=== PATIENT | male | born 1945 | race Caucasian/White ===

== ENCOUNTER → 2021-07-08 10:24 | Outpatient (BNVA) | payer MEDICARE, SELFPAY | PROVIDERS: PCP Internal Medicine; Visit Provider Surgery Vascular Surgery | DX: I73.9 Peripheral vascular disease, unspecified (principal) | CPT/HCPCS: 99202 ==

== ENCOUNTER 2021-08-04 13:19 | Outpatient (REF) | payer MEDICARE, SELFPAY ==
--- NOTE | ~2021-08-04 | US_ITS ---
EXAMINATION: US NON-INVASIVE ASSESSMENT OF THE ARTERIES OF BOTH LOWER EXTREMITIES WITH PVR EXAM AND LOWER EXTREMITY DUPLEX, BILATERAL CLINICAL INFORMATION: Peripheral vascular disease. COMPARISON: None TECHNIQUE: Ankle pulse volume recordings, ankle pressure measurements and ankle brachial indices were obtained of the lower extremity arterial system bilaterally. Additionally, duplex Doppler techniques were used with wave form analysis and measurement of velocities in the common femoral, profunda femoral, superficial femoral, popliteal and tibial arteries. The study was performed only at rest. FINDINGS: ANKLE-BRACHIAL INDEX: Right: 1.09, though unreliable given ankle pressures greater than 200 mmHg. Left: 1.09, though unreliable given ankle pressures greater than 200 mmHg. PVR WAVEFORM: Right: Dampened. Left: Dampened. DIRECT DUPLEX DOPPLER FINDINGS: RIGHT LEG: Common femoral artery: 278 cm/s, diastolic flow reversal: Yes. Profunda femoris artery: 289 cm/s, diastolic flow reversal: Yes. Superficial femoral artery (proximal): 211 cm/s, diastolic flow reversal: No. Superficial femoral artery (mid): 98.5 cm/s, diastolic flow reversal: No. Superficial femoral artery (distal): 89.1 cm/s, diastolic flow reversal: No. Popliteal artery: 182 cm/s, diastolic flow reversal: No. Posterior tibial artery: 61.3 cm/s, diastolic flow reversal: No. Peroneal artery: 21.6 cm/s, diastolic flow reversal: No. LEFT LEG: Common femoral artery: 190 cm/s, diastolic flow reversal: No. Profunda femoris artery: 105 cm/s, diastolic flow reversal: No. Superficial femoral artery (proximal): 149 cm/s, diastolic flow reversal: No. Superficial femoral artery (mid): 76.2 cm/s, diastolic flow reversal: No. Superficial femoral artery (distal): 48.3 cm/s, diastolic flow reversal: No. Popliteal artery: Appears focally occluded. Posterior tibial artery: 80.9 cm/s, diastolic flow reversal: No. Peroneal artery: Not visualized/occluded US/US arterial duplex LE BI IMPRESSION: 1. Right Leg: JT 1.09, though unreliable given elevated ankle pressures. Duplex ultrasound reveals elevated velocities within the common femoral and proximal superficial femoral artery consistent with moderate stenoses. Color flow images of the popliteal artery suggest a proximal occlusion with distal reconstitution. Monophasic waveforms are demonstrated throughout the leg. 2. Left Leg: JT 1.09, though unreliable given elevated ankle pressures. Duplex ultrasound reveals monophasic waveforms throughout the left lower extremity suggesting inflow stenosis. The left popliteal artery appears focally occluded as does the proximal left posterior tibial artery. No flow is definitely seen within the peroneal artery. 3. Consider further evaluation with lower extremity runoff. JT Reference: - >0.97-1.25 = normal - no significant arterial disease. - 0.75-0.96 = mild peripheral arterial disease. - 0.5-0.74 = moderate peripheral arterial disease. - <0.50 = severe peripheral arterial disease.
== END 2021-08-04 13:20 | disposition home or self-care (01) ==
LOC: HO.US 13:19
PROVIDERS: PCP Internal Medicine; Visit Provider Surgery Vascular Surgery
DX: I73.9 Peripheral vascular disease, unspecified (principal)
CPT/HCPCS: 93923; 93925

== ENCOUNTER → 2021-08-10 13:10 | Outpatient (BNVA) | payer MEDICARE, SELFPAY | PROVIDERS: PCP Internal Medicine; Visit Provider Surgery Vascular Surgery | DX: I73.9 Peripheral vascular disease, unspecified (principal) | CPT/HCPCS: 99212 ==

== ENCOUNTER 2022-03-03 12:48 | Outpatient (REF) | payer MEDICARE, OTHER, SELFPAY ==
--- NOTE | ~2022-03-03 | US_ITS ---
EXAMINATION: NONINVASIVE ASSESSMENT OF THE ARTERIES OF BOTH LOWER EXTREMITIES WITH PVR EXAM AND BILATERAL LOWER EXTREMITY DUPLEX Viola Alford MD CLINICAL INFORMATION: Peripheral vascular disease TECHNIQUE: Ankle pulse volume recordings, ankle pressure measurements and ankle brachial indices were obtained of the lower extremity arterial system bilaterally in addition to duplex Doppler techniques with wave form analysis and measurement of velocities in the common femoral, profunda femoral, superficial femoral, popliteal and tibial arteries. The study was performed only at rest. COMPARISON: Noninvasive arterial evaluation on 03/31/2016 FINDINGS: a) AT REST: RIGHT LE. The right ankle-brachial index is: 1.14 * >0.97-1.25 = normal - no significant arterial disease * 0.75-0.96 = mild peripheral arterial disease * 0.5-0.74 = moderate peripheral arterial disease * <0.50 = severe peripheral arterial disease 2. Right ankle pressure: Elevated 3. Right ankle PVR waveform: Abnormal 4. Right direct duplex Doppler findings: Common femoral artery: 355 cm/s, Multiphasic Profunda femoris artery: 90 cm/s, Multiphasic Superficial femoral artery (proximal): 173 cm/s, Multiphasic Superficial femoral artery (mid): 91 cm/s, Multiphasic Superficial femoral artery (distal): 76 cm/s, Multiphasic Proximal Popliteal artery: 39 cm/s, Multiphasic Mid posterior tibial artery: 90 cm/s, Multiphasic LEFT LE. The left ankle-brachial index is: 0.64 * >0.97-1.25 = normal - no significant arterial disease * 0.75-0.96 = mild peripheral arterial disease * 0.5-0.74 = moderate peripheral arterial disease * <0.50 = severe peripheral arterial disease 2. Left ankle pressure: Abnormal 3. Left ankle PVR waveform: Abnormal 4. Left direct duplex Doppler findings: Common femoral artery: 192 cm/s, Multiphasic Profunda femoris artery: 70 cm/s, Multiphasic Superficial femoral artery (proximal): 131 cm/s, Multiphasic Superficial femoral artery (mid): 78 cm/s, Multiphasic Superficial femoral artery (distal): 56 cm/s, monophasic Proximal Popliteal artery: 12 cm/s, monophasic Mid posterior tibial artery: 99 cm/s, monophasic US/US arterial duplex LE BI IMPRESSION: RIGHT LEG: Elevated velocities in the right common femoral artery without atherosclerotic calcification suggesting moderate stenosis. Additional scattered areas of mild stenosis throughout the right lower extremity. Elevated right ankle pressures and JT suggests atherosclerotic calcification. LEFT LEG: Evidence of moderate peripheral arterial disease throughout the left lower extremity..
== END 2022-03-03 12:49 | disposition home or self-care (01) ==
LOC: HO.US 12:48
PROVIDERS: PCP Internal Medicine; Visit Provider Surgery Vascular Surgery
DX: I73.9 Peripheral vascular disease, unspecified (principal)
CPT/HCPCS: 93923; 93925

== ENCOUNTER → 2022-03-22 14:23 | Outpatient (BNVA) | payer MEDICARE, SELFPAY | PROVIDERS: PCP Internal Medicine; Visit Provider Surgery Vascular Surgery | DX: I73.9 Peripheral vascular disease, unspecified (principal); G25.81 Restless legs syndrome | CPT/HCPCS: 99212 ==

== ENCOUNTER 2022-08-22 15:10 | Outpatient (REF) | payer MEDICARE, SELFPAY ==
--- NOTE | ~2022-08-22 | XR_ITS ---
EXAMINATION: XR CHEST CLINICAL INFORMATION: Cough. Shortness of breath. COMPARISON: 01/28/2015 TECHNIQUE: 2 views of the chest were obtained. FINDINGS: The lungs are moderately expanded. There is diffuse coarsening of the interstitial markings. There are multifocal infiltrates. No pleural effusion. Cardiac silhouette is unchanged. XR/XR chest 2V IMPRESSION: Multifocal pneumonia. Follow-up until resolution is advised.
== END 2022-08-22 15:11 | disposition home or self-care (01) ==
LOC: HO.HMGCX 15:10
PROVIDERS: PCP Internal Medicine; Visit Provider Internal Medicine
DX: R05.9 Cough, unspecified (principal); R06.02 Shortness of breath
CPT/HCPCS: 71046

== ENCOUNTER 2022-08-26 08:57 | Outpatient (REF) | payer MEDICARE, OTHER, SELFPAY ==
--- NOTE | ~2022-08-26 | XR_ITS ---
EXAMINATION: XR CHEST CLINICAL INFORMATION: Cough. Follow-up pneumonia. COMPARISON: 08/22/2022 and 01/28/2015 TECHNIQUE: 2 views of the chest were obtained. FINDINGS: The lungs are moderately expanded. There has been progression of coarsening of the interstitial markings. No significant pleural effusion. Cardiac silhouette is unchanged. XR/XR chest 2V IMPRESSION: Possible worsening pneumonia.
== END 2022-08-26 08:58 | disposition home or self-care (01) ==
LOC: HO.HMGCX 08:57
PROVIDERS: PCP Internal Medicine; Visit Provider Internal Medicine
DX: R05.9 Cough, unspecified (principal)
CPT/HCPCS: 71046

== ENCOUNTER 2022-09-01 09:39 | Outpatient (REF) | payer MEDICARE, SELFPAY ==
--- NOTE | ~2022-09-01 | XR_ITS ---
EXAMINATION: XR CHEST CLINICAL INFORMATION: Pneumonia previous x-ray. COMPARISON: 08/26/2022, 08/22/2022 and 01/01/[address] scan dated 10/23/2019. TECHNIQUE: 2 views of the chest were obtained. FINDINGS: The lungs are clear. There are no pleural effusions. The heart and mediastinal structures are unremarkable. Old healed right rib fractures are again noted. XR/XR chest 2V IMPRESSION: No acute cardiopulmonary process.
== END 2022-09-01 09:40 | disposition home or self-care (01) ==
LOC: HO.HMGCX 09:39
PROVIDERS: PCP Internal Medicine; Visit Provider Internal Medicine
DX: J18.9 Pneumonia, unspecified organism (principal)
CPT/HCPCS: 71046

== ENCOUNTER 2022-09-17 09:45 | Outpatient (REF) | payer MEDICARE, OTHER, SELFPAY ==
--- NOTE | ~2022-09-17 | XR_ITS ---
EXAMINATION: XR CHEST CLINICAL INFORMATION: Cough, follow-up pneumonia COMPARISON: 09/01/2022 TECHNIQUE: 2 views of the chest were obtained. FINDINGS: The cardiomediastinal silhouette is stable. Some streaky basilar opacities, right greater than left without dense consolidation. No pleural effusion or pneumothorax. Old right-sided rib fractures. XR/XR chest 2V IMPRESSION: Streaky basilar opacities favor atelectasis. No dense consolidation.
== END 2022-09-17 09:46 | disposition home or self-care (01) ==
LOC: HO.HMGCX 09:45
PROVIDERS: PCP Internal Medicine; Visit Provider Internal Medicine
DX: R05.9 Cough, unspecified (principal)
CPT/HCPCS: 71046

== ENCOUNTER → 2022-09-22 12:56 | Outpatient (REF) | payer MEDICARE, OTHER, SELFPAY ==
--- NOTE | 2022-09-22 12:59 | CA_ITS ---
Transthoracic Echocardiogram Patient (Last, First, Middle): Ilir Mitchell L Gender: Male Date of : 1945 Age: 77 Procedure Date: 09/22/2022 Procedure Type: Transthoracic Echocardiogram Location: OP Height: 172.72 cm Weight: 81.65 kg BSA: 1.95 m2 Heart Rate: 62 bpm BP: 148 / 82 mmHg Clearing Distribution Clerk: SB Referring MD: Josiah Verduzco MD Symptoms: SOB, R/O CHF Study Quality: Adequate ECG Rhythm: Undetermined Conclusions: - The left ventricular systolic function is moderately decreased. The calculated ejection fraction is 36% by biplane method. - There is severe septal and severe basal asymmetric hypertrophy. - There is moderate calcification of the aortic valve. There is mild aortic valve regurgitation. - There is moderate mitral annular calcification. There is mild to moderate mitral valve regurgitation. - There is mild dilatation of the ascending aorta measuring 4.00 cm. Findings Left Ventricle Normal left ventricular cavity size. There is moderately increased left ventricular wall thickness. The left ventricular systolic function is moderately decreased. The calculated ejection fraction is 36% by biplane method. Diastolic function is indeterminate on the basis of available data. There is severe septal and severe basal asymmetric hypertrophy. Right Ventricle Normal right ventricular cavity size. There is mildly decreased right ventricular systolic function. Atria The left atrium is moderately dilated. The right atrium is normal in size. Aortic Valve There is moderate calcification of the aortic valve. There is no aortic valve stenosis. There is mild aortic valve regurgitation. Mitral Valve There is moderate mitral annular calcification. There is mild to moderate mitral valve regurgitation. There is no mitral valve stenosis. Pulmonic Valve The pulmonic valve is likely normal. Tricuspid Valve Normal tricuspid valve structure. There is mild tricuspid valve regurgitation. There is no evidence of pulmonary hypertension. Great Vessels There is mild dilatation of the ascending aorta measuring 4.00 cm. Venous The inferior vena cava is normal in size. Pericardium/Pleural There is a trivial pericardial effusion. Prior Study Comparison Changes noted compared to prior study dated: 04/02/2018. Decrease in LVEF. Measurements 2D Linear Measurements IVSd: 1.30 0.6-0.9/0.6-1.0 cm LVIDd: 5.10 3.9-5.3/4.2-5.9 cm LVIDd Index: 2.62 2.4-3.2/2.2-3.1 cm/m2 LVIDs: 4.40 2.0-3.6 cm LVPWd: 1.20 0.7-1.1 cm LA Diam: 5.40 2.7-3.8/3.0-4.0 cm LAIDs Index: 2.77 1.5-2.3 cm/m2 LV Mass: 318.58 67-162/88-224 g LV Mass Index: 163.37 43-95/49-115 g/m2 LVOT Diam: 2.30 3.0+(-)1.3 cm 2D Systolic Function EF 4C: 42.10 >55% EF 2C: 29.30 >55% EF BiP: 36.40 >55% Mitral Valve MR Vol - PW Dopp: 31.72 MR VTI: 2.44 MR ERO: 13.00 MR Alias Zbigniew: 0.39 MR RAD: 0.60 Aortic Valve AoV Pk Zbigniew: 2.13 AoV Mn Zbigniew: 1.39 AoV VTI: 0.41 AoV Pk Grad: 18.00 Aov Mn Grad: 9.00 MITZI Cont.VTI: 2.09 AI Pk Zbigniew: 4.91 AI Wilkinson: 3.08 LVOT LVOT Pk Zbigniew: 1.04 LVOT Mn Zbigniew: 0.67 LVOT VTI: 0.21 LVOT Pk Grad: 4.00 LVOT Mn Grad: 2.00 LVOT Diam: 2.30 LVOT Area: 4.15 Right Ventricle TAPSE (mm): 18.30 TVS' Zbigniew: 9.70 Tricuspid Valve TR Pk Zbigniew: 2.65 TR Pk Grad: 28.00 RA Press: 3.00 RVSP: 31.00 Great Vessels Aorta Sinus of Valsalva: 3.10 2.0-3.5 cm Ao Asc: 4.00 2.1-3.4 cm Pulmonary Valve PV Pk Zbigniew: 0.78 Peak PV Grad: 2.00 Updated in Other Vendor System with Status of Final Gallo Paez MD electronically signed on 09/22/2022 4:21:57 PM with status of Final
== END ==
LOC: HO.CARD 12:56
PROVIDERS: PCP Internal Medicine; Visit Provider Internal Medicine
DX: R06.02 Shortness of breath (principal)
CPT/HCPCS: 93306

== ENCOUNTER → 2022-09-22 12:59 | Outpatient (BNV) | payer MEDICARE, SELFPAY | PROVIDERS: PCP Internal Medicine; Visit Provider Internal Medicine | DX: I35.8 Other nonrheumatic aortic valve disorders (principal); I34.0 Nonrheumatic mitral (valve) insufficiency | CPT/HCPCS: 93306 ==

== ENCOUNTER 2023-03-04 10:05 | Outpatient (REF) | payer MEDICARE, OTHER, SELFPAY | END 2023-03-04 10:06 | disposition home or self-care (01) | LOC: HO.HMGCX 10:05 | PROVIDERS: PCP Internal Medicine; Visit Provider Internal Medicine | DX: M54.50 Low back pain, unspecified (principal) | CPT/HCPCS: 72100 ==

== ENCOUNTER 2023-05-02 12:07 | Emergency (ER) | payer MEDICARE, OTHER, SELFPAY ==
--- NOTE | ~2023-05-02 | XR_ITS ---
EXAMINATION: XR CHEST 2 VIEWS CLINICAL INFORMATION: Low oxygen saturation level. COMPARISON: Chest radiographs dated 09/17/2022. TECHNIQUE: Frontal and lateral views of the chest were obtained. FINDINGS: There is stable cardiomegaly. There is pulmonary vascular congestion, without overt pulmonary edema. There is moderate elevation of the right hemidiaphragm, increased from 09/17/2022. No new infiltrate, effusion or pneumothorax is seen. No acute osseous abnormality. XR/XR chest 2V IMPRESSION: 1. There is cardiomegaly. There is pulmonary vascular congestion, without overt pulmonary edema. 2. No focal infiltrate is seen. 3. There is moderate elevation of the right hemidiaphragm.
--- NOTE | ~2023-05-02 | CT_ITS ---
EXAMINATION: CT HEAD WITHOUT CONTRAST CLINICAL INFORMATION: Altered mental status, hallucinations. COMPARISON: CT head 10/08/2014. TECHNIQUE: Contiguous axial imaging was performed from the skull base to vertex without intravenous administration of contrast. This CT examination was performed using dose optimization techniques as appropriate, variously including the following: *Automated exposure control *Adjustment of mA and/or kV according to patient size (this includes techniques or standardized protocols for targeted exams where dose is matched to indication/reason for exam; i.e. extremities or head) *Use of iterative reconstruction technique DLP: 742 mGy-cm FINDINGS: There is no evidence of acute intracranial hemorrhage or edematous territorial infarction. Scattered hypoattenuation in the periventricular and deep white matter are consistent with moderate microangiopathy. Beatty-white matter differentiation is preserved. Proportional prominence of the ventricles and sulcal spaces. No evidence for obstructive hydrocephalus. No abnormal mass effect or midline shift. No extra-axial fluid collections. No acute soft tissue or osseous abnormalities. The mastoid air cells and paranasal sinuses are clear. CT/CT head/brain wo IV con IMPRESSION: 1. No evidence of acute intracranial hemorrhage or edematous territorial infarction. 2. Chronic microangiopathy and generalized cerebral volume loss.
[2023-05-02 12:11] VITALS: BP 135/77; PULSE 63; RESP 18; TEMP 36.6; O2SAT 92; BMI 27.4
--- NOTE | 2023-05-02 13:24 | ECG_ITS ---
Test Reason : WEAKNESS Blood Pressure : / mmHG Vent. Rate : 063 BPM Atrial Rate : 063 BPM P-R Int : 338 ms QRS Dur : 108 ms QT Int : 456 ms P-R-T Axes : 017 -41 139 degrees QTc Int : 466 ms Sinus rhythm with 1st degree A-V block Left axis deviation Non-specific intra-ventricular conduction block Left ventricular hypertrophy with repolarization abnormality ( R in aVL , [employer] product ) Abnormal ECG When compared with ECG of 28-JAN-2015 15:20, ND interval has increased Intra-ventricular conduction delay present with prolonged AV conduction Referred By: Tyrese Torres Electronically Signed By:TYRESE HUNT
--- NOTE | 2023-05-02 13:27 | ED_ITS ---
HPI - General Adult General Chief complaint: Psychiatric Symptoms Stated complaint: AUDITORY/VISUAL HALLUCINATIONS PER EMS Time Seen by Provider: 05/02/23 13:05 History of Present Illness HPI narrative: The patient is a 77-year-old male who lives at home with his nephew. The patient is a . His about 6 years ago. Apparently his nephew is also a . The patient has had problems with bad dreams ever since his . Over the last few days however he has also had daytime hallucinations about his . This morning for example he describes seeing his in his bed next to him. He tried to touch her but could not. Apparently this has been happening for the past few days and today his nephew called his PCP who advised the patient to come to the emergency room for evaluation. The nephew then called an ambulance and he was brought here. The patient was seen at his PCP's office on Monday. Apparently he was prescribed an antibiotic because of some small wounds on his legs. The patient denies any fevers, sweats, chills. He denies any dysuria, urgency, frequency. Related Data Home Medications Medication Instructions Recorded Confirmed allopurinol 300 mg tablet 300 mg PO DAILY 07/08/21 05/02/23 folic acid 1 mg tablet 1 mg PO DAILY 07/08/21 05/02/23 levothyroxine 25 mcg tablet 25 mcg PO QAM 07/08/21 05/02/23 losartan 100 mg tablet 100 mg PO DAILY 07/08/21 05/02/23 metformin 500 mg tablet 500 mg PO BID 07/08/21 05/02/23 metoprolol tartrate 100 mg tablet 100 mg PO BID 07/08/21 05/02/23 omeprazole 40 mg capsule,delayed 40 mg PO DAILY 07/08/21 05/02/23 release prednisone 5 mg tablet 5 mg PO DAILY 07/08/21 05/02/23 pyridoxine (vitamin B6) 50 mg 50 mg PO DAILY 07/08/21 05/02/23 tablet rosuvastatin 20 mg tablet 20 mg PO DAILY 07/08/21 05/02/23 thiamine HCl (vitamin B1) 100 mg 100 mg PO DAILY 07/08/21 05/02/23 tablet apremilast 30 mg tablet (Otezla) 30 mg PO BID 05/02/23 clonazepam 1 mg tablet 1 mg PO BEDTIME 05/02/23 05/02/23 hydralazine 50 mg tablet 50 mg PO BID 05/02/23 05/02/23 loratadine 10 mg tablet (Allergy 10 mg PO DAILY 05/02/23 05/02/23 Relief (loratadine)) naproxen 500 mg tablet 500 mg PO BID Pain 05/02/23 05/02/23 nicotine 21 mg/24 hr daily 1 patch transdermal DAILY PRN 05/02/23 05/02/23 transdermal patch Nicotine Cravings Allergies Allergy/AdvReac Type Severity Reaction Status Date / Time CRANBERRY JUICE Allergy Unknown DIARRHEA Uncoded 03/22/22 14:33 Review of Systems 2 Review of Systems: Yes all other systems are reviewed and are negative [facility] Past Medical History Medical History CKD (chronic kidney disease), stage III COPD (chronic obstructive pulmonary disease) Dyslipidemia GERD (gastroesophageal reflux disease) Gout History of underactive thyroid HTN (hypertension) Thrombocytosis Surgical History S/P balloon dilatation of esophageal stricture Social History Social History (Updated 03/22/22 @ 14:33 by JOHANNA Curtis) Patient Tobacco Use Status: Current everyday Tobacco user Smoking Start Date: 05/17/1960 Cigarettes Per Day: 4 Smoked in Last 30 Days: Yes Use of substances other than those prescribed or required for medical reasons: No Advance Directives: No Advance Directives Information Provided: Yes Physical Exam ED Vital Signs: Vital Signs - 24 hr 05/02/23 12:11 05/02/23 14:55 05/02/23 17:33 Temperature 97.8 F 97.6 F Pulse Rate 63 63 61 Respiratory Rate 18 14 14 Blood Pressure 135/77 138/86 111/85 Pulse Oximetry 92 94 94 Oxygen Delivery Method Room Air Room Air Room Air 05/02/23 20:22 Temperature Pulse Rate 63 Respiratory Rate 16 Blood Pressure 147/86 H Pulse Oximetry 93 Oxygen Delivery Method Room Air BMI result Body Mass Index 27.4 Const Other: The patient is a chronically ill-appearing 77-year-old. He looks quite frail. He looks chronically ill but not obviously acutely ill. HENMT Other: Mucous membranes look quite dry. Eyes Other: Pupils are round equal, conjunctivae are clear, extraocular movements intact Neck Neck: Yes no JVD Resp Effort & Inspection: normal respiratory effort Auscultation: clear to auscultation bilaterally Cardio Rate: regular rate Rhythm: regular rhythm Heart sounds: S1 normal heart sound present and S2 normal heart sound present GI Other: Abdomen is soft and nontender. Skin Other: The patient has a lot of areas of ecchymoses to his extremities. Also multiple small scabbed areas on his shins. No definite confluent erythema to suggest cellulitis. Neuro Other: The patient is awake and alert. He is pleasant and cooperative. He has a somewhat vague demeanor but seems reasonably well oriented and seems to have a fairly clear mental status. Face is symmetrical. Speech is without face or dysarthria. He moves his extremities symmetrically. He seems frail and deconditioned but without a focal neurological deficit. Extrem Other: No calf swelling or tenderness. Medications Administered Generic Name Dose Route Start Last Admin Trade Name Freq PRN Reason Stop Dose Admin Cephalexin HCl 500 mg 05/02/23 18:15 05/02/23 19:45 Cephalexin 500 Mg Capsule PO 500 mg BID KASHIF Administration Clonazepam 1 mg 05/02/23 21:10 05/02/23 22:06 Clonazepam 1 Mg Tablet PO 1 mg BEDTIME KASHIF Administration Hydralazine HCl 50 mg 05/02/23 21:10 05/02/23 22:06 Hydralazine Hcl 50 Mg Tablet PO 50 mg BID KASHIF Administration Protocol Metformin HCl 500 mg 05/02/23 21:10 05/02/23 22:06 Metformin Hcl 500 Mg Tablet PO 500 mg BID KASHIF Administration Metoprolol Tartrate 100 mg 05/02/23 21:10 05/02/23 22:06 Metoprolol Tartrate 100 Mg Tablet PO 100 mg BID KASHIF Administration Protocol Discontinued Medications Generic Name Dose Route Start Last Admin Trade Name Freq PRN Reason Stop Dose Admin Sodium Chloride 1,000 mls @ 999 mls/hr 05/02/23 14:45 05/02/23 16:30 Ns IV 05/02/23 15:45 Infused .Q1H1M KASHIF Infusion Medical Decision Making Medical Decision Making [facility] Narrative: The patient is a very pleasant 77-year-old who comes to the emergency room primarily because of recent hallucinations. Clinically the patient looks somewhat dehydrated. His vital signs are stable. His labs show creatinine of 1.82 with a BUN of 23. We do not have old labs here for comparison. I was able to obtain old laboratory values from the patient's primary care doctor's office. On 11/23/2022 the patient had a creatinine of 1.81 with a BUN of 25 2 weeks ago on 04/18/2023 he had a creatinine of 1.9 with a BUN of 16. The patient's renal function today is therefore not remarkably different from recent lab values from his PCP's office. The patient was given a L of IV normal saline is clinically he seemed dry. I was surprised that his proBNP came back significantly elevated at 4352. On further review of records he had a transthoracic echocardiogram on 09/22/2022 which showed an ejection fraction of 36%. His troponin is normal. Chest x-ray was read as showing signs of pulmonary vascular congestion without gage pulmonary edema. The patient's urinalysis came back mildly abnormal potentially consistent with a UTI although the patient does not have symptoms of dysuria or other symptoms of UTI (he says he has had UTI in the last year or 2 and he does not feel he has the same symptoms today). Overall I think the patient is probably at his medical baseline. I suspect his hallucinations are probably not related to an acute medical process. Nevertheless we will treat him empirically on cephalexin pending the results of his urine culture. Otherwise I think the patient is medically stable and clear for a psychiatric evaluation. A care team consult has been placed. I spoke to the patient's nephew, Ramiro Cool, with whom the patient lives, at telephone [phone]. He said that the patient has been hallucinating since Monday. He says that the patient has been hallucinating about his did . The nephew also says the patient has hallucinated that other women have been with them in the apartment. The nephew says the patient has been taking his medications in a very chaotic manner. The nephew says that he might be able to list his sister to help manage the patient's medications when the patient comes home. Additionally the nephew says that the patient has made some comments potentially indicating some paranoia such as the patient is saying that the nephew might kill him (the patient) if he does not give the nephew money for groceries. Lab Data 05/02/23 13:30 05/02/23 13:30 Labs: Lab Results 05/02/23 05/02/23 Range/Units 13:30 16:28 WBC 7.3 (4.8-10.8) X10*3/uL RBC 4.76 (4.60-5.80) X10*6/uL Hgb 11.5 L (14.0-18.0) g/dl Hct 39.0 L (42.0-52.0) % MCV 81.9 (80.0-98.0) fL MCH 24.2 L (27.0-33.0) pg MCHC 29.5 L (31.0-36.0) g/dl RDW 18.6 H (11.0-16.0) % Plt Count 186 (160-400) X10*3/uL MPV 10.8 (9.4-12.4) fL Immature Gran % (Auto) 0.4 (0.0-0.4) % Neut % (Auto) 76.9 H (45-73) % Lymph % (Auto) 9.8 L (20-40) % [place] % (Auto) 11.3 H (2-11) % Eos % (Auto) 1.1 (0-4) % Baso % (Auto) 0.5 (0-2) % Lymph # (Auto) 0.7 L (1.2-4.9) X10*3/uL [place] # (Auto) 0.8 (0.1-1.2) X10*3/uL Eos # (Auto) 0.1 (0.0-0.4) X10*3/uL Baso # (Auto) 0.0 (0.0-0.2) X10*3/uL Abs Immat Gran (auto) 0.03 (0.00-0.03) X10*3/uL Absolute Neuts (auto) 5.6 (2.0-8.3) x10*3/uL Absolute Nucleated RBC 0.000 (0.0-0.012) X10*3/uL Nucleated RBC % (auto) 0.0 (0.0-0.2) /100WBC PT 12.5 (11.1-13.3) SEC INR 1.0 (0.9-1.1) Sodium 142 (135-145) mmol/L Potassium 5.6 H (3.3-5.1) mmol/L Chloride 111 H (96-108) mmol/L Carbon Dioxide 26 (22-29) mmol/L Anion Gap 11 L (12-20) BUN 23 H (9-16) mg/dL Creatinine 1.82 H (0.5-1.4) mg/dL Estim Creat Clear Calc 33.4 Estimated GFR 36 Random Glucose 103 (60-115) mg/dL Calcium 9.5 (8.4-10.2) mg/dL Magnesium 1.6 (1.6-2.6) mg/dL Total Bilirubin 0.5 (0.0-1.0) mg/dL Direct Bilirubin 0.2 (0.0-0.5) mg/dL AST 26 (5-37) U/L ALT 13 (0-40) U/L Alkaline Phosphatase 111 (39-117) U/L Troponin I High Sens 15.7 (<3.5-35.0) ng/L C-Reactive Protein 1.07 H (< or = 0.50) mg/dL B-Natriuretic Peptide 4352 H (<100) pg/mL Total Protein 6.4 L (6.5-8.0) g/dL Albumin 3.4 L (3.5-5.0) g/dL Urine Color Yellow Urine Appearance Clear Urine pH 8.0 (5.0-9.0) Ur Specific [place] 1.020 (1.005-1.025) Urine Protein 100 (2+) H (Neg-Trace) mg/dL Urine Glucose (UA) Negative (Negative) mg/dL Urine Ketones Negative (Negative) mg/dL Urine Blood Negative (Negative) Urine Nitrite Negative (Negative) Ur Leukocyte Esterase Trace H (Negative) Urine RBC 0-2 (0-2) /HPF Urine WBC 21-50 H (0-5) /HPF Ur Squamous Epith Cells 0-2 (0-2) /HPF Urine Bacteria None Seen (None Seen) Hyaline Casts 0-2 (0-2) /LPF Salicylates < 5.0 L (15-30) mg/dL Urine Opiates Screen Not Detected (Not Detect) Urine Fentanyl Screen Not Detected (Not Detect) Acetaminophen < 3 (<30) mcg/mL Ur Barbiturates Screen Not Detected (Not Detect) Ur Phencyclidine Scrn Not Detected (Not Detect) Ur Amphetamines Screen Not Detected (Not Detect) U Benzodiazepines Scrn Not Detected (Not Detect) Urine Cocaine Screen Not Detected (Not Detect) U Marijuana (THC) Screen Not Detected (Not Detect) Ethyl Alcohol < 10 mg/dL COVID-19 (MANUEL) Negative (Negative) COVID-19 Clin Com See Note Independent Interpretation I performed an independent interpretation of an: EKG Interpretation: EKG at 14:51 shows sinus rhythm with a first-degree AV block at 63 beats per minute. There is left axis deviation. There is an incomplete right bundle branch block. There is evidence of LVH. Last EKG was in 2014. EKG today is fairly similar. Discharge Plan Discharge Clinical Impression: Hallucinations Patient Disposition: Still a Patient Prescriptions: No Action clonazepam 1 mg tablet 1 mg PO BEDTIME hydralazine 50 mg tablet 50 mg PO BID loratadine [Allergy Relief (loratadine)] 10 mg tablet 10 mg PO DAILY naproxen 500 mg tablet 500 mg PO BID Otezla 30 mg Tablet 30 mg PO BID nicotine 21 mg/24 hr Patch 24 Hour 1 patch TRANSDERMAL DAILY PRN (Reason: Nicotine Cravings) rosuvastatin 20 mg tablet 20 mg PO DAILY losartan 100 mg tablet 100 mg PO DAILY allopurinol 300 mg tablet 300 mg PO DAILY folic acid 1 mg tablet 1 mg PO DAILY pyridoxine (vitamin B6) 50 mg tablet 50 mg PO DAILY levothyroxine 25 mcg tablet 25 mcg PO QAM omeprazole 40 mg capsule,delayed release(DR/EC) 40 mg PO DAILY prednisone 5 mg tablet 5 mg PO DAILY thiamine HCl (vitamin B1) 100 mg tablet 100 mg PO DAILY metformin 500 mg tablet 500 mg PO BID metoprolol tartrate 100 mg tablet 100 mg PO BID Interventions: [place]-Suicide Risk Severity Scale Last Done: 05/02/23 12:30
[2023-05-02 13:36] LABS: MANUAL DIFF FLAG NO
[2023-05-02 13:40] LABS: Basophils Percent Auto 0.5 % (0-2); Eosinophils Absolute Auto 0.1 X10*3/uL (0.0-0.4); Eosinophils Percent Auto 1.1 % (0-4); Hemoglobin 11.5 g/dl (14.0-18.0); Imm Gran Abs Auto 0.03 X10*3/uL (0.00-0.03); Imm Gran Pct Auto 0.4 % (0.0-0.4); Lymphocytes Absolute Auto 0.7 X10*3/uL (1.2-4.9); Lymphocytes Percent Auto 9.8 % (20-40); Mean Corpuscular HGB Conc 29.5 g/dl (31.0-36.0); Mean Corpuscular Hemoglobin 24.2 pg (27.0-33.0); Mean Corpuscular Volume 81.9 fL (80.0-98.0); Mean Platelet Volume 10.8 fL (9.4-12.4); Monocytes Absolute Auto 0.8 X10*3/uL (0.1-1.2); Monocytes Percent Auto 11.3 % (2-11); Neutrophils Absolute Auto 5.6 x10*3/uL (2.0-8.3); Neutrophils Percent Auto 76.9 % (45-73); Platelet Count 186 X10*3/uL (160-400); Red Blood Count 4.76 X10*6/uL (4.60-5.80); Red Cell Distribution Width 18.6 % (11.0-16.0); White Blood Count 7.3 X10*3/uL (4.8-10.8)
[2023-05-02 13:44] LABS: Prothrombin Time 12.5 SEC (11.1-13.3)
[2023-05-02 13:50] LABS: COVID-19 Test Negative (Negative); Ethanol < 10 mg/dL; IDNOW Serial# 08D9AD1C
[2023-05-02 13:51] LABS: Anion Gap 11 (12-20); Blood Urea Nitrogen 23 mg/dL (9-16); Calcium 9.5 mg/dL (8.4-10.2); Carbon Dioxide 26 mmol/L (22-29); Chloride 111 mmol/L (96-108); Creatinine Clr Calc Pharmacy 33.4; Estimated Glomerular Filt Rate 36; Glucose Random 103 mg/dL (60-115); Potassium 5.6 mmol/L (3.3-5.1); Sodium 142 mmol/L (135-145)
[2023-05-02 13:52] LABS: Alanine Aminotransferase 13 U/L (0-40); Albumin Level 3.4 g/dL (3.5-5.0); Alkaline Phosphatase 111 U/L (39-117); Aspartate Amino Transferase 26 U/L (5-37); Bilirubin Direct 0.2 mg/dL (0.0-0.5); Bilirubin Total 0.5 mg/dL (0.0-1.0); C Reactive Protein 1.07 mg/dL (< or = 0.50); Magnesium 1.6 mg/dL (1.6-2.6); Total Protein 6.4 g/dL (6.5-8.0)
[2023-05-02 14:09] LABS: Acetaminophen LAB < 3 mcg/mL (<30); Salicylate < 5.0 mg/dL (15-30)
[2023-05-02 14:55] VITALS: BP 138/86; PULSE 63; RESP 14; TEMP 36.4; O2SAT 94
[2023-05-02] MEDS: 0.9 % Sodium Chloride 1,000 ML 999 ML IV (15:05)
[2023-05-02 15:27] LABS: Troponin-I High Sensitivity 15.7 ng/L (<3.5-35.0)
[2023-05-02 15:33] LABS: B Type Natriuretic Peptide 4352 pg/mL (<100)
[2023-05-02 16:41] LABS: Appearance Urine Clear; Color Urine Yellow; Glucose Urine UA Negative (Negative); Leukocyte Esterase Urine Trace (Negative); Nitrite Urine Negative (Negative); UMIC TRIGGER UACC YES; Urine Blood Negative (Negative); Urine Ketones Negative (Negative); Urine Protein 100 (2+) mg/dL (Neg-Trace)
[2023-05-02 16:45] LABS: Amphetamine Screen Urine Not Detected (Not Detect); Barbiturates, Urine Not Detected (Not Detect); Benzodiazepines Screen Urine Not Detected (Not Detect); Cannabinoid Screen Urine Not Detected (Not Detect); Cocaine Screen Urine Not Detected (Not Detect); Fentanyl, urine Not Detected (Not Detect); Opiate Screen Urine Not Detected (Not Detect); Phencyclidine Screen Urine Not Detected (Not Detect)
[2023-05-02 16:46] LABS: Bacteria Urine None Seen (None Seen); Hyaline Casts Urine 0-2 /LPF (0-2); RBC Urine 0-2 /HPF (0-2); Squamous Epithelial Cell Urine 0-2 /HPF (0-2); UACC Culture Trigger YES; WBC Urine 21-50 /HPF (0-5)
--- NOTE | 2023-05-02 17:15 | PHA.MEDREC ---
Addendum entered by Dayana Lopez [facility] 05/02/23 17:25: Per PDMP, Amiben has not been filled since 05/17/21 and not on provider list therefore removed. Otelza is on list from provider and is a speciality medications for psorais therefore most likely not filled at his local [facility]. Patient's nephew did not seem too sure on medications. If it can be confirm on the future med will need to be brought in for patient Original Note: Pharmacy Consult ? Medication Reconciliation Pharmacy has completed the medication reconciliation. Confirmed medications with a list brought from home and claim history. Called nephew and he confirmed that patient does take Zolpidem prn to sleep but there is no recent claim history. He also confirmed that patient does not use Albuterol inhaler. Otezla 30mg is on his list (notated that insurance does not cover it) but not on the claim history.
[2023-05-02 17:33] VITALS: BP 111/85; PULSE 61; RESP 14; O2SAT 94
--- NOTE | 2023-05-02 17:57 | PC.NURSE ---
ELIJAH PIPING BLOCKER PHONE # [phone]
--- NOTE | 2023-05-02 17:58 | PC.NURSE ---
PER DIRECTOR OF VOCATIONAL GUIDANCE ELIJAH, PT STARTED HAVING MORE DIFFICULTY WALKING OVER THE PAST 4 MONTHS, USES A CANE AT HOME.
[2023-05-02] MEDS: cephALEXin 500 MG CAPSULE PO (19:45)
[2023-05-02 20:22] VITALS: BP 147/86; PULSE 63; RESP 16; O2SAT 93
[2023-05-02] MEDS: Metoprolol Tartrate 100 MG TABLET PO (22:06)
[2023-05-02] MEDS: hydrALAZINE HCl 50 MG TABLET PO (22:06)
[2023-05-02] MEDS: metFORMIN HCl 500 MG TABLET PO (22:06)
[2023-05-02] MEDS: clonazePAM 1 MG TABLET PO (22:06)
[2023-05-02 22:17] VITALS: BP 125/86; PULSE 71; RESP 20; O2SAT 93
--- NOTE | 2023-05-02 22:26 | PC.NURSE ---
PT REQUIRING 1-ASSIST WITH WALKER TO AMBULATE TO RESTROOM. A&OX2 AT THIS TIME. CAN RESPOND TO MOST QUESTIONS APPROPRIATELY, AND MAKE NEEDS KNOWN. NIGHT RXS ADMINISTERED, PT REQUESTING NICOTINE PATCH.
--- NOTE | 2023-05-02 23:32 | PC.NURSE ---
This RN took over pt care @ 3970. Pt ca&ox3, no signs of distress. Pt sitting up in bed. Pt advised not to attempt to get out of bed without assistance. Plan of care ongoing.
[2023-05-03] MEDS: Nicotine 21 MG PATCH.TD24 TRANSDERMA (00:04)
--- NOTE | 2023-05-03 00:06 | PC.NURSE ---
Pt medicated per may. Plan of care ongoing.
[2023-05-03 04:16] VITALS: BP 135/62; PULSE 97; RESP 20; O2SAT 98
[2023-05-03] MEDS: Omeprazole 40 MG CAPSULE.DR PO (05:55)
[2023-05-03] MEDS: Levothyroxine Sodium 25 MCG TABLET PO (05:55)
--- NOTE | 2023-05-03 05:58 | PC.NURSE ---
Pt medicated per may. Plan of care ongoing.
--- NOTE | 2023-05-03 07:36 | MHC.CM.ED ---
Received case management consult overnight. Care Team consult also ordered. Will make sure patient is cleared by Care Team before assessed by Case Management. Continue to monitor for d/c needs.
[2023-05-03 08:10] VITALS: BP 115/57; PULSE 58; O2SAT 94
--- NOTE | 2023-05-03 08:49 | PC.NURSE ---
nad, eating breakfast now and talking with CARE team
--- NOTE | 2023-05-03 09:25 | PC.NURSE ---
care team at bedside talking w pt - sitting at side of bed. ate breakfast. no distress.
[2023-05-03 09:37] VITALS: BP 174/74; PULSE 52; RESP 12; TEMP 36.4; O2SAT 94
[2023-05-03 10:40] VITALS: BP 136/77; PULSE 63
--- NOTE | 2023-05-03 10:43 | PC.NURSE ---
med sandra'd vit b from dalia tee.
[2023-05-03] MEDS: Atorvastatin Calcium 80 MG TABLET PO (10:47)
[2023-05-03] MEDS: Thiamine HCL 100 MG TABLET PO (10:47)
[2023-05-03] MEDS: allopurinoL 300 MG TABLET PO (10:47)
[2023-05-03] MEDS: predniSONE 5 MG TABLET PO (10:47)
[2023-05-03] MEDS: metFORMIN HCl 500 MG TABLET PO (10:47)
[2023-05-03] MEDS: Losartan Potassium 50 MG TABLET 100 MG PO (10:47)
[2023-05-03] MEDS: Loratadine 10 MG TABLET PO (10:47)
[2023-05-03] MEDS: Folic Acid 1 MG TABLET PO (10:47)
[2023-05-03] MEDS: cephALEXin 500 MG CAPSULE PO (10:48)
[2023-05-03] MEDS: Metoprolol Tartrate 100 MG TABLET PO (10:48)
[2023-05-03] MEDS: hydrALAZINE HCl 50 MG TABLET PO (10:48)
--- NOTE | 2023-05-03 10:58 | PC.NURSE ---
care team at bedside, d/c instructions being reviewed.
[2023-05-03] MEDS: Pyridoxine HCl (Vitamin B6) 50 MG TABLET PO (11:07)
--- NOTE | 2023-05-03 11:09 | MHC.CM.ED ---
Patient has been cleared by Care Team. [facility] has been arranged for patient by CM to help with medication compliance. Also rent referral to [facility] to see if patient would qualify for any additional services. Continue to monitor for d/c needs.
== END 2023-05-03 11:40 | disposition home or self-care (01) ==
PROVIDERS: Emergency Provider Emergency Medicine; PCP Internal Medicine
DX: S81.812A Laceration without foreign body, left lower leg, initial encounter (principal); S81.811A Laceration without foreign body, right lower leg, initial encounter; R44.0 Auditory hallucinations; E86.0 Dehydration; I44.0 Atrioventricular block, first degree; F17.200 Nicotine dependence, unspecified, uncomplicated; R94.31 Abnormal electrocardiogram [ECG] [EKG]; R41.82 Altered mental status, unspecified; R06.02 Shortness of breath; X58.XXXA Exposure to other specified factors, initial encounter; Y93.9 Activity, unspecified; Y92.9 Unspecified place or not applicable; Y99.9 Unspecified external cause status; Z11.52 Encounter for screening for COVID-19; Z79.899 Other long term (current) drug therapy
CPT/HCPCS: 36415; 70450; 71046; 80048; 80076; 80143; 80179; 80307; 81001; 83735; 83880; 84484; 85025; 85610; 86140; 87086; 87635; 93005; 96360; 99285; S9485

== ENCOUNTER → 2023-05-02 13:24 | Outpatient (BNV) | payer MEDICARE, SELFPAY | PROVIDERS: Emergency Provider Emergency Medicine; PCP Internal Medicine; Visit Provider Internal Medicine | DX: I44.0 Atrioventricular block, first degree (principal); R94.31 Abnormal electrocardiogram [ECG] [EKG] | CPT/HCPCS: 93010 ==

== ENCOUNTER 2023-07-26 16:58 | Inpatient (IN) | payer MEDICARE, SELFPAY ==
--- NOTE | ~2023-07-26 | US_ITS ---
PROCEDURE: Ultrasound-guided left thoracentesis History: Left pleural effusion Specimen: A sample of pleural fluid was sent for analysis Access: 5 Danish Yueh catheter Medications: 10 mL 1% lidocaine TECHNIQUE/FINDINGS Appropriate preprocedural clinical history and imaging studies were reviewed. The patient was brought to the department and placed in the seated position. Ultrasound images of the left thorax were obtained to localize a large pleural effusion. Permanent ultrasound images were saved. Risks and benefits and possible complications were discussed with the patient's healthcare proxy and consent form was signed. An area of the patient's left back was prepped and draped in usual sterile fashion. 10 mL of 1% lidocaine was used to obtain local anesthesia of the skin and deeper tissues. A standard small bore needle was introduced to sample pleural fluid and demonstrate a safe access route. A 5 Danish Yueh catheter was then used to access the pleural cavity. 900 ml of non-clotting, blood tinged fluid was removed passively. The catheter was then removed. A dressing was applied. A postprocedure chest x-ray will be performed and will be dictated separately. There were no immediate complications. The procedure was performed by Lex Bartlett PA-C and supervised by Dr. Gibbs US/US thoracentesis Impression: Ultrasound-guided left thoracentesis
--- NOTE | ~2023-07-26 | XR_ITS ---
EXAMINATION: XR CHEST CLINICAL INFORMATION: Wheezing and shortness of breath COMPARISON: 05/02/2023 TECHNIQUE: Frontal view of the chest was obtained. FINDINGS: There is mild cardiac enlargement. There is increased density seen in the retrocardiac region with obscuration of the left hemidiaphragm and a small left pleural effusion. There is some right basilar atelectasis. There is mild pulmonary vascular congestion centrally. XR/XR chest 1V IMPRESSION: 1. Cardiomegaly with mild pulmonary vascular congestion. 2. Left lower lobe infiltrate with small left pleural effusion.
--- NOTE | ~2023-07-26 | US_ITS ---
EXAMINATION: NONINVASIVE ASSESSMENT OF THE ARTERIES OF BOTH LOWER EXTREMITIES Keon Bustos MD CLINICAL INFORMATION: Nonhealing wounds with weak pedal pulses TECHNIQUE: Bilateral lower extremity duplex ultrasound was performed with velocity measurements and waveform analysis in the common femoral arteries, profunda femoris arteries, proximal mid and distal superficial femoral arteries, popliteal arteries and tibial vessels. This study was performed only at rest. COMPARISON: 03/03/2022 FINDINGS: Velocities in cm/sec and phasicity as well as the presence of plaque are reported below. RIGHT LEG: Scattered moderate plaque is present. Common Femoral: 343 velocities elevated but a definite stenosis is not seen. Triphasic flow Profunda Femoris: 281 there is a proximal stenosis with monophasic flow distally Proximal SFA: 235 heavily calcified Mid SFA: 81 calcified Distal SFA: 93 heavily calcified Popliteal: Occluded versus severely calcified and stenotic. Collaterals are noted. Posterior tibial: 52 monophasic Peroneal: 28 monophasic Anterior tibial artery: 26 monophasic LEFT LEG: Common Femoral: 167 triphasic Profunda Femoris: 111 triphasic Proximal SFA: 131 moderate calcium biphasic flow Mid SFA: 13 some calcium with biphasic flow Distal SFA: 89 collaterals are seen. Popliteal: Occluded versus severely calcified Posterior tibial: 39 monophasic Peroneal: 35 monophasic Anterior tibial: 35 monophasic Dorsalis pedis: 35 monophasic US/US arterial duplex LE BI IMPRESSION: 1. There is bilateral popliteal artery occlusion versus severe stenosis with collaterals seen. 2. There is a proximal right profunda femoris stenosis. 3. There is a proximal right SFA stenosis. 4. There is a left SFA stenosis. 5. There is bilateral three-vessel runoff with monophasic flow.
--- NOTE | ~2023-07-26 | CT_ITS ---
EXAMINATION: CT head/brain wo IV con CLINICAL INFORMATION: ams COMPARISON: CT head 05/02/2023 TECHNIQUE: Contiguous axial imaging was performed from the skull base to vertex without intravenous contrast. This CT examination was performed using dose optimization techniques as appropriate, variously including the following: * Automated exposure control * Adjustment of mA and/or kV according to patient size (this includes techniques or standardized protocols for targeted exams where dose is matched to indication/reason for exam; i.e. extremities or head) * Use of iterative reconstruction technique DLP: 1048 mGy-cm. FINDINGS: There is no evidence of acute intracranial hemorrhage or territorial infarction. Beatty to white matter differentiation is well preserved. No abnormal mass effect or midline shift is seen. No extra-axial fluid collections are identified. No hydrocephalus. Bilateral basal ganglia chronic lacunar infarcts. Right basal ganglia mineralizations, as before. Proportional prominence of the ventricles and sulcal spaces is consistent with moderate volume loss. Patchy periventricular and deep white matter hypoattenuation is consistent with moderate small vessel ischemic changes. The cerebellar tonsils are well positioned. No acute osseous or soft tissue abnormality. Visualized portions of the orbits are unremarkable. The mastoid air cells and visualized portions of the paranasal sinuses are well aerated. CT/CT head/brain wo IV con IMPRESSION: 1. No acute intracranial pathology. 2. Stable chronic changes as described above.
--- NOTE | ~2023-07-26 | XR_ITS ---
EXAMINATION: XR CHEST CLINICAL INFORMATION: Shortness of breath. COMPARISON: Chest radiograph dated 07/26/2023. TECHNIQUE: Frontal view of the chest was obtained. FINDINGS: The study is limited secondary to low lung volumes. The lung apices are obscured by the patient's chin. Cardiac size is stable. There is a grossly stable right lower lobe opacity. An infectious/inflammatory etiology is suspected. There is a left pleural effusion. There is no pneumothorax. No acute osseous abnormality. XR/XR chest 1V IMPRESSION: Low lung volumes limit examination. There is a stable right lower lobe opacity for which an infectious/inflammatory process is suspected. There is a small left pleural effusion.
--- NOTE | ~2023-07-26 | XR_ITS ---
EXAMINATION: XR CHEST CLINICAL INFORMATION: Status post left thoracentesis COMPARISON: 07/30/2023 TECHNIQUE: Frontal view of the chest was obtained. FINDINGS: No pneumothorax. Small residual atelectasis and effusion left base. Bilateral interstitial infiltrates are noted, as was seen on the prior study. Heart size mildly enlarged with slight distention of the pulmonary vessels. XR/XR chest 1V IMPRESSION: Definite decrease in the left pleural effusion with only a small residual density at the left base remaining.
--- NOTE | ~2023-07-26 | XR_ITS ---
EXAMINATION: BILATERAL TIBIA AND FIBULA CLINICAL INFORMATION: Cellulitis with purulent skin ulcers and question of osteomyelitis COMPARISON: None available. TECHNIQUE: 2 views each tib-fib. FINDINGS: No fracture or bony destructive lesions seen. There is increased cortical thickening and periosteal reaction involving the mid fibula bilaterally, left greater than right. Vascular calcifications are noted bilaterally, left greater than right. XR/XR tibia fibula RT 2V IMPRESSION: 1. No evidence of osteomyelitis. 2. Increased cortical thickening and periosteal reaction involving the mid fibula bilaterally, left greater than right.
--- NOTE | ~2023-07-26 | XR_ITS ---
EXAMINATION: XR CHEST CLINICAL INFORMATION: Decreased breath sounds COMPARISON: CT chest from 07/28/2023, chest radiograph from mo 07/23 TECHNIQUE: Frontal view of the chest was obtained. FINDINGS: Moderate to large left pleural effusion with compressive atelectasis. Underlying infectious/inflammatory etiology not excluded. Accentuation of pulmonary vasculature. Bilateral low lung volumes. No pneumothorax. Trachea is midline. Cardiac mediastinal silhouette is incompletely evaluated. Degenerative changes of the thoracolumbar spine. Soft tissues are unremarkable. XR/XR chest 1V IMPRESSION: 1. Moderate to large left pleural effusion with compressive atelectasis. 2. Underlying infectious/inflammatory etiology not excluded. 3. Accentuation of pulmonary vasculature. 4. Bilateral low lung volumes.
--- NOTE | ~2023-07-26 | CT_ITS ---
EXAMINATION: CT CHEST WITHOUT CONTRAST CLINICAL INFORMATION: Shortness of breath and hypoxia COMPARISON: Chest radiograph 07/28/2023, CT chest 10/23/2019 TECHNIQUE: Multidetector volumetric CT imaging of the chest was done. Axial MIP volume rendering provided. Sagittal and coronal reformatted images were obtained. This CT examination was performed using dose optimization techniques as appropriate, variously including the following: *Automated exposure control *Adjustment of mA and/or kV according to patient size (this includes techniques or standardized protocols for targeted exams where dose is matched to indication/reason for exam; i.e. extremities or head) *Use of iterative reconstruction technique DLP: 208 mGy-cm FINDINGS: LUNGS AND PLEURA: A moderate to large left pleural effusion is seen and a small right pleural effusion is present. There is bibasilar compressive atelectasis seen, left greater than right. No lung masses are seen. MEDIASTINUM: The heart is enlarged. No mediastinal or hilar lymphadenopathy seen. The thyroid appears normal. CORONARY ARTERY CALCIFICATION: Marked AXILLA: No lymphadenopathy. UPPER ABDOMEN: A small amount of ascites is visualized. OSSEOUS STRUCTURES: Degenerative changes are present throughout the spine. No bony destructive lesions. CT/CT chest wo IV con IMPRESSION: 1. Bilateral pleural effusions, left greater than right with associated compressive atelectasis. 2. Cardiomegaly. 3. Small amount of ascites. Fleischner guidelines were followed.
--- NOTE | ~2023-07-26 | XR_ITS ---
EXAMINATION: BILATERAL TIBIA AND FIBULA CLINICAL INFORMATION: Cellulitis with purulent skin ulcers and question of osteomyelitis COMPARISON: None available. TECHNIQUE: 2 views each tib-fib. FINDINGS: No fracture or bony destructive lesions seen. There is increased cortical thickening and periosteal reaction involving the mid fibula bilaterally, left greater than right. Vascular calcifications are noted bilaterally, left greater than right. XR/XR tibia fibula LT 2V IMPRESSION: 1. No evidence of osteomyelitis. 2. Increased cortical thickening and periosteal reaction involving the mid fibula bilaterally, left greater than right.
[2023-07-26 17:04] VITALS: BP 112/69; BP 118/62; PULSE 65; PULSE 76; RESP 22; TEMP 36.5; O2SAT 90; O2SAT 92; BMI 29.5
--- NOTE | 2023-07-26 17:09 | ED_ITS ---
HPI - Neuro Symptoms/Deficit General Chief Complaint: General Medical Stated Complaint: WEAKNESS LEG PAIN Time Seen by Provider: 07/26/23 16:59 Source: patient Mode of arrival: EMS Limitations: no limitations History of Present Illness ED Provider: Dr. Abel Bae HPI Narrative: 78-year-old male with a history of chronic kidney disease, COPD, dyslipidemia, GERD, gout, under active thyroid, hypertension, thrombocytosis, peripheral vascular disease, restless leg syndrome who presents emergency department for evaluation of infection to both lower extremities with nonhealing wounds. Patient states that he is taking antibiotics for an infection but is not working. He states that he has visiting nurses 3 times a week that is been changing his dressings to his lower extremities. He states that today, the doctor visited him at home and was concerned that he has a significant infection to both lower extremities therefore he was sent to the emergency department for evaluation. The patient denied fever or chills but states he is feeling fatigued and weak. He states he has had a good appetite he has been eating and drinking well. He has complained of a productive cough times several days. He has shortness of breath but he states this is chronic. He denied chest pain. Related Data Home Medications ?Medication ?Instructions ?Recorded ?Confirmed allopurinol 300 mg tablet 300 mg PO DAILY 07/08/21 05/02/23 folic acid 1 mg tablet 1 mg PO DAILY 07/08/21 05/02/23 levothyroxine 25 mcg tablet 25 mcg PO QAM 07/08/21 05/02/23 losartan 100 mg tablet 100 mg PO DAILY 07/08/21 05/02/23 metformin 500 mg tablet 500 mg PO BID 07/08/21 05/02/23 metoprolol tartrate 100 mg tablet 100 mg PO BID 07/08/21 05/02/23 omeprazole 40 mg capsule,delayed 40 mg PO DAILY 07/08/21 05/02/23 release prednisone 5 mg tablet 5 mg PO DAILY 07/08/21 05/02/23 pyridoxine (vitamin B6) 50 mg 50 mg PO DAILY 07/08/21 05/02/23 tablet rosuvastatin 20 mg tablet 20 mg PO DAILY 07/08/21 05/02/23 thiamine HCl (vitamin B1) 100 mg 100 mg PO DAILY 07/08/21 05/02/23 tablet apremilast 30 mg tablet (Otezla) 30 mg PO BID 05/02/23 clonazepam 1 mg tablet 1 mg PO BEDTIME 05/02/23 05/02/23 hydralazine 50 mg tablet 50 mg PO BID 05/02/23 05/02/23 loratadine 10 mg tablet (Allergy 10 mg PO DAILY 05/02/23 05/02/23 Relief (loratadine)) naproxen 500 mg tablet 500 mg PO BID Pain 05/02/23 05/02/23 nicotine 21 mg/24 hr daily 1 patch transdermal DAILY PRN 05/02/23 05/02/23 transdermal patch Nicotine Cravings Previous Rx's ?Medication ?Instructions ?Recorded cephalexin 500 mg tablet 500 mg PO BID 10 days #20 tabs 05/03/23 Allergies Allergy/AdvReac Type Severity Reaction Status Date / Time CRANBERRY JUICE Allergy Unknown DIARRHEA Uncoded 07/26/23 17:16 Review of Systems 2 Review of Systems: Yes all other systems are reviewed and are negative [facility] Past Medical History [facility] Narrative: Social history: The patient is . He states he lives at home with his nephew. He does have visiting nurses that check in on him 3 times a day for wound care. Patient smokes a quarter pack of cigarettes per day times 50 years. He denies alcohol use. He denies drug use. Medical History CKD (chronic kidney disease), stage III COPD (chronic obstructive pulmonary disease) Dyslipidemia GERD (gastroesophageal reflux disease) Gout History of underactive thyroid HTN (hypertension) Thrombocytosis Surgical History S/P balloon dilatation of esophageal stricture Social History Social History (Updated 03/22/22 @ 14:33 by JOHANNA Curtis) Patient Tobacco Use Status: Current everyday Tobacco user Smoking Start Date: 05/17/1960 Cigarettes Per Day: 4 Smoked in Last 30 Days: Yes Use of substances other than those prescribed or required for medical reasons: No Advance Directives: No Advance Directives Information Provided: No Do you have a plan to hurt others: No Plan Physical Exam 2 Vital Signs: Vital Signs: Last Vital Signs Temp 97.7 F 07/26/23 17:04 Pulse 64 07/26/23 17:58 Resp 21 H 07/26/23 17:58 BP 112/69 07/26/23 17:04 Pulse Ox 91 L 07/26/23 17:23 O2 Del Method Room Air 07/26/23 17:23 BMI result Body Mass Index 29.5 Vital signs revealed elevated respiratory rate of 24 otherwise unremarkable. Exam: General: Awake, alert in no distress Head: Normocephalic, atraumatic EENT: PERRL, Lids normal, sclera normal, conjunctiva normal, nose normal , ears normal, throat without erythema or exudates Neck: Supple, no adenopathy Lung: Diffuse wheezing and rhonchi, no rales, breath sounds symmetric bilaterally Chest: symmetric movement, nontender Heart: regular rate and rhythm, normal S1, S2 no murmurs or rubs Abdomen: soft, non-tender, nondistended, normal bowel sounds Back: no vertebral tenderness, no CVAT Extremities: Right lower : Patient has erythema from the ankle to 10 cm below the knee, there are 3 chronic appearing ulcers with a soft cicatrix over the ulcers with foul-smelling purulent drainage (see picture below) Left lower: Patient has erythema from the foot to proximally 10 cm below the knee, there are 3 small ulcers with a soft cicatrix over the ulcers with purulent , foul-smelling drainage. Neuro: Awake, alert, oriented, normal speech, cranial nerves intact, moves all extremities symmetrically Psych: Pleasant, cooperative Medications Administered Discontinued Medications Generic Name Dose Route Start Last Admin Trade Name Freq PRN Reason Stop Dose Admin Acetaminophen 975 mg 07/26/23 17:28 07/26/23 18:02 Acetaminophen 325 Mg Tablet PO 07/26/23 17:29 975 mg ONCE ONE Administration Albuterol Sulfate 5 mg/ 0 mg 07/26/23 17:51 07/26/23 17:57 Albuterol/Ipratropium 3 ml INHALE 07/26/23 17:52 7.5 each ONCE ONE Administration Sodium Chloride 1,000 mls @ 999 mls/hr 07/26/23 17:28 07/26/23 18:02 Ns IV 07/26/23 18:28 999 mls/hr .Q1H1M STA Administration Piperacillin Sod/Tazobactam 100 mls @ 200 mls/hr 07/26/23 17:42 07/26/23 18:01 Sod 4.5 gm/ Sodium Chloride IV 07/26/23 18:11 200 mls/hr ONCE ONE Administration Medical Decision Making Medical Decision Making [facility] Narrative: 78-year-old male with a history of chronic kidney disease, COPD, dyslipidemia, GERD, gout, under active thyroid, hypertension, thrombocytosis, peripheral vascular disease, restless leg syndrome who presents emergency department for evaluation of infection to both lower extremities with nonhealing wounds. Patient states he has been treated for infections of his lower extremities for proximally 1-1/2 months, he is currently on an antibiotic and despite this his symptoms have not improved. His doctor did a house call today and was concerned about his wounds and sent him to the emergency department for evaluation. Patient denied fever or chills but he has been feeling fatigued and weak. Vital signs did reveal an elevated respiratory rate otherwise unremarkable. Lung exam revealed diffuse rhonchi and wheezing with no rales. Lower extremities are consistent with cellulitis and nonhealing ulcers with a soft cicatrix and purulent, foul-smelling drainage. Differential diagnosis: ?Includes but is not limited to cellulitis, osteomyelitis, anemia, electrolyte abnormalities, COPD exacerbation, pneumonia Following evaluation was ordered: CBC, CMP, ESR, CRP, lactic acid, PT/INR, PTT, blood cultures x2, chest x-ray, x-ray of the left and right tib fib area to rule out osteomyelitis Patient was initially treated with the following: Zosyn 4.5 g IV, Tylenol 975 mg orally for pain, normal saline x1 L IV, albuterol 7.5 mg with ipratropium 0.5 mg nebulizer x1 Course: 19:07 My interpretation patient's laboratory evaluation as follows: WBC normal 10,400, left shift with 83 neutrophils. Chronic normocytic anemia 9.8 and 33 point 3 with an MCV of 91.7-most likely secondary to his chronic kidney disease. Coags were normal. Sodium elevated 149, potassium elevated 5.4, chloride elevated 113. BUN and creatinine elevated 25 and 1.83-consistent with his chronic kidney disease. CRP elevated 5.22. ESR was elevated 34. Lactic acid was normal at 1.6. Patient's presentation is consistent with cellulitis of lower extremities with necrotic ulcers which most likely need to be debrided. Patient's chest x-ray is concerning for left lower lobe pneumonia as well. I did not see any obvious osteomyelitis on the patient's lower extremity x-rays. I did discuss admission with the covering hospitalist, and the patient will be admitted for further treatment. Admission/Observation Consideration of admission/observation: Escalation of care including admission/observation considered Consult Healthcare Provider Management of the patient was discussed with: Hospitalist Lab Data MDM Lab Attestation statement: I reviewed the patient's lab results. 07/26/23 17:46 07/26/23 18:29 Labs: Lab Results 07/26/23 07/26/23 07/26/23 Range/Units 17:45 17:46 18:29 WBC 10.4 (4.8-10.8) X10*3/uL RBC 3.63 L D (4.60-5.80) X10*6/uL Hgb 9.8 L (14.0-18.0) g/dl Hct 33.3 L (42.0-52.0) % MCV 91.7 (80.0-98.0) fL MCH 27.0 (27.0-33.0) pg MCHC 29.4 L (31.0-36.0) g/dl RDW 28.0 H (11.0-16.0) % Plt Count 239 D (160-400) X10*3/uL MPV 10.8 (9.4-12.4) fL Immature Gran % (Auto) 0.3 (0.0-0.4) % Neut % (Auto) 83.6 H (45-73) % Lymph % (Auto) 4.6 L (20-40) % Blount % (Auto) 8.7 (2-11) % Eos % (Auto) 2.3 (0-4) % Baso % (Auto) 0.5 (0-2) % Lymph # (Auto) 0.5 L (1.2-4.9) X10*3/uL Blount # (Auto) 0.9 (0.1-1.2) X10*3/uL Eos # (Auto) 0.2 (0.0-0.4) X10*3/uL Baso # (Auto) 0.1 (0.0-0.2) X10*3/uL Abs Immat Gran (auto) 0.03 (0.00-0.03) X10*3/uL Absolute Neuts (auto) 8.7 H (2.0-8.3) x10*3/uL Absolute Nucleated RBC 0.000 (0.0-0.012) X10*3/uL Nucleated RBC % (auto) 0.0 (0.0-0.2) /100WBC ESR 34 H (0-15) MM/HR PT 13.9 H (11.1-13.3) SEC INR 1.1 (0.9-1.1) APTT 30.7 (26.0-36.8) SEC Sodium 149 H (135-145) mmol/L Potassium 5.4 H (3.3-5.1) mmol/L Chloride 113 H (96-108) mmol/L Carbon Dioxide 24 (22-29) mmol/L Anion Gap 17 (12-20) BUN 25 H (9-16) mg/dL Creatinine 1.83 H (0.5-1.4) mg/dL Estim Creat Clear Calc 37.6 Estimated GFR 36 Random Glucose 80 (60-115) mg/dL Lactic Acid 1.6 (0.5-2.0) mmol/L Calcium 8.5 D (8.4-10.2) mg/dL Total Bilirubin 0.5 (0.0-1.0) mg/dL AST 25 (5-37) U/L ALT 15 (0-40) U/L Alkaline Phosphatase 115 (39-117) U/L C-Reactive Protein 5.22 H (< or = 0.50) mg/dL Total Protein 5.6 L (6.5-8.0) g/dL Albumin 2.7 L (3.5-5.0) g/dL Independent Interpretation I performed an independent interpretation of an: Plain X-Ray Interpretation: My interpretation of the patient's left and right tib fib two view x-rays is as follows: No acute findings, I do not see any obvious osteomyelitis. Radiology reading is pending My interpretation of the patient's one-view chest x-ray is as follows: Increased interstitial markings consistent with vascular congestion, loss of the left diaphragm consistent with a left lower lobe infiltrate, cardiomegaly. This was compared to an x-ray from 05/02/2023 , where the diaphragm was easily visualized, pulmonary vascular congestion was present and vascular congestion was also present. Critical Care Time Critical Care Time Critical Care Time: Yes Total Critical Care Time: 45 Attestation: Critical Care: The patient was critically ill with a high probability of imminent or life threatening deterioration. I spent greater than 30 minutes of discontinuous time evaluating the patient,delivering critical care at the bedside, discussing and evaluating pertinent data with consultants. Critical care time does not include time spent performing separately billable procedures or teaching. Total time spent performing critical care was 45 minutes. Discharge Plan Discharge Prescriptions: No Action clonazepam 1 mg tablet 1 mg PO BEDTIME hydralazine 50 mg tablet 50 mg PO BID loratadine [Allergy Relief (loratadine)] 10 mg tablet 10 mg PO DAILY naproxen 500 mg tablet 500 mg PO BID Otezla 30 mg Tablet 30 mg PO BID nicotine 21 mg/24 hr Patch 24 Hour 1 patch TRANSDERMAL DAILY PRN (Reason: Nicotine Cravings) cephalexin 500 mg tablet 500 mg PO BID 10 Days Qty: 20 0RF rosuvastatin 20 mg tablet 20 mg PO DAILY losartan 100 mg tablet 100 mg PO DAILY allopurinol 300 mg tablet 300 mg PO DAILY folic acid 1 mg tablet 1 mg PO DAILY pyridoxine (vitamin B6) 50 mg tablet 50 mg PO DAILY levothyroxine 25 mcg tablet 25 mcg PO QAM omeprazole 40 mg capsule,delayed release(DR/EC) 40 mg PO DAILY prednisone 5 mg tablet 5 mg PO DAILY thiamine HCl (vitamin B1) 100 mg tablet 100 mg PO DAILY metformin 500 mg tablet 500 mg PO BID metoprolol tartrate 100 mg tablet 100 mg PO BID Print Language: Grenadian
[2023-07-26 17:23] VITALS: PULSE 65; RESP 24; O2SAT 91
--- NOTE | 2023-07-26 17:47 | PC.NURSE ---
Pt presents from home by ambulance. Came from home for weakness X3 weeks, bilat lower leg wounds that are being treated with PO ABX. Pt took last dose today. Visting nurse sent pt to hospital due to wounds worsening. Bilat lower legs noted to have open ulcers, weeping. Pt denies CP, N/V/D, fevers, ABD pain. Pt does report SOB that worsens with exertion, no home O2, hx of COPD. Alert and oriented, breathing elevated, LS wheezing bilat. Skin dry and pale. Pt reports bilat lower leg pain 08/13.
[2023-07-26 17:54] LABS: MANUAL DIFF FLAG NO
[2023-07-26] MEDS: Albuterol Sulfate 5 MG, Albuterol/Iprat 2.5/0.5MG 3 ML 3 ML INHALE (17:57)
[2023-07-26 17:58] VITALS: PULSE 64; RESP 21; O2SAT 91
[2023-07-26 17:59] LABS: Basophils Absolute Auto 0.1 X10*3/uL (0.0-0.2); Basophils Percent Auto 0.5 % (0-2); Eosinophils Absolute Auto 0.2 X10*3/uL (0.0-0.4); Eosinophils Percent Auto 2.3 % (0-4); Hematocrit 33.3 % (42.0-52.0); Hemoglobin 9.8 g/dl (14.0-18.0); Imm Gran Abs Auto 0.03 X10*3/uL (0.00-0.03); Imm Gran Pct Auto 0.3 % (0.0-0.4); Lymphocytes Absolute Auto 0.5 X10*3/uL (1.2-4.9); Lymphocytes Percent Auto 4.6 % (20-40); Mean Corpuscular HGB Conc 29.4 g/dl (31.0-36.0); Mean Corpuscular Volume 91.7 fL (80.0-98.0); Mean Platelet Volume 10.8 fL (9.4-12.4); Monocytes Absolute Auto 0.9 X10*3/uL (0.1-1.2); Monocytes Percent Auto 8.7 % (2-11); Neutrophils Absolute Auto 8.7 x10*3/uL (2.0-8.3); Neutrophils Percent Auto 83.6 % (45-73); Platelet Count 239 X10*3/uL (160-400); Red Blood Count 3.63 X10*6/uL (4.60-5.80); White Blood Count 10.4 X10*3/uL (4.8-10.8)
[2023-07-26] MEDS: Piperacillin Sodium/Tazobactam 4.5 GM in 0.9 % Sodium Chloride 100 ML IV (18:01)
[2023-07-26] MEDS: Acetaminophen 325 MG TABLET 975 MG PO (18:02)
[2023-07-26] MEDS: 0.9 % Sodium Chloride 1,000 ML 999 ML IV (18:02)
[2023-07-26 18:11] LABS: INTERNATIONAL NORM RATIO 1.1 (0.9-1.1); Prothrombin Time 13.9 SEC (11.1-13.3)
[2023-07-26 18:12] LABS: Lactic Acid 1.6 mmol/L (0.5-2.0)
[2023-07-26 18:13] LABS: Partial Thromboplastin Time 30.7 SEC (26.0-36.8)
[2023-07-26 18:49] LABS: Alanine Aminotransferase 15 U/L (0-40); Albumin Level 2.7 g/dL (3.5-5.0); Alkaline Phosphatase 115 U/L (39-117); Anion Gap 17 (12-20); Aspartate Amino Transferase 25 U/L (5-37); Bilirubin Total 0.5 mg/dL (0.0-1.0); Blood Urea Nitrogen 25 mg/dL (9-16); C Reactive Protein 5.22 mg/dL (< or = 0.50); Calcium 8.5 mg/dL (8.4-10.2); Carbon Dioxide 24 mmol/L (22-29); Chloride 113 mmol/L (96-108); Creatinine Clr Calc Pharmacy 37.6; Estimated Glomerular Filt Rate 36; Glucose Random 80 mg/dL (60-115); Potassium 5.4 mmol/L (3.3-5.1); Sodium 149 mmol/L (135-145); Total Protein 5.6 g/dL (6.5-8.0)
[2023-07-26 19:13] LABS: Erythrocyte Sedimentation Rate 34 MM/HR (0-15)
--- NOTE | 2023-07-26 19:21 | PC.NURSE ---
This RN assumed pt care @ 1900. Pt c&a to person and place, no signs of distress. Pt resting comfortably in bed. Pt denies pain at this time. Plan of care ongoing.
--- NOTE | 2023-07-26 19:59 | PC.NURSE ---
Pt with hospitalist. Per hospitalist pt ok to eat and drink. Per pt never given dinner. Pt to be admitted for IV abx and consult. Plan of care ongoing.
--- NOTE | 2023-07-26 20:20 | PC.NURSE ---
Pt reporting 6/10 leg pain d/t hospitalist touching legs/feet Pts POC 72 Pt given food and drink. Plan of care ongoing.
--- NOTE | 2023-07-26 20:22 | P.HPHOSP_ITS ---
History of Present Illness Date of Service: 07/26/23 Attending physician on admission: Nessa Crenshaw Chief Complaint: non healing wounds 78-year-old male with history of CKD stage 3, COPD, hyperlipidemia, [id number] type 2 diabetes, hypothyroidism, hypertension, hyperlipidemia, peripheral vascular disease, restless legs syndrome presented to the ED earlier today for evaluation of infection and nonhealing wounds of the bilateral lower extremities. He reports the wounds on the anterior aspect of the bilateral lower extremities have been present for several months. He has visiting nurse in the home 3 times a week to change his dressings. He has been on multiple antibiotics including doxycycline, Keflex, and most recently Augmentin without improvement. Today, given lack of improvement and appearance of the wounds, home providers recommended he come to ER for evaluation. He denies any fevers, chills, purulent drainage from the wounds. He does endorse he has also had a productive cough ongoing for about 1 month. He states the antibiotics did initially help with this but the cough has since returned. Denies any abdominal pain, nausea, vomiting, lightheadedness, shortness of breath, wheezing, chest pain. On arrival, patient oximetry 90-91% on RA but no hypoxia. Also mildly tachypneic to 24. There is no leukocytosis. He is stable normocytic anemia with H/H 9.8/33.3%. Renal function baseline. However does have sodium 149, potassium 5.4, chloride 113. Lactic acid 1.6. CRP 5.22, ESR 34. CXR read pending but appears to have LLL/retrocardiac infiltrate (not previously seen on priors). XR tib/fib ble pending.In [facility] ED, given tylenol, albuterol neb, 1L NS, and zosyn. Review of Systems 2 Review of Systems: General: No fevers, malaise, unintentional weight loss HEENT: No blurred vision, diplopia. No sore throat, nasal congestion, rhinorrhea, sinus pain, ear pain Cardiovascular: No chest pain, palpitations, or leg edema Respiratory: +cough. No shortness of breath, wheezing GI: No abdominal pain, nausea, vomiting, diarrhea, constipation, melena, hematochezia : No dysuria, hematuria, increased urinary frequency, decreased urinary output MSK: No myalgia, back pain Neuro: No headaches, weakness, paresthesias Skin: +non healing wounds ble PMFSH Medical History CKD (chronic kidney disease), stage III COPD (chronic obstructive pulmonary disease) Dyslipidemia GERD (gastroesophageal reflux disease) Gout History of underactive thyroid HTN (hypertension) Thrombocytosis Surgical History S/P balloon dilatation of esophageal stricture Social History (Updated 03/22/22 @ 14:33 by JOHANNA Curtis) Patient Tobacco Use Status: Current everyday Tobacco user Smoking Start Date: 05/17/1960 Cigarettes Per Day: 4 Smoked in Last 30 Days: Yes Use of substances other than those prescribed or required for medical reasons: No Advance Directives: No Advance Directives Information Provided: No Do you have a plan to hurt others: No Plan Meds Allergies Allergy/AdvReac Type Severity Reaction Status Date / Time CRANBERRY JUICE Allergy Unknown DIARRHEA Uncoded 07/26/23 17:16 Active Medications: Current Medications Acetaminophen (Acetaminophen 325 Mg Tablet) 650 mg PO Q6H PRN PRN Reason: Pain, Mild (Pain Scale 1-3) Heparin Sodium (Porcine) (Heparin Sodium,Porcine 5,000 Unit/Ml Vial) 5,000 unit SUBCUT Q12H KASHIF Piperacillin Sod/Tazobactam (Sod 4.5 gm/ Sodium Chloride) 100 mls @ 200 mls/hr IV Q8H KASHIF Magnesium Hydroxide (Milk Of Magnesia 30 Ml Oral.Susp) 30 ml PO DAILY PRN PRN Reason: Constipation Ondansetron HCl (Ondansetron Hcl 4 Mg/2 Ml Vial) 4 mg IVPUSH Q8H PRN PRN Reason: Nausea and Vomiting Pharmacy Consult (Consult Rx Vancomycin Dosing) 1 each MISCELLANE DAILY PRN PRN Reason: Consult order Sodium Chloride (0.9 % Sodium Chloride Flush 3 Ml Syringe) 3 ml IVFLUSH [facility]SHIST. [facility] Home Medications ?Medication ?Instructions ?Recorded ?Confirmed ?Last Taken ?Type allopurinol 300 mg tablet 300 mg PO DAILY 07/08/21 05/02/23 Unknown History folic acid 1 mg tablet 1 mg PO DAILY 07/08/21 05/02/23 Unknown History levothyroxine 25 mcg tablet 25 mcg PO QAM 07/08/21 05/02/23 Unknown History losartan 100 mg tablet 100 mg PO DAILY 07/08/21 05/02/23 Unknown History metformin 500 mg tablet 500 mg PO BID 07/08/21 05/02/23 Unknown History metoprolol tartrate 100 mg tablet 100 mg PO BID 07/08/21 05/02/23 Unknown History omeprazole 40 mg capsule,delayed 40 mg PO DAILY 07/08/21 05/02/23 Unknown History release prednisone 5 mg tablet 5 mg PO DAILY 07/08/21 05/02/23 Unknown History pyridoxine (vitamin B6) 50 mg 50 mg PO DAILY 07/08/21 05/02/23 Unknown History tablet rosuvastatin 20 mg tablet 20 mg PO DAILY 07/08/21 05/02/23 Unknown History thiamine HCl (vitamin B1) 100 mg 100 mg PO DAILY 07/08/21 05/02/23 Unknown History tablet apremilast 30 mg tablet (Otezla) 30 mg PO BID 05/02/23 Unknown History clonazepam 1 mg tablet 1 mg PO BEDTIME 05/02/23 05/02/23 Unknown History hydralazine 50 mg tablet 50 mg PO BID 05/02/23 05/02/23 Unknown History loratadine 10 mg tablet (Allergy 10 mg PO DAILY 05/02/23 05/02/23 Unknown History Relief (loratadine)) naproxen 500 mg tablet 500 mg PO BID Pain 05/02/23 05/02/23 Unknown History nicotine 21 mg/24 hr daily 1 patch transdermal DAILY PRN 05/02/23 05/02/23 Unknown History transdermal patch Nicotine Cravings Physical Exam 2 Vital Signs and Narrative: Vital Signs: Last Vital Signs Temp 97.7 F 07/26/23 17:04 Pulse 64 07/26/23 17:58 Resp 21 H 07/26/23 17:58 BP 112/69 07/26/23 17:04 Pulse Ox 91 L 07/26/23 17:23 O2 Del Method Room Air 07/26/23 17:23 BMI result Body Mass Index 29.5 Constitutional - Awake and Alert, No apparent distress Eyes - PERRLA, EOMI Cardiovascular - S1S2, RRR, No edema Respiratory - Normal lung expansion, Normal respiratory effort, No respiratory distress, bll crackles Extremities - no calf tenderness bilaterally, no swelling. Feet somewhat cool but pink with barely palpable pedal pulses Skin - Warm/Dry. Multiple non healing wounds wiht eschar bilateral anterior lower legs with surrounding erythema. Erythema of the LLE extends from foot to posterior thigh Neurological - Alert & oriented x3 Psychological - Appropriate affect Results Labs 07/26/23 17:46 07/26/23 18:29 Labs: Laboratory Results - last 24 hr 07/26/23 07/26/23 07/26/23 17:45 17:46 18:29 MCV 91.7 MCH 27.0 MCHC 29.4 L RDW 28.0 H Plt Count 239 D MPV 10.8 Immature Gran % (Auto) 0.3 Neut % (Auto) 83.6 H Lymph % (Auto) 4.6 L [place] % (Auto) 8.7 Eos % (Auto) 2.3 Baso % (Auto) 0.5 Lymph # (Auto) 0.5 L [place] # (Auto) 0.9 Eos # (Auto) 0.2 Baso # (Auto) 0.1 Abs Immat Gran (auto) 0.03 Absolute Neuts (auto) 8.7 H Absolute Nucleated RBC 0.000 Nucleated RBC % (auto) 0.0 ESR 34 H PT 13.9 H INR 1.1 APTT 30.7 Anion Gap 17 Estim Creat Clear Calc 37.6 Estimated GFR 36 Random Glucose 80 Lactic Acid 1.6 Calcium 8.5 D Total Bilirubin 0.5 AST 25 ALT 15 Alkaline Phosphatase 115 C-Reactive Protein 5.22 H Total Protein 5.6 L Albumin 2.7 L Assessment and Plan (1) Pneumonia: Qualifiers: Laterality: left Lung location: lower lobe of lung Pneumonia type: due to unspecified organism Qualified Code(s): J18.9 - Pneumonia, unspecified organism Status: Acute (2) Bilateral leg ulcer: Qualifiers: Non-pressure ulcer stage: with fat layer exposed Qualified Code(s): L 97.912 - Non-pressure chronic ulcer of unspecified part of right lower leg with fat layer exposed; L97.922 - Non-pressure chronic ulcer of unspecified part of left lower leg with fat layer exposed Status: Acute (3) Bilateral cellulitis of lower leg: Status: Acute (4) PAD (peripheral artery disease): Status: Acute Plan 78-year-old male with history of CKD stage 3, COPD, hyperlipidemia, kac-kngsvcs-eaexdjzyt type 2 diabetes, hypothyroidism, hypertension, hyperlipidemia, peripheral vascular disease, restless legs syndrome admitted for further management of nonhealing wounds to the BLE with cellilitis. #Nonhealing wounds BLE with extensive cellulitis r/t PAD -no leukocytosis, no sepsis -xr b/l tib/fib pending -CRP 5, ESR 32 -IV vanco and Zosyn (initiated 07/25) -bilateral arterial duplex pending -vascular surgery consult -wound care consult -follow cbc/cultures #Possible LLL pneumonia -CXR final read pending -iv vanco/zosyn as above -DuoNebs q.4h p.r.n. -guaifenesin p.r.n. -follow CBC, cultures. Strep pneumo antigen, Legionella antigen, sputum culture, MRSA nasal swab pending\ #Hypernatremia -d5/ 1/2 ns -follow lytes #Hyperkalemia- mild, K 5.4 -IV fluids as above -hold losartan -follow lytes # fwv-skxxoft-bbitfpxsi type 2 diabetes -POC glucose, diabetic diet -Humalog on sliding scale -hold oral antihyperglycemics # COPD -no acute exacerbation -continue maintenance inhalers, albuterol p.r.n. # CKD stage 3 -renal function baseline # hypothyroidism -continue Synthroid # hypertension -continue home meds # hyperlipidemia -continue statin # nicotine dependence -cessation advised -patches for NRT DVT prophylaxis-heparin Full code Patient requires inpatient stay at least 2 midnights for management of nonhealing wounds of the bilateral lower extremities with extensive cellulitis covering greater than 50% of the left lower extremity requiring IV antibiotics, expert consultation, and possible surgical intervention/debridement Quality Stroke Does the patient have a stroke diagnosis?: No VTE Prior VTE?: No VTE Risk Level:: Medical - moderate - high VTE Device Contraindication: Treatment Not Indicated VTE Drug Contraindication: N/A - Med Ordered
[2023-07-26] MEDS: Nicotine 7 MG PATCH.TD24 TRANSDERMA (20:50)
[2023-07-26] MEDS: Heparin Sodium,Porcine 5,000 UNIT/ML VIAL 5000 UNIT SUBCUT (20:50)
[2023-07-26] MEDS: vancomycin/NS 2,000 MG/500 ML PLAST..BAG 250 MG IV (20:51)
--- NOTE | 2023-07-26 20:59 | PHA.PROG ---
Admission Date/Time: July 26, 2023 20:14 Indication: skin Weight in k.628 kg Adjusted body weight in K.671 [place] body weight in Kg: Obesity Dosing Indication % IBW: Serum Creatinine - Last 168 Hours 07/26/23 18:29 Creatinine 1.83 H Estimated CrCl and GFR - Last 168 Hours 07/26/23 18:29 Estim Creat Clear Calc 37.6 Estimated GFR 36 Vancomycin Loading Dose: 2000 Current Vancomycin Dosing Regimen: 1000 Q24H Vancomycin Monitoring using AUC goal of 400 - 600 range with trough as surrogate marker: 495 Date and Time for next Vancomycin Level to be drawn: 07/27 @1900 Pharmacist Comments on Vancomycin Plan: Vancomycin dosing will take advantage of PerfectPost as a clinical decision support tool that uses Bayesian modeling to calculate individual patient's pharmacokinetic parameters and forecast the patient's drug concentration time course with the target goal AUC 24 range of 400 - 600 mg/L/hr.
--- NOTE | 2023-07-26 21:08 | PC.NURSE ---
Pt ca&ax4, no signs of distress. Pt medicated per may. Pt boosted in bed for comfort. Pt requested and given warm blankets. Plan of care ongoing.
--- NOTE | 2023-07-26 21:43 | PHA.MEDREC ---
Pharmacy Consult ? Medication Reconciliation Pharmacy has completed the medication reconciliation. Unable to get full med history from patient, used patient's pharmacy
[2023-07-26] MEDS: Acetaminophen 325 MG TABLET 650 MG PO (22:07)
--- NOTE | 2023-07-26 22:10 | PC.NURSE ---
Pt requested and given tylenol for pain per may. Plan of care ongoing.
[2023-07-26] MEDS: Dextrose 5 % and 0.45 % NaCl 1,000 ML 80 ML IVCONT (23:50)
--- NOTE | 2023-07-26 23:59 | PC.NURSE ---
Pt medicated per may. Pt changed into hospital bed for comfort. Plan of care ongoing.
[2023-07-27] VITALS (10 sets, daily range): BP systolic 132–163; BP diastolic 67–90; PULSE 57–101; RESP 13–19; TEMP 36.3–36.6; O2SAT 95–98
--- NOTE | 2023-07-27 00:32 | PC.NURSE ---
Pt desat to 85% on room air. Pt placed on 2L O2 NC SAT of 95%. Plan of care ongoing.
--- NOTE | 2023-07-27 00:45 | MHC.EDTECH ---
pt had large amount of money on his person and requested to have money locked away in safe with security, pt has $3,764 in [place] which was counted and documented by this Tech and another tech. Safe slip stapled to belongings list and envelope with security in safe.
[2023-07-27] MEDS: Piperacillin Sodium/Tazobactam 4.5 GM in 0.9 % Sodium Chloride 100 ML IV ×3 (02:12→18:39)
--- NOTE | 2023-07-27 02:15 | PC.NURSE ---
Pt medicated per may. Plan of care ongoing.
--- NOTE | 2023-07-27 03:28 | MHC.EDTECH ---
assisted pt to edge of bed to go to the bathroom, pt able to use urinal to void. pt back into bed and in position of comfort and call dunham within reach.
[2023-07-27 06:16] LABS: MANUAL DIFF FLAG NO
[2023-07-27 06:18] LABS: Basophils Absolute Auto 0.1 X10*3/uL (0.0-0.2); Basophils Percent Auto 0.5 % (0-2); Eosinophils Absolute Auto 0.3 X10*3/uL (0.0-0.4); Eosinophils Percent Auto 2.3 % (0-4); Hematocrit 32.7 % (42.0-52.0); Hemoglobin 9.6 g/dl (14.0-18.0); Imm Gran Abs Auto 0.05 X10*3/uL (0.00-0.03); Imm Gran Pct Auto 0.4 % (0.0-0.4); Lymphocytes Absolute Auto 0.4 X10*3/uL (1.2-4.9); Lymphocytes Percent Auto 3.6 % (20-40); Mean Corpuscular HGB Conc 29.4 g/dl (31.0-36.0); Mean Corpuscular Hemoglobin 27.4 pg (27.0-33.0); Mean Corpuscular Volume 93.2 fL (80.0-98.0); Mean Platelet Volume 10.6 fL (9.4-12.4); Monocytes Absolute Auto 0.9 X10*3/uL (0.1-1.2); Monocytes Percent Auto 7.5 % (2-11); Neutrophils Absolute Auto 10.3 x10*3/uL (2.0-8.3); Neutrophils Percent Auto 85.7 % (45-73); Platelet Count 220 X10*3/uL (160-400); Red Blood Count 3.51 X10*6/uL (4.60-5.80)
[2023-07-27] MEDS: Levothyroxine Sodium 25 MCG TABLET PO (06:32)
--- NOTE | 2023-07-27 06:35 | PC.NURSE ---
Pt medicated per may. Plan of care ongoing.
[2023-07-27 06:38] LABS: Anion Gap 17 (12-20); Blood Urea Nitrogen 23 mg/dL (9-16); Calcium 8.2 mg/dL (8.4-10.2); Carbon Dioxide 24 mmol/L (22-29); Chloride 113 mmol/L (96-108); Creatinine Clr Calc Pharmacy 40.2; Estimated Glomerular Filt Rate 39; Glucose Random 113 mg/dL (60-115); Potassium 5.1 mmol/L (3.3-5.1); Sodium 149 mmol/L (135-145)
--- NOTE | 2023-07-27 07:42 | PC.NURSE ---
ASSUMED CARE AT 0700. PT A+O x3, HE DENIES PAIN. PT PULLED UP IN BED AND BREAKFAST GIVEN. NO COMPLAINTS AT THIS TIME.
--- NOTE | 2023-07-27 08:00 | PC.NURSE ---
pt pulled up in bed and given breakfast. iv fluids running, no complaints at this time
[2023-07-27] MEDS: Nicotine 7 MG PATCH.TD24 TRANSDERMA (10:23)
[2023-07-27] MEDS: allopurinoL 300 MG TABLET PO (10:24)
[2023-07-27] MEDS: Silver Sulfadiazine 1 % Cream 20 GM TUBE 1 APPL TOPICAL (10:24)
[2023-07-27] MEDS: Omeprazole 40 MG CAPSULE.DR PO (10:24)
[2023-07-27] MEDS: Folic Acid 1 MG TABLET PO (10:24)
[2023-07-27] MEDS: predniSONE 5 MG TABLET PO (10:26)
[2023-07-27] MEDS: Thiamine HCL 100 MG TABLET PO (10:27)
[2023-07-27] MEDS: Loratadine 10 MG TABLET PO (10:27)
[2023-07-27] MEDS: Heparin Sodium,Porcine 5,000 UNIT/ML VIAL 5000 UNIT SUBCUT ×2 (10:28→21:11)
[2023-07-27 11:41] LABS: MRSA Nasal PCR POSITIVE (Negative); SA Nasal PCR POSITIVE (Negative)
--- NOTE | 2023-07-27 12:06 | MHC.CM.PN ---
PT REPORTS HE LIVES WITH HIS FRIEND AND IS INDEPENDENT WITH CARE HE HAS A CANE AND A WALKER HE USES NEEDED HCP ON FILE PCP: GIL YANG [facility] DELIVERED DCP: HOME NO SERVICES VS WITH [facility]IA PRIVATE TRANSPORT REFERRAL MADE TO [facility] PER DISCUSSION WITH PT
[2023-07-27] MEDS: Dextrose 5 % and 0.45 % NaCl 1,000 ML 80 ML IVCONT (12:57)
--- NOTE | 2023-07-27 13:42 | HO.PM.IMPN ---
Subjective Subjective Date of Service: 07/27/23 Interval History: seen and examined this morning Follow-up for bilateral lower extremity wounds No specific complaints Review of Systems Review of Systems: Yes all other systems are reviewed and are negative Constitutional Constitutional: Denies fever(s) Cardiovascular Cardiovascular: Denies chest pain Gastrointestinal Gastrointestinal: Denies abdominal pain Physical Exam Vital Signs: Vital Signs: Last Vital Signs Temp 97.3 F 07/27/23 07:22 Pulse 61 07/27/23 13:34 Resp 13 07/27/23 13:34 BP 135/76 07/27/23 13:34 Pulse Ox 96 07/27/23 13:34 O2 Del Method Nasal Cannula 07/27/23 13:34 O2 Flow Rate 2 07/27/23 13:34 BMI result Body Mass Index 29.5 Const: General: cooperative, comfortable, alert and awake Nutritional Appearance: average body habitus Orientation/consciousness: patient oriented x3 Resp: Effort & Inspection: normal respiratory effort, able to speak in complete sentences, no respiratory distress and no use of accessory muscles Cardio: Rate: regular rate GI: Inspection: No distended Palpation (GI): Soft to palpation and nontender Skin: Other: left foot right foot Neuro: General: patient oriented x3, moves all extremities and CN's II-XI intact bilaterally Objective Data Active Medications Acetaminophen (Acetaminophen 325 Mg Tablet) 650 mg PO Q6H PRN PRN Reason: Pain, Mild (Pain Scale 1-3) Last Admin: 07/26/23 22:07 Dose: 650 mg Documented By: TASHI Albuterol Sulfate (Albuterol Sulfate 90 Mcg 8 Gm Inhaler) 2 puff INHALE Q3H PRN PRN Reason: Shortness Of Breath Albuterol/Ipratropium (Albuterol/Iprat 2.5/0.5mg 3 Ml Ampul.Neb) 3 ml INHALE RQ4H WHILE AWAKE PRN PRN Reason: shortness of breath/wheezing Allopurinol (Allopurinol 300 Mg Tablet) 300 mg PO DAILY [facility] Last Admin: 07/27/23 10:24 Dose: 300 mg Documented By: AARON Atorvastatin Calcium (Atorvastatin Calcium 80 Mg Tablet) 80 mg PO BEDTIME KASHIF Clonazepam (Clonazepam 1 Mg Tablet) 1 mg PO BEDTIME KASHIF Folic Acid (Folic Acid 1 Mg Tablet) 1 mg PO DAILY [facility] Last Admin: 07/27/23 10:24 Dose: 1 mg Documented By: AARON Glucose (Glucose Gel 15 Gm Gel..Gram.) 15 gm PO Q15M PRN; Protocol PRN Reason: per Hypoglycemia Standing Ord. Guaifenesin (Guaifenesin 200 Mg/10 Ml 10 Ml Liquid) 10 ml PO Q4H PRN PRN Reason: Cough Heparin Sodium (Porcine) (Heparin Sodium,Porcine 5,000 Unit/Ml Vial) 5,000 unit SUBCUT Q12H [facility] Last Admin: 07/27/23 10:28 Dose: 5,000 unit Documented By: AARON Piperacillin Sod/Tazobactam (Sod 4.5 gm/ Sodium Chloride) 100 mls @ 200 mls/hr IV Q8H [facility] Last Infusion: 07/27/23 11:04 Dose: Infused Documented By: AARON Dextrose (D10) 250 mls @ 750 mls/hr IV Q15M PRN; Protocol PRN Reason: per Hypoglycemia Standing Ord. Vancomycin HCl 1,000 mg/ (Sodium Chloride) 270 mls @ 270 mls/hr IV Q24H KASHIF Dextrose (D5w) 1,000 mls @ 80 mls/hr IVCONT .[id number] [facility] Insulin Human Lispro (Insulin Lispro 100 Unit/Ml 3 Ml Vial) 0 unit SUBCUT QIDACHS [facility]; Protocol Last Admin: 07/27/23 07:48 Dose: Not Given Documented By: AARON Non-Admin Reason: No Insulin Coverage Levothyroxine Sodium (Levothyroxine Sodium 25 Mcg Tablet) 25 mcg PO DAILY@0630 [facility] Last Admin: 07/27/23 06:32 Dose: 25 mcg Documented By: TASHI Loratadine (Loratadine 10 Mg Tablet) 10 mg PO DAILY [facility] Last Admin: 07/27/23 10:27 Dose: 10 mg Documented By: AARON Magnesium Hydroxide (Milk Of Magnesia 30 Ml Oral.Susp) 30 ml PO DAILY PRN PRN Reason: Constipation Metoprolol Tartrate (Metoprolol Tartrate 100 Mg Tablet) 100 mg PO BID [facility]; Protocol Last Admin: 07/27/23 10:26 Dose: Not Given Documented By: AARON Non-Admin Reason: Decreased Heart Rate Nicotine (Nicotine 7 Mg Patch.Td24) 7 mg TRANSDERMA DAILY [facility] Last Admin: 07/27/23 10:23 Dose: 7 mg Documented By: AARON Omeprazole (Omeprazole 40 Mg Capsule.Dr) 40 mg PO DAILY [facility] Last Admin: 07/27/23 10:24 Dose: 40 mg Documented By: AARON Ondansetron HCl (Ondansetron Hcl 4 Mg/2 Ml Vial) 4 mg IVPUSH Q8H PRN PRN Reason: Nausea and Vomiting Pharmacy Consult (Consult Rx Vancomycin Dosing) 1 each MISCELLANE DAILY PRN PRN Reason: Consult order Prednisone (Prednisone 5 Mg Tablet) 5 mg PO DAILY [facility] Last Admin: 07/27/23 10:26 Dose: 5 mg Documented By: AARON Pyridoxine HCl (Pyridoxine Hcl (Vitamin B6) 50 Mg Tablet) 50 mg PO DAILY [facility] Last Admin: 07/27/23 11:01 Dose: Not Given Documented By: AARON Non-Admin Reason: Med Not Available Silver Sulfadiazine (Silver Sulfadiazine 1 % Cream 20 Gm Tube) 1 appl TOPICAL DAILY [facility] Last Admin: 07/27/23 10:24 Dose: 1 appl Documented By: AARON Sodium Chloride (0.9 % Sodium Chloride Flush 3 Ml Syringe) 3 ml IVFLUSH QSHIFT [facility] Last Admin: 07/27/23 09:01 Dose: Not Given Documented By: AARON Non-Admin Reason: IV Running Thiamine HCl (Thiamine Hcl 100 Mg Tablet) 100 mg PO DAILY [facility] Last Admin: 07/27/23 10:27 Dose: 100 mg Documented By: AARON Labs 07/27/23 04:24 07/27/23 04:24 Labs: Laboratory Results - last 24 hr 07/26/23 07/26/23 07/26/23 17:45 17:46 18:29 MCV 91.7 MCH 27.0 MCHC 29.4 L RDW 28.0 H Plt Count 239 D MPV 10.8 Immature Gran % (Auto) 0.3 Neut % (Auto) 83.6 H Lymph % (Auto) 4.6 L Glynn % (Auto) 8.7 Eos % (Auto) 2.3 Baso % (Auto) 0.5 Lymph # (Auto) 0.5 L Glynn # (Auto) 0.9 Eos # (Auto) 0.2 Baso # (Auto) 0.1 Abs Immat Gran (auto) 0.03 Absolute Neuts (auto) 8.7 H Absolute Nucleated RBC 0.000 Nucleated RBC % (auto) 0.0 ESR 34 H PT 13.9 H INR 1.1 APTT 30.7 Anion Gap 17 Estim Creat Clear Calc 37.6 Estimated GFR 36 Random Glucose 80 Lactic Acid 1.6 Calcium 8.5 D Total Bilirubin 0.5 AST 25 ALT 15 Alkaline Phosphatase 115 C-Reactive Protein 5.22 H Total Protein 5.6 L Albumin 2.7 L Nasal Screen MRSA (PCR) Nasal S. aureus Screen Nasal MRSA/S.aureus Interp 07/27/23 07/27/23 01:31 04:24 MCV 93.2 MCH 27.4 MCHC 29.4 L RDW 28.0 H Plt Count 220 MPV 10.6 Immature Gran % (Auto) 0.4 Neut % (Auto) 85.7 H Lymph % (Auto) 3.6 L Glynn % (Auto) 7.5 Eos % (Auto) 2.3 Baso % (Auto) 0.5 Lymph # (Auto) 0.4 L Glynn # (Auto) 0.9 Eos # (Auto) 0.3 Baso # (Auto) 0.1 Abs Immat Gran (auto) 0.05 H Absolute Neuts (auto) 10.3 H Absolute Nucleated RBC 0.000 Nucleated RBC % (auto) 0.0 ESR PT INR APTT Anion Gap 17 Estim Creat Clear Calc 40.2 Estimated GFR 39 Random Glucose 113 Lactic Acid Calcium 8.2 L Total Bilirubin AST ALT Alkaline Phosphatase C-Reactive Protein Total Protein Albumin Nasal Screen MRSA (PCR) POSITIVE A Nasal S. aureus Screen POSITIVE A Nasal MRSA/S.aureus Interp SEE NOTE Microbiology Microbiology Results: Microbiology 07/26/23 18:15 Gram Stain - Final Leg Right Routine Culture - Preliminary Culture in progress. 07/26/23 18:14 Gram Stain - Final Leg Left Routine Culture - Preliminary Culture in progress. Assessment and Plan (1) Bilateral leg ulcer: Status: Acute (2) Pneumonia: Status: Acute Plan 78-year-old male with history of CKD stage 3, COPD, hyperlipidemia, [id number] type 2 diabetes, hypothyroidism, hypertension, hyperlipidemia, peripheral vascular disease, restless legs syndrome admitted for further management of nonhealing wounds to the BLE with cellilitis. #Nonhealing wounds BLE with extensive cellulitis r/t PAD no sepsis -CRP 5, ESR 32 -IV vanco and Zosyn (initiated 07/25) -bilateral arterial duplex with bilateral vascular disease -vascular surgery consult pending -wound care consult -blood cultures pending #LLL pneumonia -iv vanco/zosyn as above -DuoNebs q.4h -guaifenesin p.r.n. -follow cultures. Strep pneumo antigen, Legionella antigen, sputum culture, MRSA nasal swab pending #Hypernatremia still high, d5w -follow lytes #Hyperkalemia- mild, K 5.4 resolved -hold losartan # vhn-holdejl-fqoymeiuc type 2 diabetes -POC glucose, diabetic diet -Humalog on sliding scale -hold oral antihyperglycemics # COPD -no acute exacerbation -continue maintenance inhalers, albuterol p.r.n. ?daily prednisone # CKD stage 3 -renal function baseline # hypothyroidism -continue Synthroid # hypertension -continue metoprolol, hold losartan as above # hyperlipidemia -continue statin # nicotine dependence -cessation advised -patches for NRT DVT prophylaxis-heparin Full code Requires ongoing inpatient stay for management of nonhealing wounds of the bilateral lower extremities with extensive cellulitis covering greater than 50% of the left lower extremity requiring IV antibiotics, expert consultation, and possible surgical intervention/debridement Quality Stroke Does the patient have a stroke diagnosis?: No VTE Prior VTE?: No VTE Risk Level:: Medical - moderate - high VTE Device Contraindication: Treatment Not Indicated VTE Drug Contraindication: N/A - Med Ordered
[2023-07-27] MEDS: Dextrose 5 % 1,000 ML 80 ML IVCONT (13:53)
--- NOTE | 2023-07-27 14:52 | PM.CNGS ---
History of Present Illness Consult details Consult date: 07/27/23 Reason for consult: wound care Narrative: Pleasant 78-year-old gentleman actually had seen me nearly a year ago for claudication presents to the hospital with bilateral lower extremity ulcers. Upon workup he was noted to have bilateral lower extremity ulcers along with pneumonia. He was subsequently admitted for workup. Review of Systems Review of Systems: Yes all other systems are reviewed and are negative Constitutional: Constitutional: Reports no additional constitutional complaints ENT: Reports Normal hearing present Cardiovascular: Cardiovascular: Denies chest pain, Denies chest pain at rest, Denies chest pain with activity and Denies pedal edema Respiratory: Respiratory: Denies cough Gastrointestinal: Gastrointestinal: Denies abdominal pain Musculoskeletal: Musculoskeletal: Denies abnormal gait, Denies muscle cramps and Denies radiating pain into limb Integumentary/Breasts: Skin/Breast: Denies skin ulcer and Denies wounds Neurologic: Reports Normal hearing present and Denies abnormal gait Psychiatric: Psychiatric: Reports no additional psychiatric complaints PMFSH Past Medical History Medical History CKD (chronic kidney disease), stage III COPD (chronic obstructive pulmonary disease) Dyslipidemia GERD (gastroesophageal reflux disease) Gout History of underactive thyroid HTN (hypertension) Thrombocytosis Surgical History Surgical History S/P balloon dilatation of esophageal stricture Social History Social History (Updated 03/22/22 @ 14:33 by JOHANNA Curtis) Patient Tobacco Use Status: Current everyday Tobacco user Smoking Start Date: 05/17/1960 Cigarettes Per Day: 4 Smoked in Last 30 Days: Yes Use of substances other than those prescribed or required for medical reasons: No Advance Directives: No Advance Directives Information Provided: No Do you have a plan to hurt others: No Plan service: No Meds Allergies Allergy/AdvReac Type Severity Reaction Status Date / Time CRANBERRY JUICE Allergy Unknown DIARRHEA Uncoded 07/26/23 17:16 Active Medications: Current Medications Acetaminophen (Acetaminophen 325 Mg Tablet) 650 mg PO Q6H PRN PRN Reason: Pain, Mild (Pain Scale 1-3) Last Admin: 07/26/23 22:07 Dose: 650 mg Albuterol Sulfate (Albuterol Sulfate 90 Mcg 8 Gm Inhaler) 2 puff INHALE Q3H PRN PRN Reason: Shortness Of Breath Albuterol/Ipratropium (Albuterol/Iprat 2.5/0.5mg 3 Ml Ampul.Neb) 3 ml INHALE RQ4H WHILE AWAKE [facility] Allopurinol (Allopurinol 300 Mg Tablet) 300 mg PO DAILY [facility] Last Admin: 07/27/23 10:24 Dose: 300 mg Atorvastatin Calcium (Atorvastatin Calcium 80 Mg Tablet) 80 mg PO BEDTIME KASHIF Clonazepam (Clonazepam 1 Mg Tablet) 1 mg PO BEDTIME KASHIF Folic Acid (Folic Acid 1 Mg Tablet) 1 mg PO DAILY [facility] Last Admin: 07/27/23 10:24 Dose: 1 mg Glucose (Glucose Gel 15 Gm Gel..Gram.) 15 gm PO Q15M PRN; Protocol PRN Reason: per Hypoglycemia Standing Ord. Guaifenesin (Guaifenesin 200 Mg/10 Ml 10 Ml Liquid) 10 ml PO Q4H PRN PRN Reason: Cough Heparin Sodium (Porcine) (Heparin Sodium,Porcine 5,000 Unit/Ml Vial) 5,000 unit SUBCUT Q12H [facility] Last Admin: 07/27/23 10:28 Dose: 5,000 unit Piperacillin Sod/Tazobactam (Sod 4.5 gm/ Sodium Chloride) 100 mls @ 200 mls/hr IV Q8H [facility] Last Infusion: 07/27/23 11:04 Dose: Infused Dextrose (D10) 250 mls @ 750 mls/hr IV Q15M PRN; Protocol PRN Reason: per Hypoglycemia Standing Ord. Vancomycin HCl 1,000 mg/ (Sodium Chloride) 270 mls @ 270 mls/hr IV Q24H [facility] Dextrose (D5w) 1,000 mls @ 80 mls/hr IVCONT .[id number] [facility] Last Admin: 07/27/23 13:53 Dose: 80 mls/hr Insulin Human Lispro (Insulin Lispro 100 Unit/Ml 3 Ml Vial) 0 unit SUBCUT QIDACHS [facility]; Protocol Last Admin: 07/27/23 13:43 Dose: Not Given Levothyroxine Sodium (Levothyroxine Sodium 25 Mcg Tablet) 25 mcg PO DAILY@0630 [facility] Last Admin: 07/27/23 06:32 Dose: 25 mcg Loratadine (Loratadine 10 Mg Tablet) 10 mg PO DAILY [facility] Last Admin: 07/27/23 10:27 Dose: 10 mg Magnesium Hydroxide (Milk Of Magnesia 30 Ml Oral.Susp) 30 ml PO DAILY PRN PRN Reason: Constipation Metoprolol Tartrate (Metoprolol Tartrate 100 Mg Tablet) 100 mg PO BID [facility]; Protocol Last Admin: 07/27/23 10:26 Dose: Not Given Nicotine (Nicotine 7 Mg Patch.Td24) 7 mg TRANSDERMA DAILY [facility] Last Admin: 07/27/23 10:23 Dose: 7 mg Omeprazole (Omeprazole 40 Mg Capsule.Dr) 40 mg PO DAILY [facility] Last Admin: 07/27/23 10:24 Dose: 40 mg Ondansetron HCl (Ondansetron Hcl 4 Mg/2 Ml Vial) 4 mg IVPUSH Q8H PRN PRN Reason: Nausea and Vomiting Pharmacy Consult (Consult Rx Vancomycin Dosing) 1 each MISCELLANE DAILY PRN PRN Reason: Consult order Prednisone (Prednisone 5 Mg Tablet) 5 mg PO DAILY [facility] Last Admin: 07/27/23 10:26 Dose: 5 mg Pyridoxine HCl (Pyridoxine Hcl (Vitamin B6) 50 Mg Tablet) 50 mg PO DAILY [facility] Last Admin: 07/27/23 11:01 Dose: Not Given Silver Sulfadiazine (Silver Sulfadiazine 1 % Cream 20 Gm Tube) 1 appl TOPICAL DAILY [facility] Last Admin: 07/27/23 10:24 Dose: 1 appl Sodium Chloride (0.9 % Sodium Chloride Flush 3 Ml Syringe) 3 ml IVFLUSH QSHIFT [facility] Last Admin: 07/27/23 09:01 Dose: Not Given Thiamine HCl (Thiamine Hcl 100 Mg Tablet) 100 mg PO DAILY [facility] Last Admin: 07/27/23 10:27 Dose: 100 mg Home Medications ?Medication ?Instructions ?Recorded ?Confirmed ?Last Taken ?Type allopurinol 300 mg tablet 300 mg PO DAILY 07/08/21 07/26/23 Unknown History folic acid 1 mg tablet 1 mg PO DAILY 07/08/21 07/26/23 Unknown History levothyroxine 25 mcg tablet 25 mcg PO DAILY@0630 07/08/21 07/26/23 Unknown History losartan 100 mg tablet 100 mg PO DAILY 07/08/21 07/26/23 Unknown History metoprolol tartrate 100 mg tablet 100 mg PO BID 07/08/21 07/26/23 Unknown History omeprazole 40 mg capsule,delayed 40 mg PO DAILY 07/08/21 07/26/23 Unknown History release prednisone 5 mg tablet 5 mg PO DAILY 07/08/21 07/26/23 Unknown History pyridoxine (vitamin B6) 50 mg 50 mg PO DAILY 07/08/21 07/26/23 Unknown History tablet rosuvastatin 20 mg tablet 20 mg PO DAILY 07/08/21 07/26/23 Unknown History thiamine HCl (vitamin B1) 100 mg 100 mg PO DAILY 07/08/21 07/26/23 Unknown History tablet clonazepam 1 mg tablet 1 mg PO BEDTIME 05/02/23 07/26/23 Unknown History loratadine 10 mg tablet (Allergy 10 mg PO DAILY 05/02/23 07/26/23 Unknown History Relief (loratadine)) naproxen 500 mg tablet 500 mg PO BID Pain 05/02/23 07/26/23 Unknown History albuterol sulfate 90 mcg/actuation 2 puff inhalation Q3H PRN 07/26/23 07/26/23 Unknown History aerosol inhaler Shortness Of Breath silver sulfadiazine 1 % topical 1 appl topical DAILY 07/26/23 07/26/23 Unknown History cream Physical Exam Vital Signs: Vital Signs: Last Vital Signs Temp 97.3 F 07/27/23 07:22 Pulse 61 07/27/23 13:34 Resp 13 07/27/23 13:34 BP 135/76 07/27/23 13:34 Pulse Ox 96 07/27/23 13:34 O2 Del Method Nasal Cannula 07/27/23 13:34 O2 Flow Rate 2 07/27/23 13:34 BMI result Body Mass Index 29.5 Const: General: cooperative, healthy appearing and comfortable Orientation/consciousness: oriented to person, oriented to place and oriented to time HEENT: Head: Yes normal to inspection Neck: Neck: Yes normal visual inspection Carotids: no bruits Chest: Chest palpation & inspection: normal inspection of the chest Resp: Effort & Inspection: normal respiratory effort and able to speak in complete sentences Auscultation: clear to auscultation bilaterally, no crackles, no rales, no rhonchi and no wheezes Cardio: Other: Bilateral DP signals Rate: regular rate Rhythm: regular rhythm Heart sounds: S1 normal heart sound present and S2 normal heart sound present Bruits: no carotid bruits Peripheral pulses: Peripheral pulses 2+ throughout GI: Inspection: Yes normal to inspection Skin: Other: Bilateral pretibial ulcerations right greater than left. Wounds: no wounds Hair: normal Neuro: General: oriented to person, oriented to place and oriented to time Cranial nerves: Yes CN's II-XII intact bilaterally and Yes Normal hearing present Cognition (Neuro): normal cognition Motor exam (neuro): 5/5 motor strength present throughout Extrem: Other: venous exam: No significant superficial varicosities or spider telangiectasias, minimal edema General: No clubbing, No cyanosis and No edema Psych: Appearance: grossly normal Mental Status: mental status grossly normal Speech and movement: Normal speech and movement present Results Labs 07/27/23 04:24 07/27/23 04:24 Labs: Abnormal lab results 07/26/23 07/26/23 07/27/23 Range/Units 17:46 18:29 01:31 WBC (4.8-10.8) X10*3/uL RBC 3.63 L D (4.60-5.80) X10*6/uL Hgb 9.8 L (14.0-18.0) g/dl Hct 33.3 L (42.0-52.0) % MCHC 29.4 L (31.0-36.0) g/dl RDW 28.0 H (11.0-16.0) % Neut % (Auto) 83.6 H (45-73) % Lymph % (Auto) 4.6 L (20-40) % Lymph # (Auto) 0.5 L (1.2-4.9) X10*3/uL Abs Immat Gran (auto) (0.00-0.03) X10*3/uL Absolute Neuts (auto) 8.7 H (2.0-8.3) x10*3/uL ESR 34 H (0-15) MM/HR PT 13.9 H (11.1-13.3) SEC Sodium 149 H (135-145) mmol/L Potassium 5.4 H (3.3-5.1) mmol/L Chloride 113 H (96-108) mmol/L BUN 25 H (9-16) mg/dL Creatinine 1.83 H (0.5-1.4) mg/dL Calcium (8.4-10.2) mg/dL C-Reactive Protein 5.22 H (< or = 0.50) mg/dL Total Protein 5.6 L (6.5-8.0) g/dL Albumin 2.7 L (3.5-5.0) g/dL Nasal Screen MRSA (PCR) POSITIVE A (Negative) Nasal S. aureus Screen POSITIVE A (Negative) 07/27/23 Range/Units 04:24 WBC 12.0 H (4.8-10.8) X10*3/uL RBC 3.51 L (4.60-5.80) X10*6/uL Hgb 9.6 L (14.0-18.0) g/dl Hct 32.7 L (42.0-52.0) % MCHC 29.4 L (31.0-36.0) g/dl RDW 28.0 H (11.0-16.0) % Neut % (Auto) 85.7 H (45-73) % Lymph % (Auto) 3.6 L (20-40) % Lymph # (Auto) 0.4 L (1.2-4.9) X10*3/uL Abs Immat Gran (auto) 0.05 H (0.00-0.03) X10*3/uL Absolute Neuts (auto) 10.3 H (2.0-8.3) x10*3/uL ESR (0-15) MM/HR PT (11.1-13.3) SEC Sodium 149 H (135-145) mmol/L Potassium (3.3-5.1) mmol/L Chloride 113 H (96-108) mmol/L BUN 23 H (9-16) mg/dL Creatinine 1.71 H (0.5-1.4) mg/dL Calcium 8.2 L (8.4-10.2) mg/dL C-Reactive Protein (< or = 0.50) mg/dL Total Protein (6.5-8.0) g/dL Albumin (3.5-5.0) g/dL Nasal Screen MRSA (PCR) (Negative) Nasal S. aureus Screen (Negative) Short CBC 07/26/23 07/27/23 Range/Units 17:46 04:24 WBC 10.4 12.0 H (4.8-10.8) X10*3/uL Hgb 9.8 L 9.6 L (14.0-18.0) g/dl Hct 33.3 L 32.7 L (42.0-52.0) % Plt Count 239 D 220 (160-400) X10*3/uL BMP 07/26/23 07/27/23 18:29 04:24 Sodium 149 H 149 H Potassium 5.4 H 5.1 Chloride 113 H 113 H Carbon Dioxide 24 24 BUN 25 H 23 H Creatinine 1.83 H 1.71 H Calcium 8.5 D 8.2 L Liver Function 07/26/23 Range/Units 18:29 Total Bilirubin 0.5 (0.0-1.0) mg/dL AST 25 (5-37) U/L ALT 15 (0-40) U/L Alkaline Phosphatase 115 (39-117) U/L Albumin 2.7 L (3.5-5.0) g/dL All other labs normal. Assessment and Plan (1) PAD (peripheral artery disease): Status: Acute Plan In short patient has bilateral nonhealing lower extremity ulcers. I did have an opportunity to review noninvasive arterial testing which did demonstrate significant arterial disease. In order to better elucidate where the blockages are located a CT angiogram would be helpful. Does have baseline renal insufficiency of CKD 3 and may be beneficial to have a nephrology evaluation. In addition I would like the pneumonia to clear up prior to any significant intervention. We will continue to follow this patient with you. Thank you for allowing us to assist in his care. If there are any questions or concerns please do not hesitate to contact us. Procedures Date of Service Date of Service: 07/27/23
[2023-07-27] MEDS: Albuterol/Iprat 2.5/0.5MG 3 ML AMPUL.NEB INHALE ×2 (15:08→18:56)
[2023-07-27 18:31] LABS: Sodium 148 mmol/L (135-145)
[2023-07-27] MEDS: oxyCODONE HCl Immed Release 5 MG TABLET PO (19:47)
--- NOTE | 2023-07-27 19:48 | PC.NURSE ---
medicated per MAR
--- NOTE | 2023-07-27 20:30 | MHC.EDTECH ---
Patient bed pad changed and repositioned
[2023-07-27] MEDS: vancomycin HCL 1,000 MG in 0.9 % Sodium Chloride 250 ML 270 MG IV (21:09)
[2023-07-27] MEDS: Metoprolol Tartrate 100 MG TABLET PO (21:11)
[2023-07-27] MEDS: Atorvastatin Calcium 80 MG TABLET PO (21:20)
[2023-07-27] MEDS: clonazePAM 1 MG TABLET PO (21:21)
--- NOTE | 2023-07-27 23:30 | PC.NURSE ---
Addendum entered by Sergio Lopez RN 07/27/23 23:53: resp therapy in with pt, Original Note: pt reported he was having difficulty breathing, resp therapy notified
[2023-07-28] VITALS (20 sets, daily range): BP systolic 101–185; BP diastolic 60–85; PULSE 60–113; RESP 16–24; TEMP 36–36.9; O2SAT 90–100
--- NOTE | 2023-07-28 00:33 | MHC.EDTECH ---
Per security, Pt money to stay in safe in security office until he is discharged. I made Pt aware of this, he is agreeable to keeping his money locked down here. I also made his floor nurses aware of the situation.
--- NOTE | 2023-07-28 01:57 | PC.NURSE ---
Patient arrived from ED via bed, very drowsy, states did not sleep for 3 days. Very difficult to obtain admission info. Ulceration areas/ cellulitis to both lower legs. Pictures under physician notes from 07/26, wound consult also in place. Effected areas dressed some with xeroform, gauze and all wrapped with kerlix. Safety initiated, call dunham at reach.
[2023-07-28] MEDS: Piperacillin Sodium/Tazobactam 4.5 GM in 0.9 % Sodium Chloride 100 ML IV ×3 (02:18→18:29)
[2023-07-28] MEDS: Dextrose 5 % 1,000 ML 80 ML IVCONT (02:18)
[2023-07-28] MEDS: Levothyroxine Sodium 25 MCG TABLET PO (06:22)
[2023-07-28 06:36] LABS: Glucose, Whole Blood 136 mg/dL (60-115)
[2023-07-28 06:39] LABS: Glucose, Whole Blood 140 mg/dL (60-115)
[2023-07-28 06:44] LABS: Glucose, Whole Blood 117 mg/dL (60-115)
[2023-07-28 06:47] LABS: Glucose, Whole Blood 128 mg/dL (60-115)
[2023-07-28 06:50] LABS: Glucose, Whole Blood 116 mg/dL (60-115)
[2023-07-28 06:51] LABS: Glucose, Whole Blood 72 mg/dL (60-115)
[2023-07-28 07:36] LABS: Anion Gap 14 (12-20); Blood Urea Nitrogen 23 mg/dL (9-16); Calcium 8.1 mg/dL (8.4-10.2); Carbon Dioxide 21 mmol/L (22-29); Chloride 113 mmol/L (96-108); Creatinine Clr Calc Pharmacy 40.2; Estimated Glomerular Filt Rate 39; Glucose Random 107 mg/dL (60-115); Potassium 5.3 mmol/L (3.3-5.1); Sodium 143 mmol/L (135-145)
[2023-07-28] MEDS: Pyridoxine HCl (Vitamin B6) 50 MG TABLET PO (08:15)
[2023-07-28] MEDS: Loratadine 10 MG TABLET PO (08:15)
[2023-07-28] MEDS: Heparin Sodium,Porcine 5,000 UNIT/ML VIAL 5000 UNIT SUBCUT ×2 (08:15→21:32)
[2023-07-28] MEDS: Thiamine HCL 100 MG TABLET PO (08:15)
[2023-07-28] MEDS: Nicotine 7 MG PATCH.TD24 TRANSDERMA (08:15)
[2023-07-28] MEDS: Folic Acid 1 MG TABLET PO (08:15)
[2023-07-28] MEDS: allopurinoL 300 MG TABLET PO (08:15)
[2023-07-28] MEDS: Metoprolol Tartrate 100 MG TABLET PO (08:15)
[2023-07-28] MEDS: predniSONE 5 MG TABLET PO (08:15)
[2023-07-28] MEDS: 0.9 % Sodium Chloride Flush 3 ML SYRINGE IVFLUSH (08:16)
--- NOTE | 2023-07-28 08:47 | P.CONNP_ITS ---
History of Present Illness Reason for Consult Consult date: 07/28/23 Chief Complaint Chief complaint: Nonhealing wounds, Cellulitis History of Present Illness Narrative: 78-year-old male with CKD stage 3, [id number] type 2 diabetes, hypertension, & peripheral vascular disease among other medical issues presented to the ER for evaluation of infection and nonhealing wounds of the bilateral lower extremities. He reports the wounds on the anterior aspect of the bilateral lower extremities have been present for several months. He has visiting nurse in the home 3 times a week to change his dressings. He has been on multiple antibiotics including doxycycline, Keflex, and most recently Augmentin without improvement. He denies any fevers, chills, purulent drainage from the wounds. He does endorse he has also had a productive cough ongoing for about 1 month. He states the antibiotics did initially help with this but the cough has since returned. Denies any abdominal pain, nausea, vomiting, lightheadedness, shortness of breath, wheezing, chest pain.He was admitted for further management. Vascular surgeon has seen him and is planning to do CTA. Nephrology has been consulted to assist in his clinical care during his current hospital stay Review of Systems Review of Systems Yes all other systems are reviewed and are negative PMFSH Past Medical History Medical History CKD (chronic kidney disease), stage III COPD (chronic obstructive pulmonary disease) Dyslipidemia GERD (gastroesophageal reflux disease) Gout History of underactive thyroid HTN (hypertension) Thrombocytosis Surgical History Surgical History S/P balloon dilatation of esophageal stricture Social History Social History (Updated 03/22/22 @ 14:33 by JOHANNA Curtis) Household Members: Family Housing: House Do you presently have visiting nurse or other home services: Yes Patient Tobacco Use Status: Tobacco use Unknown Cigarettes Per Day: 4 service: No Meds Allergies Allergy/AdvReac Type Severity Reaction Status Date / Time CRANBERRY JUICE Allergy Unknown DIARRHEA Uncoded 07/26/23 17:16 Active Medications: Current Medications Acetaminophen (Acetaminophen 325 Mg Tablet) 650 mg PO Q6H PRN PRN Reason: Pain, Mild (Pain Scale 1-3) Last Admin: 07/26/23 22:07 Dose: 650 mg Albuterol Sulfate (Albuterol Sulfate 90 Mcg 8 Gm Inhaler) 2 puff INHALE Q3H PRN PRN Reason: Shortness Of Breath Albuterol/Ipratropium (Albuterol/Iprat 2.5/0.5mg 3 Ml Ampul.Neb) 3 ml INHALE RQ4H WHILE AWAKE [facility] Last Admin: 07/28/23 08:04 Dose: Not Given Allopurinol (Allopurinol 300 Mg Tablet) 300 mg PO DAILY [facility] Last Admin: 07/28/23 08:15 Dose: 300 mg Atorvastatin Calcium (Atorvastatin Calcium 80 Mg Tablet) 80 mg PO BEDTIME [facility] Last Admin: 07/27/23 21:20 Dose: 80 mg Clonazepam (Clonazepam 1 Mg Tablet) 1 mg PO BEDTIME [facility] Last Admin: 07/27/23 21:21 Dose: 1 mg Folic Acid (Folic Acid 1 Mg Tablet) 1 mg PO DAILY [facility] Last Admin: 07/28/23 08:15 Dose: 1 mg Glucose (Glucose Gel 15 Gm Gel..Gram.) 15 gm PO Q15M PRN; Protocol PRN Reason: per Hypoglycemia Standing Ord. Guaifenesin (Guaifenesin 200 Mg/10 Ml 10 Ml Liquid) 10 ml PO Q4H PRN PRN Reason: Cough Last Admin: 07/28/23 00:00 Dose: 10 ml Heparin Sodium (Porcine) (Heparin Sodium,Porcine 5,000 Unit/Ml Vial) 5,000 unit SUBCUT Q12H [facility] Last Admin: 07/28/23 08:15 Dose: 5,000 unit Piperacillin Sod/Tazobactam (Sod 4.5 gm/ Sodium Chloride) 100 mls @ 200 mls/hr IV Q8H [facility] Last Infusion: 07/28/23 03:29 Dose: Infused Dextrose (D10) 250 mls @ 750 mls/hr IV Q15M PRN; Protocol PRN Reason: per Hypoglycemia Standing Ord. Vancomycin HCl 1,000 mg/ (Sodium Chloride) 270 mls @ 270 mls/hr IV Q24H [facility] Last Infusion: 07/27/23 23:50 Dose: Infused Insulin Human Lispro (Insulin Lispro 100 Unit/Ml 3 Ml Vial) 0 unit SUBCUT QIDACHS [facility]; Protocol Last Admin: 07/28/23 08:22 Dose: Not Given Levothyroxine Sodium (Levothyroxine Sodium 25 Mcg Tablet) 25 mcg PO DAILY@0630 [facility] Last Admin: 07/28/23 06:22 Dose: 25 mcg Loratadine (Loratadine 10 Mg Tablet) 10 mg PO DAILY [facility] Last Admin: 07/28/23 08:15 Dose: 10 mg Magnesium Hydroxide (Milk Of Magnesia 30 Ml Oral.Susp) 30 ml PO DAILY PRN PRN Reason: Constipation Metoprolol Tartrate (Metoprolol Tartrate 100 Mg Tablet) 100 mg PO BID [facility]; Protocol Last Admin: 07/28/23 08:15 Dose: 100 mg Nicotine (Nicotine 7 Mg Patch.Td24) 7 mg TRANSDERMA DAILY [facility] Last Admin: 07/28/23 08:15 Dose: 7 mg Omeprazole (Omeprazole 40 Mg Capsule.Dr) 40 mg PO DAILY [facility] Last Admin: 07/28/23 08:24 Dose: Not Given Ondansetron HCl (Ondansetron Hcl 4 Mg/2 Ml Vial) 4 mg IVPUSH Q8H PRN PRN Reason: Nausea and Vomiting Oxycodone HCl (Oxycodone Hcl Immed Release 5 Mg Tablet) 5 mg PO Q6H PRN PRN Reason: Pain, Severe (Pain Scale 7-10) Last Admin: 07/27/23 19:47 Dose: 5 mg Pharmacy Consult (Consult Rx Vancomycin Dosing) 1 each MISCELLANE DAILY PRN PRN Reason: Consult order Prednisone (Prednisone 5 Mg Tablet) 5 mg PO DAILY [facility] Last Admin: 07/28/23 08:15 Dose: 5 mg Pyridoxine HCl (Pyridoxine Hcl (Vitamin B6) 50 Mg Tablet) 50 mg PO DAILY [facility] Last Admin: 07/28/23 08:15 Dose: 50 mg Silver Sulfadiazine (Silver Sulfadiazine 1 % Cream 20 Gm Tube) 1 appl TOPICAL DAILY [facility] Last Admin: 07/27/23 10:24 Dose: 1 appl Sodium Chloride (0.9 % Sodium Chloride Flush 3 Ml Syringe) 3 ml IVFLUSH QSHIFT [facility] Last Admin: 07/28/23 08:16 Dose: 3 ml Thiamine HCl (Thiamine Hcl 100 Mg Tablet) 100 mg PO DAILY [facility] Last Admin: 07/28/23 08:15 Dose: 100 mg Home Medications ?Medication ?Instructions ?Recorded ?Confirmed ?Last Taken ?Type allopurinol 300 mg tablet 300 mg PO DAILY 07/08/21 07/26/23 Unknown History folic acid 1 mg tablet 1 mg PO DAILY 07/08/21 07/26/23 Unknown History levothyroxine 25 mcg tablet 25 mcg PO DAILY@0630 07/08/21 07/26/23 Unknown History losartan 100 mg tablet 100 mg PO DAILY 07/08/21 07/26/23 Unknown History metoprolol tartrate 100 mg tablet 100 mg PO BID 07/08/21 07/26/23 Unknown History omeprazole 40 mg capsule,delayed 40 mg PO DAILY 07/08/21 07/26/23 Unknown History release prednisone 5 mg tablet 5 mg PO DAILY 07/08/21 07/26/23 Unknown History pyridoxine (vitamin B6) 50 mg 50 mg PO DAILY 07/08/21 07/26/23 Unknown History tablet rosuvastatin 20 mg tablet 20 mg PO DAILY 07/08/21 07/26/23 Unknown History thiamine HCl (vitamin B1) 100 mg 100 mg PO DAILY 07/08/21 07/26/23 Unknown History tablet clonazepam 1 mg tablet 1 mg PO BEDTIME 05/02/23 07/26/23 Unknown History loratadine 10 mg tablet (Allergy 10 mg PO DAILY 05/02/23 07/26/23 Unknown History Relief (loratadine)) naproxen 500 mg tablet 500 mg PO BID Pain 05/02/23 07/26/23 Unknown History albuterol sulfate 90 mcg/actuation 2 puff inhalation Q3H PRN 07/26/23 07/26/23 Unknown History aerosol inhaler Shortness Of Breath silver sulfadiazine 1 % topical 1 appl topical DAILY 07/26/23 07/26/23 Unknown History cream Physical Exam Vital Signs: Last Vital Signs Temp 96.8 F 07/28/23 07:38 Pulse 61 07/28/23 07:38 Resp 16 07/28/23 07:38 BP 174/76 H 07/28/23 07:38 Pulse Ox 94 07/28/23 07:38 O2 Del Method Nasal Cannula 07/28/23 07:38 O2 Flow Rate 2 07/28/23 07:38 BMI result Body Mass Index 29.5 Const General: no acute distress Eyes EOM: EOMs intact bilaterally Neck Neck: Yes supple Resp Auscultation: diminished lung sounds Cardio Rate: regular rate GI Palpation (GI): Soft to palpation Neuro General: moves all extremities Results Lab Results 07/27/23 04:24 07/28/23 05:27 Lab results: Chemistry 07/26/23 07/27/23 07/27/23 18:29 04:24 18:19 Sodium 149 H 149 H 148 H Potassium 5.4 H 5.1 Carbon Dioxide 24 24 BUN 25 H 23 H Creatinine 1.83 H 1.71 H Calcium 8.5 D 8.2 L 07/28/23 05:27 Sodium 143 Potassium 5.3 H Carbon Dioxide 21 L BUN 23 H Creatinine 1.71 H Calcium 8.1 L Hematology 07/26/23 07/27/23 17:46 04:24 WBC 10.4 12.0 H Hgb 9.8 L 9.6 L Plt Count 239 D 220 Assessment and Plan (1) CKD stage 3a, GFR 45-59 ml/min: Status: Acute Plan CKD likely due to vascular disease Will benefit from Doppler of renal arteries At risk for contrast nephropathy Will benefit from IV hydration just before CTA Serum creatinine currently stable Ordered CKD W/U; C/W rest of current mgt for now Procedures Date of Service Date of Service: 07/28/23
[2023-07-28 09:57] LABS: Hematocrit 35.2 % (42.0-52.0); Hemoglobin 10.2 g/dl (14.0-18.0); Mean Corpuscular Hemoglobin 27.2 pg (27.0-33.0); Mean Corpuscular Volume 93.9 fL (80.0-98.0); Mean Platelet Volume 11.4 fL (9.4-12.4); NRBC Pct Auto 0.3 /100WBC (0.0-0.2); Platelet Count 240 X10*3/uL (160-400); Red Blood Count 3.75 X10*6/uL (4.60-5.80); Red Cell Distribution Width 27.6 % (11.0-16.0)
[2023-07-28 10:16] LABS: Alanine Aminotransferase 15 U/L (0-40); Albumin Level 2.5 g/dL (3.5-5.0); Alkaline Phosphatase 105 U/L (39-117); Aspartate Amino Transferase 34 U/L (5-37); Bilirubin Direct 0.4 mg/dL (0.0-0.5); Bilirubin Total 0.7 mg/dL (0.0-1.0); Total Protein 5.9 g/dL (6.5-8.0)
--- NOTE | 2023-07-28 10:16 | PC.NURSE ---
Addendum entered by Deborah Lozano RN 07/28/23 10:45: Blood sugar POC not crossing though into the system. Blood sugar at 07:15 was 170, blood sugar at approximately 10:00 was 93. Original Note: Assumed care of patient at 06:45, at this time patient sleeping, rise and fall of chest noted. Per night nurse patient drowsy and confused throughout the night. Pt is able to awaken to voice and light touch. This RN was able to wake up patient enough to take medications and few bites of breakfast t approximately 08:20, insulin held, but then patient fell back a sleep. SARAH Veragra made aware. Per PA goal o2 at 90%, pt currently on 2L NC saturating 100%, o2 turned off PA Aware, pt saturating 89-90% RA. New orders entered including ABGs ordered and carried out. Per AP place pt om Bipap, tele, and continuous o2, pt transfered to [address]/
--- NOTE | 2023-07-28 10:31 | P.PNIM_ITS ---
Subjective Subjective Date of Service: 07/28/23 Interval History: seen and examined this morning follow up for lower extremity wounds this morning in to see patient, difficult to arouse not opening eyes. abg obtained showing hypercapnia. RT into start patient on bipap and plan [place] [facility] [place]. Discussion with ICU. Plan for 1 hour of BiPAP and repeat ABG. unable to obtain ROS Physical Exam 2 Vital Signs: Vital Signs: Last Vital Signs Temp 96.8 F 07/28/23 07:38 Pulse 61 07/28/23 10:14 Resp 18 07/28/23 10:28 BP 185/77 H 07/28/23 10:14 Pulse Ox 94 07/28/23 10:14 O2 Del Method BiPAP 07/28/23 10:14 O2 Flow Rate 2 07/28/23 09:53 BMI result Body Mass Index 29.5 Const: Other: lethargic, difficult to arouse Nutritional Appearance: overweight Resp: Effort & Inspection: no respiratory distress and no use of accessory muscles Cardio: Rate: regular rate GI: Inspection: No distended Palpation (GI): Soft to palpation Skin: Other: no change - see pictures from previous note Neuro: Other: lethargic. Unable to assess orientation Objective Data Active Medications Acetaminophen (Acetaminophen 325 Mg Tablet) 650 mg PO Q6H PRN PRN Reason: Pain, Mild (Pain Scale 1-3) Last Admin: 07/26/23 22:07 Dose: 650 mg Documented By: TASHI Albuterol Sulfate (Albuterol Sulfate 90 Mcg 8 Gm Inhaler) 2 puff INHALE Q3H PRN PRN Reason: Shortness Of Breath Albuterol/Ipratropium (Albuterol/Iprat 2.5/0.5mg 3 Ml Ampul.Neb) 3 ml INHALE RQ4H WHILE AWAKE [facility] Last Admin: 07/28/23 08:04 Dose: Not Given Documented By: BETINA Non-Admin Reason: Patient Refused Allopurinol (Allopurinol 300 Mg Tablet) 300 mg PO DAILY [facility] Last Admin: 07/28/23 08:15 Dose: 300 mg Documented By: GARY Atorvastatin Calcium (Atorvastatin Calcium 80 Mg Tablet) 80 mg PO BEDTIME [facility] Last Admin: 07/27/23 21:20 Dose: 80 mg Documented By: ADELFO Clonazepam (Clonazepam 1 Mg Tablet) 1 mg PO BEDTIME [facility] Last Admin: 07/27/23 21:21 Dose: 1 mg Documented By: ADELFO Folic Acid (Folic Acid 1 Mg Tablet) 1 mg PO DAILY [facility] Last Admin: 07/28/23 08:15 Dose: 1 mg Documented By: GARY Glucose (Glucose Gel 15 Gm Gel..Gram.) 15 gm PO Q15M PRN; Protocol PRN Reason: per Hypoglycemia Standing Ord. Guaifenesin (Guaifenesin 200 Mg/10 Ml 10 Ml Liquid) 10 ml PO Q4H PRN PRN Reason: Cough Last Admin: 07/28/23 00:00 Dose: 10 ml Documented By: ADELFO Heparin Sodium (Porcine) (Heparin Sodium,Porcine 5,000 Unit/Ml Vial) 5,000 unit SUBCUT Q12H [facility] Last Admin: 07/28/23 08:15 Dose: 5,000 unit Documented By: GARY Piperacillin Sod/Tazobactam (Sod 4.5 gm/ Sodium Chloride) 100 mls @ 200 mls/hr IV Q8H [facility] Last Infusion: 07/28/23 03:29 Dose: Infused Documented By: CARMITA Dextrose (D10) 250 mls @ 750 mls/hr IV Q15M PRN; Protocol PRN Reason: per Hypoglycemia Standing Ord. Vancomycin HCl 1,000 mg/ (Sodium Chloride) 270 mls @ 270 mls/hr IV Q24H [facility] Last Infusion: 07/27/23 23:50 Dose: Infused Documented By: ADELFO Insulin Human Lispro (Insulin Lispro 100 Unit/Ml 3 Ml Vial) 0 unit SUBCUT QIDACHS [facility]; Protocol Last Admin: 07/28/23 08:22 Dose: Not Given Documented By: GARY Non-Admin Reason: pt to drowsy to eat Levothyroxine Sodium (Levothyroxine Sodium 25 Mcg Tablet) 25 mcg PO DAILY@0630 [facility] Last Admin: 07/28/23 06:22 Dose: 25 mcg Documented By: CARMITA Loratadine (Loratadine 10 Mg Tablet) 10 mg PO DAILY [facility] Last Admin: 07/28/23 08:15 Dose: 10 mg Documented By: GARY Magnesium Hydroxide (Milk Of Magnesia 30 Ml Oral.Susp) 30 ml PO DAILY PRN PRN Reason: Constipation Metoprolol Tartrate (Metoprolol Tartrate 100 Mg Tablet) 100 mg PO BID [facility]; Protocol Last Admin: 07/28/23 08:15 Dose: 100 mg Documented By: GARY Nicotine (Nicotine 7 Mg Patch.Td24) 7 mg TRANSDERMA DAILY [facility] Last Admin: 07/28/23 08:15 Dose: 7 mg Documented By: GARY Omeprazole (Omeprazole 40 Mg Capsule.Dr) 40 mg PO DAILY [facility] Last Admin: 07/28/23 08:24 Dose: Not Given Documented By: GARY Non-Admin Reason: unable to crush med Ondansetron HCl (Ondansetron Hcl 4 Mg/2 Ml Vial) 4 mg IVPUSH Q8H PRN PRN Reason: Nausea and Vomiting Pharmacy Consult (Consult Rx Vancomycin Dosing) 1 each MISCELLANE DAILY PRN PRN Reason: Consult order Prednisone (Prednisone 5 Mg Tablet) 5 mg PO DAILY [facility] Last Admin: 07/28/23 08:15 Dose: 5 mg Documented By: GARY Pyridoxine HCl (Pyridoxine Hcl (Vitamin B6) 50 Mg Tablet) 50 mg PO DAILY [facility] Last Admin: 07/28/23 08:15 Dose: 50 mg Documented By: GARY Silver Sulfadiazine (Silver Sulfadiazine 1 % Cream 20 Gm Tube) 1 appl TOPICAL DAILY [facility] Last Admin: 07/27/23 10:24 Dose: 1 appl Documented By: AARON Sodium Chloride (0.9 % Sodium Chloride Flush 3 Ml Syringe) 3 ml IVFLUSH QSHIFT [facility] Last Admin: 07/28/23 08:16 Dose: 3 ml Documented By: GARY Thiamine HCl (Thiamine Hcl 100 Mg Tablet) 100 mg PO DAILY [facility] Last Admin: 07/28/23 08:15 Dose: 100 mg Documented By: GARY Labs 07/28/23 05:27 07/28/23 05:27 Labs: Laboratory Results - last 24 hr 07/26/23 07/27/23 07/27/23 20:14 01:31 07:12 MCV MCH MCHC RDW Plt Count MPV Absolute Nucleated RBC Nucleated RBC % (auto) Hold Purple Top Anion Gap Estim Creat Clear Calc Estimated GFR POC Glucose 72 116 H Random Glucose Calcium Total Bilirubin Direct Bilirubin AST ALT Alkaline Phosphatase Total Protein Albumin Nasal Screen MRSA (PCR) POSITIVE A Nasal S. aureus Screen POSITIVE A Nasal MRSA/S.aureus Interp SEE NOTE 07/27/23 07/27/23 07/27/23 13:08 18:09 20:40 MCV MCH MCHC RDW Plt Count MPV Absolute Nucleated RBC Nucleated RBC % (auto) Hold Purple Top Anion Gap Estim Creat Clear Calc Estimated GFR POC Glucose 128 H 140 H 136 H Random Glucose Calcium Total Bilirubin Direct Bilirubin AST ALT Alkaline Phosphatase Total Protein Albumin Nasal Screen MRSA (PCR) Nasal S. aureus Screen Nasal MRSA/S.aureus Interp 07/28/23 07/28/23 05:27 06:35 MCV 93.9 MCH 27.2 MCHC 29.0 L RDW 27.6 H Plt Count 240 MPV 11.4 Absolute Nucleated RBC 0.030 H Nucleated RBC % (auto) 0.3 H Hold Purple Top SEE NOTE Anion Gap 14 Estim Creat Clear Calc 40.2 Estimated GFR 39 POC Glucose 117 H Random Glucose 107 Calcium 8.1 L Total Bilirubin 0.7 Direct Bilirubin 0.4 AST 34 ALT 15 Alkaline Phosphatase 105 Total Protein 5.9 L Albumin 2.5 L Nasal Screen MRSA (PCR) Nasal S. aureus Screen Nasal MRSA/S.aureus Interp Microbiology Microbiology Results: Microbiology 07/26/23 17:45 Blood Culture - Preliminary Blood - Venous No growth after 24 hours. 07/26/23 17:44 Blood Culture - Preliminary Blood - Venous No growth after 24 hours. 07/26/23 18:15 Gram Stain - Final Leg Right Routine Culture - Preliminary Culture in progress. 07/26/23 18:14 Gram Stain - Final Leg Left Routine Culture - Preliminary Culture in progress. Assessment and Plan (1) Pneumonia: Status: Acute Plan 78-year-old male with history of CKD stage 3, COPD, hyperlipidemia, [id number] type 2 diabetes, hypothyroidism, hypertension, hyperlipidemia, peripheral vascular disease, restless legs syndrome admitted for further management of nonhealing wounds to the BLE with cellilitis and pneumonia, course complicated by respiratory failure Acute hypercarbic respiratory failure likely due to underlying COPD, sedating meds and CHF hold home klonopin Plan to start BiPAP and repeat ABG in one hour ICU consult acute on chronic HFrEF EF 35% not on diuretics at baseline per med rec will give IV bumex and monitor for effect. follow Is&Os cardiology consult Nonhealing wounds BLE with extensive cellulitis r/t PAD no sepsis continue IV vanco and Zosyn (initiated 07/25) bilateral arterial duplex with bilateral vascular disease plan for CT angio with runoff (okayed by nephrology) vascular surgery consult following wound care consult Blood cultures negative to date LLL pneumonia iv vanco/zosyn as above DuoNebs q.4h guaifenesin p.r.n. Blood cultures negative as above Strep pneumo antigen, Legionella antigen, sputum culture, MRSA nasal swab + Hypernatremia resolved with D5w will d/c fluid Hyperkalemia- mild 5.3 -hold losartan [id number] type 2 diabetes -POC glucose, diabetic diet -Humalog on sliding scale -hold oral antihyperglycemics COPD -no acute exacerbation -continue maintenance inhalers, albuterol p.r.n. continue daily prednisone CKD stage 3 -renal function baseline hypothyroidism -continue Synthroid hypertension -continue metoprolol, hold losartan as above hyperlipidemia -continue statin nicotine dependence -cessation advised -patches for NRT DVT prophylaxis-heparin Full code Requires ongoing inpatient stay for management of respiratory failure, nonhealing wounds of the bilateral lower extremities with extensive cellulitis covering greater than 50% of the left lower extremity requiring IV antibiotics, expert consultation, and possible surgical intervention/debridement Quality Stroke Does the patient have a stroke diagnosis?: No VTE Prior VTE?: No VTE Risk Level:: Medical - moderate - high VTE Device Contraindication: Treatment Not Indicated VTE Drug Contraindication: N/A - Med Ordered
[2023-07-28 10:46] LABS: Ammonia 44 umol/L (13-55)
[2023-07-28] MEDS: Bumetanide 1 MG/4 ML VIAL IVPUSH (11:19)
--- NOTE | 2023-07-28 11:33 | MHC.CM.PN ---
EMR REVIEWED, PT PLACED ON BIPAP, ABG'S PENDING, NO PLAN FOR DC AT THIS TIME, CM WILL CONT TO FOLLOW DC NEEDS.
--- NOTE | 2023-07-28 11:35 | P.CONCC_ITS ---
History of Present Illness Data of Consult Service Date: 07/28/23 Requesting physician: Tabatha Vergara Primary Care Provider: Josiah Verduzco MD HPI Reason for consult: Acute hypercapnic respiratory failure Seen at approximately 10:30 on 07/28/2023 and discussed with attending provider. 78-year-old gentleman with underlying CKD stage 3, chronic systolic heart failure with EF of approximately 35%, COPD, diabetes mellitus, hypothyroidism, peripheral vascular disease admitted on 07/26/2023 with ?bilateral lower extremity cellulitis (? venous status dermatitis) with chronic bilateral lower extremity ulcers and treated with empiric antibiotics. Hospital course significant for grossly positive intake of approximately 4-1/2 L of acute hypoxic and hypercapnic respiratory failure on 07/28/2023 with placement on BiPAP support. [facility] Past Medical History Medical History CKD (chronic kidney disease), stage III COPD (chronic obstructive pulmonary disease) Dyslipidemia GERD (gastroesophageal reflux disease) Gout History of underactive thyroid HTN (hypertension) Thrombocytosis Surgical History Surgical History S/P balloon dilatation of esophageal stricture Social History Social History (Updated 03/22/22 @ 14:33 by JOHANNA Curtis) Household Members: Family Housing: House Do you presently have visiting nurse or other home services: Yes Patient Tobacco Use Status: Tobacco use Unknown Cigarettes Per Day: 4 service: No Meds Allergies Allergy/AdvReac Type Severity Reaction Status Date / Time CRANBERRY JUICE Allergy Unknown DIARRHEA Uncoded 07/26/23 17:16 Active Medications: Current Medications Acetaminophen (Acetaminophen 325 Mg Tablet) 650 mg PO Q6H PRN PRN Reason: Pain, Mild (Pain Scale 1-3) Last Admin: 07/26/23 22:07 Dose: 650 mg Albuterol Sulfate (Albuterol Sulfate 90 Mcg 8 Gm Inhaler) 2 puff INHALE Q3H PRN PRN Reason: Shortness Of Breath Albuterol/Ipratropium (Albuterol/Iprat 2.5/0.5mg 3 Ml Ampul.Neb) 3 ml INHALE RQ4H WHILE AWAKE [facility] Last Admin: 07/28/23 08:04 Dose: Not Given Allopurinol (Allopurinol 300 Mg Tablet) 300 mg PO DAILY [facility] Last Admin: 07/28/23 08:15 Dose: 300 mg Atorvastatin Calcium (Atorvastatin Calcium 80 Mg Tablet) 80 mg PO BEDTIME [facility] Last Admin: 07/27/23 21:20 Dose: 80 mg Clonazepam (Clonazepam 1 Mg Tablet) 1 mg PO BEDTIME [facility] Last Admin: 07/27/23 21:21 Dose: 1 mg Folic Acid (Folic Acid 1 Mg Tablet) 1 mg PO DAILY [facility] Last Admin: 07/28/23 08:15 Dose: 1 mg Glucose (Glucose Gel 15 Gm Gel..Gram.) 15 gm PO Q15M PRN; Protocol PRN Reason: per Hypoglycemia Standing Ord. Guaifenesin (Guaifenesin 200 Mg/10 Ml 10 Ml Liquid) 10 ml PO Q4H PRN PRN Reason: Cough Last Admin: 07/28/23 00:00 Dose: 10 ml Heparin Sodium (Porcine) (Heparin Sodium,Porcine 5,000 Unit/Ml Vial) 5,000 unit SUBCUT Q12H [facility] Last Admin: 07/28/23 08:15 Dose: 5,000 unit Piperacillin Sod/Tazobactam (Sod 4.5 gm/ Sodium Chloride) 100 mls @ 200 mls/hr IV Q8H [facility] Last Infusion: 07/28/23 11:28 Dose: Infused Dextrose (D10) 250 mls @ 750 mls/hr IV Q15M PRN; Protocol PRN Reason: per Hypoglycemia Standing Ord. Vancomycin HCl 1,000 mg/ (Sodium Chloride) 270 mls @ 270 mls/hr IV Q24H [facility] Last Infusion: 07/27/23 23:50 Dose: Infused Insulin Human Lispro (Insulin Lispro 100 Unit/Ml 3 Ml Vial) 0 unit SUBCUT QIDACHS [facility]; Protocol Last Admin: 07/28/23 08:22 Dose: Not Given Levothyroxine Sodium (Levothyroxine Sodium 25 Mcg Tablet) 25 mcg PO DAILY@0630 [facility] Last Admin: 07/28/23 06:22 Dose: 25 mcg Loratadine (Loratadine 10 Mg Tablet) 10 mg PO DAILY [facility] Last Admin: 07/28/23 08:15 Dose: 10 mg Magnesium Hydroxide (Milk Of Magnesia 30 Ml Oral.Susp) 30 ml PO DAILY PRN PRN Reason: Constipation Metoprolol Tartrate (Metoprolol Tartrate 100 Mg Tablet) 100 mg PO BID [facility]; Protocol Last Admin: 07/28/23 08:15 Dose: 100 mg Nicotine (Nicotine 7 Mg Patch.Td24) 7 mg TRANSDERMA DAILY [facility] Last Admin: 07/28/23 08:15 Dose: 7 mg Omeprazole (Omeprazole 40 Mg Capsule.Dr) 40 mg PO DAILY [facility] Last Admin: 07/28/23 08:24 Dose: Not Given Ondansetron HCl (Ondansetron Hcl 4 Mg/2 Ml Vial) 4 mg IVPUSH Q8H PRN PRN Reason: Nausea and Vomiting Pharmacy Consult (Consult Rx Vancomycin Dosing) 1 each MISCELLANE DAILY PRN PRN Reason: Consult order Prednisone (Prednisone 5 Mg Tablet) 5 mg PO DAILY [facility] Last Admin: 07/28/23 08:15 Dose: 5 mg Pyridoxine HCl (Pyridoxine Hcl (Vitamin B6) 50 Mg Tablet) 50 mg PO DAILY [facility] Last Admin: 07/28/23 08:15 Dose: 50 mg Silver Sulfadiazine (Silver Sulfadiazine 1 % Cream 20 Gm Tube) 1 appl TOPICAL DAILY [facility] Last Admin: 07/28/23 11:26 Dose: Not Given Sodium Chloride (0.9 % Sodium Chloride Flush 3 Ml Syringe) 3 ml IVFLUSH QSHIFT [facility] Last Admin: 07/28/23 08:16 Dose: 3 ml Thiamine HCl (Thiamine Hcl 100 Mg Tablet) 100 mg PO DAILY [facility] Last Admin: 07/28/23 08:15 Dose: 100 mg Home Medications ?Medication ?Instructions ?Recorded ?Confirmed ?Last Taken ?Type allopurinol 300 mg tablet 300 mg PO DAILY 07/08/21 07/26/23 Unknown History folic acid 1 mg tablet 1 mg PO DAILY 07/08/21 07/26/23 Unknown History levothyroxine 25 mcg tablet 25 mcg PO DAILY@0630 07/08/21 07/26/23 Unknown History losartan 100 mg tablet 100 mg PO DAILY 07/08/21 07/26/23 Unknown History metoprolol tartrate 100 mg tablet 100 mg PO BID 07/08/21 07/26/23 Unknown History omeprazole 40 mg capsule,delayed 40 mg PO DAILY 07/08/21 07/26/23 Unknown History release prednisone 5 mg tablet 5 mg PO DAILY 07/08/21 07/26/23 Unknown History pyridoxine (vitamin B6) 50 mg 50 mg PO DAILY 07/08/21 07/26/23 Unknown History tablet rosuvastatin 20 mg tablet 20 mg PO DAILY 07/08/21 07/26/23 Unknown History thiamine HCl (vitamin B1) 100 mg 100 mg PO DAILY 07/08/21 07/26/23 Unknown History tablet clonazepam 1 mg tablet 1 mg PO BEDTIME 05/02/23 07/26/23 Unknown History loratadine 10 mg tablet (Allergy 10 mg PO DAILY 05/02/23 07/26/23 Unknown History Relief (loratadine)) naproxen 500 mg tablet 500 mg PO BID Pain 05/02/23 07/26/23 Unknown History albuterol sulfate 90 mcg/actuation 2 puff inhalation Q3H PRN 07/26/23 07/26/23 Unknown History aerosol inhaler Shortness Of Breath silver sulfadiazine 1 % topical 1 appl topical DAILY 07/26/23 07/26/23 Unknown History cream Physical Exam 2 Vital Signs: Vital Signs: Last Vital Signs Temp 96.8 F 07/28/23 07:38 Pulse 61 07/28/23 10:14 Resp 18 07/28/23 10:28 BP 142/85 H 07/28/23 11:19 Pulse Ox 94 07/28/23 10:14 O2 Del Method BiPAP 07/28/23 10:14 O2 Flow Rate 2 07/28/23 09:53 BMI result Body Mass Index 29.5 Const: General: no acute distress and lethargic (Arousable) O rientation/consciousness: lethargic (Arousable) Eyes: Sclerae: sclerae normal EOM: EOMs intact bilaterally Neck: Neck: Yes no lymphadenopathy, Yes trachea midline and Yes supple Resp: Effort & Inspection: normal respiratory effort and no respiratory distress Auscultation: clear to auscultation bilaterally Cardio: Rate: regular rate Rhythm: regular rhythm Heart sounds: no gallops, no murmurs and no rubs GI: Palpation (GI): Soft to palpation and Other GI palpation findings present ( Nontender) Auscultation: normal bowel sounds Extrem: General: No clubbing, No cyanosis and Yes edema (1+ bilateral) Results Labs 07/28/23 05:27 07/28/23 05:27 Labs: Short CBC 07/28/23 Range/Units 05: WBC 10.0 (4.8-10.8) X10*3/uL Hgb 10.2 L (14.0-18.0) g/dl Hct 35.2 L (42.0-52.0) % Plt Count 240 (160-400) X10*3/uL BMP 07/27/23 07/28/23 18:19 05:27 Sodium 148 H 143 Potassium 5.3 H Chloride 113 H Carbon Dioxide 21 L BUN 23 H Creatinine 1.71 H Calcium 8.1 L Liver Function 07/28/23 Range/Units 05:27 Total Bilirubin 0.7 (0.0-1.0) mg/dL Direct Bilirubin 0.4 (0.0-0.5) mg/dL AST 34 (5-37) U/L ALT 15 (0-40) U/L Alkaline Phosphatase 105 (39-117) U/L Albumin 2.5 L (3.5-5.0) g/dL Microbiology Microbiology Results: Microbiology 07/26/23 17:45 Blood - Venous Blood Culture - Preliminary No growth after 24 hours. 07/26/23 17:44 Blood - Venous Blood Culture - Preliminary No growth after 24 hours. 07/26/23 18:15 Leg Right Gram Stain - Final 07/26/23 18:15 Leg Right Routine Culture - Preliminary Culture in progress. 07/26/23 18:14 Leg Left Gram Stain - Final 07/26/23 18:14 Leg Left Routine Culture - Preliminary Culture in progress. Assessment and Plan (1) Acute on chronic respiratory failure with hypoxia and hypercapnia: Status: Acute (2) Acute on chronic systolic (congestive) heart failure: Status: Acute Plan Impression: 78-year-old gentleman admitted for treatment of bilateral lower extremity ulcers/cellulitis with hospital course complicated by intravascular volume overload with pulmonary edema and acute on chronic hypoxic and hypercapnic respiratory failure, requiring BiPAP support at this time. Recommendations: Consider aggressive diuresis. Proceed with BiPAP support and repeating arterial blood gases within next hour or two, if not improving, will consider transfer to intensive care.
[2023-07-28] MEDS: Albuterol/Iprat 2.5/0.5MG 3 ML AMPUL.NEB INHALE ×4 (11:37→22:02)
[2023-07-28 12:19] LABS: B Type Natriuretic Peptide 3695 pg/mL (<100)
--- NOTE | 2023-07-28 13:10 | HO.VASCPN ---
Subjective Subjective Date of Service: 07/28/23 Interval history: Patient seen and examined. Overall condition seems to be deteriorating. He was requiring more oxygen. Current time was not comfortable. He was actually being transition from a [facility] to [facility] for closer observation. Physical Exam Vital Signs: Vital Signs: Last Vital Signs Temp 97.8 F 07/28/23 11:36 Pulse 113 H 07/28/23 11:38 Resp 20 07/28/23 11:39 BP 142/85 H 07/28/23 11:36 Pulse Ox 98 07/28/23 11:36 O2 Del Method BiPAP 07/28/23 11:36 O2 Flow Rate 2 07/28/23 09:53 BMI result Body Mass Index 29.5 Const: General: cooperative, healthy appearing and comfortable Orientation/consciousness: oriented to person, oriented to place and oriented to time HEENT: Head: Yes normal to inspection Neck: Neck: Yes normal visual inspection Carotids: no bruits Chest: Chest palpation & inspection: normal inspection of the chest Resp: Effort & Inspection: normal respiratory effort and able to speak in complete sentences Auscultation: clear to auscultation bilaterally, no crackles, no rales, no rhonchi and no wheezes Cardio: Rate: regular rate Rhythm: regular rhythm Heart sounds: S1 normal heart sound present and S2 normal heart sound present Bruits: no carotid bruits Peripheral pulses: Peripheral pulses 2+ throughout GI: Inspection: Yes normal to inspection Skin: Other: Bilateral pretibial ulcers +2 edema Wounds: no wounds Hair: normal Neuro: General: oriented to person, oriented to place and oriented to time Cranial nerves: Yes CN's II-XII intact bilaterally and Yes Normal hearing present Cognition (Neuro): normal cognition Motor exam (neuro): 5/5 motor strength present throughout Extrem: Other: venous exam: No significant superficial varicosities or spider telangiectasias, minimal edema General: No clubbing, No cyanosis and No edema Psych: Appearance: grossly normal Mental Status: mental status grossly normal Speech and movement: Normal speech and movement present Progress Note: A&P Assessment and plan (1) PAD (peripheral artery disease): Status: Acute Assessment and Plan: In short patient has peripheral vascular disease with nonhealing ulcers. Nephrology note appreciated and there is concern of renal artery stenosis. Would benefit from a CT angiogram. I would like his current respiratory status and pneumonia to improve somewhat before we go forward. Will hold off on CT angiogram for now. Should he improve we can schedule that. Thank you for allowing us to assist in his care. If there are any questions or concerns please do not hesitate to contact us. Time Spent With Patient Time: Total time managing care of this patient today ____ minutes. Procedures Date of Service Date of Service: 07/28/23 Quality Stroke Does the patient have a stroke diagnosis?: No VTE Prior VTE?: No VTE Risk Level:: Medical - moderate - high VTE Device Contraindication: Treatment Not Indicated VTE Drug Contraindication: N/A - Med Ordered
[2023-07-28 14:00] LABS: ABG Base Excess -0.8 mmol/L; ABG HCO3 25 mmol/L (22-26); ABG pCO2 47 mmHg (32-45); ABG pH 7.33 (7.35-7.45); ABG pO2 84 mmHg (83-108)
[2023-07-28 14:06] LABS: Glucose, Whole Blood 108 mg/dL (60-115)
[2023-07-28 14:08] LABS: Glucose, Whole Blood 93 mg/dL (60-115)
[2023-07-28 14:08] LABS: Glucose, Whole Blood 110 mg/dL (60-115)
[2023-07-28 14:10] LABS: ABG Base Excess -2.3 mmol/L; ABG HCO3 26 mmol/L (22-26); ABG pCO2 62 mmHg (32-45); ABG pH 7.22 (7.35-7.45); ABG pO2 75 mmHg (83-108)
[2023-07-28] MEDS: Naloxone HCl 0.4 MG/ML VIAL 0.2 MG IVPUSH (14:39)
[2023-07-28 15:06] LABS: Glucose, Whole Blood 170 mg/dL (60-115)
[2023-07-28 15:37] LABS: ABG HCO3 25 mmol/L (22-26); ABG pCO2 43 mmHg (32-45); ABG pH 7.37 (7.35-7.45); ABG pO2 90 mmHg (83-108)
[2023-07-28 16:31] LABS: Glucose, Whole Blood 82 mg/dL (60-115)
[2023-07-28 16:39] LABS: MANUAL DIFF FLAG NO
--- NOTE | 2023-07-28 16:51 | PM.EVENT ---
Event Note Date of Service: 07/28/23 Event Note: ABG improved after Bipap, but mental status worsening CT brain ordered and pending ?seizure, will order dose of IV keppra - seizure precautions, aspiration precautions check TSH listed HCP ,got Jag listed as primary contact - he lives with Ilir and is adamant that he no longer drinks alcohol. He has a history of alcohol dependence. He says that he has had seizures in the past but is unclear if this is related to alcohol use/withdrawal neuro checks, neuro consult Time Spent With Patient Time: Total time managing care of this patient today ____ minutes.
[2023-07-28 16:55] LABS: Anion Gap 13 (12-20); Blood Urea Nitrogen 23 mg/dL (9-16); Calcium 8.1 mg/dL (8.4-10.2); Carbon Dioxide 25 mmol/L (22-29); Chloride 112 mmol/L (96-108); Creatinine Clr Calc Pharmacy 37.8; Estimated Glomerular Filt Rate 36; Glucose Random 90 mg/dL (60-115); Potassium 5.3 mmol/L (3.3-5.1); Sodium 145 mmol/L (135-145)
[2023-07-28 17:00] LABS: Basophils Percent Auto 0.3 % (0-2); Eosinophils Absolute Auto 0.1 X10*3/uL (0.0-0.4); Eosinophils Percent Auto 0.5 % (0-4); Hematocrit 33.7 % (42.0-52.0); Hemoglobin 9.8 g/dl (14.0-18.0); Imm Gran Abs Auto 0.06 X10*3/uL (0.00-0.03); Imm Gran Pct Auto 0.5 % (0.0-0.4); Lymphocytes Absolute Auto 0.3 X10*3/uL (1.2-4.9); Lymphocytes Percent Auto 2.9 % (20-40); Mean Corpuscular HGB Conc 29.1 g/dl (31.0-36.0); Mean Corpuscular Hemoglobin 26.9 pg (27.0-33.0); Mean Corpuscular Volume 92.6 fL (80.0-98.0); Mean Platelet Volume 10.7 fL (9.4-12.4); Monocytes Absolute Auto 0.7 X10*3/uL (0.1-1.2); Monocytes Percent Auto 6.4 % (2-11); NRBC Pct Auto 0.2 /100WBC (0.0-0.2); Neutrophils Absolute Auto 9.9 x10*3/uL (2.0-8.3); Neutrophils Percent Auto 89.4 % (45-73); Platelet Count 226 X10*3/uL (160-400); Red Blood Count 3.64 X10*6/uL (4.60-5.80); Red Cell Distribution Width 27.1 % (11.0-16.0); White Blood Count 11.1 X10*3/uL (4.8-10.8)
[2023-07-28] MEDS: levETIRAcetam in NaCl (iso-os) 1,000 MG/100 ML PIGGYBACK 400 MG IV (17:22)
--- NOTE | 2023-07-28 17:49 | HO.WOUND ---
Wound Consult: Initial 78yr old? Male admitted to [facility] on 07/26/23 - See progress notes and H&P for detailed history.? Wound consult placed forBilateral Lower Legs.? Patient was non-responsive during my assessment - direct care nurse and provider aware - work up in progress. Has followed with Dr. Garcia in the [place] and seen by him this admission, see his notes for further details. Left Leg Left Medial Leg Left Lateral Malleolus Left Heel Right Leg Right Lateral Foot right Heel Etiology: Diabetic Wounds with known PVD current vascular work up pending. Measurements: various sized wounds Wound Bed: necrotic yellow kuo brown moist fibrinous slough adherent to wound beds Drainage / Odor: mal odorous drainage - kuo yellow Edges: ? irregular [place] wound: ?red erythema and hemosiderin staining - No Induration, Fluctuance or Warmth noted Pain: pt not responsive during my assessment Goals of Treatment: ? Will attempt to allow for autolytic debridement with hydrogel for moist wound bed, at next assessment will determine if topical recommendations need updating - may consider Dakins if odor continues and or santyl for enzymatic debridement Recommendations: 1. Turn and Reposition every 2 hours and as needed for patient comfort.? Use pillows or wedges to support off loading positions. 2. Off Load all bony prominences with use of pillows and heel boots if needed.? Apply Preventative foams where needed. ? 3. Monitor for incontinence and moisture control, use barrier creams when needed for prevention and treatment. 4. Provide adequate and supplemental nutrition.? 5. Continue low air loss mattress. 6. When applicable maintain blood glucose levels per Providers order. 7. Bilateral Lower Legs - Elevate legs with pillows be sure to off load heels off of bed surface. Cleanse wound beds with NS moist gauze. Apply thick layer of Hydrogel [place] (yellow tube) to all wound beds. Cover with dry gauze followed by ABD pad, and gauze wrap. Change every other day. Re-consult wound care Nurse for wound deterioration or wound changes.
--- NOTE | 2023-07-28 19:10 | PC.NURSE ---
Pt arrived as transfer from approximately 1100 lethargic arouses to tactile stimuli only for brief moments otherwise remains lethargic. Early afternoon has brief moments of being in awake and alert state. Arrived on Bipap, ABG's completed per order, removed mid afternoon. Continues to remain lethargic off unit to CT for head and chest CT. LS dim rhonchi all chi, IV bumex given per order on arrival to unit at 1500 had 600 out in [place] catheter. 1600 pt remains very lethargic unable to arouse. VSS. POC 82. Fabio SMITH aware of concerns on unit to see patient at this time patient now awake and alert communicating. IV keppra given per order. Able to eat dinner with good appetite. Camera at bedside bed in lowest locked position.
[2023-07-28 19:43] LABS: Vancomycin Random 11.1 mcg/mL (15-20)
--- NOTE | 2023-07-28 19:56 | HE.PHANOTE ---
Re: Lukasz Poor renal function, but improving. Trough returned at 11.1. Continue current dose of 1000mg q24h, with predicted AUC 415 mg/L, and trough 13.4 mg/L. Next trough to be drawn 07/28 @ 1900.
[2023-07-28 20:44] LABS: ABG Refer to POC result
[2023-07-28 20:44] LABS: ABG Refer to POC result
[2023-07-28 20:44] LABS: ABG Refer to POC result
[2023-07-28 20:54] LABS: Glucose, Whole Blood 115 mg/dL (60-115)
[2023-07-28] MEDS: vancomycin HCL 1,000 MG in 0.9 % Sodium Chloride 250 ML 270 MG IV (21:31)
[2023-07-28] MEDS: Atorvastatin Calcium 80 MG TABLET PO (21:32)
[2023-07-28] MEDS: Acetaminophen 325 MG TABLET 650 MG PO (21:33)
[2023-07-28] MEDS: guaiFENesin 200 MG/10 ML 10 ML LIQUID PO ×2 (21:34)
[2023-07-29] VITALS (14 sets, daily range): BP systolic 96–164; BP diastolic 62–88; PULSE 67–88; RESP 18–20; TEMP 36.6–37.2; O2SAT 90–96
--- NOTE | 2023-07-29 | ECG_ITS ---
Test Reason : EKG CHECK Blood Pressure : / mmHG Vent. Rate : 074 BPM Atrial Rate : 074 BPM P-R Int : 324 ms QRS Dur : 106 ms QT Int : 400 ms P-R-T Axes : 041 -27 159 degrees QTc Int : 444 ms Sinus rhythm with 1st degree A-V block Minimal voltage criteria for LVH, may be normal variant ( [place] product ) Anterolateral infarct , age undetermined Abnormal ECG When compared with ECG of 02-MAY-2023 14:51, Anterolateral infarct is now Present Referred By: Anamaria Tabares Electronically Signed By:Abdulkadir Saenz
[2023-07-29] MEDS: 0.9 % Sodium Chloride Flush 3 ML SYRINGE IVFLUSH ×3 (03:32→17:24)
[2023-07-29] MEDS: Piperacillin Sodium/Tazobactam 4.5 GM in 0.9 % Sodium Chloride 100 ML IV ×2 (03:33→10:21)
[2023-07-29 07:24] LABS: MANUAL DIFF FLAG NO
[2023-07-29 07:30] LABS: Basophils Percent Auto 0.4 % (0-2); Eosinophils Absolute Auto 0.3 X10*3/uL (0.0-0.4); Eosinophils Percent Auto 2.8 % (0-4); Hematocrit 30.7 % (42.0-52.0); Hemoglobin 9.1 g/dl (14.0-18.0); Imm Gran Abs Auto 0.05 X10*3/uL (0.00-0.03); Imm Gran Pct Auto 0.5 % (0.0-0.4); Lymphocytes Absolute Auto 0.5 X10*3/uL (1.2-4.9); Lymphocytes Percent Auto 5.1 % (20-40); Mean Corpuscular HGB Conc 29.6 g/dl (31.0-36.0); Mean Corpuscular Hemoglobin 27.5 pg (27.0-33.0); Mean Corpuscular Volume 92.7 fL (80.0-98.0); Mean Platelet Volume 10.7 fL (9.4-12.4); Monocytes Percent Auto 9.3 % (2-11); Neutrophils Absolute Auto 8.7 x10*3/uL (2.0-8.3); Neutrophils Percent Auto 81.9 % (45-73); Platelet Count 218 X10*3/uL (160-400); Red Blood Count 3.31 X10*6/uL (4.60-5.80); Red Cell Distribution Width 26.8 % (11.0-16.0); White Blood Count 10.6 X10*3/uL (4.8-10.8)
[2023-07-29] MEDS: Albuterol/Iprat 2.5/0.5MG 3 ML AMPUL.NEB INHALE ×4 (07:43→22:42)
[2023-07-29 07:57] LABS: Parathyroid Hormone Intact 215.5 pg/mL (8.7-77.1)
[2023-07-29 07:58] LABS: Anion Gap 14 (12-20); Blood Urea Nitrogen 24 mg/dL (9-16); Calcium 8.1 mg/dL (8.4-10.2); Carbon Dioxide 26 mmol/L (22-29); Chloride 111 mmol/L (96-108); Creatinine Clr Calc Pharmacy 35.3; Estimated Glomerular Filt Rate 34; Glucose Random 87 mg/dL (60-115); Potassium 5.9 mmol/L (3.3-5.1); Sodium 145 mmol/L (135-145)
[2023-07-29] MEDS: Sodium Zirconium Cyclosilicate 10 GM POWD.PACK PO (10:00)
[2023-07-29] MEDS: Pyridoxine HCl (Vitamin B6) 50 MG TABLET PO (10:00)
[2023-07-29] MEDS: Loratadine 10 MG TABLET PO (10:00)
[2023-07-29] MEDS: Folic Acid 1 MG TABLET PO (10:00)
[2023-07-29] MEDS: Nicotine 7 MG PATCH.TD24 TRANSDERMA (10:00)
[2023-07-29] MEDS: allopurinoL 300 MG TABLET PO (10:00)
[2023-07-29] MEDS: Omeprazole 40 MG CAPSULE.DR PO (10:01)
[2023-07-29] MEDS: Thiamine HCL 100 MG TABLET PO (10:01)
[2023-07-29] MEDS: predniSONE 5 MG TABLET PO (10:01)
[2023-07-29] MEDS: Metoprolol Tartrate 100 MG TABLET PO ×2 (10:01→22:35)
[2023-07-29] MEDS: Heparin Sodium,Porcine 5,000 UNIT/ML VIAL 5000 UNIT SUBCUT ×2 (10:02→22:34)
[2023-07-29] MEDS: Silver Sulfadiazine 1 % Cream 20 GM TUBE 1 APPL TOPICAL (10:02)
--- NOTE | 2023-07-29 11:24 | PM.CNCAR ---
History of Present Illness History of Present Illness Date of Service: 07/29/23 Chief complaint: Nonhealing wounds, Cellulitis, CHF Narrative: 78-year-old gentleman who we have been asked to see for congestive heart failure. He has background history of chronic kidney disease stage 3, COPD, hyperlipidemia, diabetes, hypothyroidism, hypertension and hyperlipidemia. He also has peripheral vascular disease who presented with nonhealing wounds on bilateral lower extremity with cellulitis and also was found to have pneumonia. He has been on antibiotics but started developing worsening shortness of breath. He has background of heart failure with reduced ejection fraction with EF 35%. He is confused currently. There is also some question that he had a seizure. He is confused but is saying that he has history of seizures. He is on supplemental oxygen. He is wheezing audibly. [facility] Past Medical History Medical History CKD (chronic kidney disease), stage III COPD (chronic obstructive pulmonary disease) Dyslipidemia GERD (gastroesophageal reflux disease) Gout History of underactive thyroid HTN (hypertension) Thrombocytosis Surgical History Surgical History S/P balloon dilatation of esophageal stricture Social History Social History (Updated 03/22/22 @ 14:33 by JOHANNA Curtis) Household Members: Family Housing: House Do you presently have visiting nurse or other home services: Yes Patient Tobacco Use Status: Tobacco use Unknown Cigarettes Per Day: 4 service: No Meds Allergies Allergy/AdvReac Type Severity Reaction Status Date / Time CRANBERRY JUICE Allergy Unknown DIARRHEA Uncoded 07/26/23 17:16 Active Medications: Current Medications Acetaminophen (Acetaminophen 325 Mg Tablet) 650 mg PO Q6H PRN PRN Reason: Pain, Mild (Pain Scale 1-3) Last Admin: 07/28/23 21:33 Dose: 650 mg Albuterol Sulfate (Albuterol Sulfate 90 Mcg 8 Gm Inhaler) 2 puff INHALE Q3H PRN PRN Reason: Shortness Of Breath Albuterol/Ipratropium (Albuterol/Iprat 2.5/0.5mg 3 Ml Ampul.Neb) 3 ml INHALE RQ4H WHILE AWAKE [facility] Last Admin: 07/29/23 07:43 Dose: 3 ml Allopurinol (Allopurinol 300 Mg Tablet) 300 mg PO DAILY [facility] Last Admin: 07/29/23 10:00 Dose: 300 mg Atorvastatin Calcium (Atorvastatin Calcium 80 Mg Tablet) 80 mg PO BEDTIME [facility] Last Admin: 07/28/23 21:32 Dose: 80 mg Clonazepam (Clonazepam 1 Mg Tablet) 1 mg PO BEDTIME [facility] Last Admin: 07/27/23 21:21 Dose: 1 mg Folic Acid (Folic Acid 1 Mg Tablet) 1 mg PO DAILY [facility] Last Admin: 07/29/23 10:00 Dose: 1 mg Glucose (Glucose Gel 15 Gm Gel..Gram.) 15 gm PO Q15M PRN; Protocol PRN Reason: per Hypoglycemia Standing Ord. Guaifenesin (Guaifenesin 200 Mg/10 Ml 10 Ml Liquid) 10 ml PO Q4H PRN PRN Reason: Cough Last Admin: 07/28/23 21:34 Dose: 10 ml Heparin Sodium (Porcine) (Heparin Sodium,Porcine 5,000 Unit/Ml Vial) 5,000 unit SUBCUT Q12H [facility] Last Admin: 07/29/23 10:02 Dose: 5,000 unit Piperacillin Sod/Tazobactam (Sod 4.5 gm/ Sodium Chloride) 100 mls @ 200 mls/hr IV Q8H [facility] Last Admin: 07/29/23 10:21 Dose: 200 mls/hr Dextrose (D10) 250 mls @ 750 mls/hr IV Q15M PRN; Protocol PRN Reason: per Hypoglycemia Standing Ord. Vancomycin HCl 1,000 mg/ (Sodium Chloride) 270 mls @ 270 mls/hr IV Q24H [facility] Last Infusion: 07/28/23 22:42 Dose: Infused Insulin Human Lispro (Insulin Lispro 100 Unit/Ml 3 Ml Vial) 0 unit SUBCUT QIDACHS [facility]; Protocol Last Admin: 07/29/23 08:42 Dose: Not Given Levothyroxine Sodium (Levothyroxine Sodium 25 Mcg Tablet) 25 mcg PO DAILY@0630 [facility] Last Admin: 07/29/23 06:26 Dose: Not Given Loratadine (Loratadine 10 Mg Tablet) 10 mg PO DAILY [facility] Last Admin: 07/29/23 10:00 Dose: 10 mg Magnesium Hydroxide (Milk Of Magnesia 30 Ml Oral.Susp) 30 ml PO DAILY PRN PRN Reason: Constipation Metoprolol Tartrate (Metoprolol Tartrate 100 Mg Tablet) 100 mg PO BID [facility]; Protocol Last Admin: 07/29/23 10:01 Dose: 100 mg Nicotine (Nicotine 7 Mg Patch.Td24) 7 mg TRANSDERMA DAILY [facility] Last Admin: 07/29/23 10:00 Dose: 7 mg Omeprazole (Omeprazole 40 Mg Capsule.Dr) 40 mg PO DAILY [facility] Last Admin: 07/29/23 10:01 Dose: 40 mg Ondansetron HCl (Ondansetron Hcl 4 Mg/2 Ml Vial) 4 mg IVPUSH Q8H PRN PRN Reason: Nausea and Vomiting Pharmacy Consult (Consult Rx Vancomycin Dosing) 1 each MISCELLANE DAILY PRN PRN Reason: Consult order Prednisone (Prednisone 5 Mg Tablet) 5 mg PO DAILY [facility] Last Admin: 07/29/23 10:01 Dose: 5 mg Pyridoxine HCl (Pyridoxine Hcl (Vitamin B6) 50 Mg Tablet) 50 mg PO DAILY [facility] Last Admin: 07/29/23 10:00 Dose: 50 mg Silver Sulfadiazine (Silver Sulfadiazine 1 % Cream 20 Gm Tube) 1 appl TOPICAL DAILY [facility] Last Admin: 07/29/23 10:02 Dose: 1 appl Sodium Chloride (0.9 % Sodium Chloride Flush 3 Ml Syringe) 3 ml IVFLUSH QSHIFT [facility] Last Admin: 07/29/23 10:02 Dose: 3 ml Thiamine HCl (Thiamine Hcl 100 Mg Tablet) 100 mg PO DAILY [facility] Last Admin: 07/29/23 10:01 Dose: 100 mg Home Medications ?Medication ?Instructions ?Recorded ?Confirmed ?Last Taken ?Type allopurinol 300 mg tablet 300 mg PO DAILY 07/08/21 07/26/23 Unknown History folic acid 1 mg tablet 1 mg PO DAILY 07/08/21 07/26/23 Unknown History levothyroxine 25 mcg tablet 25 mcg PO DAILY@0630 07/08/21 07/26/23 Unknown History losartan 100 mg tablet 100 mg PO DAILY 07/08/21 07/26/23 Unknown History metoprolol tartrate 100 mg tablet 100 mg PO BID 07/08/21 07/26/23 Unknown History omeprazole 40 mg capsule,delayed 40 mg PO DAILY 07/08/21 07/26/23 Unknown History release prednisone 5 mg tablet 5 mg PO DAILY 07/08/21 07/26/23 Unknown History pyridoxine (vitamin B6) 50 mg 50 mg PO DAILY 07/08/21 07/26/23 Unknown History tablet rosuvastatin 20 mg tablet 20 mg PO DAILY 07/08/21 07/26/23 Unknown History thiamine HCl (vitamin B1) 100 mg 100 mg PO DAILY 07/08/21 07/26/23 Unknown History tablet clonazepam 1 mg tablet 1 mg PO BEDTIME 05/02/23 07/26/23 Unknown History loratadine 10 mg tablet (Allergy 10 mg PO DAILY 05/02/23 07/26/23 Unknown History Relief (loratadine)) naproxen 500 mg tablet 500 mg PO BID Pain 05/02/23 07/26/23 Unknown History albuterol sulfate 90 mcg/actuation 2 puff inhalation Q3H PRN 07/26/23 07/26/23 Unknown History aerosol inhaler Shortness Of Breath silver sulfadiazine 1 % topical 1 appl topical DAILY 07/26/23 07/26/23 Unknown History cream Physical Exam Vital Signs: Vital Signs: Last Vital Signs Temp 98.8 F 07/29/23 07:57 Pulse 88 07/29/23 07:46 Resp 18 07/29/23 07:57 BP 105/77 07/29/23 07:57 Pulse Ox 95 07/29/23 07:57 O2 Del Method Nasal Cannula 07/29/23 07:57 O2 Flow Rate 2 07/29/23 07:57 BMI result Body Mass Index 29.5 GENERAL APPEARANCE: SOB, wheezy, confused. NECK: no carotid bruit, + jugular venous distention. SKIN: no suspicious lesions, warm and dry. HEART: no murmurs, regular rate and rhythm. LUNGS: Bilateral expiratory wheezes. ABDOMEN: soft, nontender. EXTREMITIES: Wounds on both legs which are dressed. PERIPHERAL PULSES: equal. NEUROLOGIC: No gross deficits, AAO X 3 Objective Labs and Meds 07/29/23 06:59 07/29/23 07:00 Lab results: Laboratory Results - last 24 hr 07/28/23 07/28/23 07/28/23 07:11 09:50 10:09 WBC RBC Hgb Hct MCV MCH MCHC RDW Plt Count MPV Immature Gran % (Auto) Neut % (Auto) Lymph % (Auto) [place] % (Auto) Eos % (Auto) Baso % (Auto) Lymph # (Auto) [place] # (Auto) Eos # (Auto) Baso # (Auto) Abs Immat Gran (auto) Absolute Neuts (auto) Absolute Nucleated RBC Nucleated RBC % (auto) O2 Saturation 94.0 ABG pH at Pt Temp 7.22 L ABG pCO2 at Pt Temp 62 H* ABG pO2 at Pt Temp 75 L ABG HCO3 26 ABG Base Excess (Actual) -2.3 Sodium Potassium Chloride Carbon Dioxide Anion Gap BUN Creatinine Estim Creat Clear Calc Estimated GFR POC Glucose 170 H 93 Random Glucose Calcium B-Natriuretic Peptide 25-OH Vitamin D Total PTH Intact Random Vancomycin 07/28/23 07/28/23 07/28/23 11:25 12:08 12:23 WBC RBC Hgb Hct MCV MCH MCHC RDW Plt Count MPV Immature Gran % (Auto) Neut % (Auto) Lymph % (Auto) [place] % (Auto) Eos % (Auto) Baso % (Auto) Lymph # (Auto) [place] # (Auto) Eos # (Auto) Baso # (Auto) Abs Immat Gran (auto) Absolute Neuts (auto) Absolute Nucleated RBC Nucleated RBC % (auto) O2 Saturation 98.0 ABG pH at Pt Temp 7.33 L ABG pCO2 at Pt Temp 47 H ABG pO2 at Pt Temp 84 ABG HCO3 25 ABG Base Excess (Actual) -0.8 Sodium Potassium Chloride Carbon Dioxide Anion Gap BUN Creatinine Estim Creat Clear Calc Estimated GFR POC Glucose 110 108 Random Glucose Calcium B-Natriuretic Peptide 3695 H 25-OH Vitamin D Total PTH Intact Random Vancomycin 07/28/23 07/28/23 07/28/23 15:28 16:16 16:35 WBC 11.1 H RBC 3.64 L Hgb 9.8 L Hct 33.7 L MCV 92.6 MCH 26.9 L MCHC 29.1 L RDW 27.1 H Plt Count 226 MPV 10.7 Immature Gran % (Auto) 0.5 H Neut % (Auto) 89.4 H Lymph % (Auto) 2.9 L [place] % (Auto) 6.4 Eos % (Auto) 0.5 Baso % (Auto) 0.3 Lymph # (Auto) 0.3 L [place] # (Auto) 0.7 Eos # (Auto) 0.1 Baso # (Auto) 0.0 Abs Immat Gran (auto) 0.06 H Absolute Neuts (auto) 9.9 H Absolute Nucleated RBC 0.020 H Nucleated RBC % (auto) 0.2 O2 Saturation 99.0 ABG pH at Pt Temp 7.37 ABG pCO2 at Pt Temp 43 ABG pO2 at Pt Temp 90 ABG HCO3 25 ABG Base Excess (Actual) 0.0 Sodium 145 Potassium 5.3 H Chloride 112 H Carbon Dioxide 25 Anion Gap 13 BUN 23 H Creatinine 1.82 H Estim Creat Clear Calc 37.8 Estimated GFR 36 POC Glucose 82 Random Glucose 90 Calcium 8.1 L B-Natriuretic Peptide 25-OH Vitamin D Total PTH Intact Random Vancomycin 07/28/23 07/28/23 07/29/23 19:10 20:49 06:59 WBC 10.6 RBC 3.31 L Hgb 9.1 L Hct 30.7 L MCV 92.7 MCH 27.5 MCHC 29.6 L RDW 26.8 H Plt Count 218 MPV 10.7 Immature Gran % (Auto) 0.5 H Neut % (Auto) 81.9 H Lymph % (Auto) 5.1 L [place] % (Auto) 9.3 Eos % (Auto) 2.8 Baso % (Auto) 0.4 Lymph # (Auto) 0.5 L [place] # (Auto) 1.0 Eos # (Auto) 0.3 Baso # (Auto) 0.0 Abs Immat Gran (auto) 0.05 H Absolute Neuts (auto) 8.7 H Absolute Nucleated RBC 0.000 Nucleated RBC % (auto) 0.0 O2 Saturation ABG pH at Pt Temp ABG pCO2 at Pt Temp ABG pO2 at Pt Temp ABG HCO3 ABG Base Excess (Actual) Sodium Potassium Chloride Carbon Dioxide Anion Gap BUN Creatinine Estim Creat Clear Calc Estimated GFR POC Glucose 115 Random Glucose Calcium B-Natriuretic Peptide 25-OH Vitamin D Total PTH Intact 215.5 H Random Vancomycin 11.1 L 07/29/23 07:00 WBC RBC Hgb Hct MCV MCH MCHC RDW Plt Count MPV Immature Gran % (Auto) Neut % (Auto) Lymph % (Auto) [place] % (Auto) Eos % (Auto) Baso % (Auto) Lymph # (Auto) [place] # (Auto) Eos # (Auto) Baso # (Auto) Abs Immat Gran (auto) Absolute Neuts (auto) Absolute Nucleated RBC Nucleated RBC % (auto) O2 Saturation ABG pH at Pt Temp ABG pCO2 at Pt Temp ABG pO2 at Pt Temp ABG HCO3 ABG Base Excess (Actual) Sodium 145 Potassium 5.9 H Chloride 111 H Carbon Dioxide 26 Anion Gap 14 BUN 24 H Creatinine 1.95 H Estim Creat Clear Calc 35.3 Estimated GFR 34 POC Glucose Random Glucose 87 Calcium 8.1 L B-Natriuretic Peptide 25-OH Vitamin D Total 6.0 L PTH Intact Random Vancomycin Imaging Radiologist's impression: Impressions Chest X-Ray 07/28/23 12:59 IMPRESSION: Low lung volumes limit examination. There is a stable right lower lobe opacity for which an infectious/inflammatory process is suspected. There is a small left pleural effusion. Chest CT 07/28/23 16:10 IMPRESSION: 1. Bilateral pleural effusions, left greater than right with associated compressive atelectasis. 2. Cardiomegaly. 3. Small amount of ascites. Fleischner guidelines were followed. Head CT 07/28/23 16:10 IMPRESSION: 1. No acute intracranial pathology. 2. Stable chronic changes as described above. Assessment and Plan (1) Acute on chronic systolic (congestive) heart failure: Status: Acute (2) Pneumonia: Qualifiers: Laterality: left Lung location: lower lobe of lung Pneumonia type: due to unspecified organism Qualified Code(s): J18.9 - Pneumonia, unspecified organism Status: Acute (3) Bilateral leg ulcer: Qualifiers: Non-pressure ulcer stage: with fat layer exposed Qualified Code(s): L97.912 - Non-pressure chronic ulcer of unspecified part of right lower leg with fat layer exposed; L97.922 - Non-pressure chronic ulcer of unspecified part of left lower leg with fat layer exposed Status: Acute Plan 78-year-old gentleman with multiple comorbidities as well as heart failure with reduced ejection fraction of 35% presenting with cellulitis and pneumonia. Chest x-ray shown small effusion. Clinically he is wheezing examination mild JVD is noted. His exam is somewhat limited. Continued gentle diuresis. Continue supportive care for pneumonia cellulitis. Blood pressure appears to be stable currently. Thank you for allowing me to participate in the care of your patient. Please feel free to contact me if you have any questions. Procedures Date of Service Date of Service: 07/29/23
[2023-07-29 11:46] LABS: Glucose, Whole Blood 134 mg/dL (60-115)
--- NOTE | 2023-07-29 12:12 | HO.PM.IMPN ---
Subjective Subjective Date of Service: 07/29/23 Physical Exam Vital Signs: Vital Signs: Last Vital Signs Temp 98.3 F 07/29/23 11:39 Pulse 75 07/29/23 11:43 Resp 18 07/29/23 11:43 BP 96/62 07/29/23 11:39 Pulse Ox 93 07/29/23 11:39 O2 Del Method Nasal Cannula 07/29/23 11:39 O2 Flow Rate 3 07/29/23 11:39 BMI result Body Mass Index 29.5 Objective Data Active Medications Acetaminophen (Acetaminophen 325 Mg Tablet) 650 mg PO Q6H PRN PRN Reason: Pain, Mild (Pain Scale 1-3) Last Admin: 07/28/23 21:33 Dose: 650 mg Documented By: LOGAN Albuterol Sulfate (Albuterol Sulfate 90 Mcg 8 Gm Inhaler) 2 puff INHALE Q3H PRN PRN Reason: Shortness Of Breath Albuterol/Ipratropium (Albuterol/Iprat 2.5/0.5mg 3 Ml Ampul.Neb) 3 ml INHALE RQ4H WHILE AWAKE [facility] Last Admin: 07/29/23 11:40 Dose: 3 ml Documented By: PEEWEE Allopurinol (Allopurinol 300 Mg Tablet) 300 mg PO DAILY [facility] Last Admin: 07/29/23 10:00 Dose: 300 mg Documented By: DAYNA Atorvastatin Calcium (Atorvastatin Calcium 80 Mg Tablet) 80 mg PO BEDTIME [facility] Last Admin: 07/28/23 21:32 Dose: 80 mg Documented By: LOGAN Clonazepam (Clonazepam 1 Mg Tablet) 1 mg PO BEDTIME [facility] Last Admin: 07/27/23 21:21 Dose: 1 mg Documented By: ADELFO Folic Acid (Folic Acid 1 Mg Tablet) 1 mg PO DAILY [facility] Last Admin: 07/29/23 10:00 Dose: 1 mg Documented By: DAYNA Glucose (Glucose Gel 15 Gm Gel..Gram.) 15 gm PO Q15M PRN; Protocol PRN Reason: per Hypoglycemia Standing Ord. Guaifenesin (Guaifenesin 200 Mg/10 Ml 10 Ml Liquid) 10 ml PO Q4H PRN PRN Reason: Cough Last Admin: 07/28/23 21:34 Dose: 10 ml Documented By: LOGAN Heparin Sodium (Porcine) (Heparin Sodium,Porcine 5,000 Unit/Ml Vial) 5,000 unit SUBCUT Q12H [facility] Last Admin: 07/29/23 10:02 Dose: 5,000 unit Documented By: DAYNA Piperacillin Sod/Tazobactam (Sod 4.5 gm/ Sodium Chloride) 100 mls @ 200 mls/hr IV Q8H [facility] Last Infusion: 07/29/23 10:51 Dose: Infused Documented By: DAYNA Dextrose (D10) 250 mls @ 750 mls/hr IV Q15M PRN; Protocol PRN Reason: per Hypoglycemia Standing Ord. Vancomycin HCl 1,000 mg/ (Sodium Chloride) 270 mls @ 270 mls/hr IV Q24H [facility] Last Infusion: 07/28/23 22:42 Dose: Infused Documented By: LOGAN Insulin Human Lispro (Insulin Lispro 100 Unit/Ml 3 Ml Vial) 0 unit SUBCUT QIDACHS [facility]; Protocol Last Admin: 07/29/23 11:52 Dose: Not Given Documented By: DAYNA Non-Admin Reason: No Insulin Coverage Levothyroxine Sodium (Levothyroxine Sodium 25 Mcg Tablet) 25 mcg PO DAILY@0630 [facility] Last Admin: 07/29/23 06:26 Dose: Not Given Documented By: LOGAN Non-Admin Reason: Patient Refused Loratadine (Loratadine 10 Mg Tablet) 10 mg PO DAILY [facility] Last Admin: 07/29/23 10:00 Dose: 10 mg Documented By: DAYNA Magnesium Hydroxide (Milk Of Magnesia 30 Ml Oral.Susp) 30 ml PO DAILY PRN PRN Reason: Constipation Metoprolol Tartrate (Metoprolol Tartrate 100 Mg Tablet) 100 mg PO BID [facility]; Protocol Last Admin: 07/29/23 10:01 Dose: 100 mg Documented By: DAYNA Nicotine (Nicotine 7 Mg Patch.Td24) 7 mg TRANSDERMA DAILY [facility] Last Admin: 07/29/23 10:00 Dose: 7 mg Documented By: DAYNA Omeprazole (Omeprazole 40 Mg Capsule.Dr) 40 mg PO DAILY [facility] Last Admin: 07/29/23 10:01 Dose: 40 mg Documented By: DAYNA Ondansetron HCl (Ondansetron Hcl 4 Mg/2 Ml Vial) 4 mg IVPUSH Q8H PRN PRN Reason: Nausea and Vomiting Pharmacy Consult (Consult Rx Vancomycin Dosing) 1 each MISCELLANE DAILY PRN PRN Reason: Consult order Prednisone (Prednisone 5 Mg Tablet) 5 mg PO DAILY [facility] Last Admin: 07/29/23 10:01 Dose: 5 mg Documented By: DAYNA Pyridoxine HCl (Pyridoxine Hcl (Vitamin B6) 50 Mg Tablet) 50 mg PO DAILY [facility] Last Admin: 07/29/23 10:00 Dose: 50 mg Documented By: DAYNA Silver Sulfadiazine (Silver Sulfadiazine 1 % Cream 20 Gm Tube) 1 appl TOPICAL DAILY [facility] Last Admin: 07/29/23 10:02 Dose: 1 appl Documented By: DAYNA Sodium Chloride (0.9 % Sodium Chloride Flush 3 Ml Syringe) 3 ml IVFLUSH QSHIFT [facility] Last Admin: 07/29/23 10:02 Dose: 3 ml Documented By: DAYNA Thiamine HCl (Thiamine Hcl 100 Mg Tablet) 100 mg PO DAILY [facility] Last Admin: 07/29/23 10:01 Dose: 100 mg Documented By: DAYNA Labs 07/29/23 06:59 07/29/23 07:00 Labs: Laboratory Results - last 24 hr 07/28/23 07/28/23 07/28/23 07:11 09:50 10:09 MCV MCH MCHC RDW Plt Count MPV Immature Gran % (Auto) Neut % (Auto) Lymph % (Auto) [place] % (Auto) Eos % (Auto) Baso % (Auto) Lymph # (Auto) [place] # (Auto) Eos # (Auto) Baso # (Auto) Abs Immat Gran (auto) Absolute Neuts (auto) Absolute Nucleated RBC Nucleated RBC % (auto) O2 Saturation 94.0 ABG pH at Pt Temp 7.22 L ABG pCO2 at Pt Temp 62 H* ABG pO2 at Pt Temp 75 L ABG HCO3 26 ABG Base Excess (Actual) -2.3 Anion Gap Estim Creat Clear Calc Estimated GFR POC Glucose 170 H 93 Random Glucose Calcium B-Natriuretic Peptide 25-OH Vitamin D Total PTH Intact Random Vancomycin 07/28/23 07/28/23 07/28/23 11:25 12:08 12:23 MCV MCH MCHC RDW Plt Count MPV Immature Gran % (Auto) Neut % (Auto) Lymph % (Auto) [place] % (Auto) Eos % (Auto) Baso % (Auto) Lymph # (Auto) [place] # (Auto) Eos # (Auto) Baso # (Auto) Abs Immat Gran (auto) Absolute Neuts (auto) Absolute Nucleated RBC Nucleated RBC % (auto) O2 Saturation 98.0 ABG pH at Pt Temp 7.33 L ABG pCO2 at Pt Temp 47 H ABG pO2 at Pt Temp 84 ABG HCO3 25 ABG Base Excess (Actual) -0.8 Anion Gap Estim Creat Clear Calc Estimated GFR POC Glucose 110 108 Random Glucose Calcium B-Natriuretic Peptide 3695 H 25-OH Vitamin D Total PTH Intact Random Vancomycin 07/28/23 07/28/23 07/28/23 15:28 16:16 16:35 MCV 92.6 MCH 26.9 L MCHC 29.1 L RDW 27.1 H Plt Count 226 MPV 10.7 Immature Gran % (Auto) 0.5 H Neut % (Auto) 89.4 H Lymph % (Auto) 2.9 L [place] % (Auto) 6.4 Eos % (Auto) 0.5 Baso % (Auto) 0.3 Lymph # (Auto) 0.3 L [place] # (Auto) 0.7 Eos # (Auto) 0.1 Baso # (Auto) 0.0 Abs Immat Gran (auto) 0.06 H Absolute Neuts (auto) 9.9 H Absolute Nucleated RBC 0.020 H Nucleated RBC % (auto) 0.2 O2 Saturation 99.0 ABG pH at Pt Temp 7.37 ABG pCO2 at Pt Temp 43 ABG pO2 at Pt Temp 90 ABG HCO3 25 ABG Base Excess (Actual) 0.0 Anion Gap 13 Estim Creat Clear Calc 37.8 Estimated GFR 36 POC Glucose 82 Random Glucose 90 Calcium 8.1 L B-Natriuretic Peptide 25-OH Vitamin D Total PTH Intact Random Vancomycin 07/28/23 07/28/23 07/29/23 19:10 20:49 06:59 MCV 92.7 MCH 27.5 MCHC 29.6 L RDW 26.8 H Plt Count 218 MPV 10.7 Immature Gran % (Auto) 0.5 H Neut % (Auto) 81.9 H Lymph % (Auto) 5.1 L [place] % (Auto) 9.3 Eos % (Auto) 2.8 Baso % (Auto) 0.4 Lymph # (Auto) 0.5 L [place] # (Auto) 1.0 Eos # (Auto) 0.3 Baso # (Auto) 0.0 Abs Immat Gran (auto) 0.05 H Absolute Neuts (auto) 8.7 H Absolute Nucleated RBC 0.000 Nucleated RBC % (auto) 0.0 O2 Saturation ABG pH at Pt Temp ABG pCO2 at Pt Temp ABG pO2 at Pt Temp ABG HCO3 ABG Base Excess (Actual) Anion Gap Estim Creat Clear Calc Estimated GFR POC Glucose 115 Random Glucose Calcium B-Natriuretic Peptide 25-OH Vitamin D Total PTH Intact 215.5 H Random Vancomycin 11.1 L 07/29/23 07/29/23 07:00 11:39 MCV MCH MCHC RDW Plt Count MPV Immature Gran % (Auto) Neut % (Auto) Lymph % (Auto) [place] % (Auto) Eos % (Auto) Baso % (Auto) Lymph # (Auto) [place] # (Auto) Eos # (Auto) Baso # (Auto) Abs Immat Gran (auto) Absolute Neuts (auto) Absolute Nucleated RBC Nucleated RBC % (auto) O2 Saturation ABG pH at Pt Temp ABG pCO2 at Pt Temp ABG pO2 at Pt Temp ABG HCO3 ABG Base Excess (Actual) Anion Gap 14 Estim Creat Clear Calc 35.3 Estimated GFR 34 POC Glucose 134 H Random Glucose 87 Calcium 8.1 L B-Natriuretic Peptide 25-OH Vitamin D Total 6.0 L PTH Intact Random Vancomycin Microbiology Microbiology Results: Microbiology 07/26/23 18:15 Gram Stain - Final Leg Right Routine Culture - Preliminary Pseudomonas aeruginosa Morg morganii ssp sibonii Staphylococcus species 07/26/23 18:14 Gram Stain - Final Leg Left Routine Culture - Preliminary Pseudomonas aeruginosa Methicillin Res Staph Aureus Morg morganii ssp sibonii 07/26/23 17:45 Blood Culture - Preliminary Blood - Venous No growth after 48 hours. 07/26/23 17:44 Blood Culture - Preliminary Blood - Venous No growth after 48 hours. Assessment and Plan (1) Acute on chronic systolic (congestive) heart failure: Status: Acute (2) Acute on chronic respiratory failure with hypoxia and hypercapnia: Status: Acute (3) Bilateral leg ulcer: Status: Acute Plan 78-year-old male with history of CKD stage 3, COPD, hyperlipidemia, [id number] type 2 diabetes, hypothyroidism, hypertension, hyperlipidemia, peripheral vascular disease, restless legs syndrome admitted for further management of nonhealing wounds to the BLE with cellilitis and pneumonia, course complicated by respiratory failure Acute hypercarbic respiratory failure likely due to underlying COPD, sedating meds and CHF hold home klonopin more awake and alert today Acute on chronic HFrEF EF 35% not on diuretics at baseline per med rec follow Is&Os cardiology consult Nonhealing wounds BLE with extensive cellulitis r/t PAD no sepsis continue IV vanco and Zosyn (initiated 07/25) bilateral arterial duplex with bilateral vascular disease plan for CT angio with runoff (okayed by nephrology) vascular surgery consult following wound care consult Blood cultures negative to date LLL pneumonia iv vanco/zosyn as above DuoNebs q.4h guaifenesin p.r.n. Blood cultures negative as above Strep pneumo antigen, Legionella antigen, sputum culture, MRSA nasal swab + Hypernatremia resolved with D5w Hyperkalemia- 5.9 hold losartan give Lokelma 10 g once DM2 ss, ada diet COPD no acute exacerbation continue maintenance inhalers, albuterol p.r.n. continue daily prednisone CKD stage 3 renal function baseline hypothyroidism continue Synthroid hypertension continue metoprolol, hold losartan as above hyperlipidemia continue statin nicotine dependence cessation advised patches for NRT DVT prophylaxis-heparin attending Dr. Patton Full code Requires ongoing inpatient stay for management of respiratory failure, nonhealing wounds of the bilateral lower extremities with extensive cellulitis covering greater than 50% of the left lower extremity requiring IV antibiotics, expert consultation, and possible surgical intervention/debridement Quality Stroke Does the patient have a stroke diagnosis?: No VTE Prior VTE?: No VTE Risk Level:: Medical - moderate - high VTE Device Contraindication: Treatment Not Indicated VTE Drug Contraindication: N/A - Med Ordered
[2023-07-29 16:31] LABS: Glucose, Whole Blood 117 mg/dL (60-115)
[2023-07-29] MEDS: Piperacillin Sodium/Tazobactam 2.25 GM in 0.9 % Sodium Chloride 50 ML IV (17:26)
[2023-07-29 19:40] LABS: Vancomycin Random 16.2 mcg/mL (15-20)
--- NOTE | 2023-07-29 19:54 | HE.PHANOTE ---
Re: Lukasz Poor renal function. Trough returned at 16.2. Reduce dose to 750mg q24h, with predicted AUC 400 mg/L, and trough 13.7 mg/L. Next trough to be drawn 07/29 @ 1900.
[2023-07-29] MEDS: Atorvastatin Calcium 80 MG TABLET PO (22:35)
[2023-07-29 22:53] LABS: Glucose, Whole Blood 129 mg/dL (60-115)
--- NOTE | 2023-07-29 23:37 | PC.NURSE ---
patent ripped out IV, pt with sitter non redirectable top command
--- NOTE | 2023-07-29 23:46 | PC.RT ---
Pt refused first(2099) breathing treatment tonight, pt was very agitated riipping IV's out, throwing items in room, trying to get out of bed. Pt did grab RT by the arm while RT attempted to listen to breath sounds, RN was made aware. RT did increase FIO2 from 2L to 4L at beginning of shift due to pt's SPO2 approximately 86%, RN is aware of flow liter change. At approximately 2229, RT was able to place Bipap on pt due to pt becoming sleepy, RT was able to give inline breathing treatment via aerogen via BIPAP. Pt ended ripping Bipap mask off at approximately 2324, RN called RT and placed pt on 4L N/C w/ SPO2 above 92%. Pt remains on continuously monitoring and currently on 4L N/C.
[2023-07-30] VITALS (10 sets, daily range): BP systolic 118–182; BP diastolic 69–99; PULSE 68–79; RESP 16–22; TEMP 36.1–36.7; O2SAT 92–96
[2023-07-30] MEDS: 0.9 % Sodium Chloride Flush 3 ML SYRINGE IVFLUSH ×4 (02:54→20:14)
[2023-07-30] MEDS: vancomycin HCL 750 MG in 0.9 % Sodium Chloride 250 ML 265 MG IV (03:00)
[2023-07-30 03:04] LABS: Strep Pneumo Ag urine Not Detected (Not Detected)
[2023-07-30] MEDS: Piperacillin Sodium/Tazobactam 2.25 GM in 0.9 % Sodium Chloride 50 ML IV ×3 (03:57→17:10)
--- NOTE | 2023-07-30 06:30 | PM.EVENT ---
Event Note Date of Service: 07/30/23 Event Note: Nurse reported unequal breath sounds. Upon examination, reduced breath sounds in the left. Obtaining chest x-ray. No change in oxygenation Time Spent With Patient Time: Total time managing care of this patient today ____ minutes.
[2023-07-30 07:21] LABS: Glucose, Whole Blood 88 mg/dL (60-115)
--- NOTE | 2023-07-30 07:50 | HO.PM.IMPN ---
Subjective Subjective Date of Service: 07/30/23 Review of Systems Follow up acute hypercarbic respiratory failure and nonhealing lower extremity wounds Denies pain, still has confusion Physical Exam Vital Signs: Vital Signs: Last Vital Signs Temp 96.9 F 07/30/23 04:00 Pulse 68 07/30/23 04:00 Resp 20 07/30/23 04:00 BP 147/89 H 07/30/23 04:00 Pulse Ox 96 07/30/23 04:00 O2 Del Method Nasal Cannula 07/30/23 04:00 O2 Flow Rate 2 07/30/23 04:00 BMI result Body Mass Index 29.5 Appearing in no acute distress lung sounds are clear to auscultation heart regular rate rhythm, clear S1, S2 positive bowel sounds, abdomen is soft, nontender neuro patient is alert x3, no focal deficits Bilateral lower extremity vascular wounds Objective Data Active Medications Acetaminophen (Acetaminophen 325 Mg Tablet) 650 mg PO Q6H PRN PRN Reason: Pain, Mild (Pain Scale 1-3) Last Admin: 07/28/23 21:33 Dose: 650 mg Documented By: LOGAN Albuterol Sulfate (Albuterol Sulfate 90 Mcg 8 Gm Inhaler) 2 puff INHALE Q3H PRN PRN Reason: Shortness Of Breath Albuterol/Ipratropium (Albuterol/Iprat 2.5/0.5mg 3 Ml Ampul.Neb) 3 ml INHALE RQ4H WHILE AWAKE [facility] Last Admin: 07/29/23 22:42 Dose: 3 ml Documented By: CHRISTOPHER Allopurinol (Allopurinol 300 Mg Tablet) 300 mg PO DAILY [facility] Last Admin: 07/29/23 10:00 Dose: 300 mg Documented By: DAYNA Atorvastatin Calcium (Atorvastatin Calcium 80 Mg Tablet) 80 mg PO BEDTIME [facility] Last Admin: 07/29/23 22:35 Dose: 80 mg Documented By: LOGAN Clonazepam (Clonazepam 1 Mg Tablet) 1 mg PO BEDTIME [facility] Last Admin: 07/27/23 21:21 Dose: 1 mg Documented By: ADELFO Folic Acid (Folic Acid 1 Mg Tablet) 1 mg PO DAILY [facility] Last Admin: 07/29/23 10:00 Dose: 1 mg Documented By: DAYNA Furosemide (Furosemide 40 Mg/4 Ml Vial) 40 mg IVPUSH ONCE ONE; Protocol Stop: 07/30/23 07:45 Glucose (Glucose Gel 15 Gm Gel..Gram.) 15 gm PO Q15M PRN; Protocol PRN Reason: per Hypoglycemia Standing Ord. Guaifenesin (Guaifenesin 200 Mg/10 Ml 10 Ml Liquid) 10 ml PO Q4H PRN PRN Reason: Cough Last Admin: 07/28/23 21:34 Dose: 10 ml Documented By: LOGAN Heparin Sodium (Porcine) (Heparin Sodium,Porcine 5,000 Unit/Ml Vial) 5,000 unit SUBCUT Q12H [facility] Last Admin: 07/29/23 22:34 Dose: 5,000 unit Documented By: LOGAN Dextrose (D10) 250 mls @ 750 mls/hr IV Q15M PRN; Protocol PRN Reason: per Hypoglycemia Standing Ord. Piperacillin Sod/Tazobactam (Sod 2.25 gm/ Sodium Chloride) 50 mls @ 100 mls/hr IV Q6H [facility] Last Infusion: 07/30/23 07:41 Dose: Infused Documented By: LOGAN Vancomycin HCl 750 mg/ Sodium (Chloride) 265 mls @ 265 mls/hr IV Q24H [facility] Last Infusion: 07/30/23 04:06 Dose: Infused Documented By: LOGAN Insulin Human Lispro (Insulin Lispro 100 Unit/Ml 3 Ml Vial) 0 unit SUBCUT QIDACHS [facility]; Protocol Last Admin: 07/30/23 07:38 Dose: Not Given Documented By: DAYNA Non-Admin Reason: No Insulin Coverage Levothyroxine Sodium (Levothyroxine Sodium 25 Mcg Tablet) 25 mcg PO DAILY@0630 [facility] Last Admin: 07/30/23 07:41 Dose: Not Given Documented By: LOGAN Non-Admin Reason: Patient Refused Loratadine (Loratadine 10 Mg Tablet) 10 mg PO DAILY [facility] Last Admin: 07/29/23 10:00 Dose: 10 mg Documented By: DAYNA Magnesium Hydroxide (Milk Of Magnesia 30 Ml Oral.Susp) 30 ml PO DAILY PRN PRN Reason: Constipation Metoprolol Tartrate (Metoprolol Tartrate 100 Mg Tablet) 100 mg PO BID [facility]; Protocol Last Admin: 07/29/23 22:35 Dose: 100 mg Documented By: LOGAN Nicotine (Nicotine 7 Mg Patch.Td24) 7 mg TRANSDERMA DAILY [facility] Last Admin: 07/29/23 10:00 Dose: 7 mg Documented By: DAYNA Omeprazole (Omeprazole 40 Mg Capsule.Dr) 40 mg PO DAILY [facility] Last Admin: 07/29/23 10:01 Dose: 40 mg Documented By: DAYNA Ondansetron HCl (Ondansetron Hcl 4 Mg/2 Ml Vial) 4 mg IVPUSH Q8H PRN PRN Reason: Nausea and Vomiting Pharmacy Consult (Consult Rx Vancomycin Dosing) 1 each MISCELLANE DAILY PRN PRN Reason: Consult order Prednisone (Prednisone 5 Mg Tablet) 5 mg PO DAILY [facility] Last Admin: 07/29/23 10:01 Dose: 5 mg Documented By: DAYNA Pyridoxine HCl (Pyridoxine Hcl (Vitamin B6) 50 Mg Tablet) 50 mg PO DAILY [facility] Last Admin: 07/29/23 10:00 Dose: 50 mg Documented By: DAYNA Silver Sulfadiazine (Silver Sulfadiazine 1 % Cream 20 Gm Tube) 1 appl TOPICAL DAILY [facility] Last Admin: 07/29/23 10:02 Dose: 1 appl Documented By: DAYNA Sodium Chloride (0.9 % Sodium Chloride Flush 3 Ml Syringe) 3 ml IVFLUSH QSHIFT [facility] Last Admin: 07/30/23 02:54 Dose: 3 ml Documented By: LOGAN Thiamine HCl (Thiamine Hcl 100 Mg Tablet) 100 mg PO DAILY [facility] Last Admin: 07/29/23 10:01 Dose: 100 mg Documented By: DAYNA Labs 07/29/23 06:59 07/30/23 07:24 Labs: Laboratory Results - last 24 hr 07/27/23 07/29/23 07/29/23 03:22 06:59 07:00 Anion Gap 14 Estim Creat Clear Calc 35.3 Estimated GFR 34 POC Glucose Random Glucose 87 Calcium 8.1 L 25-OH Vitamin D Total 6.0 L PTH Intact 215.5 H Random Vancomycin Ur Strep pneumoniae Ag Not Detected 07/29/23 07/29/23 07/29/23 11:39 16:25 19:13 Anion Gap Estim Creat Clear Calc Estimated GFR POC Glucose 134 H 117 H Random Glucose Calcium 25-OH Vitamin D Total PTH Intact Random Vancomycin 16.2 Ur Strep pneumoniae Ag 07/29/23 07/30/23 22:48 07:17 Anion Gap Estim Creat Clear Calc Estimated GFR POC Glucose 129 H 88 Random Glucose Calcium 25-OH Vitamin D Total PTH Intact Random Vancomycin Ur Strep pneumoniae Ag Microbiology Microbiology Results: Microbiology 07/26/23 18:15 Gram Stain - Final Leg Right Routine Culture - Preliminary Pseudomonas aeruginosa Morg morganii ssp sibonii Staphylococcus species 07/26/23 18:14 Gram Stain - Final Leg Left Routine Culture - Preliminary Pseudomonas aeruginosa Methicillin Res Staph Aureus Morg morganii ssp sibonii Assessment and Plan (1) Acute on chronic systolic (congestive) heart failure: Status: Acute (2) Acute on chronic respiratory failure with hypoxia and hypercapnia: Status: Acute (3) Bilateral leg ulcer: Status: Acute Plan 78-year-old male with history of CKD stage 3, COPD, hyperlipidemia, [id number] type 2 diabetes, hypothyroidism, hypertension, hyperlipidemia, peripheral vascular disease, restless legs syndrome admitted for further management of nonhealing wounds to the BLE with cellilitis and pneumonia, course complicated by respiratory failure Acute on chronic HFrEF with large Pleural effusion Moderate to large left pleural effusion EF 35% No hypoxia noted Audible wheezing BNP increased from previous IV lasix BID Acute hypercarbic respiratory failure likely due to underlying COPD, sedating meds and CHF hold home klonopin more awake and alert today but still confused Nonhealing wounds BLE with extensive cellulitis r/t PAD no sepsis continue IV vanco and Zosyn (initiated 07/25) bilateral arterial duplex with bilateral vascular disease plan for CT angio with runoff (okayed by nephrology) vascular surgery consult following wound care consult Blood cultures negative to date LLL pneumonia iv vanco/zosyn as above DuoNebs q.4h guaifenesin p.r.n. Blood cultures negative as above Strep pneumo antigen, Legionella antigen, sputum culture, MRSA nasal swab + Hypernatremia. Mildly elevated monitor Hyperkalemia. Resolved hold losartan s/p Lokelma 10 g once DM2 ss, ada diet COPD no acute exacerbation continue maintenance inhalers, albuterol p.r.n. continue daily prednisone CKD stage 3 renal function baseline hypothyroidism continue Synthroid hypertension continue metoprolol, hold losartan as above hyperlipidemia continue statin nicotine dependence cessation advised patches for NRT DVT prophylaxis-heparin attending Dr. Patton Full code Requires ongoing inpatient stay for management of respiratory failure, nonhealing wounds of the bilateral lower extremities with extensive cellulitis covering greater than 50% of the left lower extremity requiring IV antibiotics, expert consultation, and possible surgical intervention/debridement Quality Stroke Does the patient have a stroke diagnosis?: No VTE Prior VTE?: No VTE Risk Level:: Medical - moderate - high VTE Device Contraindication: Treatment Not Indicated VTE Drug Contraindication: N/A - Med Ordered
[2023-07-30 08:07] LABS: Creatinine Clr Calc Pharmacy 34.7; Estimated Glomerular Filt Rate 33
[2023-07-30 08:19] LABS: Anion Gap 14 (12-20)
[2023-07-30 08:22] LABS: Blood Urea Nitrogen 26 mg/dL (9-16); Calcium 8.4 mg/dL (8.4-10.2); Carbon Dioxide 26 mmol/L (22-29); Chloride 111 mmol/L (96-108); Glucose Random 96 mg/dL (60-115); Potassium 4.7 mmol/L (3.3-5.1); Sodium 146 mmol/L (135-145)
[2023-07-30] MEDS: Albuterol/Iprat 2.5/0.5MG 3 ML AMPUL.NEB INHALE ×3 (08:41→19:52)
[2023-07-30 08:44] LABS: B Type Natriuretic Peptide 4069 pg/mL (<100)
[2023-07-30] MEDS: Furosemide 40 MG/4 ML VIAL IVPUSH ×2 (09:46→17:04)
[2023-07-30] MEDS: Heparin Sodium,Porcine 5,000 UNIT/ML VIAL 5000 UNIT SUBCUT ×2 (09:46→20:13)
[2023-07-30] MEDS: Nicotine 7 MG PATCH.TD24 TRANSDERMA (09:46)
[2023-07-30] MEDS: Thiamine HCL 100 MG TABLET PO (09:52)
[2023-07-30] MEDS: Omeprazole 40 MG CAPSULE.DR PO (09:52)
[2023-07-30] MEDS: Loratadine 10 MG TABLET PO (09:53)
[2023-07-30] MEDS: Pyridoxine HCl (Vitamin B6) 50 MG TABLET PO (09:53)
[2023-07-30] MEDS: Folic Acid 1 MG TABLET PO (09:53)
[2023-07-30] MEDS: predniSONE 5 MG TABLET PO (09:53)
[2023-07-30] MEDS: Metoprolol Tartrate 100 MG TABLET PO ×2 (09:53→20:13)
[2023-07-30] MEDS: allopurinoL 300 MG TABLET PO (09:53)
[2023-07-30] MEDS: Silver Sulfadiazine 1 % Cream 20 GM TUBE 1 APPL TOPICAL (09:54)
[2023-07-30 11:59] LABS: Glucose, Whole Blood 305 mg/dL (60-115)
--- NOTE | 2023-07-30 13:41 | PM.PNCARD ---
Subjective Subjective Date of Service: 07/30/23 Interval history: Seen examined at bedside. Confused. Chest x-ray showing worsening left-sided infiltrate and effusion. Physical Exam Vital Signs: Last Vital Signs Temp 97.0 F 07/30/23 11:17 Pulse 70 07/30/23 11:38 Resp 18 07/30/23 11:38 BP 138/74 07/30/23 11:17 Pulse Ox 94 07/30/23 11:17 O2 Del Method Nasal Cannula 07/30/23 11:17 O2 Flow Rate 2 07/30/23 11:17 BMI result Body Mass Index 29.5 GENERAL APPEARANCE: confused. NECK: no carotid bruit, no significant jugular venous distention. SKIN: no suspicious lesions, warm and dry. HEART: no murmurs, regular rate and rhythm. LUNGS: Clear anteriorly. ABDOMEN: soft, nontender. EXTREMITIES: Wounds on both legs which are dressed. PERIPHERAL PULSES: equal. NEUROLOGIC: No gross deficits, AAO X 3 Objective Labs and Meds 07/29/23 06:59 07/30/23 07:24 Lab results: Laboratory Results - last 24 hr 07/27/23 07/29/23 07/29/23 03:22 16:25 19:13 Hold Purple Top Sodium Potassium Chloride Carbon Dioxide Anion Gap BUN Creatinine Estim Creat Clear Calc Estimated GFR POC Glucose 117 H Random Glucose Calcium B-Natriuretic Peptide Random Vancomycin 16.2 Ur Strep pneumoniae Ag Not Detected 07/29/23 07/30/23 07/30/23 22:48 07:17 07:24 Hold Purple Top Sodium 146 H Potassium 4.7 D Chloride 111 H Carbon Dioxide 26 Anion Gap 14 BUN 26 H Creatinine 1.98 H Estim Creat Clear Calc 34.7 Estimated GFR 33 POC Glucose 129 H 88 Random Glucose 96 Calcium 8.4 B-Natriuretic Peptide Random Vancomycin Ur Strep pneumoniae Ag 07/30/23 07/30/23 07:42 11:54 Hold Purple Top SEE NOTE Sodium Potassium Chloride Carbon Dioxide Anion Gap BUN Creatinine Estim Creat Clear Calc Estimated GFR POC Glucose 305 H Random Glucose Calcium B-Natriuretic Peptide 4069 H Random Vancomycin Ur Strep pneumoniae Ag Imaging Radiologist's impression: Impressions Chest X-Ray 07/30/23 04:50 IMPRESSION: 1. Moderate to large left pleural effusion with compressive atelectasis. 2. Underlying infectious/inflammatory etiology not excluded. 3. Accentuation of pulmonary vasculature. 4. Bilateral low lung volumes. Progress Note: A&P Assessment and plan (1) Acute on chronic respiratory failure with hypoxia and hypercapnia: Status: Acute (2) Pneumonia: Status: Acute Plan [age] year gentleman presenting for worsening respiratory failure. He has left-sided pneumonia and is on antibiotics. Chest x-ray showing worsening infiltrates as well as effusion on the left side. Right lung appears to be quite normal. He has background history of cardiomyopathy diagnosed a year ago. He has elevated BNP levels. Clinically does not appears to be significantly volume overloaded. I am concerned that he has potential parapneumonic effusion. He will need thoracentesis. Continue diuretics in the meantime although I do not think he is really improving with diuresis. Involve pulmonology. Thank you for allowing me to participate in the care of your patient. Please feel free to contact me if you have any questions. Time Spent With Patient Time: Total time managing care of this patient today ____ minutes. Progress Note: Quality Stroke Does the patient have a stroke diagnosis?: No Procedures Date of Service Date of Service: 07/30/23
[2023-07-30 16:42] LABS: Glucose, Whole Blood 138 mg/dL (60-115)
--- NOTE | 2023-07-30 19:47 | HE.PHANOTE ---
Re: Pricillao Renal function decreased. Trough returned at 18, when it was predicted to be 13.7 mg/L. Dose reduced to 500mg Q24H. Patient is running 5 points higher than predictions. Predicted AUC 306 mg/L, predicted trough 10.8 mg/L, I anticipate his numbers to be higher than these predictions.
[2023-07-30] MEDS: Atorvastatin Calcium 80 MG TABLET PO (20:13)
[2023-07-30] MEDS: Acetaminophen 325 MG TABLET 650 MG PO (20:14)
[2023-07-30 22:34] LABS: Glucose, Whole Blood 133 mg/dL (60-115)
[2023-07-30] MEDS: vancomycin HCL 500 MG in 0.9 % Sodium Chloride 100 ML 110 MG IV (23:30)
[2023-07-31] VITALS (12 sets, daily range): BP systolic 140–198; BP diastolic 72–93; PULSE 60–84; RESP 15–24; TEMP 36.1–36.3; O2SAT 2–97
--- NOTE | 2023-07-31 | ECG_ITS ---
Test Reason : VTach Blood Pressure : / mmHG Vent. Rate : 072 BPM Atrial Rate : 072 BPM P-R Int : 300 ms QRS Dur : 110 ms QT Int : 414 ms P-R-T Axes : 028 -30 139 degrees QTc Int : 453 ms Sinus rhythm with 1st degree A-V block Left axis deviation Left ventricular hypertrophy with repolarization abnormality ( R in aVL , Enmanuel product , Romhilt-Mcdonald ) Abnormal ECG When compared with ECG of 29-JUL-2023 13:39, No significant change was found Referred By: Roxy Cruz Electronically Signed By:TYRESE HUNT
[2023-07-31] MEDS: Piperacillin Sodium/Tazobactam 2.25 GM in 0.9 % Sodium Chloride 50 ML IV ×4 (00:20→17:19)
[2023-07-31 06:40] LABS: Creatinine Clr Calc Pharmacy 36.8; Estimated Glomerular Filt Rate 35
[2023-07-31 07:53] LABS: Glucose, Whole Blood 111 mg/dL (60-115)
[2023-07-31] MEDS: Albuterol/Iprat 2.5/0.5MG 3 ML AMPUL.NEB INHALE ×3 (08:13→15:56)
[2023-07-31] MEDS: predniSONE 5 MG TABLET PO (09:49)
[2023-07-31] MEDS: Pyridoxine HCl (Vitamin B6) 50 MG TABLET PO (09:49)
[2023-07-31] MEDS: Thiamine HCL 100 MG TABLET PO (09:49)
[2023-07-31] MEDS: Heparin Sodium,Porcine 5,000 UNIT/ML VIAL 5000 UNIT SUBCUT ×2 (09:49→19:57)
[2023-07-31] MEDS: Nicotine 7 MG PATCH.TD24 TRANSDERMA (09:49)
[2023-07-31] MEDS: Furosemide 40 MG/4 ML VIAL IVPUSH ×2 (09:49→17:21)
[2023-07-31] MEDS: allopurinoL 300 MG TABLET PO (09:49)
[2023-07-31] MEDS: Folic Acid 1 MG TABLET PO (09:49)
[2023-07-31] MEDS: Levothyroxine Sodium 25 MCG TABLET PO (09:49)
[2023-07-31] MEDS: Metoprolol Tartrate 100 MG TABLET PO ×2 (09:49→19:56)
[2023-07-31] MEDS: Loratadine 10 MG TABLET PO (09:49)
[2023-07-31] MEDS: Silver Sulfadiazine 1 % Cream 20 GM TUBE 1 APPL TOPICAL (09:50)
[2023-07-31] MEDS: amLODIPine Besylate 5 MG TABLET PO (11:02)
[2023-07-31 12:19] LABS: Glucose, Whole Blood 120 mg/dL (60-115)
--- NOTE | 2023-07-31 15:42 | MHC.CM.PN ---
EMR reviewed and per MD rounds, pt is not medically cleared for discharge due to management of respiratory failure, and BLE wounds/cellulitis, pending surgical consult. Pt also pending PT eval to assist with discharge dispo.
--- NOTE | 2023-07-31 15:44 | MHC.CM.PN ---
EMR reviewed and per MD rounds, pt is not medically cleared for discharge due to management of respiratory failure, and BLE wounds/cellulitis. Pt also pending PT eval to assist with discharge dispo.
[2023-07-31 16:36] LABS: Glucose, Whole Blood 111 mg/dL (60-115)
--- NOTE | 2023-07-31 19:53 | PM.EVENT ---
Event Note Date of Service: 07/31/23 Event Note: 7:36 PM - contacted to notify patient had an event of 8 beast of VT, asymptomatic. Chart reviewed. Will obtain ECG and labs to assess for electrolytes imbalances. Also, will give scheduled metoprolol now and continue furosemide. CXR done yesterday showed worsening left-sided effusion. Cardiology stated pt will need thoracentesis. IR consult for thoracentesis placed. Time Spent With Patient Time: Total time managing care of this patient today ____ minutes.
[2023-07-31] MEDS: Atorvastatin Calcium 80 MG TABLET PO (19:56)
[2023-07-31] MEDS: 0.9 % Sodium Chloride Flush 3 ML SYRINGE IVFLUSH (19:57)
[2023-07-31] MEDS: guaiFENesin 200 MG/10 ML 10 ML LIQUID PO (19:58)
[2023-07-31 21:25] LABS: Vancomycin Random 19.5 mcg/mL (15-20)
[2023-07-31 21:50] LABS: Anion Gap 16 (12-20); Blood Urea Nitrogen 25 mg/dL (9-16); Calcium 8.7 mg/dL (8.4-10.2); Carbon Dioxide 32 mmol/L (22-29); Chloride 107 mmol/L (96-108); Creatinine Clr Calc Pharmacy 35.4; Estimated Glomerular Filt Rate 34; Glucose Random 120 mg/dL (60-115); Magnesium 1.2 mg/dL (1.6-2.6); Potassium 4.5 mmol/L (3.3-5.1); Sodium 150 mmol/L (135-145)
[2023-07-31 21:53] LABS: Glucose, Whole Blood 122 mg/dL (60-115)
[2023-07-31] MEDS: Magnesium Sulfate/H2O 2 GM/50 ML PIGGYBACK IV (22:15)
[2023-07-31] MEDS: Haloperidol Lactate 5 MG/ML VIAL IM (23:40)
[2023-08-01] VITALS (13 sets, daily range): BP systolic 123–161; BP diastolic 69–100; PULSE 65–80; RESP 17–18; TEMP 36–36.4; O2SAT 92–94
[2023-08-01 05:14] LABS: Legionella Ag Urine Not Detected (Not Detected)
[2023-08-01 06:09] LABS: Creatinine Clr Calc Pharmacy 36.2; Estimated Glomerular Filt Rate 35
--- NOTE | 2023-08-01 07:00 | CA_ITS ---
Transthoracic Echocardiogram Patient (Last, First, Middle): Ilir Mitchell L Gender: Male Date of : 1945 Age: 78 Procedure Date: 08/01/2023 Procedure Type: Transthoracic Echocardiogram Location: [facility] [place] Height: 175.26 cm Weight: 90.27 kg BSA: 2.06 m2 Heart Rate: bpm BP: 190 / 81 mmHg Thread Grinder Tool: Referring MD: Gallo Paez MD Symptoms: CHF Study Quality: Adequate ECG Rhythm: Sinus Conclusions: - The left ventricular systolic function is mildly decreased. The calculated ejection fraction is 50% by biplane method. - There is severely increased left ventricular wall thickness. - The left atrium is severely dilated. - There is moderate calcification of the aortic valve. There is mild aortic valve stenosis. - There is severe mitral annular calcification. Findings Left Ventricle Normal left ventricular cavity size. There is severely increased left ventricular wall thickness. The left ventricular systolic function is mildly decreased. The calculated ejection fraction is 50% by biplane method. Evidence suggests grade I (mild) diastolic dysfunction. Cannot exclude basal inferior akinesis. Right Ventricle Moderately increased right ventricular cavity size. There is low normal right ventricular systolic function. Atria The left atrium is severely dilated. The right atrium is normal in size. Aortic Valve There is moderate calcification of the aortic valve. There is mild aortic valve stenosis. There is mild aortic valve regurgitation. Mitral Valve The mitral valve appears normal. There is severe mitral annular calcification. There is mild mitral valve regurgitation. There is no mitral valve stenosis. Pulmonic Valve The pulmonic valve is likely normal. Tricuspid Valve Normal tricuspid valve structure. There is mild tricuspid valve regurgitation. There is no evidence of pulmonary hypertension. Great Vessels The asc aorta is normal in size. Venous The inferior vena cava is mildly dilated and collapses less than 50% with inspiration. Pericardium/Pleural There is no evidence of pericardial effusion. Prior Study Comparison Changes noted compared to prior study dated: 09/22/2022. LVEF higher than previously reported. Measurements 2D Linear Measurements IVSd: 2.03 0.6-0.9/0.6-1.0 cm LVIDd: 3.00 3.9-5.3/4.2-5.9 cm LVIDd Index: 1.46 2.4-3.2/2.2-3.1 cm/m2 LVIDs: 2.23 2.0-3.6 cm LVPWd: 1.42 0.7-1.1 cm Ao Root: 3.50 2.1-3.5 cm LA Diam: 4.40 2.7-3.8/3.0-4.0 cm LAIDs Index: 2.14 1.5-2.3 cm/m2 LV Mass: 250.99 67-162/88-224 g LV Mass Index: 121.84 43-95/49-115 g/m2 LVOT Diam: 2.20 3.0+(-)1.3 cm 2D Systolic Function EF 4C: 53.60 >55% EF 2C: 46.10 >55% EF BiP: 50.20 >55% Mitral Valve MV VTI: 0.45 MV Pk Zbigniew: 1.55 MV Mn Zbigniew: 0.90 MV Pk Grad: 10.00 MV Mn Grad: 4.00 MV Pk E: 0.91 MV PK A: 1.46 MV Decel Time: 182.00 E/A: 0.60 E'Lateral: 7.07 E'Medial: 2.94 E/E' Med: 30.80 E/E' Lat: 12.80 PHT: 53.00 MVA PHT: 4.15 MVA Continuity: 2.62 Decel [place]: 4.97 Aortic Valve AoV Pk Zbigniew: 2.56 AoV Mn Zbigniew: 1.72 AoV VTI: 0.64 AoV Pk Grad: 26.00 Aov Mn Grad: 14.00 MITZI Cont.VTI: 1.83 AI Pk Zbigniew: 4.70 AI [place]: 2.98 LVOT LVOT Pk Zbigniew: 1.22 LVOT Mn Zbigniew: 0.75 LVOT VTI: 0.31 LVOT Pk Grad: 6.00 LVOT Mn Grad: 3.00 LVOT Diam: 2.20 LVOT Area: 3.80 Diastolic Function MV Pk E: 0.91 MV Pk A: 1.46 E/A: 0.60 E'Medial: 2.94 E/E' Med: 30.80 E' Laterial: 7.07 E/E' Lat: 12.80 Right Ventricle TAPSE (mm): 25.00 TVS' Zbigniew: 10.00 Tricuspid Valve TR Pk Zbigniew: 2.50 TR Pk Grad: 25.00 RA Press: 8.00 RVSP: 32.00 Great Vessels Aorta Ao Root-2D: 3.50 2.0-3.7 cm Ao Asc: 3.60 2.1-3.4 cm Pulmonary Valve PV Pk Zbigniew: 0.91 Peak PV Grad: 3.00 Updated in Other Vendor System with Status of Final Gallo Paez MD electronically signed on 08/02/2023 10:15:22 AM with status of Final
[2023-08-01 07:52] LABS: Glucose, Whole Blood 99 mg/dL (60-115)
[2023-08-01] MEDS: Albuterol/Iprat 2.5/0.5MG 3 ML AMPUL.NEB INHALE ×3 (08:30→20:02)
--- NOTE | 2023-08-01 09:15 | HO.PM.IMPN ---
Subjective Subjective Date of Service: 08/01/23 Review of Systems Follow up acute hypercarbic respiratory failure and nonhealing lower extremity wounds Denies pain, still has confusion Physical Exam Vital Signs: Vital Signs: Last Vital Signs Temp 97.6 F 08/01/23 07:21 Pulse 72 08/01/23 08:30 Resp 18 08/01/23 08:30 BP 140/81 H 08/01/23 07:42 Pulse Ox 92 08/01/23 07:42 O2 Del Method Room Air 08/01/23 07:21 O2 Flow Rate 2 08/01/23 04:00 BMI result Body Mass Index 29.5 Appearing in no acute distress lung sounds are clear to auscultation heart regular rate rhythm, clear S1, S2 positive bowel sounds, abdomen is soft, nontender neuro patient is alert,confused Objective Data Active Medications Acetaminophen (Acetaminophen 325 Mg Tablet) 650 mg PO Q6H PRN PRN Reason: Pain, Mild (Pain Scale 1-3) Last Admin: 07/30/23 20:14 Dose: 650 mg Documented By: JAKE Albuterol Sulfate (Albuterol Sulfate 90 Mcg 8 Gm Inhaler) 2 puff INHALE Q3H PRN PRN Reason: Shortness Of Breath Albuterol/Ipratropium (Albuterol/Iprat 2.5/0.5mg 3 Ml Ampul.Neb) 3 ml INHALE RQ4H WHILE AWAKE [facility] Last Admin: 08/01/23 08:30 Dose: 3 ml Documented By: ABBIE Allopurinol (Allopurinol 300 Mg Tablet) 300 mg PO DAILY [facility] Last Admin: 07/31/23 09:49 Dose: 300 mg Documented By: HERB Amlodipine Besylate (Amlodipine Besylate 5 Mg Tablet) 5 mg PO DAILY [facility]; Protocol Last Admin: 07/31/23 11:02 Dose: 5 mg Documented By: HERB Atorvastatin Calcium (Atorvastatin Calcium 80 Mg Tablet) 80 mg PO BEDTIME [facility] Last Admin: 07/31/23 19:56 Dose: 80 mg Documented By: JAKE Clonazepam (Clonazepam 1 Mg Tablet) 1 mg PO BEDTIME [facility] Last Admin: 07/27/23 21:21 Dose: 1 mg Documented By: ADELFO Folic Acid (Folic Acid 1 Mg Tablet) 1 mg PO DAILY [facility] Last Admin: 07/31/23 09:49 Dose: 1 mg Documented By: HERB Furosemide (Furosemide 40 Mg/4 Ml Vial) 40 mg IVPUSH BID@0900,1800 [facility]; Protocol Last Admin: 07/31/23 17:21 Dose: 40 mg Documented By: HERB Glucose (Glucose Gel 15 Gm Gel..Gram.) 15 gm PO Q15M PRN; Protocol PRN Reason: per Hypoglycemia Standing Ord. Guaifenesin (Guaifenesin 200 Mg/10 Ml 10 Ml Liquid) 10 ml PO Q4H PRN PRN Reason: Cough Last Admin: 07/31/23 19:58 Dose: 10 ml Documented By: JAKE Heparin Sodium (Porcine) (Heparin Sodium,Porcine 5,000 Unit/Ml Vial) 5,000 unit SUBCUT Q12H [facility] Last Admin: 07/31/23 19:57 Dose: 5,000 unit Documented By: JAKE Dextrose (D10) 250 mls @ 750 mls/hr IV Q15M PRN; Protocol PRN Reason: per Hypoglycemia Standing Ord. Piperacillin Sod/Tazobactam (Sod 2.25 gm/ Sodium Chloride) 50 mls @ 100 mls/hr IV Q6H [facility] Last Admin: 08/01/23 05:35 Dose: Not Given Documented By: JAKE Non-Admin Reason: no iv access Dr Kay aware. Vancomycin HCl 500 mg/ Sodium (Chloride) 110 mls @ 110 mls/hr IV Q24H [facility] Insulin Human Lispro (Insulin Lispro 100 Unit/Ml 3 Ml Vial) 0 unit SUBCUT QIDACHS [facility]; Protocol Last Admin: 08/01/23 09:00 Dose: Not Given Documented By: MARCO Non-Admin Reason: No Insulin Coverage Levothyroxine Sodium (Levothyroxine Sodium 25 Mcg Tablet) 25 mcg PO DAILY@0630 [facility] Last Admin: 08/01/23 09:01 Dose: Not Given Documented By: MARCO Non-Admin Reason: previous nurse Loratadine (Loratadine 10 Mg Tablet) 10 mg PO DAILY [facility] Last Admin: 07/31/23 09:49 Dose: 10 mg Documented By: HERB Magnesium Hydroxide (Milk Of Magnesia 30 Ml Oral.Susp) 30 ml PO DAILY PRN PRN Reason: Constipation Metoprolol Tartrate (Metoprolol Tartrate 100 Mg Tablet) 100 mg PO BID [facility]; Protocol Last Admin: 07/31/23 19:56 Dose: 100 mg Documented By: JAKE Nicotine (Nicotine 7 Mg Patch.Td24) 7 mg TRANSDERMA DAILY [facility] Last Admin: 07/31/23 09:49 Dose: 7 mg Documented By: HERB Omeprazole (Omeprazole 40 Mg Capsule.Dr) 40 mg PO DAILY [facility] Last Admin: 07/31/23 09:50 Dose: Not Given Documented By: HERB Non-Admin Reason: cannot be crushed or opened Pharmacy Consult (Consult Rx Vancomycin Dosing) 1 each MISCELLANE DAILY PRN PRN Reason: Consult order Prednisone (Prednisone 5 Mg Tablet) 5 mg PO DAILY [facility] Last Admin: 07/31/23 09:49 Dose: 5 mg Documented By: HERB Pyridoxine HCl (Pyridoxine Hcl (Vitamin B6) 50 Mg Tablet) 50 mg PO DAILY [facility] Last Admin: 07/31/23 09:49 Dose: 50 mg Documented By: HERB Silver Sulfadiazine (Silver Sulfadiazine 1 % Cream 20 Gm Tube) 1 appl TOPICAL DAILY [facility] Last Admin: 07/31/23 09:50 Dose: 1 appl Documented By: HERB Sodium Chloride (0.9 % Sodium Chloride Flush 3 Ml Syringe) 3 ml IVFLUSH QSHIFT [facility] Last Admin: 07/31/23 19:57 Dose: 3 ml Documented By: JAKE Thiamine HCl (Thiamine Hcl 100 Mg Tablet) 100 mg PO DAILY [facility] Last Admin: 07/31/23 09:49 Dose: 100 mg Documented By: HERB Labs 07/29/23 06:59 08/01/23 09:39 Labs: Laboratory Results - last 24 hr 07/27/23 07/31/23 07/31/23 03:22 12:15 16:29 Anion Gap Estim Creat Clear Calc Estimated GFR POC Glucose 120 H 111 Random Glucose Calcium Magnesium Random Vancomycin Ur L.pneumophila Ag Not Detected 07/31/23 07/31/23 08/01/23 20:54 21:02 05:38 Anion Gap 16 Estim Creat Clear Calc 35.4 36.2 Estimated GFR 34 35 POC Glucose 122 H Random Glucose 120 H Calcium 8.7 Magnesium 1.2 L* Random Vancomycin 19.5 Ur L.pneumophila Ag 08/01/23 07:47 Anion Gap Estim Creat Clear Calc Estimated GFR POC Glucose 99 Random Glucose Calcium Magnesium Random Vancomycin Ur L.pneumophila Ag Microbiology Microbiology Results: Microbiology 07/26/23 17:45 Blood Culture - Final Blood - Venous No growth after 5 days. 07/26/23 17:44 Blood Culture - Final Blood - Venous No growth after 5 days. 07/26/23 18:15 Gram Stain - Final Leg Right Routine Culture - Final Pseudomonas aeruginosa Morg morganii ssp sibonii Methicillin Res Staph Aureus Enterococcus raffinosus 07/26/23 18:14 Gram Stain - Final Leg Left Routine Culture - Final Pseudomonas aeruginosa Methicillin Res Staph Aureus Morg morganii ssp sibonii Assessment and Plan (1) Acute on chronic systolic (congestive) heart failure: Status: Acute (2) Acute on chronic respiratory failure with hypoxia and hypercapnia: Status: Acute (3) Bilateral leg ulcer: Status: Acute Plan 78-year-old male with history of CKD stage 3, COPD, hyperlipidemia, [id number] type 2 diabetes, hypothyroidism, hypertension, hyperlipidemia, peripheral vascular disease, restless legs syndrome admitted for further management of nonhealing wounds to the BLE with cellilitis and pneumonia, course complicated by respiratory failure Encephalopathy ongoing conversive but confused likely from infectious source continue to monitor mental status closely Acute on chronic HFrEF with large Pleural effusion Moderate to large left pleural effusion EF 35% No hypoxia noted Audible wheezing BNP increased from previous IV lasix BID Thoracentesis ordered hypomagnesemia with episode of NSVT 1.2 replace with IV and oral mag Acute hypercarbic respiratory failure likely due to underlying COPD, sedating meds and CHF hold home klonopin more awake and alert today but still confused Nonhealing wounds BLE with extensive cellulitis r/t PAD no sepsis continue IV vanco and Zosyn (initiated 07/25) bilateral arterial duplex with bilateral vascular disease plan for CT angio with runoff (okayed by nephrology) vascular surgery consult following wound care consult>bilat LE hydrogel to wound bed, cover with gauze and abd every other day Blood cultures negative to date LLL pneumonia iv vanco/zosyn as above DuoNebs q.4h guaifenesin p.r.n. Strep pneumo antigen, Legionella antigen, sputum culture, MRSA nasal swab + Hypernatremia. Mildly elevated monitor Hyperkalemia. Resolved hold losartan s/p Lokelma 10 g once DM2 ss, ada diet COPD no acute exacerbation continue maintenance inhalers, albuterol p.r.n. continue daily prednisone CKD stage 3 renal function baseline hypothyroidism continue Synthroid hypertension continue metoprolol, hold losartan as above hyperlipidemia continue statin nicotine dependence cessation advised patches for NRT DVT prophylaxis-heparin attending Dr. Palma Full code Requires ongoing inpatient stay for management of respiratory failure, nonhealing wounds of the bilateral lower extremities with extensive cellulitis covering greater than 50% of the left lower extremity requiring IV antibiotics, expert consultation, and possible surgical intervention/debridement Quality Stroke Does the patient have a stroke diagnosis?: No VTE Prior VTE?: No VTE Risk Level:: Medical - moderate - high VTE Device Contraindication: Treatment Not Indicated VTE Drug Contraindication: N/A - Med Ordered
--- NOTE | 2023-08-01 09:36 | PM.PNCARD ---
Subjective Subjective Date of Service: 08/01/23 Interval history: Patient seems somewhat confused. No clear-cut cardiac symptoms. RN also states that he is confused. Review of Systems Review of Systems Yes all other systems are reviewed and are negative Constitutional: Reports as per HPI and Reports no additional constitutional complaints Eyes: Reports as per HPI and Denies no additional eye complaints Denies system reviewed and no additional complaints, except as documented and Reports as per HPI Cardiovascular: Reports as per HPI, Reports no additional cardiovascular complaints, Denies acrocyanosis, Denies cool extremities, Denies chest pain, Denies leg edema, Denies lightheadedness, Denies palpitations and Denies dyspnea Respiratory: Reports as per HPI, Denies no additional respiratory complaints and Denies dyspnea Gastrointestinal: Reports as per HPI and Denies no additional gastrointestinal complaints Genitourinary: Reports no additional male genitourinary complaints and Reports as per HPI Musculoskeletal: Reports no additional musculoskeletal complaints and Reports as per HPI Skin/Breast: Reports system reviewed and no additional complaints, except as docu Reports system reviewed and no additional complaints, except as documented and Reports as per HPI Psychiatric: Reports no additional psychiatric complaints and Reports as per HPI Endocrine: Reports no additional endocrine complaints, Reports as per HPI and Denies palpitations Hematologic/Lymphatic: Reports no additional hematologic/lymphatic complaints and Reports as per HPI Allergic/Immunologic: Reports no additional allergic/immunologic complaints and Reports as per HPI Physical Exam Vital Signs: Last Vital Signs Temp 97.6 F 08/01/23 07:21 Pulse 72 08/01/23 08:30 Resp 18 08/01/23 08:30 BP 140/81 H 08/01/23 07:42 Pulse Ox 92 08/01/23 07:42 O2 Del Method Room Air 08/01/23 07:21 O2 Flow Rate 2 08/01/23 04:00 BMI result Body Mass Index 29.5 Const General: comfortable and no acute distress Orientation/consciousness: patient oriented x3 HEENT Other: Unremarkable Head: Yes normal to inspection Neck Neck: Yes normal visual inspection Chest Chest palpation & inspection: normal inspection of the chest Resp Auscultation: diminished lung sounds Cardio Palpation: normal PMI Heart sounds: S1 normal heart sound present, S2 normal heart sound present, no gallops, no murmurs and no rubs GI Palpation (GI): Soft to palpation Back/Spine/Pelvis Other: unremarkable Skin General skin exam: no rashes or lesions noted Neuro General: patient oriented x3 Extrem Other: 1+ edema General: Yes normal to inspection Psych Mental Status: mental status grossly normal Objective Labs and Meds 07/29/23 06:59 08/01/23 05:38 Lab results: Laboratory Results - last 24 hr 07/27/23 07/31/23 07/31/23 03:22 12:15 16:29 Sodium Potassium Chloride Carbon Dioxide Anion Gap BUN Creatinine Estim Creat Clear Calc Estimated GFR POC Glucose 120 H 111 Random Glucose Calcium Magnesium Random Vancomycin Ur L.pneumophila Ag Not Detected 07/31/23 07/31/23 08/01/23 20:54 21:02 05:38 Sodium 150 H Potassium 4.5 Chloride 107 Carbon Dioxide 32 H Anion Gap 16 BUN 25 H Creatinine 1.94 H 1.90 H Estim Creat Clear Calc 35.4 36.2 Estimated GFR 34 35 POC Glucose 122 H Random Glucose 120 H Calcium 8.7 Magnesium 1.2 L* Random Vancomycin 19.5 Ur L.pneumophila Ag 08/01/23 07:47 Sodium Potassium Chloride Carbon Dioxide Anion Gap BUN Creatinine Estim Creat Clear Calc Estimated GFR POC Glucose 99 Random Glucose Calcium Magnesium Random Vancomycin Ur L.pneumophila Ag Progress Note: A&P Assessment and plan (1) Acute on chronic respiratory failure with hypoxia and hypercapnia: Status: Acute (2) Acute on chronic systolic (congestive) heart failure: Status: Acute (3) NSVT (nonsustained ventricular tachycardia): Status: Acute Plan Echocardiogram from last year with LVEF of 36%. Severe septal hypertrophy. Aortic valve calcification mild regurgitation. Moderate mitral annular calcification with [id number] regurgitation. Mild ascending aortic dilatation. On telemetry, 8 beat run of NSVT. 12 lead EKG shows sinus rhythm at 72/Min; DC prolongation to 300 milliseconds and left ventricular hypertrophy pattern. Labs show high sodium. Elevated BUN and creatinine but that seems chronic. Cardiac BNP is high at over 4000 but has been like this even in April. Recent chest x-ray reported to have moderate to large left pleural effusion with atelectasis. Overall, probable acute on chronic systolic congestive heart failure. He is being diuresed. Per input/output data, -1200 cc but not clear if it is accurate or not. Also being treated with antibiotics for possible pneumonia. NSVT can be monitored. Already on beta-blockers. Continue that. We need to correct his lytes. Can repeat an echocardiogram. Plan for thoracentesis noted. Will follow-up with you. Time Spent With Patient Time: Total time managing care of this patient today ____ minutes. Progress Note: Quality Stroke Does the patient have a stroke diagnosis?: No Procedures Date of Service Date of Service: 08/01/23
--- NOTE | 2023-08-01 09:52 | P.PNNP_ITS ---
Subjective Subjective Date of Service: 08/02/23 Interval history: . Events noted Physical Exam 2 Vital Signs: Vital Signs: Last Vital Signs Temp 97.6 F 08/01/23 07:21 Pulse 72 08/01/23 08:30 Resp 18 08/01/23 08:30 BP 140/81 H 08/01/23 07:42 Pulse Ox 92 08/01/23 07:42 O2 Del Method Room Air 08/01/23 07:21 O2 Flow Rate 2 08/01/23 04:00 BMI result Body Mass Index 29.5 Ill-appearing. Lungs decreased air entry in bases. Objective Data Labs 08/02/23 08:21 08/02/23 08:21 Labs: Laboratory Results - last 24 hr 07/27/23 07/31/23 07/31/23 03:22 12:15 16:29 Sodium Potassium Chloride Carbon Dioxide Anion Gap BUN Creatinine Estim Creat Clear Calc Estimated GFR POC Glucose 120 H 111 Random Glucose Calcium Magnesium Random Vancomycin Ur L.pneumophila Ag Not Detected 07/31/23 07/31/23 08/01/23 20:54 21:02 05:38 Sodium 150 H Potassium 4.5 Chloride 107 Carbon Dioxide 32 H Anion Gap 16 BUN 25 H Creatinine 1.94 H 1.90 H Estim Creat Clear Calc 35.4 36.2 Estimated GFR 34 35 POC Glucose 122 H Random Glucose 120 H Calcium 8.7 Magnesium 1.2 L* Random Vancomycin 19.5 Ur L.pneumophila Ag 08/01/23 07:47 Sodium Potassium Chloride Carbon Dioxide Anion Gap BUN Creatinine Estim Creat Clear Calc Estimated GFR POC Glucose 99 Random Glucose Calcium Magnesium Random Vancomycin Ur L.pneumophila Ag Microbiology Microbiology Results: Microbiology 07/26/23 17:45 Blood - Venous Blood Culture - Final No growth after 5 days. 07/26/23 17:44 Blood - Venous Blood Culture - Final No growth after 5 days. 07/26/23 18:15 Leg Right Gram Stain - Final 07/26/23 18:15 Leg Right Routine Culture - Final Pseudomonas aeruginosa Morg morganii ssp sibonii Methicillin Res Staph Aureus Enterococcus raffinosus 07/26/23 18:14 Leg Left Gram Stain - Final 07/26/23 18:14 Leg Left Routine Culture - Final Pseudomonas aeruginosa Methicillin Res Staph Aureus Morg morganii ssp sibonii Procedures Date of Service Date of Service: 08/02/23 Assessment & Plan Assessment and plan (1) CKD stage 3a, GFR 45-59 ml/min: Status: Acute (2) Hypernatremia: Status: Acute Plan Renal function remains unchanged. Currently developing hypernatremia and developing contraction alkalosis. Both are most likely due to use of Lasix. Suggest to hold Lasix for now Add free water to correct hypernatremia. If he needs further diuresis I would consider a thiazide diuretic like HCTZ or metolazone Time Spent With Patient Time: Total time managing care of this patient today ____ minutes. Progress Note: Quality Stroke Does the patient have a stroke diagnosis?: No
[2023-08-01 10:01] LABS: Anion Gap 18 (12-20); Blood Urea Nitrogen 23 mg/dL (9-16); Carbon Dioxide 31 mmol/L (22-29); Chloride 106 mmol/L (96-108); Estimated Glomerular Filt Rate 35; Glucose Random 112 mg/dL (60-115); Potassium 4.3 mmol/L (3.3-5.1); Sodium 151 mmol/L (135-145)
[2023-08-01 10:03] LABS: Vancomycin Random 17.8 mcg/mL (15-20)
--- NOTE | 2023-08-01 10:14 | HE.PHANOTE ---
Re: Lukasz Poor renal function decreased. Trough returned at 17.8, patient is therapeutic. Held dose scheduled for 1100. Next trough scheduled at 21:00 on 07/31.
[2023-08-01] MEDS: Nicotine 7 MG PATCH.TD24 TRANSDERMA (10:22)
[2023-08-01] MEDS: 0.9 % Sodium Chloride Flush 3 ML SYRINGE IVFLUSH (10:22)
[2023-08-01] MEDS: Piperacillin Sodium/Tazobactam 2.25 GM in 0.9 % Sodium Chloride 50 ML IV (10:22)
[2023-08-01] MEDS: Metoprolol Tartrate 100 MG TABLET PO ×2 (10:23→22:34)
[2023-08-01] MEDS: Furosemide 40 MG/4 ML VIAL IVPUSH (10:23)
[2023-08-01] MEDS: predniSONE 5 MG TABLET PO (10:23)
[2023-08-01] MEDS: allopurinoL 300 MG TABLET PO (10:23)
[2023-08-01] MEDS: Heparin Sodium,Porcine 5,000 UNIT/ML VIAL 5000 UNIT SUBCUT ×2 (10:23→22:33)
[2023-08-01] MEDS: amLODIPine Besylate 5 MG TABLET PO (10:23)
[2023-08-01] MEDS: Loratadine 10 MG TABLET PO (10:24)
[2023-08-01] MEDS: Thiamine HCL 100 MG TABLET PO (10:24)
[2023-08-01] MEDS: Pyridoxine HCl (Vitamin B6) 50 MG TABLET PO (10:24)
[2023-08-01] MEDS: Folic Acid 1 MG TABLET PO (10:24)
[2023-08-01] MEDS: Silver Sulfadiazine 1 % Cream 20 GM TUBE 1 APPL TOPICAL (10:25)
[2023-08-01 10:44] LABS: Magnesium 1.2 mg/dL (1.6-2.6)
[2023-08-01 11:48] LABS: Glucose, Whole Blood 144 mg/dL (60-115)
[2023-08-01] MEDS: Dextrose 5 % 1,000 ML 80 ML IVCONT (12:38)
[2023-08-01] MEDS: Magnesium Sulfate/H2O 2 GM/50 ML PIGGYBACK IV (12:38)
[2023-08-01] MEDS: Lidocaine HCl 1 % MPF 5 ML VIAL SUBCUT (12:39)
--- NOTE | 2023-08-01 14:19 | P.CNID_ITS ---
History of Present Illness Data of Consult Service Date: 08/01/23 Requesting physician: Anamaria Tabares Primary Care Provider: Josiah Verduzco MD HPI Reason for consult: concern for pneumonia,cellulitis He presents after being told by Dr Verduzco who is PCP and made home visit to come to ER for leg infection/cellulitis. Patient found jean carlos WBC and no fever but had left pleural effusion,just drained today. Review of Systems 2 Review of Systems: Yes all other systems are reviewed and are negative PMFSH Past Medical History Medical History History of underactive thyroid Thrombocytosis GERD (gastroesophageal reflux disease) HTN (hypertension) Dyslipidemia COPD (chronic obstructive pulmonary disease) CKD (chronic kidney disease), stage III Gout Family History Family history: reviewed and not pertinent Surgical History Surgical History S/P balloon dilatation of esophageal stricture Social History Social History Household Members: Family Housing: House Do you presently have visiting nurse or other home services: Yes Comment: 1:1 sitter Patient Tobacco Use Status: Tobacco use Unknown Cigarettes Per Day: 4 service: No Meds Allergies Allergy/AdvReac Type Severity Reaction Status Date / Time CRANBERRY JUICE Allergy Unknown DIARRHEA Uncoded 07/26/23 17:16 Active Medications: Current Medications Acetaminophen (Acetaminophen 325 Mg Tablet) 650 mg PO Q6H PRN PRN Reason: Pain, Mild (Pain Scale 1-3) Last Admin: 07/30/23 20:14 Dose: 650 mg Albuterol Sulfate (Albuterol Sulfate 90 Mcg 8 Gm Inhaler) 2 puff INHALE Q3H PRN PRN Reason: Shortness Of Breath Albuterol/Ipratropium (Albuterol/Iprat 2.5/0.5mg 3 Ml Ampul.Neb) 3 ml INHALE RQ4H WHILE AWAKE KASHIF Last Admin: 08/01/23 12:13 Dose: Not Given Allopurinol (Allopurinol 300 Mg Tablet) 300 mg PO DAILY KASHIF Last Admin: 08/01/23 10:23 Dose: 300 mg Amlodipine Besylate (Amlodipine Besylate 5 Mg Tablet) 5 mg PO DAILY KASHIF; Protocol Last Admin: 08/01/23 10:23 Dose: 5 mg Atorvastatin Calcium (Atorvastatin Calcium 80 Mg Tablet) 80 mg PO BEDTIME [facility] Last Admin: 07/31/23 19:56 Dose: 80 mg Clonazepam (Clonazepam 1 Mg Tablet) 1 mg PO BEDTIME [facility] Last Admin: 07/27/23 21:21 Dose: 1 mg Folic Acid (Folic Acid 1 Mg Tablet) 1 mg PO DAILY [facility] Last Admin: 08/01/23 10:24 Dose: 1 mg Glucose (Glucose Gel 15 Gm Gel..Gram.) 15 gm PO Q15M PRN; Protocol PRN Reason: per Hypoglycemia Standing Ord. Guaifenesin (Guaifenesin 200 Mg/10 Ml 10 Ml Liquid) 10 ml PO Q4H PRN PRN Reason: Cough Last Admin: 07/31/23 19:58 Dose: 10 ml Heparin Sodium (Porcine) (Heparin Sodium,Porcine 5,000 Unit/Ml Vial) 5,000 unit SUBCUT Q12H [facility] Last Admin: 08/01/23 10:23 Dose: 5,000 unit Dextrose (D10) 250 mls @ 750 mls/hr IV Q15M PRN; Protocol PRN Reason: per Hypoglycemia Standing Ord. Vancomycin HCl 500 mg/ Sodium (Chloride) 110 mls @ 110 mls/hr IV Q24H [facility] Dextrose (D5w) 1,000 mls @ 80 mls/hr IVCONT .[id number] [facility] Last Admin: 08/01/23 12:38 Dose: 80 mls/hr Insulin Human Lispro (Insulin Lispro 100 Unit/Ml 3 Ml Vial) 0 unit SUBCUT QIDACHS [facility]; Protocol Last Admin: 08/01/23 12:08 Dose: Not Given Levothyroxine Sodium (Levothyroxine Sodium 25 Mcg Tablet) 25 mcg PO DAILY@0630 [facility] Last Admin: 08/01/23 09:01 Dose: Not Given Loratadine (Loratadine 10 Mg Tablet) 10 mg PO DAILY [facility] Last Admin: 08/01/23 10:24 Dose: 10 mg Magnesium Hydroxide (Milk Of Magnesia 30 Ml Oral.Susp) 30 ml PO DAILY PRN PRN Reason: Constipation Magnesium Oxide (Magnesium Oxide 400 Mg Tablet) 400 mg PO BIDPC [facility] Metoprolol Tartrate (Metoprolol Tartrate 100 Mg Tablet) 100 mg PO BID [facility]; Protocol Last Admin: 08/01/23 10:23 Dose: 100 mg Nicotine (Nicotine 7 Mg Patch.Td24) 7 mg TRANSDERMA DAILY [facility] Last Admin: 08/01/23 10:22 Dose: 7 mg Omeprazole (Omeprazole 40 Mg Capsule.Dr) 40 mg PO DAILY [facility] Last Admin: 08/01/23 10:19 Dose: Not Given Prednisone (Prednisone 5 Mg Tablet) 5 mg PO DAILY [facility] Last Admin: 08/01/23 10:23 Dose: 5 mg Pyridoxine HCl (Pyridoxine Hcl (Vitamin B6) 50 Mg Tablet) 50 mg PO DAILY [facility] Last Admin: 08/01/23 10:24 Dose: 50 mg Silver Sulfadiazine (Silver Sulfadiazine 1 % Cream 20 Gm Tube) 1 appl TOPICAL DAILY [facility] Last Admin: 08/01/23 10:25 Dose: 1 appl Sodium Chloride (0.9 % Sodium Chloride Flush 3 Ml Syringe) 3 ml IVFLUSH QSHIFT [facility] Last Admin: 08/01/23 10:22 Dose: 3 ml Thiamine HCl (Thiamine Hcl 100 Mg Tablet) 100 mg PO DAILY [facility] Last Admin: 08/01/23 10:24 Dose: 100 mg Home Medications ?Medication ?Instructions ?Recorded ?Confirmed ?Last Taken ?Type allopurinol 300 mg tablet 300 mg PO DAILY 07/08/21 07/26/23 Unknown History folic acid 1 mg tablet 1 mg PO DAILY 07/08/21 07/26/23 Unknown History levothyroxine 25 mcg tablet 25 mcg PO DAILY@0630 07/08/21 07/26/23 Unknown History losartan 100 mg tablet 100 mg PO DAILY 07/08/21 07/26/23 Unknown History metoprolol tartrate 100 mg tablet 100 mg PO BID 07/08/21 07/26/23 Unknown History omeprazole 40 mg capsule,delayed 40 mg PO DAILY 07/08/21 07/26/23 Unknown History release prednisone 5 mg tablet 5 mg PO DAILY 07/08/21 07/26/23 Unknown History pyridoxine (vitamin B6) 50 mg 50 mg PO DAILY 07/08/21 07/26/23 Unknown History tablet rosuvastatin 20 mg tablet 20 mg PO DAILY 07/08/21 07/26/23 Unknown History thiamine HCl (vitamin B1) 100 mg 100 mg PO DAILY 07/08/21 07/26/23 Unknown History tablet clonazepam 1 mg tablet 1 mg PO BEDTIME 05/02/23 07/26/23 Unknown History loratadine 10 mg tablet (Allergy 10 mg PO DAILY 05/02/23 07/26/23 Unknown History Relief (loratadine)) naproxen 500 mg tablet 500 mg PO BID Pain 05/02/23 07/26/23 Unknown History albuterol sulfate 90 mcg/actuation 2 puff inhalation Q3H PRN 07/26/23 07/26/23 Unknown History aerosol inhaler Shortness Of Breath silver sulfadiazine 1 % topical 1 appl topical DAILY 07/26/23 07/26/23 Unknown History cream Physical Exam 2 Vital Signs: Vital Signs: Last Vital Signs Temp 97.4 F 08/01/23 11:16 Pulse 68 08/01/23 11:16 Resp 18 08/01/23 11:16 BP 142/83 H 08/01/23 11:16 Pulse Ox 93 08/01/23 11:16 O2 Del Method Nasal Cannula 08/01/23 11:16 O2 Flow Rate 2 08/01/23 11:16 BMI result Body Mass Index 29.5 Const: General: cooperative HEENT: Head: Yes normal to inspection Face and sinus: Yes normal facial exam Mouth: Normal oral and palatal mucosa present Teeth and gingiva: d entition normal Eyes: General: appearance normal, both eyes and all related structures P upils: Equal, round and reactive pupils present Resp: Effort & Inspection: normal respiratory effort Cardio: Rate: regular rate Rhythm: regular rhythm GI: Palpation (GI): Soft to palpation and nontender : General: Yes no CVA tenderness Back/Spine/Pelvis: Back: no CVA tenderness Skin: General skin exam: no rashes or lesions noted Neuro: General: moves all extremities Cranial nerves: Yes Equal, round and reactive pupils present Extrem: Other: vascular leg ulcers with yellowish base and no cellulitis now,cool lower extremities Psych: Appearance: grossly normal Results Labs 08/03/23 06:09 08/04/23 05:59 Labs: BMP 07/31/23 08/01/23 08/01/23 21:02 05:38 09:39 Sodium 150 H 151 H Potassium 4.5 4.3 Chloride 107 106 Carbon Dioxide 32 H 31 H BUN 25 H 23 H Creatinine 1.94 H 1.90 H 1.86 H Calcium 8.7 9.0 Microbiology Microbiology Results: Microbiology 07/26/23 17:45 Blood - Venous Blood Culture - Final No growth after 5 days. 07/26/23 17:44 Blood - Venous Blood Culture - Final No growth after 5 days. 07/26/23 18:15 Leg Right Gram Stain - Final 07/26/23 18:15 Leg Right Routine Culture - Final Pseudomonas aeruginosa Morg morganii ssp sibonii Methicillin Res Staph Aureus Enterococcus raffinosus 07/26/23 18:14 Leg Left Gram Stain - Final 07/26/23 18:14 Leg Left Routine Culture - Final Pseudomonas aeruginosa Methicillin Res Staph Aureus Morg morganii ssp sibonii Assessment and Plan (1) Pneumonia: Qualifiers: Laterality: left Lung location: lower lobe of lung Pneumonia type: due to unspecified organism Qualified Code(s): J18.9 - Pneumonia, unspecified organism Status: Acute (2) Bilateral leg ulcer: Qualifiers: Non-pressure ulcer stage: with fat layer exposed Qualified Code(s): L 97.912 - Non-pressure chronic ulcer of unspecified part of right lower leg with fat layer exposed; L97.922 - Non-pressure chronic ulcer of unspecified part of left lower leg with fat layer exposed Status: Acute (3) PAD (peripheral artery disease): Status: Acute Plan Since patient has positive MRSA nasal screen would give IV Vancomycin for now and await thoracentesis results Check gram stain and culture evaluate empyema Evaluate for malignany with pleural fluid as welll. Possible po linezolid for 10 days Follow Vascular leg ulcers.
[2023-08-01 14:42] LABS: MN% 74.4 %; PMN% 25.6 %; RBC Pleural Fluid 0.007 X10*6/uL
[2023-08-01 15:20] LABS: Lymphocytes Pleural Fluid 12 %; Neutrophils Pleural Fluid 20 %
[2023-08-01 15:21] LABS: BF Shift QC OK YES; Man Diluent Bkgrd OK YES; Monocytes Pleural Fluid 2 %; Other Cells Plerual Fl 66 %
[2023-08-01 16:17] LABS: Glucose, Whole Blood 155 mg/dL (60-115)
[2023-08-01] MEDS: Magnesium Oxide 400 MG TABLET PO (17:35)
[2023-08-01] MEDS: Insulin Lispro 100 UNIT/ML 3 ML VIAL SUBCUT (17:35)
[2023-08-01 18:08] LABS: IgA 180 mg/dL (70-320); IgG 677 mg/dL (600-1540); IgM 125 mg/dL (50-300)
[2023-08-01 21:58] LABS: Glucose, Whole Blood 136 mg/dL (60-115)
[2023-08-01] MEDS: Atorvastatin Calcium 80 MG TABLET PO (22:33)
[2023-08-01] MEDS: vancomycin HCL 500 MG in 0.9 % Sodium Chloride 100 ML 110 MG IV (22:34)
[2023-08-01] MEDS: Acetaminophen 325 MG TABLET 650 MG PO (22:35)
[2023-08-02] VITALS (10 sets, daily range): BP systolic 105–154; BP diastolic 69–97; PULSE 62–74; RESP 16–20; TEMP 36.2–36.7; O2SAT 89–98
--- NOTE | 2023-08-02 | ECG_ITS ---
Test Reason : bradycardia Blood Pressure : / mmHG Vent. Rate : 054 BPM Atrial Rate : 070 BPM P-R Int : 000 ms QRS Dur : 112 ms QT Int : 510 ms P-R-T Axes : 026 -34 -80 degrees QTc Int : 483 ms Sinus rhythm with 2nd degree A-V block (Mobitz I) Left axis deviation Left ventricular hypertrophy with repolarization abnormality ( R in aVL , Enmanuel product ) Possible Lateral infarct , age undetermined Abnormal ECG When compared with ECG of 02-AUG-2023 08:48, Significant changes have occurred Referred By: Anamaria Tabares Electronically Signed By:TYRESE HUNT
--- NOTE | 2023-08-02 | ECG_ITS ---
Test Reason : Bradycardia Blood Pressure : / mmHG Vent. Rate : 062 BPM Atrial Rate : 062 BPM P-R Int : 292 ms QRS Dur : 114 ms QT Int : 462 ms P-R-T Axes : 018 -40 110 degrees QTc Int : 468 ms Sinus rhythm with 1st degree A-V block Left axis deviation Incomplete left bundle branch block Left ventricular hypertrophy with repolarization abnormality ( Enmanuel product ) Abnormal ECG When compared with ECG of 31-JUL-2023 20:01, No significant change was found Referred By: Roxy Cruz Electronically Signed By:TYRESE HUNT
--- NOTE | 2023-08-02 | ECG_ITS ---
Test Reason : bradycardia Blood Pressure : / mmHG Vent. Rate : 051 BPM Atrial Rate : 069 BPM P-R Int : 000 ms QRS Dur : 110 ms QT Int : 526 ms P-R-T Axes : 020 -35 -82 degrees QTc Int : 484 ms Normal sinus rhythm Mobitz 1 second degree block Left axis deviation Left ventricular hypertrophy with repolarization abnormality ( R in aVL , Coburn product ) Inferior infarct , age undetermined Abnormal ECG When compared with ECG of 02-AUG-2023 14:29, No significant changes seen Referred By: Anamaria Tabares Electronically Signed By:TYRESE HUNT
[2023-08-02] MEDS: Levothyroxine Sodium 25 MCG TABLET PO (07:24)
[2023-08-02] MEDS: Acetaminophen 325 MG TABLET 650 MG PO (07:24)
[2023-08-02] MEDS: Dextrose 5 % 1,000 ML 80 ML IVCONT (07:26)
--- NOTE | 2023-08-02 08:06 | PC.NURSE ---
0639 abnormal rhythm noted on monitor, results sent to MD with order for STAT EKG and lab work. upon entering the room, pt had slight delay in responding to name, pt stated he was in a deep sleep. denied any complaints of pain.
[2023-08-02 08:20] LABS: Glucose, Whole Blood 111 mg/dL (60-115)
--- NOTE | 2023-08-02 08:39 | ECG_ITS ---
Test Reason : pauses Blood Pressure : / mmHG Vent. Rate : 066 BPM Atrial Rate : 066 BPM P-R Int : 302 ms QRS Dur : 114 ms QT Int : 442 ms P-R-T Axes : 022 -34 144 degrees QTc Int : 463 ms Sinus rhythm with 1st degree A-V block Left axis deviation Incomplete left bundle branch block Left ventricular hypertrophy with repolarization abnormality ( R in aVL , Almond product , Romhilt-Mcdonald ) Abnormal ECG When compared with ECG of 02-AUG-2023 07:11, No significant change was found Referred By: Tyrese Hunt Electronically Signed By:TYRESE HUNT
[2023-08-02] MEDS: Albuterol/Iprat 2.5/0.5MG 3 ML AMPUL.NEB INHALE ×4 (08:57→19:42)
[2023-08-02 09:05] LABS: Hematocrit 31.4 % (42.0-52.0); Hemoglobin 9.6 g/dl (14.0-18.0); Mean Corpuscular HGB Conc 30.6 g/dl (31.0-36.0); Mean Corpuscular Hemoglobin 27.4 pg (27.0-33.0); Mean Corpuscular Volume 89.7 fL (80.0-98.0); Mean Platelet Volume 10.5 fL (9.4-12.4); Platelet Count 176 X10*3/uL (160-400); Red Cell Distribution Width 25.6 % (11.0-16.0); White Blood Count 8.7 X10*3/uL (4.8-10.8)
[2023-08-02 09:06] LABS: Basophils Absolute Auto 0.1 X10*3/uL (0.0-0.2); Basophils Percent Auto 0.7 % (0-2); Eosinophils Absolute Auto 0.4 X10*3/uL (0.0-0.4); Eosinophils Percent Auto 4.4 % (0-4); Hematocrit 31.3 % (42.0-52.0); Hemoglobin 9.5 g/dl (14.0-18.0); Imm Gran Abs Auto 0.05 X10*3/uL (0.00-0.03); Imm Gran Pct Auto 0.6 % (0.0-0.4); Lymphocytes Absolute Auto 0.5 X10*3/uL (1.2-4.9); Lymphocytes Percent Auto 5.7 % (20-40); MANUAL DIFF FLAG NO; Mean Corpuscular HGB Conc 30.4 g/dl (31.0-36.0); Mean Corpuscular Hemoglobin 27.1 pg (27.0-33.0); Mean Corpuscular Volume 89.4 fL (80.0-98.0); Mean Platelet Volume 10.5 fL (9.4-12.4); Monocytes Absolute Auto 0.8 X10*3/uL (0.1-1.2); Monocytes Percent Auto 9.1 % (2-11); Neutrophils Absolute Auto 7.2 x10*3/uL (2.0-8.3); Neutrophils Percent Auto 79.5 % (45-73); Platelet Count 170 X10*3/uL (160-400); Red Cell Distribution Width 25.6 % (11.0-16.0)
[2023-08-02 09:23] LABS: Anion Gap 12 (12-20); Blood Urea Nitrogen 19 mg/dL (9-16); Calcium 8.2 mg/dL (8.4-10.2); Carbon Dioxide 35 mmol/L (22-29); Chloride 102 mmol/L (96-108); Creatinine Clr Calc Pharmacy 39.7; Estimated Glomerular Filt Rate 38; Glucose Random 108 mg/dL (60-115); Magnesium 1.5 mg/dL (1.6-2.6); Potassium 3.8 mmol/L (3.3-5.1); Sodium 145 mmol/L (135-145)
[2023-08-02 09:31] LABS: Troponin-I High Sensitivity 28.3 ng/L (<3.5-35.0)
--- NOTE | 2023-08-02 10:16 | P.PNCA_ITS ---
Subjective Subjective Date of Service: 08/02/23 Interval history: Seems that he underwent thoracentesis yesterday. Looks and feels better. Also bit more oriented. Review of Systems Review of Systems Yes all other systems are reviewed and are negative Constitutional: Reports as per HPI and Reports no additional constitutional complaints Eyes: Reports as per HPI and Denies no additional eye complaints Denies system reviewed and no additional complaints, except as documented and Reports as per HPI Cardiovascular: Reports as per HPI, Reports no additional cardiovascular complaints, Denies acrocyanosis, Denies cool extremities, Denies chest pain, Denies leg edema, Denies lightheadedness, Denies palpitations and Denies dyspnea Respiratory: Reports as per HPI, Denies no additional respiratory complaints and Denies dyspnea Gastrointestinal: Reports as per HPI and Denies no additional gastrointestinal complaints Genitourinary: Reports no additional male genitourinary complaints and Reports as per HPI Musculoskeletal: Reports no additional musculoskeletal complaints and Reports as per HPI Skin/Breast: Reports system reviewed and no additional complaints, except as docu Reports system reviewed and no additional complaints, except as documented and Reports as per HPI Psychiatric: Reports no additional psychiatric complaints and Reports as per HPI Endocrine: Reports no additional endocrine complaints, Reports as per HPI and Denies palpitations Hematologic/Lymphatic: Reports no additional hematologic/lymphatic complaints and Reports as per HPI Allergic/Immunologic: Reports no additional allergic/immunologic complaints and Reports as per HPI Physical Exam Vital Signs: Last Vital Signs Temp 97.4 F 08/02/23 07:00 Pulse 64 08/02/23 08:59 Resp 18 08/02/23 08:59 BP 153/73 H 08/02/23 07:00 Pulse Ox 93 08/02/23 07:00 O2 Del Method Nasal Cannula 08/02/23 07:00 O2 Flow Rate 2 08/02/23 07:00 BMI result Body Mass Index 29.5 Const General: comfortable and no acute distress Orientation/consciousness: patient oriented x3 HEENT Other: Unremarkable Head: Yes normal to inspection Neck Neck: Yes normal visual inspection Chest Chest palpation & inspection: normal inspection of the chest Resp Other: Few basal crackles Cardio Palpation: normal PMI Heart sounds: S1 normal heart sound present, S2 normal heart sound present, no gallops, Murmur heart sound present systolic II/ and at the right sternal border and no rubs GI Palpation (GI): Soft to palpation Back/Spine/Pelvis Other: unremarkable Skin General skin exam: no rashes or lesions noted Neuro General: patient oriented x3 Extrem Other: 1+ edema General: Yes normal to inspection Psych Mental Status: mental status grossly normal Objective Labs and Meds 08/02/23 08:21 08/02/23 08:21 Lab results: Laboratory Results - last 24 hr 07/29/23 08/01/23 08/01/23 06:59 09:39 11:41 WBC RBC Hgb Hct MCV MCH MCHC RDW Plt Count MPV Immature Gran % (Auto) Neut % (Auto) Lymph % (Auto) [place] % (Auto) Eos % (Auto) Baso % (Auto) Lymph # (Auto) [place] # (Auto) Eos # (Auto) Baso # (Auto) Abs Immat Gran (auto) Absolute Neuts (auto) Absolute Nucleated RBC Nucleated RBC % (auto) Sodium Potassium Chloride Carbon Dioxide Anion Gap BUN Creatinine Estim Creat Clear Calc Estimated GFR POC Glucose 144 H Random Glucose Calcium Magnesium 1.2 L* Troponin I High Sens Pleural WBC Pleural RBC Pleural Neutrophils Pleural Lymphocytes Pleural Monocytes Pleural Other Cells IgG Total 677 IgA Total 180 IgM 125 YULIANA Interpretation SEE NOTE 08/01/23 08/01/23 08/01/23 12:30 16:14 21:54 WBC RBC Hgb Hct MCV MCH MCHC RDW Plt Count MPV Immature Gran % (Auto) Neut % (Auto) Lymph % (Auto) [place] % (Auto) Eos % (Auto) Baso % (Auto) Lymph # (Auto) [place] # (Auto) Eos # (Auto) Baso # (Auto) Abs Immat Gran (auto) Absolute Neuts (auto) Absolute Nucleated RBC Nucleated RBC % (auto) Sodium Potassium Chloride Carbon Dioxide Anion Gap BUN Creatinine Estim Creat Clear Calc Estimated GFR POC Glucose 155 H 136 H Random Glucose Calcium Magnesium Troponin I High Sens Pleural WBC 0.250 Pleural RBC 0.007 Pleural Neutrophils 20 Pleural Lymphocytes 12 Pleural Monocytes 2 Pleural Other Cells 66 IgG Total IgA Total IgM YULIANA Interpretation 08/02/23 08/02/23 08/02/23 08:05 08:21 08:21 WBC 9.0 8.7 RBC 3.50 L Hgb Hct MCV MCH MCHC RDW Plt Count MPV Immature Gran % (Auto) Neut % (Auto) Lymph % (Auto) [place] % (Auto) Eos % (Auto) Baso % (Auto) Lymph # (Auto) [place] # (Auto) Eos # (Auto) Baso # (Auto) Abs Immat Gran (auto) Absolute Neuts (auto) Absolute Nucleated RBC Nucleated RBC % (auto) Sodium Potassium Chloride Carbon Dioxide Anion Gap BUN Creatinine Estim Creat Clear Calc Estimated GFR POC Glucose 111 Random Glucose Calcium Magnesium Troponin I High Sens Pleural WBC Pleural RBC Pleural Neutrophils Pleural Lymphocytes Pleural Monocytes Pleural Other Cells IgG Total IgA Total IgM YUL[place]NA Interpretation 08/02/23 08/02/23 08/02/23 08:21 08:21 08:21 WBC RBC 3.50 L Hgb 9.5 L 9.6 L Hct 31.3 L 31.4 L MCV 89.4 MCH MCHC RDW Plt Count MPV Immature Gran % (Auto) Neut % (Auto) Lymph % (Auto) [place] % (Auto) Eos % (Auto) Baso % (Auto) Lymph # (Auto) [place] # (Auto) Eos # (Auto) Baso # (Auto) Abs Immat Gran (auto) Absolute Neuts (auto) Absolute Nucleated RBC Nucleated RBC % (auto) Sodium Potassium Chloride Carbon Dioxide Anion Gap BUN Creatinine Estim Creat Clear Calc Estimated GFR POC Glucose Random Glucose Calcium Magnesium Troponin I High Sens Pleural WBC Pleural RBC Pleural Neutrophils Pleural Lymphocytes Pleural Monocytes Pleural Other Cells IgG Total IgA Total IgM YUL[place]NA Interpretation 08/02/23 08/02/23 08/02/23 08:21 08:21 08:21 WBC RBC Hgb Hct MCV 89.7 MCH 27.1 27.4 MCHC 30.4 L 30.6 L RDW 25.6 H Plt Count MPV Immature Gran % (Auto) Neut % (Auto) Lymph % (Auto) [place] % (Auto) Eos % (Auto) Baso % (Auto) Lymph # (Auto) [place] # (Auto) Eos # (Auto) Baso # (Auto) Abs Immat Gran (auto) Absolute Neuts (auto) Absolute Nucleated RBC Nucleated RBC % (auto) Sodium Potassium Chloride Carbon Dioxide Anion Gap BUN Creatinine Estim Creat Clear Calc Estimated GFR POC Glucose Random Glucose Calcium Magnesium Troponin I High Sens Pleural WBC Pleural RBC Pleural Neutrophils Pleural Lymphocytes Pleural Monocytes Pleural Other Cells IgG Total IgA Total IgM YUL[place]NA Interpretation 08/02/23 08/02/23 08/02/23 08:21 08:21 08:21 WBC RBC Hgb Hct MCV MCH MCHC RDW 25.6 H Plt Count 170 176 MPV 10.5 10.5 Immature Gran % (Auto) 0.6 H Neut % (Auto) 79.5 H Lymph % (Auto) 5.7 L [place] % (Auto) 9.1 Eos % (Auto) 4.4 H Baso % (Auto) 0.7 Lymph # (Auto) 0.5 L [place] # (Auto) 0.8 Eos # (Auto) 0.4 Baso # (Auto) 0.1 Abs Immat Gran (auto) 0.05 H Absolute Neuts (auto) 7.2 Absolute Nucleated RBC 0.000 Nucleated RBC % (auto) Sodium Potassium Chloride Carbon Dioxide Anion Gap BUN Creatinine Estim Creat Clear Calc Estimated GFR POC Glucose Random Glucose Calcium Magnesium Troponin I High Sens Pleural WBC Pleural RBC Pleural Neutrophils Pleural Lymphocytes Pleural Monocytes Pleural Other Cells IgG Total IgA Total IgM YUL[place]NA Interpretation 08/02/23 08/02/23 08/02/23 08:21 08:21 08:21 WBC RBC Hgb Hct MCV MCH MCHC RDW Plt Count MPV Immature Gran % (Auto) Neut % (Auto) Lymph % (Auto) [place] % (Auto) Eos % (Auto) Baso % (Auto) Lymph # (Auto) [place] # (Auto) Eos # (Auto) Baso # (Auto) Abs Immat Gran (auto) Absolute Neuts (auto) Absolute Nucleated RBC 0.000 Nucleated RBC % (auto) 0.0 0.0 Sodium 145 Cancelled Potassium 3.8 Chloride Carbon Dioxide Anion Gap BUN Creatinine Estim Creat Clear Calc Estimated GFR POC Glucose Random Glucose Calcium Magnesium Troponin I High Sens Pleural WBC Pleural RBC Pleural Neutrophils Pleural Lymphocytes Pleural Monocytes Pleural Other Cells IgG Total IgA Total IgM YUL[place]NA Interpretation 08/02/23 08/02/23 08/02/23 08:21 08:21 08:21 WBC RBC Hgb Hct MCV MCH MCHC RDW Plt Count MPV Immature Gran % (Auto) Neut % (Auto) Lymph % (Auto) [place] % (Auto) Eos % (Auto) Baso % (Auto) Lymph # (Auto) [place] # (Auto) Eos # (Auto) Baso # (Auto) Abs Immat Gran (auto) Absolute Neuts (auto) Absolute Nucleated RBC Nucleated RBC % (auto) Sodium Potassium Cancelled Chloride 102 Cancelled Carbon Dioxide 35 H Cancelled Anion Gap 12 BUN Creatinine Estim Creat Clear Calc Estimated GFR POC Glucose Random Glucose Calcium Magnesium Troponin I High Sens Pleural WBC Pleural RBC Pleural Neutrophils Pleural Lymphocytes Pleural Monocytes Pleural Other Cells IgG Total IgA Total IgM [place]NA Interpretation 08/02/23 08/02/23 08/02/23 08:21 08:21 08:21 WBC RBC Hgb Hct MCV MCH MCHC RDW Plt Count MPV Immature Gran % (Auto) Neut % (Auto) Lymph % (Auto) [place] % (Auto) Eos % (Auto) Baso % (Auto) Lymph # (Auto) [place] # (Auto) Eos # (Auto) Baso # (Auto) Abs Immat Gran (auto) Absolute Neuts (auto) Absolute Nucleated RBC Nucleated RBC % (auto) Sodium Potassium Chloride Carbon Dioxide Anion Gap Cancelled BUN 19 H Cancelled Creatinine Cancelled 1.73 H Estim Creat Clear Calc Estimated GFR POC Glucose Random Glucose Calcium Magnesium Troponin I High Sens Pleural WBC Pleural RBC Pleural Neutrophils Pleural Lymphocytes Pleural Monocytes Pleural Other Cells IgG Total IgA Total IgM Y[place]NA Interpretation 08/02/23 08/02/23 08/02/23 08:21 08:21 08:21 WBC RBC Hgb Hct MCV MCH MCHC RDW Plt Count MPV Immature Gran % (Auto) Neut % (Auto) Lymph % (Auto) [place] % (Auto) Eos % (Auto) Baso % (Auto) Lymph # (Auto) [place] # (Auto) Eos # (Auto) Baso # (Auto) Abs Immat Gran (auto) Absolute Neuts (auto) Absolute Nucleated RBC Nucleated RBC % (auto) Sodium Potassium Chloride Carbon Dioxide Anion Gap BUN Creatinine Cancelled Estim Creat Clear Calc Cancelled 39.7 Cancelled Estimated GFR Cancelled POC Glucose Random Glucose Calcium Magnesium Troponin I High Sens Pleural WBC Pleural RBC Pleural Neutrophils Pleural Lymphocytes Pleural Monocytes Pleural Other Cells IgG Total IgA Total IgM YUL[place]NA Interpretation 08/02/23 08/02/23 08/02/23 08:21 08:21 08:21 WBC RBC Hgb Hct MCV MCH MCHC RDW Plt Count MPV Immature Gran % (Auto) Neut % (Auto) Lymph % (Auto) [place] % (Auto) Eos % (Auto) Baso % (Auto) Lymph # (Auto) [place] # (Auto) Eos # (Auto) Baso # (Auto) Abs Immat Gran (auto) Absolute Neuts (auto) Absolute Nucleated RBC Nucleated RBC % (auto) Sodium Potassium Chloride Carbon Dioxide Anion Gap BUN Creatinine Estim Creat Clear Calc Estimated GFR 38 Cancelled POC Glucose Random Glucose 108 Cancelled Calcium 8.2 L D Magnesium Troponin I High Sens Pleural WBC Pleural RBC Pleural Neutrophils Pleural Lymphocytes Pleural Monocytes Pleural Other Cells IgG Total IgA Total IgM [place]NA Interpretation 08/02/23 08:21 WBC RBC Hgb Hct MCV MCH MCHC RDW Plt Count MPV Immature Gran % (Auto) Neut % (Auto) Lymph % (Auto) [place] % (Auto) Eos % (Auto) Baso % (Auto) Lymph # (Auto) [place] # (Auto) Eos # (Auto) Baso # (Auto) Abs Immat Gran (auto) Absolute Neuts (auto) Absolute Nucleated RBC Nucleated RBC % (auto) Sodium Potassium Chloride Carbon Dioxide Anion Gap BUN Creatinine Estim Creat Clear Calc Estimated GFR POC Glucose Random Glucose Calcium Cancelled Magnesium 1.5 L Troponin I High Sens 28.3 D Pleural WBC Pleural RBC Pleural Neutrophils Pleural Lymphocytes Pleural Monocytes Pleural Other Cells IgG Total IgA Total IgM YUL[place]NA Interpretation Imaging Radiologist's impression: Impressions Chest X-Ray 08/01/23 12:27 IMPRESSION: Definite decrease in the left pleural effusion with only a small residual density at the left base remaining. Thoracentesis Ultrasound 08/01/23 12:30 Impression: Ultrasound-guided left thoracentesis Progress Note: A&P Assessment and plan (1) Acute on chronic respiratory failure with hypoxia and hypercapnia: Status: Acute (2) Acute on chronic systolic (congestive) heart failure: Status: Acute (3) NSVT (nonsustained ventricular tachycardia): Status: Acute (4) Complete heart block: Status: Acute Plan Echocardiogram yesterday with LVEF of about 50%. Aortic and mitral valvular calcification. Mild aortic stenosis. Last year, LVEF stated as 36%. Telemetry had revealed a short run of NSVT at 8 beats. However, this a.m. there was also an episode of complete heart block for almost 6 seconds. Now back in normal sinus rhythm. Otherwise, per documentation he underwent thoracentesis where 900 mL of non cloudy, blood-tinged pleural fluid was removed. Overall, suspect some combination of cardiac and pulmonary etiology for the pleural effusion. Low albumin may also play a role. Nephrology, noted regarding diuretics. Clinically, does not look overtly volume overloaded at this time. Concurrently on antibiotics for pneumonia. With regard to the heart block, he is on high-dose beta-blockers and he also has baseline NC prolongation. Hence may hold the beta-blockers for now. We will review tele tomorrow and then may resume a lower dose if necessary or stop completely. Discussed with Anamaria Tabares. Time Spent With Patient Time: Total time managing care of this patient today ____ minutes. Progress Note: Quality Stroke Does the patient have a stroke diagnosis?: No Procedures Date of Service Date of Service: 08/02/23
[2023-08-02] MEDS: Magnesium Oxide 400 MG TABLET PO ×2 (10:38→18:22)
[2023-08-02] MEDS: Loratadine 10 MG TABLET PO (10:38)
[2023-08-02] MEDS: allopurinoL 300 MG TABLET PO (10:38)
[2023-08-02] MEDS: Nicotine 7 MG PATCH.TD24 TRANSDERMA (10:38)
[2023-08-02] MEDS: predniSONE 5 MG TABLET PO (10:39)
[2023-08-02] MEDS: Thiamine HCL 100 MG TABLET PO (10:39)
[2023-08-02] MEDS: amLODIPine Besylate 5 MG TABLET PO (10:39)
[2023-08-02] MEDS: Heparin Sodium,Porcine 5,000 UNIT/ML VIAL 5000 UNIT SUBCUT ×2 (10:39→20:57)
[2023-08-02] MEDS: Folic Acid 1 MG TABLET PO (10:39)
[2023-08-02] MEDS: Pyridoxine HCl (Vitamin B6) 50 MG TABLET PO (10:39)
[2023-08-02] MEDS: 0.9 % Sodium Chloride Flush 3 ML SYRINGE IVFLUSH ×4 (10:40→20:58)
[2023-08-02] MEDS: Silver Sulfadiazine 1 % Cream 20 GM TUBE 1 APPL TOPICAL (10:42)
--- NOTE | 2023-08-02 10:48 | P.PNIM_ITS ---
Subjective Subjective Date of Service: 08/02/23 Review of Systems Follow up acute hypercarbic respiratory failure and nonhealing lower extremity wounds Denies pain, still has confusion Physical Exam 2 Vital Signs: Vital Signs: Last Vital Signs Temp 97.4 F 08/02/23 07:00 Pulse 64 08/02/23 08:59 Resp 18 08/02/23 08:59 BP 153/73 H 08/02/23 07:00 Pulse Ox 93 08/02/23 07:00 O2 Del Method Nasal Cannula 08/02/23 07:00 O2 Flow Rate 2 08/02/23 07:00 BMI result Body Mass Index 29.5 Appearing in no acute distress lung sounds are clear to auscultation heart regular rate rhythm, clear S1, S2 positive bowel sounds, abdomen is soft, nontender neuro patient is alert, confused Objective Data Active Medications Acetaminophen (Acetaminophen 325 Mg Tablet) 650 mg PO Q6H PRN PRN Reason: Pain, Mild (Pain Scale 1-3) Last Admin: 08/02/23 07:24 Dose: 650 mg Documented By: RADHA Albuterol Sulfate (Albuterol Sulfate 90 Mcg 8 Gm Inhaler) 2 puff INHALE Q3H PRN PRN Reason: Shortness Of Breath Albuterol/Ipratropium (Albuterol/Iprat 2.5/0.5mg 3 Ml Ampul.Neb) 3 ml INHALE RQ4H WHILE AWAKE [facility] Last Admin: 08/02/23 08:57 Dose: 3 ml Documented By: BETINA Allopurinol (Allopurinol 300 Mg Tablet) 300 mg PO DAILY [facility] Last Admin: 08/02/23 10:38 Dose: 300 mg Documented By: MARCO Amlodipine Besylate (Amlodipine Besylate 5 Mg Tablet) 5 mg PO DAILY [facility]; Protocol Last Admin: 08/02/23 10:39 Dose: 5 mg Documented By: MARCO Atorvastatin Calcium (Atorvastatin Calcium 80 Mg Tablet) 80 mg PO BEDTIME [facility] Last Admin: 08/01/23 22:33 Dose: 80 mg Documented By: RADHA Clonazepam (Clonazepam 1 Mg Tablet) 1 mg PO BEDTIME [facility] Last Admin: 07/27/23 21:21 Dose: 1 mg Documented By: ADELFO Folic Acid (Folic Acid 1 Mg Tablet) 1 mg PO DAILY [facility] Last Admin: 08/02/23 10:39 Dose: 1 mg Documented By: MARCO Glucose (Glucose Gel 15 Gm Gel..Gram.) 15 gm PO Q15M PRN; Protocol PRN Reason: per Hypoglycemia Standing Ord. Guaifenesin (Guaifenesin 200 Mg/10 Ml 10 Ml Liquid) 10 ml PO Q4H PRN PRN Reason: Cough Last Admin: 07/31/23 19:58 Dose: 10 ml Documented By: JAKE Heparin Sodium (Porcine) (Heparin Sodium,Porcine 5,000 Unit/Ml Vial) 5,000 unit SUBCUT Q12H [facility] Last Admin: 08/02/23 10:39 Dose: 5,000 unit Documented By: MARCO Dextrose (D10) 250 mls @ 750 mls/hr IV Q15M PRN; Protocol PRN Reason: per Hypoglycemia Standing Ord. Vancomycin HCl 500 mg/ Sodium (Chloride) 110 mls @ 110 mls/hr IV Q48H [facility] Last Infusion: 08/02/23 08:09 Dose: Infused Documented By: MARCO Dextrose (D5w) 1,000 mls @ 80 mls/hr IVCONT .[id number] [facility] Last Admin: 08/02/23 07:26 Dose: 80 mls/hr Documented By: RADHA Insulin Human Lispro (Insulin Lispro 100 Unit/Ml 3 Ml Vial) 0 unit SUBCUT QIDACHS [facility]; Protocol Last Admin: 08/02/23 08:09 Dose: Not Given Documented By: MARCO Non-Admin Reason: No Insulin Coverage Levothyroxine Sodium (Levothyroxine Sodium 25 Mcg Tablet) 25 mcg PO DAILY@0630 [facility] Last Admin: 08/02/23 07:24 Dose: 25 mcg Documented By: RADHA Loratadine (Loratadine 10 Mg Tablet) 10 mg PO DAILY [facility] Last Admin: 08/02/23 10:38 Dose: 10 mg Documented By: MARCO Magnesium Hydroxide (Milk Of Magnesia 30 Ml Oral.Susp) 30 ml PO DAILY PRN PRN Reason: Constipation Magnesium Oxide (Magnesium Oxide 400 Mg Tablet) 400 mg PO BIDPC [facility] Last Admin: 08/02/23 10:38 Dose: 400 mg Documented By: MARCO Nicotine (Nicotine 7 Mg Patch.Td24) 7 mg TRANSDERMA DAILY [facility] Last Admin: 08/02/23 10:38 Dose: 7 mg Documented By: MARCO Omeprazole (Omeprazole 40 Mg Capsule.Dr) 40 mg PO DAILY [facility] Last Admin: 08/02/23 10:36 Dose: Not Given Documented By: MARCO Non-Admin Reason: can not be crushed Pharmacy Consult (Consult Rx Vancomycin Dosing) 1 each MISCELLANE DAILY PRN PRN Reason: Consult order Prednisone (Prednisone 5 Mg Tablet) 5 mg PO DAILY [facility] Last Admin: 08/02/23 10:39 Dose: 5 mg Documented By: MARCO Pyridoxine HCl (Pyridoxine Hcl (Vitamin B6) 50 Mg Tablet) 50 mg PO DAILY [facility] Last Admin: 08/02/23 10:39 Dose: 50 mg Documented By: MARCO Silver Sulfadiazine (Silver Sulfadiazine 1 % Cream 20 Gm Tube) 1 appl TOPICAL DAILY [facility] Last Admin: 08/02/23 10:42 Dose: 1 appl Documented By: MARCO Sodium Chloride (0.9 % Sodium Chloride Flush 3 Ml Syringe) 3 ml IVFLUSH QSHIFT [facility] Last Admin: 08/02/23 10:40 Dose: 3 ml Documented By: MARCO Thiamine HCl (Thiamine Hcl 100 Mg Tablet) 100 mg PO DAILY [facility] Last Admin: 08/02/23 10:39 Dose: 100 mg Documented By: MARCO Labs 08/02/23 08:21 08/02/23 08:21 Labs: Laboratory Results - last 24 hr 07/29/23 08/01/23 08/01/23 06:59 11:41 12:30 MCV MCH MCHC RDW Plt Count MPV Immature Gran % (Auto) Neut % (Auto) Lymph % (Auto) [place] % (Auto) Eos % (Auto) Baso % (Auto) Lymph # (Auto) [place] # (Auto) Eos # (Auto) Baso # (Auto) Abs Immat Gran (auto) Absolute Neuts (auto) Absolute Nucleated RBC Nucleated RBC % (auto) Anion Gap Estim Creat Clear Calc Estimated GFR POC Glucose 144 H Random Glucose Calcium Magnesium Troponin I High Sens Pleural WBC 0.250 Pleural RBC 0.007 Pleural Neutrophils 20 Pleural Lymphocytes 12 Pleural Monocytes 2 Pleural Other Cells 66 IgG Total 677 IgA Total 180 IgM 125 YULIANA Interpretation SEE NOTE 08/01/23 08/01/23 08/02/23 16:14 21:54 08:05 MCV MCH MCHC RDW Plt Count MPV Immature Gran % (Auto) Neut % (Auto) Lymph % (Auto) [place] % (Auto) Eos % (Auto) Baso % (Auto) Lymph # (Auto) [place] # (Auto) Eos # (Auto) Baso # (Auto) Abs Immat Gran (auto) Absolute Neuts (auto) Absolute Nucleated RBC Nucleated RBC % (auto) Anion Gap Estim Creat Clear Calc Estimated GFR POC Glucose 155 H 136 H 111 Random Glucose Calcium Magnesium Troponin I High Sens Pleural WBC Pleural RBC Pleural Neutrophils Pleural Lymphocytes Pleural Monocytes Pleural Other Cells IgG Total IgA Total IgM YULIANA Interpretation 08/02/23 08/02/23 08/02/23 08:21 08:21 08:21 MCV 89.4 89.7 MCH 27.1 27.4 MCHC 30.4 L RDW Plt Count MPV Immature Gran % (Auto) Neut % (Auto) Lymph % (Auto) [place] % (Auto) Eos % (Auto) Baso % (Auto) Lymph # (Auto) [place] # (Auto) Eos # (Auto) Baso # (Auto) Abs Immat Gran (auto) Absolute Neuts (auto) Absolute Nucleated RBC Nucleated RBC % (auto) Anion Gap Estim Creat Clear Calc Estimated GFR POC Glucose Random Glucose Calcium Magnesium Troponin I High Sens Pleural WBC Pleural RBC Pleural Neutrophils Pleural Lymphocytes Pleural Monocytes Pleural Other Cells IgG Total IgA Total IgM YULIANA Interpretation 08/02/23 08/02/23 08/02/23 08:21 08:21 08:21 MCV MCH MCHC 30.6 L RDW 25.6 H 25.6 H Plt Count 170 176 MPV 10.5 Immature Gran % (Auto) Neut % (Auto) Lymph % (Auto) [place] % (Auto) Eos % (Auto) Baso % (Auto) Lymph # (Auto) [place] # (Auto) Eos # (Auto) Baso # (Auto) Abs Immat Gran (auto) Absolute Neuts (auto) Absolute Nucleated RBC Nucleated RBC % (auto) Anion Gap Estim Creat Clear Calc Estimated GFR POC Glucose Random Glucose Calcium Magnesium Troponin I High Sens Pleural WBC Pleural RBC Pleural Neutrophils Pleural Lymphocytes Pleural Monocytes Pleural Other Cells IgG Total IgA Total IgM YULIANA Interpretation 05/29/24 05/29/24 05/29/24 08:21 08:21 08:21 MCV MCH MCHC RDW Plt Count MPV 10.5 Immature Gran % (Auto) 0.6 H Neut % (Auto) 79.5 H Lymph % (Auto) 5.7 L [place] % (Auto) 9.1 Eos % (Auto) 4.4 H Baso % (Auto) 0.7 Lymph # (Auto) 0.5 L [place] # (Auto) 0.8 Eos # (Auto) 0.4 Baso # (Auto) 0.1 Abs Immat Gran (auto) 0.05 H Absolute Neuts (auto) 7.2 Absolute Nucleated RBC 0.000 0.000 Nucleated RBC % (auto) 0.0 0.0 Anion Gap 12 Estim Creat Clear Calc Estimated GFR POC Glucose Random Glucose Calcium Magnesium Troponin I High Sens Pleural WBC Pleural RBC Pleural Neutrophils Pleural Lymphocytes Pleural Monocytes Pleural Other Cells IgG Total IgA Total IgM YULIANA Interpretation 08/02/23 08/02/23 08/02/23 08:21 08:21 08:21 MCV MCH MCHC RDW Plt Count MPV Immature Gran % (Auto) Neut % (Auto) Lymph % (Auto) [place] % (Auto) Eos % (Auto) Baso % (Auto) Lymph # (Auto) [place] # (Auto) Eos # (Auto) Baso # (Auto) Abs Immat Gran (auto) Absolute Neuts (auto) Absolute Nucleated RBC Nucleated RBC % (auto) Anion Gap Cancelled Estim Creat Clear Calc Cancelled 39.7 Cancelled Estimated GFR Cancelled POC Glucose Random Glucose Calcium Magnesium Troponin I High Sens Pleural WBC Pleural RBC Pleural Neutrophils Pleural Lymphocytes Pleural Monocytes Pleural Other Cells IgG Total IgA Total IgM YULIANA Interpretation 08/02/23 08/02/23 08/02/23 08:21 08:21 08:21 MCV MCH MCHC RDW Plt Count MPV Immature Gran % (Auto) Neut % (Auto) Lymph % (Auto) [place] % (Auto) Eos % (Auto) Baso % (Auto) Lymph # (Auto) [place] # (Auto) Eos # (Auto) Baso # (Auto) Abs Immat Gran (auto) Absolute Neuts (auto) Absolute Nucleated RBC Nucleated RBC % (auto) Anion Gap Estim Creat Clear Calc Estimated GFR 38 Cancelled POC Glucose Random Glucose 108 Cancelled Calcium 8.2 L D Magnesium Troponin I High Sens Pleural WBC Pleural RBC Pleural Neutrophils Pleural Lymphocytes Pleural Monocytes Pleural Other Cells IgG Total IgA Total IgM YULIANA Interpretation 08/02/23 08:21 MCV MCH MCHC RDW Plt Count MPV Immature Gran % (Auto) Neut % (Auto) Lymph % (Auto) [place] % (Auto) Eos % (Auto) Baso % (Auto) Lymph # (Auto) [place] # (Auto) Eos # (Auto) Baso # (Auto) Abs Immat Gran (auto) Absolute Neuts (auto) Absolute Nucleated RBC Nucleated RBC % (auto) Anion Gap Estim Creat Clear Calc Estimated GFR POC Glucose Random Glucose Calcium Cancelled Magnesium 1.5 L Troponin I High Sens 28.3 D Pleural WBC Pleural RBC Pleural Neutrophils Pleural Lymphocytes Pleural Monocytes Pleural Other Cells IgG Total IgA Total IgM YULIANA Interpretation Microbiology Microbiology Results: Microbiology 08/01/23 12:30 Gram Stain - Final Pleural Fluid Routine Culture - Preliminary No growth to date. Anaerobic Culture - Preliminary No growth to date. 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, HB as per cardiology stop metoprolol for now, may resume at lower dose, discuss with cardiology Encephalopathy ongoing conversive but confused likely from infectious source continue to monitor mental status closely Acute on chronic HFrEF with large Pleural effusion Moderate to large left pleural effusion EF 35% No hypoxia noted Audible wheezing resolved s/p IV lasix s/p Thoracentesis 08/01/23 hypomagnesemia with episode of NSVT still on the lower side replace with IV 2gm now and continue oral mag BID Acute hypercarbic respiratory failure likely due to underlying COPD, sedating meds and CHF hold home klonopin more awake and alert today but still confused Nonhealing wounds BLE with extensive cellulitis r/t PAD no sepsis continue IV vanco and Zosyn (initiated 07/25) bilateral arterial duplex with bilateral vascular disease plan for CT angio with runoff (okayed by nephrology) vascular surgery consult following wound care consult>bilat LE hydrogel to wound bed, cover with gauze and abd every other day Blood cultures negative to date LLL pneumonia iv vanco/zosyn as above DuoNebs q.4h guaifenesin p.r.n. Strep pneumo antigen, Legionella antigen, sputum culture, MRSA nasal swab + Hypernatremia. resolved s/p D5W Hyperkalemia. Resolved hold losartan s/p Lokelma 10 g once DM2 ss, ada diet COPD no acute exacerbation continue maintenance inhalers, albuterol p.r.n. continue daily prednisone CKD stage 3 renal function baseline hypothyroidism continue Synthroid hypertension stop metoprolol and losartan continue amlodipine hyperlipidemia continue statin nicotine dependence cessation advised patches for NRT DVT prophylaxis-heparin attending Dr. Palma Full code Requires ongoing inpatient stay for management of respiratory failure, nonhealing wounds of the bilateral lower extremities with extensive cellulitis covering greater than 50% of the left lower extremity requiring IV antibiotics, expert consultation, and possible surgical intervention/debridement Quality Stroke Does the patient have a stroke diagnosis?: No VTE Prior VTE?: No VTE Risk Level:: Medical - moderate - high VTE Device Contraindication: Treatment Not Indicated VTE Drug Contraindication: N/A - Med Ordered
--- NOTE | 2023-08-02 10:57 | P.PNNP_ITS ---
Subjective Subjective Date of Service: 08/03/23 Interval history: . Events noted Physical Exam 2 Vital Signs: Vital Signs: Last Vital Signs Temp 97.4 F 08/02/23 07:00 Pulse 64 08/02/23 08:59 Resp 18 08/02/23 08:59 BP 153/73 H 08/02/23 07:00 Pulse Ox 93 08/02/23 07:00 O2 Del Method Nasal Cannula 08/02/23 07:00 O2 Flow Rate 2 08/02/23 07:00 BMI result Body Mass Index 29.5 Const: Other: lethargic, difficult to arouse Objective Data Labs 08/03/23 06:09 08/03/23 06:09 Labs: Laboratory Results - last 24 hr 07/29/23 08/01/23 08/01/23 06:59 11:41 12:30 WBC RBC Hgb Hct MCV MCH MCHC RDW Plt Count MPV Immature Gran % (Auto) Neut % (Auto) Lymph % (Auto) [place] % (Auto) Eos % (Auto) Baso % (Auto) Lymph # (Auto) [place] # (Auto) Eos # (Auto) Baso # (Auto) Abs Immat Gran (auto) Absolute Neuts (auto) Absolute Nucleated RBC Nucleated RBC % (auto) Sodium Potassium Chloride Carbon Dioxide Anion Gap BUN Creatinine Estim Creat Clear Calc Estimated GFR POC Glucose 144 H Random Glucose Calcium Magnesium Troponin I High Sens Pleural WBC 0.250 Pleural RBC 0.007 Pleural Neutrophils 20 Pleural Lymphocytes 12 Pleural Monocytes 2 Pleural Other Cells 66 IgG Total 677 IgA Total 180 IgM 125 YULIANA Interpretation SEE NOTE 08/01/23 08/01/23 08/02/23 16:14 21:54 08:05 WBC RBC Hgb Hct MCV MCH MCHC RDW Plt Count MPV Immature Gran % (Auto) Neut % (Auto) Lymph % (Auto) [place] % (Auto) Eos % (Auto) Baso % (Auto) Lymph # (Auto) [place] # (Auto) Eos # (Auto) Baso # (Auto) Abs Immat Gran (auto) Absolute Neuts (auto) Absolute Nucleated RBC Nucleated RBC % (auto) Sodium Potassium Chloride Carbon Dioxide Anion Gap BUN Creatinine Estim Creat Clear Calc Estimated GFR POC Glucose 155 H 136 H 111 Random Glucose Calcium Magnesium Troponin I High Sens Pleural WBC Pleural RBC Pleural Neutrophils Pleural Lymphocytes Pleural Monocytes Pleural Other Cells IgG Total IgA Total IgM YULIANA Interpretation 08/02/23 08/02/23 08/02/23 08:21 08:21 08:21 WBC 9.0 8.7 RBC 3.50 L 3.50 L Hgb 9.5 L Hct MCV MCH MCHC RDW Plt Count MPV Immature Gran % (Auto) Neut % (Auto) Lymph % (Auto) [place] % (Auto) Eos % (Auto) Baso % (Auto) Lymph # (Auto) [place] # (Auto) Eos # (Auto) Baso # (Auto) Abs Immat Gran (auto) Absolute Neuts (auto) Absolute Nucleated RBC Nucleated RBC % (auto) Sodium Potassium Chloride Carbon Dioxide Anion Gap BUN Creatinine Estim Creat Clear Calc Estimated GFR POC Glucose Random Glucose Calcium Magnesium Troponin I High Sens Pleural WBC Pleural RBC Pleural Neutrophils Pleural Lymphocytes Pleural Monocytes Pleural Other Cells IgG Total IgA Total IgM YULIANA Interpretation 08/02/23 08/02/23 08/02/23 08:21 08:21 08:21 WBC RBC Hgb 9.6 L Hct 31.3 L 31.4 L MCV 89.4 89.7 MCH 27.1 MCHC RDW Plt Count MPV Immature Gran % (Auto) Neut % (Auto) Lymph % (Auto) [place] % (Auto) Eos % (Auto) Baso % (Auto) Lymph # (Auto) [place] # (Auto) Eos # (Auto) Baso # (Auto) Abs Immat Gran (auto) Absolute Neuts (auto) Absolute Nucleated RBC Nucleated RBC % (auto) Sodium Potassium Chloride Carbon Dioxide Anion Gap BUN Creatinine Estim Creat Clear Calc Estimated GFR POC Glucose Random Glucose Calcium Magnesium Troponin I High Sens Pleural WBC Pleural RBC Pleural Neutrophils Pleural Lymphocytes Pleural Monocytes Pleural Other Cells IgG Total IgA Total IgM YULIANA Interpretation 08/02/23 08/02/23 08/02/23 08:21 08:21 08:21 WBC RBC Hgb Hct MCV MCH 27.4 MCHC 30.4 L 30.6 L RDW 25.6 H 25.6 H Plt Count 170 MPV Immature Gran % (Auto) Neut % (Auto) Lymph % (Auto) [place] % (Auto) Eos % (Auto) Baso % (Auto) Lymph # (Auto) [place] # (Auto) Eos # (Auto) Baso # (Auto) Abs Immat Gran (auto) Absolute Neuts (auto) Absolute Nucleated RBC Nucleated RBC % (auto) Sodium Potassium Chloride Carbon Dioxide Anion Gap BUN Creatinine Estim Creat Clear Calc Estimated GFR POC Glucose Random Glucose Calcium Magnesium Troponin I High Sens Pleural WBC Pleural RBC Pleural Neutrophils Pleural Lymphocytes Pleural Monocytes Pleural Other Cells IgG Total IgA Total IgM YULIANA Interpretation 08/02/23 08/02/23 08/02/23 08:21 08:21 08:21 WBC RBC Hgb Hct MCV MCH MCHC RDW Plt Count 176 MPV 10.5 10.5 Immature Gran % (Auto) 0.6 H Neut % (Auto) 79.5 H Lymph % (Auto) 5.7 L [place] % (Auto) 9.1 Eos % (Auto) 4.4 H Baso % (Auto) 0.7 Lymph # (Auto) 0.5 L [place] # (Auto) 0.8 Eos # (Auto) 0.4 Baso # (Auto) 0.1 Abs Immat Gran (auto) 0.05 H Absolute Neuts (auto) 7.2 Absolute Nucleated RBC 0.000 0.000 Nucleated RBC % (auto) 0.0 Sodium Potassium Chloride Carbon Dioxide Anion Gap BUN Creatinine Estim Creat Clear Calc Estimated GFR POC Glucose Random Glucose Calcium Magnesium Troponin I High Sens Pleural WBC Pleural RBC Pleural Neutrophils Pleural Lymphocytes Pleural Monocytes Pleural Other Cells IgG Total IgA Total IgM YULIANA Interpretation 08/02/23 08/02/23 08/02/23 08:21 08:21 08:21 WBC RBC Hgb Hct MCV MCH MCHC RDW Plt Count MPV Immature Gran % (Auto) Neut % (Auto) Lymph % (Auto) [place] % (Auto) Eos % (Auto) Baso % (Auto) Lymph # (Auto) [place] # (Auto) Eos # (Auto) Baso # (Auto) Abs Immat Gran (auto) Absolute Neuts (auto) Absolute Nucleated RBC Nucleated RBC % (auto) 0.0 Sodium 145 Cancelled Potassium 3.8 Cancelled Chloride 102 Carbon Dioxide Anion Gap BUN Creatinine Estim Creat Clear Calc Estimated GFR POC Glucose Random Glucose Calcium Magnesium Troponin I High Sens Pleural WBC Pleural RBC Pleural Neutrophils Pleural Lymphocytes Pleural Monocytes Pleural Other Cells IgG Total IgA Total IgM YULIANA Interpretation 08/02/23 08/02/23 08/02/23 08:21 08:21 08:21 WBC RBC Hgb Hct MCV MCH MCHC RDW Plt Count MPV Immature Gran % (Auto) Neut % (Auto) Lymph % (Auto) [place] % (Auto) Eos % (Auto) Baso % (Auto) Lymph # (Auto) [place] # (Auto) Eos # (Auto) Baso # (Auto) Abs Immat Gran (auto) Absolute Neuts (auto) Absolute Nucleated RBC Nucleated RBC % (auto) Sodium Potassium Chloride Cancelled Carbon Dioxide 35 H Cancelled Anion Gap 12 Cancelled BUN 19 H Creatinine Estim Creat Clear Calc Estimated GFR POC Glucose Random Glucose Calcium Magnesium Troponin I High Sens Pleural WBC Pleural RBC Pleural Neutrophils Pleural Lymphocytes Pleural Monocytes Pleural Other Cells IgG Total IgA Total IgM YULIANA Interpretation 08/02/23 08/02/23 08/02/23 08:21 08:21 08:21 WBC RBC Hgb Hct MCV MCH MCHC RDW Plt Count MPV Immature Gran % (Auto) Neut % (Auto) Lymph % (Auto) [place] % (Auto) Eos % (Auto) Baso % (Auto) Lymph # (Auto) [place] # (Auto) Eos # (Auto) Baso # (Auto) Abs Immat Gran (auto) Absolute Neuts (auto) Absolute Nucleated RBC Nucleated RBC % (auto) Sodium Potassium Chloride Carbon Dioxide Anion Gap BUN Cancelled Creatinine Cancelled 1.73 H Cancelled Estim Creat Clear Calc Cancelled Estimated GFR POC Glucose Random Glucose Calcium Magnesium Troponin I High Sens Pleural WBC Pleural RBC Pleural Neutrophils Pleural Lymphocytes Pleural Monocytes Pleural Other Cells IgG Total IgA Total IgM YULIANA Interpretation 08/02/23 08/02/23 08/02/23 08:21 08:21 08:21 WBC RBC Hgb Hct MCV MCH MCHC RDW Plt Count MPV Immature Gran % (Auto) Neut % (Auto) Lymph % (Auto) [place] % (Auto) Eos % (Auto) Baso % (Auto) Lymph # (Auto) [place] # (Auto) Eos # (Auto) Baso # (Auto) Abs Immat Gran (auto) Absolute Neuts (auto) Absolute Nucleated RBC Nucleated RBC % (auto) Sodium Potassium Chloride Carbon Dioxide Anion Gap BUN Creatinine Estim Creat Clear Calc 39.7 Cancelled Estimated GFR Cancelled 38 POC Glucose Random Glucose Calcium Magnesium Troponin I High Sens Pleural WBC Pleural RBC Pleural Neutrophils Pleural Lymphocytes Pleural Monocytes Pleural Other Cells IgG Total IgA Total IgM YULIANA Interpretation 08/02/23 08/02/23 08/02/23 08:21 08:21 08:21 WBC RBC Hgb Hct MCV MCH MCHC RDW Plt Count MPV Immature Gran % (Auto) Neut % (Auto) Lymph % (Auto) [place] % (Auto) Eos % (Auto) Baso % (Auto) Lymph # (Auto) [place] # (Auto) Eos # (Auto) Baso # (Auto) Abs Immat Gran (auto) Absolute Neuts (auto) Absolute Nucleated RBC Nucleated RBC % (auto) Sodium Potassium Chloride Carbon Dioxide Anion Gap BUN Creatinine Estim Creat Clear Calc Estimated GFR Cancelled POC Glucose Random Glucose 108 Cancelled Calcium 8.2 L D Cancelled Magnesium 1.5 L Troponin I High Sens 28.3 D Pleural WBC Pleural RBC Pleural Neutrophils Pleural Lymphocytes Pleural Monocytes Pleural Other Cells IgG Total IgA Total IgM YULIANA Interpretation Microbiology Microbiology Results: Microbiology 08/01/23 12:30 Pleural Fluid Gram Stain - Final 08/01/23 12:30 Pleural Fluid Routine Culture - Preliminary No growth to date. 08/01/23 12:30 Pleural Fluid Anaerobic Culture - Preliminary No growth to date. 07/26/23 17:45 Blood - Venous Blood Culture - Final No growth after 5 days. 07/26/23 17:44 Blood - Venous Blood Culture - Final No growth after 5 days. 07/26/23 18:15 Leg Right Gram Stain - Final 07/26/23 18:15 Leg Right Routine Culture - Final Pseudomonas aeruginosa Morg morganii ssp sibonii Methicillin Res Staph Aureus Enterococcus raffinosus 07/26/23 18:14 Leg Left Gram Stain - Final 07/26/23 18:14 Leg Left Routine Culture - Final Pseudomonas aeruginosa Methicillin Res Staph Aureus Morg morganii ssp sibonii Procedures Date of Service Date of Service: 08/03/23 Assessment & Plan Assessment and plan (1) CKD stage 3a, GFR 45-59 ml/min: Status: Acute (2) Hypernatremia: Status: Acute Plan Renal function remains unchanged. Developed hypernatremia and developing contraction alkalosis. Both are most likely due to use of Lasix. Suggest to hold Lasix for now free water to correct hypernatremia. Sodium is better today If he needs further diuresis I would consider a thiazide diuretic like HCTZ or metolazone Time Spent With Patient Time: Total time managing care of this patient today ____ minutes. Progress Note: Quality Stroke Does the patient have a stroke diagnosis?: No
[2023-08-02] MEDS: Magnesium Sulfate/H2O 2 GM/50 ML PIGGYBACK IV (11:17)
[2023-08-02 12:04] LABS: Glucose, Whole Blood 191 mg/dL (60-115)
[2023-08-02] MEDS: Insulin Lispro 100 UNIT/ML 3 ML VIAL SUBCUT ×2 (12:31→20:55)
--- NOTE | 2023-08-02 14:49 | PC.NURSE ---
Per food service technician patient rhythm on gastroenterology teacher having occasional wenebok and HR going as low as the 30's. MD notified and ordered EKG stat. EKG obtained and notified of the results. Patient calm resting in bed states that he is tired and wants to sleep. All other needs met at this time and call dunham within reach.
--- NOTE | 2023-08-02 14:50 | HO.WOUND ---
Wound Consult: Follow up 78yr old? Male admitted to [facility] [place] on 07/26/23 - See progress notes and H&P for detailed history.? Wound consult follow up for Bilateral Lower Legs.? Patient was alert and awake during my assessment today however he was confused at times but easily reorientated and directable. Has followed with Dr. Garcia in the past and seen by him this admission, see his notes for further details awaiting CT imaging. Currently Santyl remains unavailable per the pharmacy will continue with Hydrogel to soften adherent eschar and allow for autolytic debridement. No new topical recommendations made at this time. Left Leg 07/28/23 Bilaterla Legs 08/02/23 Left Lateral Malleolus 07/28/23 Left Lateral Malleolus 08/02/23 Right Leg 07/28/23 Right Leg 08/02/23 Etiology: Diabetic Wounds with known PVD current vascular work up pending. Measurements: various sized wounds Wound Bed: necrotic yellow kuo brown moist fibrinous slough adherent to wound beds Drainage / Odor: kuo yellow drainage no odor noted today Edges: ? irregular Viridiana wound: ?improving pink red erythema and hemosiderin staining - No Induration, Fluctuance or Warmth noted Pain: pt reports pain at times Goals of Treatment: ? Will attempt to allow for autolytic debridement with hydrogel for moist wound bed, at next assessment will determine if topical recommendations need updating - may consider santyl for enzymatic debridement when available in pharmacy. Recommendations: 1. Turn and Reposition every 2 hours and as needed for patient comfort.? Use pillows or wedges to support off loading positions. 2. Off Load all bony prominences with use of pillows and heel boots if needed.? Apply Preventative foams where needed. ? 3. Monitor for incontinence and moisture control, use barrier creams when needed for prevention and treatment. 4. Provide adequate and supplemental nutrition.? 5. Continue low air loss mattress. 6. When applicable maintain blood glucose levels per Providers order. 7. Bilateral Lower Legs - Elevate legs with pillows be sure to off load heels off of bed surface. Apply foam dressings to heels. Cleanse wound beds with NS moist gauze. Apply thick layer of Hydrogel Woun Dres (yellow tube) to all wound beds. Cover with dry gauze followed by ABD pad, and gauze wrap. Change every other day. Re-consult wound care Nurse for wound deterioration or wound changes.
[2023-08-02 16:47] LABS: Glucose, Whole Blood 135 mg/dL (60-115)
[2023-08-02 20:32] LABS: Glucose, Whole Blood 155 mg/dL (60-115)
[2023-08-02] MEDS: Atorvastatin Calcium 80 MG TABLET PO (20:48)
[2023-08-02 21:30] LABS: Vancomycin Random 17.7 mcg/mL (15-20)
[2023-08-03] VITALS (8 sets, daily range): BP systolic 110–145; BP diastolic 66–90; PULSE 69–90; RESP 18–20; TEMP 36.2–36.8; O2SAT 85–96
[2023-08-03 06:44] LABS: Creatinine Clr Calc Pharmacy 35.1; Estimated Glomerular Filt Rate 33
[2023-08-03 07:01] LABS: Glucose, Whole Blood 90 mg/dL (60-115)
[2023-08-03] MEDS: Albuterol/Iprat 2.5/0.5MG 3 ML AMPUL.NEB INHALE ×3 (08:05→16:03)
[2023-08-03 08:10] LABS: Hematocrit 30.9 % (42.0-52.0); Hemoglobin 9.5 g/dl (14.0-18.0); Mean Corpuscular HGB Conc 30.7 g/dl (31.0-36.0); Mean Corpuscular Hemoglobin 27.6 pg (27.0-33.0); Mean Corpuscular Volume 89.8 fL (80.0-98.0); Mean Platelet Volume 10.6 fL (9.4-12.4); Platelet Count 177 X10*3/uL (160-400); Red Blood Count 3.44 X10*6/uL (4.60-5.80); Red Cell Distribution Width 25.2 % (11.0-16.0)
[2023-08-03] MEDS: Omeprazole 40 MG CAPSULE.DR PO (10:03)
[2023-08-03] MEDS: Loratadine 10 MG TABLET PO (10:03)
[2023-08-03] MEDS: Heparin Sodium,Porcine 5,000 UNIT/ML VIAL 5000 UNIT SUBCUT ×2 (10:03→21:32)
[2023-08-03] MEDS: allopurinoL 300 MG TABLET PO (10:03)
[2023-08-03] MEDS: Pyridoxine HCl (Vitamin B6) 50 MG TABLET PO (10:04)
[2023-08-03] MEDS: Thiamine HCL 100 MG TABLET PO (10:04)
[2023-08-03] MEDS: amLODIPine Besylate 5 MG TABLET PO (10:04)
[2023-08-03] MEDS: Magnesium Oxide 400 MG TABLET PO ×2 (10:04→17:42)
[2023-08-03] MEDS: Nicotine 7 MG PATCH.TD24 TRANSDERMA (10:04)
[2023-08-03] MEDS: predniSONE 5 MG TABLET PO (10:04)
[2023-08-03] MEDS: Folic Acid 1 MG TABLET PO (10:04)
[2023-08-03] MEDS: 0.9 % Sodium Chloride Flush 3 ML SYRINGE IVFLUSH ×3 (10:05→21:33)
[2023-08-03] MEDS: Silver Sulfadiazine 1 % Cream 20 GM TUBE 1 APPL TOPICAL (10:05)
--- NOTE | 2023-08-03 10:06 | PM.PNCARD ---
Subjective Subjective Date of Service: 08/03/23 Interval history: He states he feels fine. No new issues. Review of Systems Review of Systems Yes all other systems are reviewed and are negative Constitutional: Reports as per HPI and Reports no additional constitutional complaints Eyes: Reports as per HPI and Denies no additional eye complaints Denies system reviewed and no additional complaints, except as documented and Reports as per HPI Cardiovascular: Reports as per HPI, Reports no additional cardiovascular complaints, Denies acrocyanosis, Denies cool extremities, Denies chest pain, Denies leg edema, Denies lightheadedness, Denies palpitations and Denies dyspnea Respiratory: Reports as per HPI, Denies no additional respiratory complaints and Denies dyspnea Gastrointestinal: Reports as per HPI and Denies no additional gastrointestinal complaints Genitourinary: Reports no additional male genitourinary complaints and Reports as per HPI Musculoskeletal: Reports no additional musculoskeletal complaints and Reports as per HPI Skin/Breast: Reports system reviewed and no additional complaints, except as docu Reports system reviewed and no additional complaints, except as documented and Reports as per HPI Psychiatric: Reports no additional psychiatric complaints and Reports as per HPI Endocrine: Reports no additional endocrine complaints, Reports as per HPI and Denies palpitations Hematologic/Lymphatic: Reports no additional hematologic/lymphatic complaints and Reports as per HPI Allergic/Immunologic: Reports no additional allergic/immunologic complaints and Reports as per HPI Physical Exam Vital Signs: Last Vital Signs Temp 97.1 F 08/03/23 07:41 Pulse 78 08/03/23 08:09 Resp 20 08/03/23 08:09 BP 140/80 H 08/03/23 07:41 Pulse Ox 96 08/03/23 07:41 O2 Del Method Nasal Cannula 08/03/23 07:41 O2 Flow Rate 3 08/03/23 07:41 BMI result Body Mass Index 29.5 Const General: comfortable and no acute distress Orientation/consciousness: patient oriented x3 HEENT Other: Unremarkable Head: Yes normal to inspection Neck Neck: Yes normal visual inspection Chest Chest palpation & inspection: normal inspection of the chest Resp Other: Few basal crackles Auscultation: diminished lung sounds Cardio Palpation: normal PMI Heart sounds: S1 normal heart sound present, S2 normal heart sound present, no gallops, Murmur heart sound present systolic II/ and at the right sternal border and no rubs GI Palpation (GI): Soft to palpation Back/Spine/Pelvis Other: unremarkable Skin General skin exam: no rashes or lesions noted Neuro General: patient oriented x3 Extrem Other: 1+ edema General: Yes normal to inspection Psych Mental Status: mental status grossly normal Objective Labs and Meds 08/03/23 06:09 08/03/23 06:09 Lab results: Laboratory Results - last 24 hr 08/02/23 08/02/23 08/02/23 12:00 16:39 20:26 WBC RBC Hgb Hct MCV MCH MCHC RDW Plt Count MPV Absolute Nucleated RBC Nucleated RBC % (auto) Hold Purple Top Creatinine Estim Creat Clear Calc Estimated GFR POC Glucose 191 H 135 H 155 H Random Vancomycin 08/02/23 08/03/23 08/03/23 21:04 06:09 06:56 WBC 9.0 RBC 3.44 L Hgb 9.5 L Hct 30.9 L MCV 89.8 MCH 27.6 MCHC 30.7 L RDW 25.2 H Plt Count 177 MPV 10.6 Absolute Nucleated RBC 0.000 Nucleated RBC % (auto) 0.0 Hold Purple Top SEE NOTE Creatinine 1.96 H Estim Creat Clear Calc 35.1 Estimated GFR 33 POC Glucose 90 Random Vancomycin 17.7 Progress Note: A&P Assessment and plan (1) Acute on chronic respiratory failure with hypoxia and hypercapnia: Status: Acute (2) Acute on chronic systolic (congestive) heart failure: Status: Acute (3) NSVT (nonsustained ventricular tachycardia): Status: Acute (4) Complete heart block: Status: Acute Plan Echocardiogram with LVEF of about 50%. Aortic and mitral valvular calcification. Mild aortic stenosis. Last year, LVEF stated as 36%. Telemetry had revealed a short run of NSVT at 8 beats. However, yesterday a.m. there was also an episode of complete heart block for almost 6 seconds. Now back in normal sinus rhythm. Did have some Mobitz type 1 second-degree block otherwise. Otherwise, per documentation he underwent thoracentesis where 900 mL of non cloudy, blood-tinged pleural fluid was removed. Overall, suspect some combination of cardiac and pulmonary etiology for the pleural effusion. Low albumin may also play a role. Nephrology, noted regarding diuretics. Clinically, does not look overtly volume overloaded at this time. Concurrently on antibiotics for pneumonia. With regard to the heart block, off beta-blockers. He was on a fairly high dose of metoprolol. Discussed about potential need for pacemaker if the heart block recurs after being off beta-blockers. He states that he would rather not want to have a pacemaker unless absolutely essential. In that case, we will monitor him on telemetry for another day or 2. Discussed with Tabatha Vergara, who was also present in the room during conversation. Time Spent With Patient Time: Total time managing care of this patient today ____ minutes. Progress Note: Quality Stroke Does the patient have a stroke diagnosis?: No Procedures Date of Service Date of Service: 08/03/23
[2023-08-03 10:52] LABS: Glucose, Whole Blood 87 mg/dL (60-115)
--- NOTE | 2023-08-03 11:15 | MHC.CM.PN ---
Addendum entered by Kandace Dalton 08/03/23 11:56: task submitted for [facility] to discuss post STR home care services with pt and HCP. Original Note: Pt.'s grandaughter and pt. requested to see CM to complete a HCP. There was a HCP on file from 2011, a new one was completed and uploaded to chart today, naming pt.'s grand daughter, Taylor Edwards. HCP asked CM how to pursue home care services for when pt returns home after STR, insurance was discussed, pt has Medicare only. Referral submitted to financial counselors to assist pt and grand daughter with Medicaid application. Pt accepts bed at [facility], DCP is to go there when medically cleared for STR.
--- NOTE | 2023-08-03 11:22 | P.PNNP_ITS ---
Subjective Subjective Date of Service: 08/14/23 Interval history: . Events noted For pacemaker Physical Exam 2 Vital Signs: Vital Signs: Last Vital Signs Temp 97.1 F 08/03/23 07:41 Pulse 78 08/03/23 08:09 Resp 20 08/03/23 08:09 BP 140/80 H 08/03/23 07:41 Pulse Ox 96 08/03/23 07:41 O2 Del Method Nasal Cannula 08/03/23 07:41 O2 Flow Rate 3 08/03/23 07:41 BMI result Body Mass Index 29.5 Const: Other: lethargic, difficult to arouse Neck: Neck: Yes supple Resp: Auscultation: rhonchi Cardio: Jugular venous distension: no JVD Objective Data Labs 08/03/23 06:09 08/05/23 07:47 Labs: Laboratory Results - last 24 hr 08/02/23 08/02/23 08/02/23 12:00 16:39 20:26 WBC RBC Hgb Hct MCV MCH MCHC RDW Plt Count MPV Absolute Nucleated RBC Nucleated RBC % (auto) Hold Purple Top Creatinine Estim Creat Clear Calc Estimated GFR POC Glucose 191 H 135 H 155 H Random Vancomycin 08/02/23 08/03/23 08/03/23 21:04 06:09 06:56 WBC 9.0 RBC 3.44 L Hgb 9.5 L Hct 30.9 L MCV 89.8 MCH 27.6 MCHC 30.7 L RDW 25.2 H Plt Count 177 MPV 10.6 Absolute Nucleated RBC 0.000 Nucleated RBC % (auto) 0.0 Hold Purple Top SEE NOTE Creatinine 1.96 H Estim Creat Clear Calc 35.1 Estimated GFR 33 POC Glucose 90 Random Vancomycin 17.7 08/03/23 10:48 WBC RBC Hgb Hct MCV MCH MCHC RDW Plt Count MPV Absolute Nucleated RBC Nucleated RBC % (auto) Hold Purple Top Creatinine Estim Creat Clear Calc Estimated GFR POC Glucose 87 Random Vancomycin Microbiology Microbiology Results: Microbiology 08/01/23 12:30 Pleural Fluid Gram Stain - Final 08/01/23 12:30 Pleural Fluid Routine Culture - Final No growth after 2 days 08/01/23 12:30 Pleural Fluid Anaerobic Culture - Preliminary No growth to date. 07/26/23 17:45 Blood - Venous Blood Culture - Final No growth after 5 days. 07/26/23 17:44 Blood - Venous Blood Culture - Final No growth after 5 days. 07/26/23 18:15 Leg Right Gram Stain - Final 07/26/23 18:15 Leg Right Routine Culture - Final Pseudomonas aeruginosa Morg morganii ssp sibonii Methicillin Res Staph Aureus Enterococcus raffinosus 07/26/23 18:14 Leg Left Gram Stain - Final 07/26/23 18:14 Leg Left Routine Culture - Final Pseudomonas aeruginosa Methicillin Res Staph Aureus Morg morganii ssp sibonii Procedures Date of Service Date of Service: 08/14/23 Assessment & Plan Assessment and plan (1) CKD stage 3a, GFR 45-59 ml/min: Status: Inactive (2) Hypernatremia: Status: Resolved Plan Renal function remains unchanged. Developed hypernatremia and developing contraction alkalosis. Both are most likely due to use of Lasix. Improved after stopping Lasix. Sodium is better today If he needs further diuresis I would consider a thiazide diuretic like HCTZ or metolazone Await pacemaker Time Spent With Patient Time: Total time managing care of this patient today ____ minutes. Progress Note: Quality Stroke Does the patient have a stroke diagnosis?: No
--- NOTE | 2023-08-03 15:01 | P.PNIM_ITS ---
Subjective Subjective Date of Service: 08/03/23 Interval History: Seen and examined this morning Follow-up for multiple issues including encephalopathy, nonhealing lower extremity wounds, pneumonia, sinus pause No further sinus pauses after stopping beta-andrea Patient denies shortness of breath Review of Systems Review of Systems: Yes all other systems are reviewed and are negative Constitutional Constitutional: Denies fever(s) Physical Exam 2 Vital Signs: Vital Signs: Last Vital Signs Temp 98.2 F 08/03/23 11:25 Pulse 85 08/03/23 11:55 Resp 18 08/03/23 11:55 BP 145/90 H 08/03/23 11:25 Pulse Ox 92 08/03/23 11:25 O2 Del Method Nasal Cannula 08/03/23 11:25 O2 Flow Rate 3 08/03/23 11:25 BMI result Body Mass Index 29.5 Const: General: cooperative, comfortable, no acute distress, alert and awake Nutritional Appearance: average body habitus Orientation/consciousness: o riented to person and oriented to place Resp: Effort & Inspection: normal respiratory effort, able to speak in complete sentences, no respiratory distress and no use of accessory muscles Cardio: Rate: regular rate GI: Inspection: No distended Palpation (GI): Soft to palpation Skin: Other: Bilateral lower extremity reynoso wounds covered with clean/dry/intact dressings Neuro: Other: Grossly nonfocal General: oriented to person and oriented to place Objective Data Active Medications Acetaminophen (Acetaminophen 325 Mg Tablet) 650 mg PO Q6H PRN PRN Reason: Pain, Mild (Pain Scale 1-3) Last Admin: 08/02/23 07:24 Dose: 650 mg Documented By: RADHA Albuterol Sulfate (Albuterol Sulfate 90 Mcg 8 Gm Inhaler) 2 puff INHALE Q3H PRN PRN Reason: Shortness Of Breath Albuterol/Ipratropium (Albuterol/Iprat 2.5/0.5mg 3 Ml Ampul.Neb) 3 ml INHALE RQ4H WHILE AWAKE [facility] Last Admin: 08/03/23 11:55 Dose: 3 ml Documented By: SHERLY Allopurinol (Allopurinol 300 Mg Tablet) 300 mg PO DAILY [facility] Last Admin: 08/03/23 10:03 Dose: 300 mg Documented By: CARLOS Amlodipine Besylate (Amlodipine Besylate 5 Mg Tablet) 5 mg PO DAILY [facility]; Protocol Last Admin: 08/03/23 10:04 Dose: 5 mg Documented By: CARLOS Atorvastatin Calcium (Atorvastatin Calcium 80 Mg Tablet) 80 mg PO BEDTIME [facility] Last Admin: 08/02/23 20:48 Dose: 80 mg Documented By: ARACELIS Atropine Sulfate (Atropine Sulfate 1 Mg/10 Ml Syringe) 1 mg IVPUSH Q1H PRN PRN Reason: bradycardia HR<30 Clonazepam (Clonazepam 1 Mg Tablet) 1 mg PO BEDTIME [facility] Last Admin: 07/27/23 21:21 Dose: 1 mg Documented By: ADELFO Folic Acid (Folic Acid 1 Mg Tablet) 1 mg PO DAILY [facility] Last Admin: 08/03/23 10:04 Dose: 1 mg Documented By: CARLOS Glucose (Glucose Gel 15 Gm Gel..Gram.) 15 gm PO Q15M PRN; Protocol PRN Reason: per Hypoglycemia Standing Ord. Guaifenesin (Guaifenesin 200 Mg/10 Ml 10 Ml Liquid) 10 ml PO Q4H PRN PRN Reason: Cough Last Admin: 07/31/23 19:58 Dose: 10 ml Documented By: JAKE Heparin Sodium (Porcine) (Heparin Sodium,Porcine 5,000 Unit/Ml Vial) 5,000 unit SUBCUT Q12H [facility] Last Admin: 08/03/23 10:03 Dose: 5,000 unit Documented By: CARLOS Vancomycin HCl 500 mg/ Sodium (Chloride) 110 mls @ 110 mls/hr IV Q48H [facility] Last Infusion: 08/02/23 08:09 Dose: Infused Documented By: MARCO Insulin Human Lispro (Insulin Lispro 100 Unit/Ml 3 Ml Vial) 0 unit SUBCUT QIDACHS [facility]; Protocol Last Admin: 08/03/23 10:54 Dose: Not Given Documented By: MAURICIOTEKR Non-Admin Reason: No Insulin Coverage Levothyroxine Sodium (Levothyroxine Sodium 25 Mcg Tablet) 25 mcg PO DAILY@0630 [facility] Last Admin: 08/03/23 10:05 Dose: Not Given Documented By: CARLOS Non-Admin Reason: previous shift Loratadine (Loratadine 10 Mg Tablet) 10 mg PO DAILY [facility] Last Admin: 08/03/23 10:03 Dose: 10 mg Documented By: CARLOS Magnesium Hydroxide (Milk Of Magnesia 30 Ml Oral.Susp) 30 ml PO DAILY PRN PRN Reason: Constipation Magnesium Oxide (Magnesium Oxide 400 Mg Tablet) 400 mg PO BIDPC [facility] Last Admin: 08/03/23 10:04 Dose: 400 mg Documented By: CARLOS Nicotine (Nicotine 7 Mg Patch.Td24) 7 mg TRANSDERMA DAILY [facility] Last Admin: 08/03/23 10:04 Dose: 7 mg Documented By: CARLOS Omeprazole (Omeprazole 40 Mg Capsule.Dr) 40 mg PO DAILY [facility] Last Admin: 08/03/23 10:03 Dose: 40 mg Documented By: CARLOS Pharmacy Consult (Consult Rx Vancomycin Dosing) 1 each MISCELLANE DAILY PRN PRN Reason: Consult order Prednisone (Prednisone 5 Mg Tablet) 5 mg PO DAILY [facility] Last Admin: 08/03/23 10:04 Dose: 5 mg Documented By: CARLOS Pyridoxine HCl (Pyridoxine Hcl (Vitamin B6) 50 Mg Tablet) 50 mg PO DAILY [facility] Last Admin: 08/03/23 10:04 Dose: 50 mg Documented By: CARLOS Silver Sulfadiazine (Silver Sulfadiazine 1 % Cream 20 Gm Tube) 1 appl TOPICAL DAILY [facility] Last Admin: 08/03/23 10:05 Dose: 1 appl Documented By: CARLOS Sodium Chloride (0.9 % Sodium Chloride Flush 3 Ml Syringe) 3 ml IVFLUSH QSHIFT [facility] Last Admin: 08/03/23 10:05 Dose: 3 ml Documented By: CARLOS Thiamine HCl (Thiamine Hcl 100 Mg Tablet) 100 mg PO DAILY [facility] Last Admin: 08/03/23 10:04 Dose: 100 mg Documented By: CARLOS Labs 08/03/23 06:09 08/03/23 06:09 Labs: Laboratory Results - last 24 hr 08/02/23 08/02/23 08/02/23 16:39 20:26 21:04 MCV MCH MCHC RDW Plt Count MPV Absolute Nucleated RBC Nucleated RBC % (auto) Hold Purple Top Estim Creat Clear Calc Estimated GFR POC Glucose 135 H 155 H Random Vancomycin 17.7 08/03/23 08/03/23 08/03/23 06:09 06:56 10:48 MCV 89.8 MCH 27.6 MCHC 30.7 L RDW 25.2 H Plt Count 177 MPV 10.6 Absolute Nucleated RBC 0.000 Nucleated RBC % (auto) 0.0 Hold Purple Top SEE NOTE Estim Creat Clear Calc 35.1 Estimated GFR 33 POC Glucose 90 87 Random Vancomycin Microbiology Microbiology Results: Microbiology 08/01/23 12:30 Gram Stain - Final Pleural Fluid Routine Culture - Final No growth after 2 days Anaerobic Culture - Preliminary No growth to date. Assessment and Plan (1) NSVT (nonsustained ventricular tachycardia): Status: Acute (2) Acute on chronic respiratory failure with hypoxia and hypercapnia: Status: Acute (3) Pneumonia: Status: Acute (4) Bilateral leg ulcer: Status: Acute Plan 78-year-old male with history of CKD stage 3, COPD, hyperlipidemia, [id number] type 2 diabetes, hypothyroidism, hypertension, hyperlipidemia, peripheral vascular disease, restless legs syndrome admitted for further management of nonhealing wounds to the BLE with cellilitis and pneumonia, course complicated by respiratory failure NSVT/HB previous 8 beats of vtach, 6 second pause, HB as per cardiology stop metoprolol for now No further pauses since beta-andrea stopped Patient prefers to avoid pacemaker if able but will need if any further sinus pauses Encephalopathy improving likely from infectious source continue to monitor mental status closely Acute on chronic HFrEF with large Pleural effusion Moderate to large left pleural effusion EF 35% No hypoxia noted Audible wheezing resolved s/p IV lasix s/p Thoracentesis 08/01/23 - gram stain no organisms seen, no growth after 2 days hypomagnesemia with episode of NSVT still on the lower side replace with IV 2gm now and continue oral mag BID Repeat magnesium level today Acute hypercarbic respiratory failure likely due to underlying COPD, sedating meds and CHF hold home klonopin co2 improved after bipap Nonhealing wounds BLE with extensive cellulitis r/t PAD no sepsis continue IV vanco and Zosyn (initiated 07/25)- treated with 7 days, plan to transitioned to p.o. for total 10 days as per ID recommendation bilateral arterial duplex with bilateral vascular disease plan for CT angio with runoff (okayed by nephrology) vascular surgery consult following wound care consult>bilat LE hydrogel to wound bed, cover with gauze and abd every other day Blood cultures negative to date Wound cultures growing multiple organisms blood cultures were superficial LLL pneumonia s/p IV vanco and zosyn DuoNebs q.4h guaifenesin p.r.n. Strep pneumo antigen, Legionella antigen negative; MRSA nasal swab + Hypernatremia. resolved s/p D5W Hyperkalemia. Resolved hold losartan s/p Lokelma 10 g once DM2 ss, ada diet COPD no acute exacerbation continue maintenance inhalers, albuterol p.r.n. continue daily prednisone CKD stage 3 renal function baseline hypothyroidism continue Synthroid hypertension stop metoprolol and losartan continue amlodipine hyperlipidemia continue statin nicotine dependence cessation advised patches for NRT DVT prophylaxis-heparin attending Dr. Palma Full code Disposition-PT evaluation pending Requires ongoing inpatient stay for management of respiratory failure, nonhealing wounds of the bilateral lower extremities with extensive cellulitis covering greater than 50% of the left lower extremity requiring IV antibiotics, expert consultation, and possible surgical intervention/debridement Quality Stroke Does the patient have a stroke diagnosis?: No VTE Prior VTE?: No VTE Risk Level:: Medical - moderate - high VTE Device Contraindication: Treatment Not Indicated VTE Drug Contraindication: N/A - Med Ordered
[2023-08-03 16:03] LABS: Magnesium 1.8 mg/dL (1.6-2.6)
--- NOTE | 2023-08-03 16:17 | PC.RT ---
pt has not been on bipap since 07/28 therefore machine removed from room and completed.
[2023-08-03] MEDS: Linezolid 600 MG TABLET PO (17:42)
[2023-08-03 17:44] LABS: Glucose, Whole Blood 136 mg/dL (60-115)
[2023-08-03 20:29] LABS: Glucose, Whole Blood 131 mg/dL (60-115)
[2023-08-03] MEDS: Atorvastatin Calcium 80 MG TABLET PO (21:32)
[2023-08-03] MEDS: Acetaminophen 325 MG TABLET 650 MG PO (21:32)
[2023-08-04] VITALS (7 sets, daily range): BP systolic 100–166; BP diastolic 65–95; PULSE 78–92; RESP 20; TEMP 36.2–36.6; O2SAT 92–97
[2023-08-04] MEDS: Linezolid 600 MG TABLET PO ×2 (05:12→14:54)
[2023-08-04] MEDS: Levothyroxine Sodium 25 MCG TABLET PO (05:45)
[2023-08-04 06:39] LABS: Anion Gap 10 (12-20); Blood Urea Nitrogen 28 mg/dL (9-16); Calcium 8.3 mg/dL (8.4-10.2); Carbon Dioxide 38 mmol/L (22-29); Chloride 102 mmol/L (96-108); Creatinine Clr Calc Pharmacy 34.2; Estimated Glomerular Filt Rate 32; Glucose Random 121 mg/dL (60-115); Magnesium 1.7 mg/dL (1.6-2.6); Potassium 4.6 mmol/L (3.3-5.1); Sodium 145 mmol/L (135-145)
[2023-08-04 07:13] LABS: Glucose, Whole Blood 134 mg/dL (60-115)
[2023-08-04] MEDS: Nicotine 7 MG PATCH.TD24 TRANSDERMA (09:04)
[2023-08-04] MEDS: Heparin Sodium,Porcine 5,000 UNIT/ML VIAL 5000 UNIT SUBCUT ×2 (09:05→20:02)
[2023-08-04] MEDS: Folic Acid 1 MG TABLET PO (09:05)
[2023-08-04] MEDS: Loratadine 10 MG TABLET PO (09:05)
[2023-08-04] MEDS: Pyridoxine HCl (Vitamin B6) 50 MG TABLET PO (09:05)
[2023-08-04] MEDS: predniSONE 5 MG TABLET PO (09:05)
[2023-08-04] MEDS: amLODIPine Besylate 5 MG TABLET PO (09:05)
[2023-08-04] MEDS: Thiamine HCL 100 MG TABLET PO (09:05)
[2023-08-04] MEDS: allopurinoL 300 MG TABLET PO (09:06)
[2023-08-04] MEDS: Omeprazole 40 MG CAPSULE.DR PO (09:06)
[2023-08-04] MEDS: Silver Sulfadiazine 1 % Cream 20 GM TUBE 1 APPL TOPICAL (09:06)
[2023-08-04] MEDS: Magnesium Oxide 400 MG TABLET PO ×2 (09:06→18:28)
[2023-08-04] MEDS: 0.9 % Sodium Chloride Flush 3 ML SYRINGE IVFLUSH ×2 (09:06→14:57)
--- NOTE | 2023-08-04 09:44 | PM.PNCARD ---
Subjective Subjective Date of Service: 08/04/23 Interval history: Seen in follow up around 9am today. He states that he is feeling fine. No clear-cut cardiac complaints. Review of Systems Review of Systems Yes all other systems are reviewed and are negative Constitutional: Reports as per HPI and Reports no additional constitutional complaints Eyes: Reports as per HPI and Denies no additional eye complaints Denies system reviewed and no additional complaints, except as documented and Reports as per HPI Cardiovascular: Reports as per HPI, Reports no additional cardiovascular complaints, Denies acrocyanosis, Denies cool extremities, Denies chest pain, Denies leg edema, Denies lightheadedness, Denies palpitations and Denies dyspnea Respiratory: Reports as per HPI, Denies no additional respiratory complaints and Denies dyspnea Gastrointestinal: Reports as per HPI and Denies no additional gastrointestinal complaints Genitourinary: Reports no additional male genitourinary complaints and Reports as per HPI Musculoskeletal: Reports no additional musculoskeletal complaints and Reports as per HPI Skin/Breast: Reports system reviewed and no additional complaints, except as docu Reports system reviewed and no additional complaints, except as documented and Reports as per HPI Psychiatric: Reports no additional psychiatric complaints and Reports as per HPI Endocrine: Reports no additional endocrine complaints, Reports as per HPI and Denies palpitations Hematologic/Lymphatic: Reports no additional hematologic/lymphatic complaints and Reports as per HPI Allergic/Immunologic: Reports no additional allergic/immunologic complaints and Reports as per HPI Physical Exam Vital Signs: Last Vital Signs Temp 97.8 F 08/04/23 07:39 Pulse 89 08/04/23 07:39 Resp 20 08/04/23 07:39 BP 166/95 H 08/04/23 07:39 Pulse Ox 93 08/04/23 07:39 O2 Del Method Nasal Cannula 08/04/23 07:39 O2 Flow Rate 2 08/04/23 07:39 BMI result Body Mass Index 29.5 Const General: comfortable and no acute distress Orientation/consciousness: patient oriented x3 HEENT Other: Unremarkable Head: Yes normal to inspection Neck Neck: Yes normal visual inspection Chest Chest palpation & inspection: normal inspection of the chest Resp Other: Few basal crackles Auscultation: diminished lung sounds Cardio Palpation: normal PMI Heart sounds: S1 normal heart sound present, S2 normal heart sound present, no gallops, Murmur heart sound present systolic II/ and at the right sternal border and no rubs GI Palpation (GI): Soft to palpation Back/Spine/Pelvis Other: unremarkable Skin General skin exam: no rashes or lesions noted Neuro General: patient oriented x3 Extrem Other: 1+ edema General: Yes normal to inspection Psych Mental Status: mental status grossly normal Objective Labs and Meds 08/03/23 06:09 08/04/23 05:59 Lab results: Laboratory Results - last 24 hr 08/03/23 08/03/23 08/03/23 10:48 15:30 17:38 Hold Purple Top Sodium Potassium Chloride Carbon Dioxide Anion Gap BUN Creatinine Estim Creat Clear Calc Estimated GFR POC Glucose 87 136 H Random Glucose Calcium Magnesium 1.8 08/03/23 08/04/23 08/04/23 20:21 05:59 07:07 Hold Purple Top SEE NOTE Sodium 145 Potassium 4.6 D Chloride 102 Carbon Dioxide 38 H Anion Gap 10 L BUN 28 H Creatinine 2.01 H Estim Creat Clear Calc 34.2 Estimated GFR 32 POC Glucose 131 H 134 H Random Glucose 121 H Calcium 8.3 L Magnesium 1.7 Progress Note: A&P Assessment and plan (1) Acute on chronic respiratory failure with hypoxia and hypercapnia: Status: Acute (2) Acute on chronic systolic (congestive) heart failure: Status: Acute (3) NSVT (nonsustained ventricular tachycardia): Status: Acute (4) Complete heart block: Status: Acute Plan Echocardiogram with LVEF of about 50%. Aortic and mitral valvular calcification. Mild aortic stenosis. Last year, LVEF stated as 36%. Telemetry had revealed a short run of NSVT at 8 beats. However, monday, there was also an episode of complete heart block for almost 6 seconds. Now back in normal sinus rhythm. And no further episodes of high-grade heart block. Otherwise, per documentation he underwent thoracentesis where 900 mL of non cloudy, blood-tinged pleural fluid was removed. Overall, suspect some combination of cardiac and pulmonary etiology for the pleural effusion. Low albumin may also play a role. Nephrology, noted regarding diuretics. Clinically, does not look overtly volume overloaded at this time. Concurrently on antibiotics for pneumonia With regard to the heart block, he has off the beta-blockers. No further evidence of the same. At this time, no absolute indication for pacemaker but will need to get a Holter as an outpatient. Patient also does not want a pacemaker unless absolutely essential. Also discussed with the granddaughter and we went over all the above and she agrees with the plan. Discussed with Tabatha Vergara. Time Spent With Patient Time: Total time managing care of this patient today ____ minutes. Progress Note: Quality Stroke Does the patient have a stroke diagnosis?: No Procedures Date of Service Date of Service: 08/04/23
--- NOTE | 2023-08-04 11:43 | P.PNNP_ITS ---
Subjective Subjective Date of Service: 08/04/23 Interval history: Family at bedside. Overall is feeling better. No nausea or vomiting No urinary serum Physical Exam 2 Vital Signs: Vital Signs: Last Vital Signs Temp 97.8 F 08/04/23 07:39 Pulse 89 08/04/23 10:07 Resp 20 08/04/23 07:39 BP 166/95 H 08/04/23 07:39 Pulse Ox 93 08/04/23 10:07 O2 Del Method Nasal Cannula 08/04/23 07:39 O2 Flow Rate 2 08/04/23 07:39 BMI result Body Mass Index 29.5 Neck: Neck: Yes supple Resp: Auscultation: clear to auscultation bilaterally Cardio: Palpation: no palpable S3 Heart sounds: no rubs GI: Palpation (GI): Soft to palpation Auscultation: normal bowel sounds Neuro: Motor exam (neuro): no asterixis Objective Data Labs 08/03/23 06:09 08/04/23 05:59 Labs: Laboratory Results - last 24 hr 08/03/23 08/03/23 08/03/23 15:30 17:38 20:21 Hold Purple Top Sodium Potassium Chloride Carbon Dioxide Anion Gap BUN Creatinine Estim Creat Clear Calc Estimated GFR POC Glucose 136 H 131 H Random Glucose Calcium Magnesium 1.8 08/04/23 08/04/23 05:59 07:07 Hold Purple Top SEE NOTE Sodium 145 Potassium 4.6 D Chloride 102 Carbon Dioxide 38 H Anion Gap 10 L BUN 28 H Creatinine 2.01 H Estim Creat Clear Calc 34.2 Estimated GFR 32 POC Glucose 134 H Random Glucose 121 H Calcium 8.3 L Magnesium 1.7 Microbiology Microbiology Results: Microbiology 08/01/23 12:30 Pleural Fluid Gram Stain - Final 08/01/23 12:30 Pleural Fluid Routine Culture - Final No growth after 2 days 08/01/23 12:30 Pleural Fluid Anaerobic Culture - Preliminary No growth to date. 07/26/23 17:45 Blood - Venous Blood Culture - Final No growth after 5 days. 07/26/23 17:44 Blood - Venous Blood Culture - Final No growth after 5 days. 07/26/23 18:15 Leg Right Gram Stain - Final 07/26/23 18:15 Leg Right Routine Culture - Final Pseudomonas aeruginosa Morg morganii ssp sibonii Methicillin Res Staph Aureus Enterococcus raffinosus 07/26/23 18:14 Leg Left Gram Stain - Final 07/26/23 18:14 Leg Left Routine Culture - Final Pseudomonas aeruginosa Methicillin Res Staph Aureus Morg morganii ssp sibonii Procedures Date of Service Date of Service: 08/04/23 Assessment & Plan Assessment and plan (1) CKD stage 3a, GFR 45-59 ml/min: Status: Acute (2) Hypernatremia: Status: Acute Plan OTTO superimposed on CKD. Creatinine has gradually increased. Bump in creatinine is most likely due to hypoperfusion. Keep intake more than output for the next 24:48 hours. Continue to avoid hypotension. Monitor urine output Monitor serum creatinine Developed hypernatremia and developing contraction alkalosis. Both are most likely due to use of Lasix. Improved after stopping Lasix. Sodium is better today Time Spent With Patient Time: Total time managing care of this patient today ____ minutes. Progress Note: Quality Stroke Does the patient have a stroke diagnosis?: No
[2023-08-04 12:23] LABS: Glucose, Whole Blood 212 mg/dL (60-115)
--- NOTE | 2023-08-04 14:20 | HO.PM.IMPN ---
Subjective Subjective Date of Service: 08/04/23 Interval History: Seen and examined this morning Follow-up for sinus pause, cellulitis, pneumonia Noticed wound on his abdomen today, appears to be shingles Denies shortness of breath No further sinus pauses Review of Systems Review of Systems: Yes all other systems are reviewed and are negative Constitutional Constitutional: Denies fever(s) ENT Ears, Nose, Mouth, and Throat: Denies dizziness Cardiovascular Cardiovascular: Denies chest pain Neurologic Neurologic: Denies dizziness Physical Exam Vital Signs: Vital Signs: Last Vital Signs Temp 97.3 F 08/04/23 12:00 Pulse 88 08/04/23 12:00 Resp 20 08/04/23 12:00 BP 162/75 H 08/04/23 12:00 Pulse Ox 97 08/04/23 12:00 O2 Del Method Nasal Cannula 08/04/23 12:00 O2 Flow Rate 3 08/04/23 12:00 BMI result Body Mass Index 29.5 Const: Other: lethargic, difficult to arouse General: cooperative, comfortable, no acute distress, alert and awake Nutritional Appearance: average body habitus and overweight Orientation/consciousness: patient oriented x3 Resp: Effort & Inspection: normal respiratory effort, able to speak in complete sentences, no respiratory distress and no use of accessory muscles Cardio: Rate: regular rate GI: Inspection: No distended Palpation (GI): Soft to palpation and nontender Skin: Other: Bilateral lower extremity reynoso wounds covered with clean/dry/intact dressings Neuro: Other: Grossly nonfocal General: patient oriented x3, moves all extremities and CN's II-XI intact bilaterally Objective Data Active Medications Acetaminophen (Acetaminophen 325 Mg Tablet) 650 mg PO Q6H PRN PRN Reason: Pain, Mild (Pain Scale 1-3) Last Admin: 08/03/23 21:32 Dose: 650 mg Documented By: ARACELIS Albuterol Sulfate (Albuterol Sulfate 90 Mcg 8 Gm Inhaler) 2 puff INHALE Q3H PRN PRN Reason: Shortness Of Breath Allopurinol (Allopurinol 300 Mg Tablet) 300 mg PO DAILY [facility] Last Admin: 08/04/23 09:06 Dose: 300 mg Documented By: CARLOS Amlodipine Besylate (Amlodipine Besylate 5 Mg Tablet) 5 mg PO DAILY [facility]; Protocol Last Admin: 08/04/23 09:05 Dose: 5 mg Documented By: CARLOS Atorvastatin Calcium (Atorvastatin Calcium 80 Mg Tablet) 80 mg PO BEDTIME [facility] Last Admin: 08/03/23 21:32 Dose: 80 mg Documented By: ARACELIS Atropine Sulfate (Atropine Sulfate 1 Mg/10 Ml Syringe) 1 mg IVPUSH Q1H PRN PRN Reason: bradycardia HR<30 Clonazepam (Clonazepam 1 Mg Tablet) 1 mg PO BEDTIME [facility] Last Admin: 07/27/23 21:21 Dose: 1 mg Documented By: ADELFO Folic Acid (Folic Acid 1 Mg Tablet) 1 mg PO DAILY [facility] Last Admin: 08/04/23 09:05 Dose: 1 mg Documented By: CARLOS Glucose (Glucose Gel 15 Gm Gel..Gram.) 15 gm PO Q15M PRN; Protocol PRN Reason: per Hypoglycemia Standing Ord. Guaifenesin (Guaifenesin 200 Mg/10 Ml 10 Ml Liquid) 10 ml PO Q4H PRN PRN Reason: Cough Last Admin: 07/31/23 19:58 Dose: 10 ml Documented By: JAKE Heparin Sodium (Porcine) (Heparin Sodium,Porcine 5,000 Unit/Ml Vial) 5,000 unit SUBCUT Q12H [facility] Last Admin: 08/04/23 09:05 Dose: 5,000 unit Documented By: CARLOS Insulin Human Lispro (Insulin Lispro 100 Unit/Ml 3 Ml Vial) 0 unit SUBCUT QIDACHS [facility]; Protocol Last Admin: 08/04/23 12:53 Dose: Not Given Documented By: CARLOS Non-Admin Reason: Patient Refused Levothyroxine Sodium (Levothyroxine Sodium 25 Mcg Tablet) 25 mcg PO DAILY@0630 [facility] Last Admin: 08/04/23 05:45 Dose: 25 mcg Documented By: ARACELIS Linezolid (Linezolid 600 Mg Tablet) 600 mg PO Q12H [facility] Stop: 08/05/23 15:59 Last Admin: 08/04/23 05:12 Dose: 600 mg Documented By: ARACELIS Loratadine (Loratadine 10 Mg Tablet) 10 mg PO DAILY [facility] Last Admin: 08/04/23 09:05 Dose: 10 mg Documented By: CARLOS Magnesium Hydroxide (Milk Of Magnesia 30 Ml Oral.Susp) 30 ml PO DAILY PRN PRN Reason: Constipation Magnesium Oxide (Magnesium Oxide 400 Mg Tablet) 400 mg PO BIDPC [facility] Last Admin: 08/04/23 09:06 Dose: 400 mg Documented By: CARLOS Nicotine (Nicotine 7 Mg Patch.Td24) 7 mg TRANSDERMA DAILY [facility] Last Admin: 08/04/23 09:04 Dose: 7 mg Documented By: CARLOS Omeprazole (Omeprazole 40 Mg Capsule.Dr) 40 mg PO DAILY [facility] Last Admin: 08/04/23 09:06 Dose: 40 mg Documented By: CARLOS Prednisone (Prednisone 5 Mg Tablet) 5 mg PO DAILY [facility] Last Admin: 08/04/23 09:05 Dose: 5 mg Documented By: CARLOS Pyridoxine HCl (Pyridoxine Hcl (Vitamin B6) 50 Mg Tablet) 50 mg PO DAILY [facility] Last Admin: 08/04/23 09:05 Dose: 50 mg Documented By: CARLOS Silver Sulfadiazine (Silver Sulfadiazine 1 % Cream 20 Gm Tube) 1 appl TOPICAL DAILY [facility] Last Admin: 08/04/23 09:06 Dose: 1 appl Documented By: CARLOS Sodium Chloride (0.9 % Sodium Chloride Flush 3 Ml Syringe) 3 ml IVFLUSH QSHIFT [facility] Last Admin: 08/04/23 09:06 Dose: 3 ml Documented By: CARLOS Thiamine HCl (Thiamine Hcl 100 Mg Tablet) 100 mg PO DAILY [facility] Last Admin: 08/04/23 09:05 Dose: 100 mg Documented By: CARLOS Labs 08/03/23 06:09 08/04/23 05:59 Labs: Laboratory Results - last 24 hr 08/03/23 08/03/23 08/03/23 15:30 17:38 20:21 Hold Purple Top Anion Gap Estim Creat Clear Calc Estimated GFR POC Glucose 136 H 131 H Random Glucose Calcium Magnesium 1.8 08/04/23 08/04/23 08/04/23 05:59 07:07 12:18 Hold Purple Top SEE NOTE Anion Gap 10 L Estim Creat Clear Calc 34.2 Estimated GFR 32 POC Glucose 134 H 212 H Random Glucose 121 H Calcium 8.3 L Magnesium 1.7 Microbiology Microbiology Results: Microbiology 08/01/23 12:30 Gram Stain - Final Pleural Fluid Routine Culture - Final No growth after 2 days Anaerobic Culture - Preliminary No growth to date. Assessment and Plan (1) NSVT (nonsustained ventricular tachycardia): Status: Acute (2) CKD stage 3a, GFR 45-59 ml/min: Status: Acute (3) Pneumonia: Status: Acute (4) Bilateral leg ulcer: Status: Acute Plan 78-year-old male with history of CKD stage 3, COPD, hyperlipidemia, [id number] type 2 diabetes, hypothyroidism, hypertension, hyperlipidemia, peripheral vascular disease, restless legs syndrome admitted for further management of nonhealing wounds to the BLE with cellilitis and pneumonia, course complicated by respiratory failure NSVT/HB previous 8 beats of vtach, 6 second pause Metoprolol stopped No further pauses since beta-andrea stopped Patient prefers to avoid pacemaker if able but will need if any further sinus pauses Toxic metabolic Encephalopathy Resolved likely from infectious source Herpes zoster Start valacyclovir (renal dose) Acute on chronic HFrEF with large Pleural effusion Moderate to large left pleural effusion EF 35% No hypoxia noted Audible wheezing resolved s/p IV lasix s/p Thoracentesis 08/01/23 - gram stain no organisms seen, no growth after 2 days hypomagnesemia with episode of NSVT continue oral mag BID Acute hypercarbic respiratory failure likely due to underlying COPD, sedating meds and CHF hold home klonopin co2 improved after bipap Nonhealing wounds BLE with extensive cellulitis r/t PAD no sepsis continue IV vanco and Zosyn (initiated 07/25)- treated with 7 days, plan to transitioned to p.o. for total 10 days as per ID recommendation, one more day of abx bilateral arterial duplex with bilateral vascular disease plan for CT angio with runoff (okayed by nephrology) Seen by vascular surgery, recommend outpatient follow-up in 2 weeks after discharge wound care consult>bilat LE hydrogel to wound bed, cover with gauze and abd every other day Blood cultures negative to date Wound cultures growing multiple organisms blood cultures were superficial LLL pneumonia s/p IV vanco and zosyn Strep pneumo antigen, Legionella antigen negative; MRSA nasal swab + Hypernatremia. resolved s/p D5W Hyperkalemia. Resolved hold losartan s/p Lokelma 10 g once DM2 ss, ada diet COPD no acute exacerbation continue maintenance inhalers, albuterol p.r.n. continue daily prednisone CKD stage 3 renal function baseline hypothyroidism continue Synthroid hypertension stop metoprolol and losartan continue amlodipine hyperlipidemia continue statin nicotine dependence cessation advised patches for NRT DVT prophylaxis-heparin attending Dr. Palma Full code Disposition-seen by PT, recommended short-term rehab Requires ongoing inpatient stay for management of respiratory failure, nonhealing wounds of the bilateral lower extremities with extensive cellulitis covering greater than 50% of the left lower extremity requiring IV antibiotics, expert consultation, and possible surgical intervention/debridement Quality Stroke Does the patient have a stroke diagnosis?: No VTE Prior VTE?: No VTE Risk Level:: Medical - moderate - high VTE Device Contraindication: Treatment Not Indicated VTE Drug Contraindication: N/A - Med Ordered
--- NOTE | 2023-08-04 14:50 | MHC.CM.PN ---
EMR reviewed and per MD rounds, pt is not medically cleared for discharge due to management of respiratory failure, and BLE wounds/cellulitis.
[2023-08-04] MEDS: valACYclovir HCL 1,000 MG TABLET 1000 MG PO ×2 (14:54→20:15)
--- NOTE | 2023-08-04 15:49 | P.PNID_ITS ---
Subjective Subjective Date of Service: 08/03/23 Critical Care Time (minutes): 15 Comment: he has no complaints Objective Data Labs 08/03/23 06:09 08/04/23 05:59 Labs: Laboratory Results - last 24 hr 08/03/23 08/03/23 08/03/23 15:30 17:38 20:21 Hold Purple Top Sodium Potassium Chloride Carbon Dioxide Anion Gap BUN Creatinine Estim Creat Clear Calc Estimated GFR POC Glucose 136 H 131 H Random Glucose Calcium Magnesium 1.8 08/04/23 08/04/23 08/04/23 05:59 07:07 12:18 Hold Purple Top SEE NOTE Sodium 145 Potassium 4.6 D Chloride 102 Carbon Dioxide 38 H Anion Gap 10 L BUN 28 H Creatinine 2.01 H Estim Creat Clear Calc 34.2 Estimated GFR 32 POC Glucose 134 H 212 H Random Glucose 121 H Calcium 8.3 L Magnesium 1.7 Microbiology Microbiology Results: Microbiology 08/01/23 12:30 Pleural Fluid Gram Stain - Final 08/01/23 12:30 Pleural Fluid Routine Culture - Final No growth after 2 days 08/01/23 12:30 Pleural Fluid Anaerobic Culture - Preliminary No growth to date. 07/26/23 17:45 Blood - Venous Blood Culture - Final No growth after 5 days. 07/26/23 17:44 Blood - Venous Blood Culture - Final No growth after 5 days. 07/26/23 18:15 Leg Right Gram Stain - Final 07/26/23 18:15 Leg Right Routine Culture - Final Pseudomonas aeruginosa Morg morganii ssp sibonii Methicillin Res Staph Aureus Enterococcus raffinosus 07/26/23 18:14 Leg Left Gram Stain - Final 07/26/23 18:14 Leg Left Routine Culture - Final Pseudomonas aeruginosa Methicillin Res Staph Aureus Morg morganii ssp sibonii Physical Exam 2 Vital Signs: Vital Signs: Last Vital Signs Temp 97.3 F 08/04/23 12:00 Pulse 88 08/04/23 12:00 Resp 20 08/04/23 12:00 BP 162/75 H 08/04/23 12:00 Pulse Ox 97 08/04/23 12:00 O2 Del Method Nasal Cannula 08/04/23 12:00 O2 Flow Rate 3 08/04/23 12:00 BMI result Body Mass Index 29.5 Const: General: cooperative HEENT: Head: Yes normal to inspection Face and sinus: Yes normal facial exam Mouth: Normal oral and palatal mucosa present Teeth and gingiva: d entition normal Eyes: General: appearance normal, both eyes and all related structures P upils: Equal, round and reactive pupils present Resp: Effort & Inspection: normal respiratory effort Cardio: Rate: regular rate Rhythm: regular rhythm GI: Palpation (GI): Soft to palpation and nontender : General: Yes no CVA tenderness Back/Spine/Pelvis: Back: no CVA tenderness Skin: General skin exam: no rashes or lesions noted Neuro: General: moves all extremities Cranial nerves: Yes Equal, round and reactive pupils present Extrem: General: Yes normal to inspection Psych: Appearance: grossly normal Assessment and Plan Assessment and plan (1) Acute on chronic respiratory failure with hypoxia and hypercapnia: Problem details: MRSA pneumonia Status: Acute Assessment and Plan: total 14 days antibiotics (2) Pneumonia: Status: Acute Time Spent With Patient Time: Total time managing care of this patient today ____ minutes.
[2023-08-04 16:25] LABS: Glucose, Whole Blood 100 mg/dL (60-115)
[2023-08-04] MEDS: Atorvastatin Calcium 80 MG TABLET PO (20:15)
[2023-08-04] MEDS: Acetaminophen 325 MG TABLET 975 MG PO (20:50)
[2023-08-04 20:57] LABS: Glucose, Whole Blood 141 mg/dL (60-115)
[2023-08-05] VITALS: BP 104/68; PULSE 87; RESP 20; TEMP 36.6; O2SAT 96
[2023-08-05] MEDS: 0.9 % Sodium Chloride Flush 3 ML SYRINGE IVFLUSH ×2 (00:15→09:27)
[2023-08-05 04:00] VITALS: BP 127/74; PULSE 86; RESP 20; TEMP 36.1; O2SAT 92
[2023-08-05] MEDS: Linezolid 600 MG TABLET PO (05:05)
[2023-08-05] MEDS: Levothyroxine Sodium 25 MCG TABLET PO (06:35)
[2023-08-05 07:00] LABS: Glucose, Whole Blood 97 mg/dL (60-115)
[2023-08-05 07:37] VITALS: BP 124/76; PULSE 83; RESP 20; TEMP 36.4; O2SAT 96
[2023-08-05 08:20] LABS: Anion Gap 14 (12-20); Blood Urea Nitrogen 25 mg/dL (9-16); Calcium 8.4 mg/dL (8.4-10.2); Carbon Dioxide 31 mmol/L (22-29); Chloride 105 mmol/L (96-108); Estimated Glomerular Filt Rate 37; Glucose Random 106 mg/dL (60-115); Potassium 4.6 mmol/L (3.3-5.1); Sodium 145 mmol/L (135-145)
--- NOTE | 2023-08-05 09:08 | ECG_ITS ---
Test Reason : Abnormal EKG Blood Pressure : / mmHG Vent. Rate : 103 BPM Atrial Rate : 103 BPM P-R Int : 248 ms QRS Dur : 104 ms QT Int : 358 ms P-R-T Axes : 000 -33 127 degrees QTc Int : 468 ms Sinus tachycardia with 1st degree A-V block Left axis deviation Left ventricular hypertrophy with repolarization abnormality ( Enmanuel product , Romhilt-Mcdonald ) Inferior infarct (cited on or before 02-AUG-2023) Abnormal ECG When compared with ECG of 02-AUG-2023 14:29, AL interval has increased Vent. rate has increased BY 52 BPM Referred By: Tyrese Hunt Electronically Signed By:TYRESE HUNT
[2023-08-05] MEDS: valACYclovir HCL 1,000 MG TABLET 1000 MG PO (09:27)
[2023-08-05] MEDS: Heparin Sodium,Porcine 5,000 UNIT/ML VIAL 5000 UNIT SUBCUT (09:27)
[2023-08-05 09:28] VITALS: BP 124/76
[2023-08-05] MEDS: Loratadine 10 MG TABLET PO (09:28)
[2023-08-05] MEDS: Magnesium Oxide 400 MG TABLET PO (09:28)
[2023-08-05] MEDS: amLODIPine Besylate 5 MG TABLET PO (09:28)
[2023-08-05] MEDS: Thiamine HCL 100 MG TABLET PO (09:28)
[2023-08-05] MEDS: Omeprazole 40 MG CAPSULE.DR PO (09:28)
[2023-08-05] MEDS: predniSONE 5 MG TABLET PO (09:28)
[2023-08-05] MEDS: allopurinoL 300 MG TABLET PO (09:28)
[2023-08-05] MEDS: Pyridoxine HCl (Vitamin B6) 50 MG TABLET PO (09:28)
[2023-08-05] MEDS: Folic Acid 1 MG TABLET PO (09:29)
[2023-08-05] MEDS: Nicotine 7 MG PATCH.TD24 TRANSDERMA (09:29)
--- NOTE | 2023-08-05 09:51 | PM.DS ---
DS: Providers Provider Date of Service: 08/05/23 Date of admission: 07/26/23 20:14 Date of discharge: 08/05/23 Primary care physician: Josiah Verduzco MD Consults: 07/26/23 20:22 Consult to Vascular Surgery Routine Consulting Provider: [facility] [place] [facility] Reason for consultation: non healing wounds ble, pad 07/26/23 20:42 Consult to Wound Care Routine Reason for consultation: bilateral LE wounds 07/27/23 13:03 Consult to Nephrology Routine Consulting Provider: [facility] [place] [facility] Reason for consultation: ckd, hypernatremia, needs contrast for vascular studies Has provider been notified: No 07/28/23 10:08 Consult to Critical Care Routine Consulting Provider: Sergio Julian Reason for consultation: hypercarbic respiratory failure Has provider been notified: Yes 07/28/23 10:53 Consult to Cardiology Routine Consulting Provider: [facility] [place] [facility] Reason for consultation: chf Has provider been notified: No 07/28/23 11:54 Consult for Sitter Routine Reason for consultation: bipap use Has provider been notified: No 07/28/23 16:42 Consult to Neurology Routine Consulting Provider: [facility] Reason for consultation: encephalopathy ?seizures Has provider been notified: No 07/30/23 07:46 Consult to Infectious Diseases Routine Consulting Provider: [facility] [place] [facility] Reason for consultation: pos wound cx for bilat LE Attending physician on discharge: Kaylyn Campos Discharging clinician: Tabatha Vergara DS: Diagnosis Discharge Diagnosis (1) NSVT (nonsustained ventricular tachycardia): Status: Acute (2) CKD stage 3a, GFR 45-59 ml/min: Status: Acute (3) Pneumonia: Status: Acute (4) Bilateral leg ulcer: Status: Acute DS: Summary Hospital Course Hospital Course: From H&P on the day of admission . He reports the wounds on the anterior aspect of the bilateral lower extremities have been present for several months. He has visiting nurse in the home 3 times a week to change his dressings. He has been on multiple antibiotics including doxycycline, Keflex, and most recently Augmentin without improvement. Today, given lack of improvement and appearance of the wounds, home providers recommended he come to ER for evaluation. He denies any fevers, chills, purulent drainage from the wounds. He does endorse he has also had a productive cough ongoing for about 1 month. He states the antibiotics did initially help with this but the cough has since returned. Denies any abdominal pain, nausea, vomiting, lightheadedness, shortness of breath, wheezing, chest pain. On arrival, patient oximetry 90-91% on RA but no hypoxia. Also mildly tachypneic to 24. There is no leukocytosis. He is stable normocytic anemia with H/H 9.8/33.3%. Renal function baseline. However does have sodium 149, potassium 5.4, chloride 113. Lactic acid 1.6. CRP 5.22, ESR 34. CXR read pending but appears to have LLL/retrocardiac infiltrate (not previously seen on priors). XR tib/fib ble pending.In [facility] ED, given tylenol, albuterol neb, 1L NS, and zosyn. This is a 78-year-old male with history of CKD stage 3, COPD, hyperlipidemia, [id number] type 2 diabetes, hypothyroidism, hypertension, hyperlipidemia, peripheral vascular disease, restless legs syndrome who initally presented to the ED for evaluation of infection and nonhealing wounds of the bilateral lower extremities. His hospital course was complicated by hypercarbic respiratory failure requiring rescue BiPAP, metabolic encephalopathy, pleural effusion requiring thoracentesis, herpes zoster, NSVT/6second sinus pause. Hospital course by problem: NSVT/HB previous 8 beats of vtach, 6 second pause Metoprolol stopped. Patient prefers to avoid pacemaker placement, never had any recurrent sinus pauses after beta-andrea was discontinued. We will need outpatient follow-up with Cardiology with plan for outpatient awake overnight monitor. Toxic metabolic Encephalopathy Resolved. Likely multifactorial Herpes zoster Started on renally dosed valacyclovir 1gm bid for 7-10 days, started 08/03 Acute on chronic HFrEF with large Pleural effusion Initially treated with IV Lasix. Echocardiogram obtained showing ejection fraction of 35%. Noted to have increasing left pleural effusion s/p Thoracentesis 08/01/23 by IR- gram stain no organisms seen, no growth after 2 days. Cytology, no malignant cells seen. Repeat chest x-ray showing improvement of left pleural effusion. Diuretics were discontinued due to worsening of renal function. Can follow outpatient with Cardiology/nephrology hypomagnesemia with episode of NSVT Initially supplemented with IV magnesium and then continued on oral magnesium Acute hypercarbic respiratory failure likely due to underlying COPD, and sedating meds including oxycodone and home klonopin. Klonopin has been discontinued. co2 improved after bipap. No further episodes of hypercapnic respiratory failure, has been stable on 2-3 L of supplemental oxygen via nasal cannula. Nonhealing wounds BLE with extensive cellulitis r/t PAD cellulitis improved with antibiotics. Initially treated with IV vanco and Zosyn (initiated 07/25)- treated with 7 days, transitioned to p.o. for total 14 days as per ID recommendation. completed antibiotics during bilateral arterial duplex with bilateral vascular disease plan for CT angio with runoff (okayed by nephrology) but not obtained during hospital stay do to other medical issues. Seen by vascular surgery, recommend outpatient follow-up in 2 weeks after discharge wound care consult, recommended bilat LE hydrogel to wound bed, cover with gauze and abd every other day Wound cultures growing multiple organisms blood cultures were superficial. Blood cultures negative to date LLL pneumonia s/p IV vanco and zosyn, transitioned to p.o. linezolid to complete 14 days. Strep pneumo antigen, Legionella antigen negative; MRSA nasal swab + Blood cutures have remained negative. Currently requiring 2-3 L of supplemental oxygen via nasal cannula. Does have underlying COPD. May need home oxygen evaluation in the future. Hypernatremia. resolved s/p D5W Hyperkalemia. Resolved with Lokelma and losartan was discontinued Chronic medical conditions: DM2: diet controlled. follow POC sugars and cover with sliding scale if needed. COPD: continue maintenance inhalers, albuterol p.r.n; continue daily prednisone. Recommend outpatient follow-up with pulmonology CKD stage 3: renal function baseline. We will need outpatient follow-up with Nephrology hypothyroidism: continue Synthroid hypertension: stop metoprolol and losartan . continue amlodipine. do not use beta blockers. hyperlipidemia: continue statin nicotine dependence: cessation advised, patient is motivated to quit smoking. Continue nicotine replacement therapy Time Attestation Discharge Coordination Time (in mins): 40 Quality: Safe Use of Opioids Does Pt have an Active Cancer Diagnosis on the Problem List?: No Quality: Stroke Does the patient have a stroke diagnosis?: No Physical Exam Vital Signs: Vital Signs: Last Vital Signs Temp 97.5 F 08/05/23 07:37 Pulse 83 08/05/23 07:37 Resp 20 08/05/23 07:37 BP 124/76 08/05/23 09:28 Pulse Ox 96 08/05/23 07:37 O2 Del Method Nasal Cannula 08/05/23 07:37 O2 Flow Rate 3 08/05/23 07:37 BMI result Body Mass Index 29.5 Const: General: cooperative, comfortable, no acute distress, alert and awake Nutritional Appearance: average body habitus and overweight Orientation/consciousness: patient oriented x3 Resp: Effort & Inspection: normal respiratory effort, able to speak in complete sentences, no respiratory distress and no use of accessory muscles Cardio: Rate: regular rate GI: Inspection: No distended Palpation (GI): Soft to palpation and nontender Skin: Other: Bilateral lower extremity reynoso wounds covered with clean/dry/intact dressings Neuro: Other: Grossly nonfocal General: patient oriented x3, moves all extremities and CN's II-XI intact bilaterally DS: Data Data Completed and Pending Completed studies during hospitalization [Text1]: Pending at discharge 07/30/23 12:20 Cytology [PTH] Routine Labs on day of discharge: Laboratory Results - last 24 hr 08/04/23 08/04/23 08/04/23 12:18 16:10 20:52 Sodium Potassium Chloride Carbon Dioxide Anion Gap BUN Creatinine Estim Creat Clear Calc Estimated GFR POC Glucose 212 H 100 141 H Random Glucose Calcium 08/05/23 08/05/23 06:54 07:47 Sodium 145 Potassium 4.6 Chloride 105 Carbon Dioxide 31 H Anion Gap 14 BUN 25 H Creatinine 1.81 H Estim Creat Clear Calc 38.0 Estimated GFR 37 POC Glucose 97 Random Glucose 106 Calcium 8.4 Preliminary micro results at discharge 08/01/23 12:30 Anaerobic Culture - Preliminary Pleural Fluid No growth to date. Discharge Plan Discharge Anticipated Discharge Date/Time: 08/05/23 14:30 Patient Disposition: Xfer SNF Discharge Diagnosis: Hypoxic and hypercarbic respiratory failure Pneumonia Bilateral lower extremity leg wounds NSVT hypomagnesemia heart block Referrals: Luis Alberto Graham MD [Physician] - 1 Week Kurt Garcia MD [Physician] - 2 Weeks Josiah Verduzco MD [Primary Care Provider] - 1 Week Gallo Paez MD [Physician] - 1 Week Discharge Medications: New valacyclovir 1 gram Tablet 1,000 mg PO BID 9 Days Qty: 18 0RF nicotine 7 mg/24 hr Patch 24 Hour 7 mg transdermal DAILY Qty: 7 0RF amlodipine 5 mg Tablet 5 mg PO DAILY Qty: 10 0RF Protocol: Hold for SBP< HOLD for SBP < : 90 magnesium oxide 400 mg (241.3 mg magnesium) Tablet 400 mg PO BIDPC 30 Days Qty: 60 0RF linezolid 600 mg Tablet 600 mg PO Q12H 4 Days Qty: 8 0RF Continued loratadine [Allergy Relief (loratadine)] 10 mg tablet 10 mg PO DAILY silver sulfadiazine 1 % cream 1 appl topical DAILY albuterol sulfate 90 mcg/actuation HFA aerosol inhaler 2 puff inhalation Q3H PRN (Reason: Shortness Of Breath) rosuvastatin 20 mg tablet 20 mg PO DAILY allopurinol 300 mg tablet 300 mg PO DAILY folic acid 1 mg tablet 1 mg PO DAILY pyridoxine (vitamin B6) 50 mg tablet 50 mg PO DAILY levothyroxine 25 mcg tablet 25 mcg PO DAILY@0630 omeprazole 40 mg capsule,delayed release(DR/EC) 40 mg PO DAILY prednisone 5 mg tablet 5 mg PO DAILY thiamine HCl (vitamin B1) 100 mg tablet 100 mg PO DAILY Discontinued clonazepam 1 mg tablet 1 mg PO BEDTIME naproxen 500 mg tablet 500 mg PO BID losartan 100 mg tablet 100 mg PO DAILY metoprolol tartrate 100 mg tablet 100 mg PO BID Discharge Orders: Discharge Order (Routine); Ordered 08/05/23 Ordered By: Tabatha Vergara Activity on Discharge: As tolerated Stand Alone Forms: Patient Portal Discharge page Print Language: Bengali Care Plan Goals: See below Health Concerns: Acute hypoxic and hypercarbic respiratory failure Heart block Pneumonia Bilateral lower extremity cellulitis and chronic lower extremity wounds Hyperkalemia Hypomagnesemia NSVT CKD3 Herpes zoster Plan of Treatment: For pneumonia/cellulitis complete antibiotics as prescribed, zyvox end date 08/08 Herpes zoster-continue (renally dosed) valacyclovir for 7-10 days, started 08/03. monitor renal function Heart block. Improved after stopping Lopressor. Do not use beta blockers. Needs outpatient follow-up Cardiology for outpatient awake overnight monitor Call to schedule follow-up appointment with Nephrology Peripheral vascular disease with chronic lower extremity wounds. Outpatient follow-up with Dr. Garcia of vascular surgery in 2 weeks. continue local wound care stop BP medications as per medication list Recommend to monitor renal function at least weekly while receiving antibiotics and antiviral medications Continue supplemental oxygen with 2-3 L via nasal cannula, wean as tolerated wound care nurse recommendations:Bilateral Lower Legs - Elevate legs with pillows be sure to off load heels off of bed surface. Apply foam dressings to heels. Cleanse wound beds with NS moist gauze. Apply thick layer of Hydrogel Woun Dres (yellow tube) to all wound beds. Cover with dry gauze followed by ABD pad, and gauze wrap. Change every other day. Assessment: See discharge summary
--- NOTE | 2023-08-05 09:58 | PM.PNCARD ---
Subjective Subjective Date of Service: 08/05/23 Interval history: Patient states he feels fine. No new concerns. Review of Systems Review of Systems Yes all other systems are reviewed and are negative Constitutional: Reports as per HPI and Reports no additional constitutional complaints Eyes: Reports as per HPI and Denies no additional eye complaints Denies system reviewed and no additional complaints, except as documented and Reports as per HPI Cardiovascular: Reports as per HPI, Reports no additional cardiovascular complaints, Denies acrocyanosis, Denies cool extremities, Denies chest pain, Denies leg edema, Denies lightheadedness, Denies palpitations and Denies dyspnea Respiratory: Reports as per HPI, Denies no additional respiratory complaints and Denies dyspnea Gastrointestinal: Reports as per HPI and Denies no additional gastrointestinal complaints Genitourinary: Reports no additional male genitourinary complaints and Reports as per HPI Musculoskeletal: Reports no additional musculoskeletal complaints and Reports as per HPI Skin/Breast: Reports system reviewed and no additional complaints, except as docu Reports system reviewed and no additional complaints, except as documented and Reports as per HPI Psychiatric: Reports no additional psychiatric complaints and Reports as per HPI Endocrine: Reports no additional endocrine complaints, Reports as per HPI and Denies palpitations Hematologic/Lymphatic: Reports no additional hematologic/lymphatic complaints and Reports as per HPI Allergic/Immunologic: Reports no additional allergic/immunologic complaints and Reports as per HPI Physical Exam Vital Signs: Last Vital Signs Temp 97.5 F 08/05/23 07:37 Pulse 83 08/05/23 07:37 Resp 20 08/05/23 07:37 BP 124/76 08/05/23 09:28 Pulse Ox 96 08/05/23 07:37 O2 Del Method Nasal Cannula 08/05/23 07:37 O2 Flow Rate 3 08/05/23 07:37 BMI result Body Mass Index 29.5 Const General: comfortable and no acute distress Orientation/consciousness: patient oriented x3 HEENT Other: Unremarkable Head: Yes normal to inspection Neck Neck: Yes normal visual inspection Chest Chest palpation & inspection: normal inspection of the chest Resp Other: Few basal crackles Auscultation: diminished lung sounds Cardio Palpation: normal PMI Heart sounds: S1 normal heart sound present, S2 normal heart sound present, no gallops, Murmur heart sound present systolic II/ and at the right sternal border and no rubs GI Palpation (GI): Soft to palpation Back/Spine/Pelvis Other: unremarkable Skin General skin exam: no rashes or lesions noted Neuro General: patient oriented x3 Extrem Other: 1+ edema General: Yes normal to inspection Psych Mental Status: mental status grossly normal Objective Labs and Meds 08/03/23 06:09 08/05/23 07:47 Lab results: Laboratory Results - last 24 hr 08/04/23 08/04/23 08/04/23 12:18 16:10 20:52 Sodium Potassium Chloride Carbon Dioxide Anion Gap BUN Creatinine Estim Creat Clear Calc Estimated GFR POC Glucose 212 H 100 141 H Random Glucose Calcium 08/05/23 08/05/23 06:54 07:47 Sodium 145 Potassium 4.6 Chloride 105 Carbon Dioxide 31 H Anion Gap 14 BUN 25 H Creatinine 1.81 H Estim Creat Clear Calc 38.0 Estimated GFR 37 POC Glucose 97 Random Glucose 106 Calcium 8.4 Progress Note: A&P Assessment and plan (1) Acute on chronic respiratory failure with hypoxia and hypercapnia: Status: Acute (2) Acute on chronic systolic (congestive) heart failure: Status: Acute (3) Complete heart block: Status: Acute Plan Echocardiogram with LVEF of about 50%. Aortic and mitral valvular calcification. Mild aortic stenosis. Last year, LVEF stated as 36%. Earlier in the hospital stay, he had an episode of complete heart block but he was on metoprolol 100 mg b.i.d.. After that was stopped, no further episodes of high-grade heart block. He has also had thoracentesis and drained about 900 cc and felt better. Overall, suspect some combination of cardiac and pulmonary etiology for the pleural effusion. Low albumin may also play a role. Clinically, does not look overtly volume overloaded at this time. Not on diuretics. Concurrently on antibiotics for pneumonia With regard to the heart block, he has been off the beta-blockers. No further evidence of the same. At this time, no absolute indication for pacemaker but will need to get a Holter as an outpatient. Patient also does not want a pacemaker unless absolutely essential. Discussed with granddaughter yesterday. Discussed with Tabatha Vergara. Time Spent With Patient Time: Total time managing care of this patient today ____ minutes. Progress Note: Quality Stroke Does the patient have a stroke diagnosis?: No Procedures Date of Service Date of Service: 08/05/23
[2023-08-05 10:40] LABS: Glucose, Whole Blood 187 mg/dL (60-115)
[2023-08-05 11:18] VITALS: BP 101/71; PULSE 88; RESP 20; TEMP 36.3; O2SAT 96
[2023-08-05] MEDS: Insulin Lispro 100 UNIT/ML 3 ML VIAL SUBCUT (11:51)
--- NOTE | 2023-08-05 12:02 | MHC.CM.PN ---
Second IMM 08/05/23, pt has been medically cleared for DC, he will go by ambulance to [facility] today for STR.
== END 2023-08-05 13:00 | disposition skilled nursing facility (03) | DRG 177 ==
LOC: HO.ED 20:04 → HO.EDOVER 20:27 → HO.S3 07-27 22:06 → HO.IMC 07-28 10:26
PROVIDERS: Internal Medicine; Internal Medicine Nephrology; Nurse Practitioner Acute Care; Admitting Provider Physician Assistant; Emergency Provider Emergency Medicine Emergency Medical Services; PCP Internal Medicine; Visit Provider Physician Assistant Medical
DX: J15.212 Pneumonia due to Methicillin resistant Staphylococcus aureus (principal); G92.8 Other toxic encephalopathy; I50.23 Acute on chronic systolic (congestive) heart failure; J96.22 Acute and chronic respiratory failure with hypercapnia; J96.21 Acute and chronic respiratory failure with hypoxia; E87.0 Hyperosmolality and hypernatremia; J44.0 Chronic obstructive pulmonary disease with (acute) lower respiratory infection; L03.116 Cellulitis of left lower limb; L03.115 Cellulitis of right lower limb; I13.0 Hypertensive heart and chronic kidney disease with heart failure and stage 1 through stage 4 chronic kidney disease, or unspecified chronic kidney disease; J91.8 Pleural effusion in other conditions classified elsewhere; E87.3 Alkalosis; I47.20 Ventricular tachycardia, unspecified; I44.2 Atrioventricular block, complete; E87.5 Hyperkalemia; E78.5 Hyperlipidemia, unspecified; N18.31 Chronic kidney disease, stage 3a; E83.42 Hypomagnesemia; I08.0 Rheumatic disorders of both mitral and aortic valves; E11.51 Type 2 diabetes mellitus with diabetic peripheral angiopathy without gangrene; L97.522 Non-pressure chronic ulcer of other part of left foot with fat layer exposed; L97.512 Non-pressure chronic ulcer of other part of right foot with fat layer exposed; D63.1 Anemia in chronic kidney disease; I70.245 Atherosclerosis of native arteries of left leg with ulceration of other part of foot; B02.9 Zoster without complications; I70.235 Atherosclerosis of native arteries of right leg with ulceration of other part of foot; F17.210 Nicotine dependence, cigarettes, uncomplicated; T50.1X5A Adverse effect of loop [high-ceiling] diuretics, initial encounter; Z71.6 Tobacco abuse counseling; E11.22 Type 2 diabetes mellitus with diabetic chronic kidney disease; E03.9 Hypothyroidism, unspecified; G25.81 Restless legs syndrome; Z79.52 Long term (current) use of systemic steroids; Z79.890 Hormone replacement therapy; Z79.899 Other long term (current) drug therapy
CPT/HCPCS: 32555; 36415; 36600; 70450; 71045; 71250; 73590; 80048; 80053; 80076; 80202; 82140; 82306; 82565; 82784; 82803; 82947; 83605; 83735; 83880; 83970; 84295; 84484; 85025; 85027; 85610; 85652; 85730; 86140; 86334; 87040; 87070; 87073; 87077; 87186; 87205; 87449; 87640; 87641; 87899; 88112; 88305; 89051; 92950; 93005; 93306; 93925; 94640; 94660; 97116; 97162; 99285; J1630; J1644; J1939; J1940; J1953; J2310; J2543; J3370; J3475; Q9957

== ENCOUNTER 2023-07-26 20:14 | Outpatient (BNV) | payer MEDICARE, SELFPAY | END 2023-07-29 13:39 | PROVIDERS: Admitting Provider Physician Assistant; Emergency Provider Emergency Medicine Emergency Medical Services; PCP Internal Medicine; Visit Provider Internal Medicine Cardiovascular Disease | DX: I44.0 Atrioventricular block, first degree (principal) | CPT/HCPCS: 93010 ==

== ENCOUNTER 2023-07-26 20:14 | Outpatient (BNV) | payer MEDICARE, SELFPAY | END 2023-08-01 07:00 | PROVIDERS: Admitting Provider Physician Assistant; Emergency Provider Emergency Medicine Emergency Medical Services; PCP Internal Medicine; Visit Provider Internal Medicine | DX: I35.2 Nonrheumatic aortic (valve) stenosis with insufficiency (principal); I34.0 Nonrheumatic mitral (valve) insufficiency; I34.81 Nonrheumatic mitral (valve) annulus calcification; I36.1 Nonrheumatic tricuspid (valve) insufficiency | CPT/HCPCS: 93306 ==

== ENCOUNTER 2023-07-26 20:14 | Outpatient (BNV) | payer MEDICARE, SELFPAY | END 2023-08-02 07:11 | PROVIDERS: Admitting Provider Physician Assistant; Emergency Provider Emergency Medicine Emergency Medical Services; PCP Internal Medicine; Visit Provider Internal Medicine | DX: I44.0 Atrioventricular block, first degree (principal); I44.1 Atrioventricular block, second degree | CPT/HCPCS: 93010 ==

== ENCOUNTER 2023-07-26 20:14 | Outpatient (BNV) | payer MEDICARE, SELFPAY | END 2023-07-31 20:01 | PROVIDERS: Admitting Provider Physician Assistant; Emergency Provider Emergency Medicine Emergency Medical Services; PCP Internal Medicine; Visit Provider Internal Medicine | DX: I44.0 Atrioventricular block, first degree (principal) | CPT/HCPCS: 93010 ==

== ENCOUNTER 2023-07-26 20:14 | Outpatient (BNV) | payer MEDICARE, SELFPAY | END 2023-08-05 09:08 | PROVIDERS: Admitting Provider Physician Assistant; Emergency Provider Emergency Medicine Emergency Medical Services; PCP Internal Medicine; Visit Provider Internal Medicine | DX: R00.0 Tachycardia, unspecified (principal); I44.0 Atrioventricular block, first degree | CPT/HCPCS: 93010 ==

== ENCOUNTER 2023-07-26 20:14 | Outpatient (BNV) | payer MEDICARE, SELFPAY | END 2023-08-01 12:00 | PROVIDERS: Admitting Provider Physician Assistant; Emergency Provider Emergency Medicine Emergency Medical Services; PCP Internal Medicine; Visit Provider Physician Assistant Surgical | DX: J90 Pleural effusion, not elsewhere classified (principal) | CPT/HCPCS: 32555 ==

== ENCOUNTER → 2023-07-26 20:14 | Outpatient (BNV) | payer MEDICARE, SELFPAY | PROVIDERS: Admitting Provider Physician Assistant; Emergency Provider Emergency Medicine Emergency Medical Services; Visit Provider Surgery Vascular Surgery | DX: I73.9 Peripheral vascular disease, unspecified (principal); E11.622 Type 2 diabetes mellitus with other skin ulcer; L97.819 Non-pressure chronic ulcer of other part of right lower leg with unspecified severity; L97.829 Non-pressure chronic ulcer of other part of left lower leg with unspecified severity | CPT/HCPCS: 99222; 99232 ==

== ENCOUNTER → 2023-07-26 20:14 | Outpatient (BNV) | payer MEDICARE, SELFPAY | PROVIDERS: Admitting Provider Physician Assistant; Emergency Provider Emergency Medicine Emergency Medical Services; PCP Internal Medicine; Visit Provider Internal Medicine | DX: J18.9 Pneumonia, unspecified organism (principal); L97.912 Non-pressure chronic ulcer of unspecified part of right lower leg with fat layer exposed; L97.922 Non-pressure chronic ulcer of unspecified part of left lower leg with fat layer exposed; I73.9 Peripheral vascular disease, unspecified; Z22.322 Carrier or suspected carrier of Methicillin resistant Staphylococcus aureus; J15.212 Pneumonia due to Methicillin resistant Staphylococcus aureus; J96.21 Acute and chronic respiratory failure with hypoxia; J96.22 Acute and chronic respiratory failure with hypercapnia | CPT/HCPCS: 99222; 99232 ==

== ENCOUNTER → 2023-07-26 20:14 | Outpatient (BNV) | payer MEDICARE, SELFPAY | PROVIDERS: Admitting Provider Physician Assistant; Emergency Provider Emergency Medicine Emergency Medical Services; PCP Internal Medicine; Visit Provider Internal Medicine Pulmonary Disease | DX: J96.21 Acute and chronic respiratory failure with hypoxia (principal); J96.22 Acute and chronic respiratory failure with hypercapnia; I50.23 Acute on chronic systolic (congestive) heart failure | CPT/HCPCS: 99223 ==

== ENCOUNTER → 2023-07-26 20:14 | Outpatient (BNV) | payer MEDICARE, SELFPAY | PROVIDERS: Admitting Provider Physician Assistant; Emergency Provider Emergency Medicine Emergency Medical Services; Visit Provider Physician Assistant | DX: I47.29 Other ventricular tachycardia (principal); N18.31 Chronic kidney disease, stage 3a; J18.9 Pneumonia, unspecified organism; L97.912 Non-pressure chronic ulcer of unspecified part of right lower leg with fat layer exposed; L97.922 Non-pressure chronic ulcer of unspecified part of left lower leg with fat layer exposed | CPT/HCPCS: 99223; 99232; 99233; 99239; 99499 ==

== ENCOUNTER → 2023-07-26 20:14 | Outpatient (BNV) | payer MEDICARE, SELFPAY | PROVIDERS: Admitting Provider Physician Assistant; Emergency Provider Emergency Medicine Emergency Medical Services; PCP Internal Medicine; Visit Provider Internal Medicine Nephrology | DX: N18.31 Chronic kidney disease, stage 3a (principal); E87.0 Hyperosmolality and hypernatremia | CPT/HCPCS: 99223; 99232 ==

== ENCOUNTER → 2023-07-26 20:14 | Outpatient (BNV) | payer MEDICARE, SELFPAY | PROVIDERS: Admitting Provider Physician Assistant; Emergency Provider Emergency Medicine Emergency Medical Services; PCP Internal Medicine; Visit Provider Internal Medicine Cardiovascular Disease | DX: J96.21 Acute and chronic respiratory failure with hypoxia (principal); J96.22 Acute and chronic respiratory failure with hypercapnia; I50.23 Acute on chronic systolic (congestive) heart failure; I47.29 Other ventricular tachycardia; I44.2 Atrioventricular block, complete | CPT/HCPCS: 99223; 99233 ==

== ENCOUNTER 2024-01-11 11:11 | Outpatient (REF) | payer OTHER, SELFPAY ==
[2024-01-11 13:24] LABS: MANUAL DIFF FLAG NO
[2024-01-11 13:32] LABS: Alanine Aminotransferase 8 U/L (0-40); Albumin Level 3.9 g/dL (3.5-5.0); Alkaline Phosphatase 103 U/L (39-117); Anion Gap 12 (12-20); Aspartate Amino Transferase 21 U/L (5-37); Bilirubin Total 0.4 mg/dL (0.0-1.0); Blood Urea Nitrogen 31 mg/dL (9-16); C Reactive Protein 0.46 mg/dL (< or = 0.50); Calcium 9.4 mg/dL (8.4-10.2); Carbon Dioxide 25 mmol/L (22-29); Chloride 110 mmol/L (96-108); Cholesterol 141 mg/dL (<200); Estimated Glomerular Filt Rate 36; Glucose Fasting 107 mg/dL (60-99); HDL Cholesterol 67 mg/dL (>40); LDL Cholesterol Calculated 54 mg/dL (<100); Potassium 4.6 mmol/L (3.3-5.1); Sodium 142 mmol/L (135-145); Total Protein 6.9 g/dL (6.5-8.0); Triglycerides 103 mg/dL (<150)
[2024-01-11 13:34] LABS: Basophils Absolute Auto 0.1 X10*3/uL (0.0-0.2); Basophils Percent Auto 0.5 % (0-2); Eosinophils Absolute Auto 0.3 X10*3/uL (0.0-0.4); Eosinophils Percent Auto 3.1 % (0-4); Imm Gran Abs Auto 0.04 X10*3/uL (0.00-0.03); Imm Gran Pct Auto 0.4 % (0.0-0.4); Lymphocytes Absolute Auto 1.3 X10*3/uL (1.2-4.9); Mean Corpuscular HGB Conc 31.1 g/dl (31.0-36.0); Mean Corpuscular Hemoglobin 27.6 pg (27.0-33.0); Mean Corpuscular Volume 88.6 fL (80.0-98.0); Mean Platelet Volume 10.2 fL (9.4-12.4); Monocytes Percent Auto 8.9 % (2-11); Neutrophils Absolute Auto 8.3 x10*3/uL (2.0-8.3); Neutrophils Percent Auto 75.1 % (45-73); Platelet Count 198 X10*3/uL (160-400); Red Blood Count 5.08 X10*6/uL (4.60-5.80); Red Cell Distribution Width 15.2 % (11.0-16.0)
[2024-01-11 13:39] LABS: Prostate Specific Antigen 0.45 ng/mL (<0.05-4.0)
[2024-01-11 13:52] LABS: Free T4 (Free Thyroxine) 0.92 ng/dL (0.71-1.85); Thyroid Stimulating Hormone 2.34 uIU/mL (0.32-4.0)
[2024-01-11 14:04] LABS: Estimated Average Glucose 114 mg/dL; Hemoglobin A1C 140.1764 umol/L; Hemoglobin A1c % 5.6 % (<6.0); Total Hemoglobin (HGBA1C) 3715.3312 umol/L
[2024-01-11 14:15] LABS: Erythrocyte Sedimentation Rate 12 MM/HR (0-15)
== END 2024-01-11 11:12 | disposition home or self-care (01) ==
LOC: HO.HMGCLDS 11:11
PROVIDERS: PCP Internal Medicine; Visit Provider Internal Medicine
DX: E11.9 Type 2 diabetes mellitus without complications (principal); E03.9 Hypothyroidism, unspecified; M19.90 Unspecified osteoarthritis, unspecified site; E78.5 Hyperlipidemia, unspecified; R53.83 Other fatigue; Z12.5 Encounter for screening for malignant neoplasm of prostate
CPT/HCPCS: 36415; 80053; 80061; 83036; 84153; 84439; 84443; 85025; 85652; 86140

== ENCOUNTER 2024-02-05 15:30 | Emergency (ER) | payer MEDICARE, OTHER, SELFPAY ==
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
[2024-02-05 16:00] VITALS: BP 180/100; BP 184/105; PULSE 78; PULSE 79; RESP 16; TEMP 36.8; O2SAT 93; O2SAT 94; BMI 26.6
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
[2024-02-05 17:06] LABS: MANUAL DIFF FLAG NO
[2024-02-05 17:09] LABS: Basophils Absolute Auto 0.1 X10*3/uL (0.0-0.2); Basophils Percent Auto 0.8 % (0-2); Eosinophils Absolute Auto 0.3 X10*3/uL (0.0-0.4); Eosinophils Percent Auto 3.1 % (0-4); Hematocrit 44.9 % (42.0-52.0); Hemoglobin 14.3 g/dl (14.0-18.0); Imm Gran Abs Auto 0.03 X10*3/uL (0.00-0.03); Imm Gran Pct Auto 0.3 % (0.0-0.4); Lymphocytes Absolute Auto 1.3 X10*3/uL (1.2-4.9); Lymphocytes Percent Auto 13.6 % (20-40); Mean Corpuscular HGB Conc 31.8 g/dl (31.0-36.0); Mean Platelet Volume 9.8 fL (9.4-12.4); Monocytes Absolute Auto 1.1 X10*3/uL (0.1-1.2); Monocytes Percent Auto 11.7 % (2-11); Neutrophils Absolute Auto 6.6 x10*3/uL (2.0-8.3); Neutrophils Percent Auto 70.5 % (45-73); Platelet Count 163 X10*3/uL (160-400); Red Cell Distribution Width 15.3 % (11.0-16.0); White Blood Count 9.3 X10*3/uL (4.8-10.8)
[2024-02-05 17:23] LABS: Ethanol < 10 mg/dL
[2024-02-05 17:24] LABS: Alanine Aminotransferase 19 U/L (0-40); Albumin Level 3.8 g/dL (3.5-5.0); Alkaline Phosphatase 109 U/L (39-117); Anion Gap 10 (12-20); Aspartate Amino Transferase 30 U/L (5-37); Bilirubin Total 0.5 mg/dL (0.0-1.0); Blood Urea Nitrogen 26 mg/dL (9-16); Calcium 8.9 mg/dL (8.4-10.2); Carbon Dioxide 26 mmol/L (22-29); Chloride 110 mmol/L (96-108); Creatinine Clr Calc Pharmacy 30.6; Estimated Glomerular Filt Rate 36; Glucose Random 100 mg/dL (60-115); Lipase 22 U/L (8-78); Potassium 4.2 mmol/L (3.3-5.1); Sodium 142 mmol/L (135-145); Total Protein 6.7 g/dL (6.5-8.0)
[2024-02-05 17:25] LABS: Prothrombin Time 11.5 SEC (10.9-12.4)
--- OUTSIDE RECORDS SUMMARY | 2024-02-05 17:25 | XMS_ITS | Continuity of Care Document ---
Author Organization [facility] ter Address [address] [place] [id number]- Care Team Providers Care Advanced Manufacturing Engineer Name Role Phone Dax MARK, Josiah Esqueda Primary Care Physician Encounter [facility] [place] Date(s): 03/28/19 - 04/02/[address] [address]- [facility] Encounter Diagnosis Fall(Final) - 03/27/19 Alcohol intoxication(Final) - 03/27/19 Scalp laceration(Final) - 03/27/19 Alcoholic ketoacidosis(Final) - 03/28/19 Discharge Disposition: A-D/C Home Attending Physician: Magda Kaur MD Admitting Physician: Aaron Koch MD Referring Physician: Not on Staff, Referring MD Allergies, Adverse Reactions, Alerts Substance Reaction Severity Status NKA Active Immunizations Given and Recorded Vaccine Date Status Refusal Reason pneumococcal 13-valent vaccine 1 03/29/19 Given tetanus/diphtheria/pertussis, acel(Tdap) 03/27/19 Given 1Early/Late Reason: Med Not Available Medications Advair Diskus 100 mcg-50 mcg inhalation powder 1, inhalation, Inhalation, 2 times a day, rinse mouth and throat after use, # 1 capsule, Refills 0,Tot. Refills 0, Maintenance, 04/02/19 15:03:00 EST, Powder, Route to Pharmacy Electronically, [id number], [facility]... Start Date: 04/02/19 Status: Ordered allopurinol 300 mg oral tablet 300 mg, 1, tablet, By Mouth, Daily, Refills 0, Maintenance, 04/02/19 14:57:00 EST Start Date: 04/02/19 Status: Ordered amLODIPine 5 mg oral tablet 10 mg, 2, tablet, By Mouth, Daily, # 60 tablet, Refills 0, Tot. Refills 0, Maintenance, 04/02/19 14:58:00 EST, Route to Pharmacy Electronically, [facility], 172, cm, 03/30/19 23:47:00 EST, Height, 93.8, kg, 03/29/19 12:30:00 EST, Dry Weight Start Date: 04/02/19 Status: Ordered doxycycline monohydrate 100 mg oral tablet = 100 mg, By Mouth, Every 12 hours, # 4 tablet, 0 Refills, Acute 04/04/19 23:00:00 EST, 04/02/19 14:58:00 EST, Tablet, [facility] 3, 172, cm, 03/30/19 23:47:00 EST, Height, 93.8, kg, 03/29/19 12:30:00 EST, Dry Weight Start Date: 04/02/19 Stop Date: 04/04/19 Status: Ordered esomeprazole 40 mg oral enteric coated capsule 40, mg, 1, capsule, By Mouth, Daily, 30, 1, 1, 02/03/08 10:37:28, [facility], [id number] Start Date: 02/03/08 Status: Ordered folic acid 1 mg oral tablet 1 mg, 1, tablet, By Mouth, Daily, # 30 tablet, Refills 0, Tot. Refills 0, Maintenance, 04/02/19 14:59:00 EST, Route to Pharmacy Electronically, [facility] 3, 172, cm, 03/30/19 23:47:00 EST, Height, 93.8, kg, 03/29/19 12:30:00 EST, Dry Weight Start Date: 04/02/19 Status: Ordered lisinopril 5 mg oral tablet 5 mg, 1, tablet, By Mouth, Daily, # 30 tablet, Refills 0, Tot. Refills 0, Maintenance, 04/02/19 15:00:00 EST, Route to Pharmacy Electronically, [facility] 3, 172, cm, 03/30/19 23:47:00 EST, Height, 93.8, kg, 03/29/19 12:30:00 EST, Dry Weight Start Date: 04/02/19 Status: Ordered metoprolol 50 mg oral tablet 50, mg, 1, tablet, By Mouth, 2 times a day, 60, 1, 1, 02/03/08 10:36:51, [facility]S [facility], [id number] Start Date: 02/03/08 Status: Ordered multivitamin Vitamin B Complex with C oral tablet 1 tablet, By Mouth, Daily, # 30 tablet, 0 Refills, Maintenance, 04/02/19 15:00:00 EST, Capsule, [facility], 1 tablet By Mouth Daily, 172, cm, 03/30/19 23:47:00 EST, Height, 93.8, kg, 03/29/19 12:30:00 EST, Dry Weight Start Date: 04/02/19 Status: Ordered nicotine 14 mg/24 hr transdermal film, extended release 1 patch, Topically, Daily, # 30 patch, 0 Refills, Maintenance, 04/02/19 15:00:00 EST, Patch, [facility] 3, 1 patch Topically Daily, 172, cm, 03/30/19 23:47:00 EST, Height, 93.8, kg, 03/29/19 12:30:00 EST, Dry Weight Start Date: 04/02/19 Status: Ordered pravastatin 20 mg oral tablet 20 mg, 1, tablet, By Mouth, Daily, Refills 0, Maintenance, 04/02/19 15:01:00 EST Start Date: 04/02/19 Status: Ordered predniSONE 20 mg oral tablet 2 tablet = 40 mg, By Mouth, Daily, # 4 tablet, 0 Refills, Acute 04/04/19 23:00:00 EST, 04/02/19 15:01:00 EST, Tablet, [facility], 172, cm, 03/30/19 23:47:00 EST, Height, 93.8, kg, 03/29/19 12:30:00 EST, Dry Weight Start Date: 04/02/19 Stop Date: 04/04/19 Status: Ordered pyridoxine 50 mg oral tablet 50 mg, 1, tablet, By Mouth, Daily, # 30 tablet, Refills 0, Tot. Refills 0, Maintenance, 04/02/19 15:02:00 EST, [facility] to [facility], 172, cm, 03/30/19 23:47:00 EST, Height, 93.8, kg, 03/29/19 12:30:00 EST, Dry Weight Start Date: 04/02/19 Status: Ordered thiamine 100 mg oral tablet 100 mg, 1, tablet, By Mouth, Daily, # 30 tablet, Refills 0, Tot. Refills 0, Maintenance, 04/02/19 15:02:00 EST, Route to Pharmacy Electronically, [facility], 172, cm, 03/30/19 23:47:00 EST, Height, 93.8, kg, 03/29/19 12:30:00 EST, Dry We... Start Date: 04/02/19 Status: Ordered Ventolin HFA 108 mcg/inh inhalation aerosol with adapter 1 puffs, Inhalation, Every 4 hours, PRN for wheezing, # 8 Gm, 0 Refills, Maintenance, 04/02/19 15:04:00 EST, Aerosol, [facility], 172, cm, 03/30/19 23:47:00 EST, Height, 93.8, kg, 03/29/19 12:30:00 EST, Dry Weight Start Date: 04/02/19 Status: Ordered Vital Signs Most recent to oldest [Reference Range]: 1 2 3 Height 172 cm (03/30/19 11:47 PM) 172 cm (03/30/19 8:30 PM) 172 cm (03/30/19 5:31 PM) Weight 93.8 kg (03/28/19 6:33 PM) 93.8 kg (03/28/19 4:00 PM) Oxygen Saturation [94-100 %] 100 % (04/02/19 7:00 AM) 97 % (04/01/19 11:30 PM) 96 % (04/01/19 2:00 PM) Pulse Rate [55-90 bpm] 100 bpm *H* (04/02/19 7:00 AM) 93 bpm *H* (04/01/19 11:30 PM) 115 bpm *H* (04/01/19 2:00 PM) Body Mass Index [18.5-24.99] 31.71 *>HHI* (03/28/19 6:33 PM) Blood Pressure [90-138/55-84 mm Hg] 148/86mm Hg *H* (04/02/19 3:00 PM) 190/89mm Hg *H* (04/02/19 10:24 AM) 195/102mm Hg *H* (04/02/19 10:18 AM) Respiratory Rate [16-30 br/min] 20 br/min (04/02/19 7:00 AM) 18 br/min (04/01/19 11:30 PM) 20 br/min (04/01/19 2:00 PM) Temperature [96.8-100.4 DegF] 97.3 DegF (04/02/19 7:00 AM) 98.0 DegF (04/01/19 11:30 PM) 97.5 DegF (04/01/19 2:00 PM) Liters per Minute 0 L/min (03/28/19 1:57 PM) 0 L/min (03/28/19 11:42 AM) 0 L/min (03/28/19 8:13 AM) Mode of Delivery (Oxygen) Room air (04/02/19 7:00 AM) Room air (04/01/19 11:30 PM) Room air (04/01/19 2:00 PM) Blood pressure sites Arm, left (04/02/19 7:00 AM) Arm, left (04/01/19 11:30 PM) Arm, left (04/01/19 2:00 PM) Temperature Route Oral (04/02/19 7:00 AM) Oral (04/01/19 11:30 PM) Axillary (04/01/19 2:00 PM) Dry Weight 93.8 kg (03/28/19 6:33 PM) Weight Obtained Via Bed scale (03/28/19 4:00 PM) Sensory deficits None (03/28/19 6:33 PM) Mobility assistance Independent (03/28/19 6:33 PM)
[2024-02-05 17:46] LABS: Influenza A PCR NEGATIVE (Negative); Influenza B PCR NEGATIVE (Negative); Resp Syncy Virus RNA Qual PCR NEGATIVE (Negative); SARS COV2 PCR INHOUSE NEGATIVE (Negative)
[2024-02-05 18:31] VITALS: RESP 16; TEMP 36.4; O2SAT 92
[2024-02-05 18:44] LABS: Appearance Urine Clear; Color Urine Yellow; Glucose Urine UA Negative (Negative); Leukocyte Esterase Urine Negative (Negative); Nitrite Urine Negative (Negative); PH 5.5 (5.0-9.0); UMIC TRIGGER UACC YES; Urine Blood Negative (Negative); Urine Ketones Negative (Negative); Urine Protein 100 (2+) mg/dL (Neg-Trace)
[2024-02-05 18:46] LABS: Bacteria Urine None Seen (None Seen); Hyaline Casts Urine 0-2 /LPF (0-2); RBC Urine 0-2 /HPF (0-2); Squamous Epithelial Cell Urine 0-2 /HPF (0-2); WBC Urine 0-5 /HPF (0-5)
[2024-02-05 18:57] LABS: Amphetamine Screen Urine Not Detected (Not Detect); Barbiturates, Urine Not Detected (Not Detect); Benzodiazepines Screen Urine Not Detected (Not Detect); Buprenorphine Scr Not Detected (Not Detect); Cannabinoid Screen Urine Not Detected (Not Detect); Cocaine Screen Urine Not Detected (Not Detect); Fentanyl, urine Not Detected (Not Detect); Methadone Screen, Urine Not Detected (Not Detect); Opiate Screen Urine Not Detected (Not Detect); Oxycodone Screen Urine Not Detected (Not Detect); Phencyclidine Screen Urine Not Detected (Not Detect)
--- NOTE | 2024-02-05 19:36 | PC.NURSE ---
Took over care from Susy Torres, notified family he is ready for discharge, awaiting a ride home.
[2024-02-05 19:37] VITALS: BP 170/98; PULSE 70; RESP 16; TEMP 36.8; O2SAT 94
--- NOTE | 2024-02-05 19:37 | PC.NURSE ---
Elevated bp report to SARAH Philip, no new orders at time, okay to discharge home.
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
[2024-02-05 19:57] VITALS: BP 170/98; PULSE 70; RESP 16; TEMP 36.8; O2SAT 94
== END 2024-02-05 19:58 | disposition home or self-care (01) ==
PROVIDERS: Nurse Practitioner Family; Emergency Provider Emergency Medicine
DX: S22.32XA Fracture of one rib, left side, initial encounter for closed fracture (principal); V47.0XXA Car driver injured in collision with fixed or stationary object in nontraffic accident, initial encounter; I13.0 Hypertensive heart and chronic kidney disease with heart failure and stage 1 through stage 4 chronic kidney disease, or unspecified chronic kidney disease; N18.31 Chronic kidney disease, stage 3a; I50.23 Acute on chronic systolic (congestive) heart failure; E78.5 Hyperlipidemia, unspecified; J44.9 Chronic obstructive pulmonary disease, unspecified; Z03.818 Encounter for observation for suspected exposure to other biological agents ruled out; Y93.89 Activity, other specified; Y92.89 Other specified places as the place of occurrence of the external cause; Y99.9 Unspecified external cause status; Z79.899 Other long term (current) drug therapy
CPT/HCPCS: 0241U; 36415; 70450; 71101; 80053; 80307; 81001; 83690; 85025; 85610; 94010; 99284

== ENCOUNTER 2024-11-15 15:32 | Outpatient (AMB) | payer MEDICARE, SELFPAY ==
--- NOTE | 2024-11-15 15:36 | MHC.PC.OV ---
Vital Signs 11/15/24 15:40 11/15/24 16:37 Height 5 ft 4.57 in Weight 166 lb BMI 28.0 BP 184/73 H 179/91 H Blood Pressure Location Rt brachial Position Sitting Respiration 16 Pulse 96 Pulse Source Pulse Oximeter Temp 97.7 F Temp Source Temporal Artery Scan Pulse Oximetry (%) 94 Oxygen Delivery Method Room Air Intake Visit Reasons: Carly Cuenca / Dr. 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 Required: No Accompanied by: grandaughter Allergies CRANBERRY JUICE Allergy (Unknown, Uncoded 11/15/24 15:56) DIARRHEA Medication List - Last Reconciled 11/15/24 by Tonie Browne PA-C aspirin 81 mg PO DAILY clonazepam 1 mg PO BEDTIME levothyroxine 25 mcg PO DAILY@0630 mirtazapine 7.5 mg PO BEDTIME prednisone 5 mg PO DAILY rosuvastatin 20 mg PO DAILY Tobacco use date assessed: 11/15/24 Fall risk assessment: No Falls in past year Last assessed Fall Risk: 11/15/24 Dental Screening Dental Screen Date: 11/15/24 Did you have a dental visit in the last 12 months?: No Did you have a dental problem in the last 6 months where you did not have access to dental care?: No Was dental information given to patient?: Patient has dentist (patient has dentures ) HPI Carly Cuenca / Dr. Verduzco HPI Details The patient is a 79-year-old male presenting for management of multiple chronic conditions including anxiety, depression, COPD, hypertension, and gout. The patient has a history of anxiety and depression, which has been ongoing for some time. He has not engaged with a therapist or psychiatrist due to concerns about cost and personal preference. He is currently on clonazepam for anxiety and sleep, but has not been on any other psychiatric medications. The patient has been diagnosed with COPD, although he has never had lung imaging to confirm this diagnosis. He has been on prednisone 5 mg daily, which was prescribed without prior pulmonary evaluation. He reports occasional feelings of anxiety and skin issues, which may be related to long-term steroid use. Hypertension was previously managed with amlodipine, which was discontinued by a previous physician. The patient has not been on any antihypertensive medication since, and his blood pressure was noted to be elevated during the visit. He has a history of white coat syndrome, which may contribute to elevated readings in clinical settings. The patient experiences symptoms of restless leg syndrome, particularly at night, which affects his sleep. Gabapentin was discussed as a potential treatment option. The patient has a history of gout, with previous use of allopurinol for management. He reports significant pain during flare-ups, particularly in the feet and toes. The patient is also dealing with erectile dysfunction, for which he has considered medications like Viagra and Cialis. Cost has been a barrier to accessing these treatments. He is noted to be prediabetic with an A1c of 5.9%. Lifestyle modifications and monitoring were discussed as part of his management plan. Social history - Family Status: Lives with granddaughter who assists with care. - Substance Use: Quit smoking two years ago after using nicotine patches. - Exercise: Limited physical activity due to health conditions. - Nutrition: Receives Meals on Wheels and shops for fresh produce. [facility] Medical History (Updated 11/15/24 @ 16:43 by Tonie Browne PA-C) Preventative health care Prediabetes Erectile dysfunction Anxiety and depression History of nicotine use CKD stage 3a, GFR 45-59 ml/min PAD (peripheral artery disease) History of underactive thyroid Thrombocytosis GERD (gastroesophageal reflux disease) HTN (hypertension) Dyslipidemia COPD (chronic obstructive pulmonary disease) CKD (chronic kidney disease), stage III Gout Surgical History S/P balloon dilatation of esophageal stricture Social History Household Members: Family Housing: Other Housing Other:: mobile home Do you presently have visiting nurse or other home services: Yes Alcohol intake: current Alcohol intake frequency: does not drink Patient Tobacco Use Status: Former Tobacco user Advance Directives Date on File: 05/03/23 service: No Current occupational status: retired Cognitive needs: Yes (walker) Hearing needs: No Vision needs: Yes (reading glasses) Questionnaire PHQ-9 Over the last 2 weeks, how often have you been bothered by any of the following problems? 1. Little interest or pleasure in doing things: not at all 2. Feeling down, depressed, or hopeless: nearly every day 3. Trouble falling or staying asleep, or sleeping too much: nearly every day 4. Feeling tired or having little energy: nearly every day 5. Poor appetite or overeating: several days 6. Feeling bad about yourself - or that you are a failure or have let yourself or your family down: nearly every day 7. Trouble concentrating on things, such as reading the newspaper or watching television: nearly every day 8. Moving or speaking so slowly that other people could have noticed. Or the opposite - being so fidgety or restless that you have been moving around a lot more than usual: nearly every day 9. Thoughts that you would be better off or of hurting yourself in some way: several days Total score: 20 Depression Screening Interpretation: Positive Depression Screening Follow-up: Existing condition and Follow-up Visit Requested Depression Screening Done: Yes [id number] - PHQ-9 Billing: Yes Source: Developed by Drs. Jann Reyes, Anita Kay, Daniel Garcia and colleagues, with an educational juana from [employer]. Thrive Questionnaire Date Thrive assessed: 11/15/24 I am a: Patient What is your living situation today?: I have a steady place to live Within the past 12 months, did the food you bought not last and you didn't have the money to get more?: Never true Within the past 12 months, did you worry whether your food would run out before you got money to buy more?: Never true Do you have trouble paying for medicines?: No Do you have trouble getting transportation to medical appointments?: No Do you have trouble paying your heating and electricity bill?: No Do you have trouble taking care of your child, family member or friend?: No Do you have trouble with day-to-day activities such as bathing, preparing meals, shopping, managing finances, etc.?: No Are you currently unemployed and looking for a job?: No Are you interested in more education?: No Please select the resources that you would like help with: None THRIVE Score: 0 AUDIT C Alcohol Use Questionnaire (AUDIT-C) 1. How often do you have a drink containing alcohol?: Never 3. How often do you have six or more drinks on one occasion?: Never Total Score: 0 Score Reviewed/Action Taken: No ZHANNA-7 AMB Questionnaire ZHANNA-7 Date ZHANNA - 7 assessed: 11/15/24 Feeling nervous, anxious, or on edge: 3 = Nearly every day Not being able to stop or control worryin = Nearly every day Worrying too much about different things: 3 = Nearly every day Trouble relaxin = Nearly every day Being so restless that it is hard to sit still: 3 = Nearly every day Becoming easily annoyed or irritable: 1 = Several days Feeling afraid as if something awful might happen: 3 = Nearly every day Total ZHANNA-7 score (0-4 normal; 5-9 mild; 10-14 moderate; 15-21 severe): 19 Source: Developed by Drs. Jann Reyes, Anita Kay, Daniel Garcia and colleagues, with an educational juana from [employer]. ZHANNA-7 Assessment Billing ZHANNA-7 Assessment Tool: ZHANNA-7 Assessment 91243 Review of Systems Const Details: - Psychiatric: Reports anxiety and depression. Denies seeing a therapist or psychiatrist. - Respiratory: Reports occasional dyspnea. Denies cough or wheezing. - Cardiovascular: Reports hypertension. Denies chest pain or palpitations. - Musculoskeletal: Reports restless leg syndrome and gout-related pain in feet and toes. - Endocrine: Reports prediabetes. Denies diabetes. - Genitourinary: Reports erectile dysfunction. All systems reviewed & are unremarkable except as noted in HPI and below Physical exam (Primary Care) Vital Signs: Last Vital Signs Temp 97.7 F 11/15/24 15:40 Pulse 96 11/15/24 15:40 Resp 16 11/15/24 15:40 BP 184/73 H 11/15/24 15:40 Pulse Ox 94 11/15/24 15:40 Oxygen Delivery Method Room Air 11/15/24 15:40 Care Plan Goal for BP management: <140/90 at Goal patient will be restarted on amlodipine 5 mg b.i.d. BMI result Body Mass Index 28.0 BMI Assessment/Plan discussion: High BMI High, discussed plan: lifestyle, weight reduction, dietary, physical activity, alcohol moderation and other Tobacco/Smoking Status: Tobacco use Status Tobacco use date assessed 11/15/24 11/15/24 15:40 Patient Tobacco Use Status Former Tobacco user 11/15/24 15:55 PHQ-9: PHQ-9 Score PHQ-9: Total score 20 11/15/24 15:55 Depression Screening Interpretation: Positive Depression Screening Follow-up: Existing condition and Follow-up Visit Requested Thrive Assessment: Date of Thrive Assessment Date Thrive assessed 11/15/24 11/15/24 15:40 Const Other: Appearance: Alert. Oriented X3. No acute distress. Head: Normal external exam. Normocephalic. Atraumatic. Eyes: Pupils are equal, round, and reactive to light. Extraocular movements intact. Conjunctiva and sclera normal. Eyelids normal. Throat: Pharynx normal. Uvula midline. Moist mucous membranes. Neck: Normal inspection. Neck supple. Full range of motion. Cardiovascular: Normal heart rate and rhythm. Heart sound normal. No murmurs noted. Pulses normal throughout. Respiratory: No respiratory distress. Painless inspiration. Breath sounds normal. No wheezes/rales/rhonchi noted. Chest nontender. No accessory muscle usage noted or decreased air movement noted. Back: Full range of motion noted. Skin: Skin warm and dry. Normal skin color. Normal skin turgor. No rashes/lesions/lacerations noted. Extremities: No lower extremity edema. Extremities exhibit normal range of motion. Neuro: Oriented X 3. No motor deficit. No sensory deficit. Reflexes normal. Coding Level of Care Code New Pt Level 4 (18216) Complex EM visit Add On G2211 Diagnoses Anxiety and depression F41.9; F32.A COPD (chronic obstructive pulmonary disease) J44.9 HTN (hypertension) I10 Gout M10.9 Restless leg syndrome G25.81 Erectile dysfunction N52.[address] [facility] health care Z00.00 Additional Codes PHQ-9 - 87876 - PHQ-9 Billing: Yes ([id number]) ZHANNA-7 Assessment Billing - ZHANNA-7 Assessment Tool: ZHANNA-7 Assessment 14469 ([id number]) Time Spent (min) 55 Assessment & Plan Assessment & Plan (1) Anxiety and depression: Code(s): F41.9 - Anxiety disorder, unspecified; F32.A - Depression, unspecified Category: Medical Plan: The patient is experiencing ongoing anxiety and depression, for which he is currently taking clonazepam. A referral to a psychiatrist, Cherrie Thompson, was discussed for further evaluation and management, including potential medication adjustments. (2) COPD (chronic obstructive pulmonary disease): Code(s): J44.9 - Chronic obstructive pulmonary disease, unspecified Category: Medical Plan: The patient has been on long-term prednisone for COPD without prior imaging confirmation. A referral to pulmonology was recommended for further evaluation and to consider alternative treatments such as inhalers. (3) HTN (hypertension): Code(s): I10 - Essential (primary) hypertension Category: Medical Plan: The patient's hypertension management plan includes restarting amlodipine at a dose of 5 mg twice daily, with a follow-up in one month to assess blood pressure control. (4) Gout: Code(s): M10.9 - Gout, unspecified Category: Medical Plan: The patient experiences gout flare-ups, particularly in the feet and toes. Allopurinol was previously used, and its reintroduction was considered for managing acute episodes. (5) Restless leg syndrome: Code(s): G25.81 - Restless legs syndrome Category: Medical Plan: Gabapentin was discussed as a treatment option for the patient's restless leg syndrome, which affects his sleep. The plan includes starting gabapentin at bedtime and adjusting the dose as needed. (6) Erectile dysfunction: Code(s): N52.9 - Male erectile dysfunction, unspecified Category: Medical Plan: The patient has erectile dysfunction and has considered medications like Viagra and Cialis. A prescription for Cialis was provided, and testosterone levels will be checked to rule out hormonal causes. (7) Prediabetes: Code(s): R73.03 - Prediabetes Category: Medical Plan: The patient is prediabetic with an A1c of 5.9%. Lifestyle modifications, including dietary changes and regular monitoring, were recommended to prevent progression to diabetes. (8) Preventative health care: Code(s): Z00.00 - Encounter for general adult medical examination without abnormal findings Category: Medical Plan: Lung cancer screening was recommended due to the patient's smoking history. A low-dose CT scan was suggested for more accurate assessment. Plan Plan Patient was informed and verbally consented to the use of an ambient scribe for clinic note documentation during this visit. 1. Anxiety And Depression The patient is experiencing ongoing anxiety and depression, for which he is currently taking clonazepam. A referral to a psychiatrist, Cherrie Thompson, was discussed for further evaluation and management, including potential medication adjustments. 2. Chronic Obstructive Pulmonary Disease (Copd) The patient has been on long-term prednisone for COPD without prior imaging confirmation. A referral to pulmonology was recommended for further evaluation and to consider alternative treatments such as inhalers. 3. Hypertension The patient's hypertension management plan includes restarting amlodipine at a dose of 5 mg twice daily, with a follow-up in one month to assess blood pressure control. 4. Gout The patient experiences gout flare-ups, particularly in the feet and toes. Allopurinol was previously used, and its reintroduction was considered for managing acute episodes. 5. Restless Leg Syndrome Gabapentin was discussed as a treatment option for the patient's restless leg syndrome, which affects his sleep. The plan includes starting gabapentin at bedtime and adjusting the dose as needed. 6. Erectile Dysfunction The patient has erectile dysfunction and has considered medications like Viagra and Cialis. A prescription for Cialis was provided, and testosterone levels will be checked to rule out hormonal causes. 7. Prediabetes The patient is prediabetic with an A1c of 5.9%. Lifestyle modifications, including dietary changes and regular monitoring, were recommended to prevent progression to diabetes. 8. Preventative Care: Lung Cancer Screening Lung cancer screening was recommended due to the patient's smoking history. A low-dose CT scan was suggested for more accurate assessment. During the visit, I discussed with the patient the management of his anxiety and depression, recommending a referral to a psychiatrist for further evaluation. We also addressed his COPD management, suggesting a referral to pulmonology for a comprehensive assessment and potential change in medication. For hypertension, I proposed restarting amlodipine and monitoring his blood pressure closely. We considered gabapentin for his restless leg syndrome and discussed the reintroduction of allopurinol for gout management. I also recommended lung cancer screening due to his smoking history and provided a prescription for Cialis to address erectile dysfunction, with plans to check testosterone levels. Lifestyle modifications were advised for his prediabetes, and I emphasized the importance of regular follow-up to monitor his conditions. Orders: Orders Complete Blood Count Auto Diff Today Z00.00 - Encounter for general adult medical examination without abnormal findings Lipid Panel Today Z00.00 - Encounter for general adult medical examination without abnormal findings PSA,Total (Free>4and<10) Today Z00.00 - Encounter for general adult medical examination without abnormal findings Vitamin D 25-OH Total Today Z00.00 - Encounter for general adult medical examination without abnormal findings DHEA Sulfate Today Z00.00 - Encounter for general adult medical examination without abnormal findings C Reactive Protein Today Z00.00 - Encounter for general adult medical examination without abnormal findings Comprehensive [place]. Panel Fast Today Z00.00 - Encounter for general adult medical examination without abnormal findings Liver Panel Today Z00.00 - Encounter for general adult medical examination without abnormal findings Magnesium Today Z00.00 - Encounter for general adult medical examination without abnormal findings TSH reflex Free T4 Today Z00.00 - Encounter for general adult medical examination without abnormal findings Vitamin B12 and Folate Today Z00.00 - Encounter for general adult medical examination without abnormal findings Dihydrotestosterone Today Z00.00 - Encounter for general adult medical examination without abnormal findings Testosterone, Free/Total Today Z00.00 - Encounter for general adult medical examination without abnormal findings Referrals Psychiatry Outpatient Consultation Service F41.9 - Anxiety disorder, unspecified Lung Cancer Screening Referral J44.9 - Chronic obstructive pulmonary disease, unspecified, Z87.891 - Personal history of nicotine dependence Pulmonology Referral J44.9 - Chronic obstructive pulmonary disease, unspecified, Z87.891 - Personal history of nicotine dependence Medications: New albuterol sulfate 90 mcg/actuation 1 inh inhalation QID PRN 6.7 grams 0RF shortness of breath or wheezing aspirin 81 mg PO DAILY 90 tabs 3RF tadalafil (Cialis) administer approximately 30min before sexual activity; do not use more than 1 dose per 24hrs 10 mg PO DAILY PRN 20 tabs 0RF sexual activity fluticasone furoate-vilanterol 200-25 mcg/dose (Breo Ellipta) 1 inh inhalation DAILY 60 ea 3RF gabapentin 100 mg PO BEDTIME 30 caps 0RF Changed From amlodipine 5 mg See Protocol PO DAILY 10 tabs 0RF To amlodipine 5 mg See Protocol PO BID 180 tabs 3RF 90 days Refilled clonazepam 1 mg PO BEDTIME 30 tabs 0RF rosuvastatin 20 mg PO DAILY 90 tabs 3RF clonazepam 1 mg PO BEDTIME 30 tabs 0RF Patient Instructions: - Take amlodipine 5 mg twice daily for blood pressure management. - Start gabapentin at bedtime for restless leg syndrome, adjust dose as needed. - Schedule an appointment with a psychiatrist for anxiety and depression management. - Follow up with pulmonology for COPD evaluation and management. - Get blood work done, including testosterone levels, while fasting in the morning. - Schedule lung cancer screening with a low-dose CT scan. - Monitor blood pressure at home and record readings twice a week. - Follow dietary recommendations to manage prediabetes and prevent progression.
[2024-11-15 15:40] VITALS: BP 184/73; PULSE 96; RESP 16; TEMP 36.5; O2SAT 94; BMI 28.0
[2024-11-15 16:37] VITALS: BP 179/91
--- OUTSIDE RECORDS SUMMARY | 2024-11-15 17:42 | XMS_ITS ---
Author Organization [facility] d Nursing Care Team Providers Care Paper Core Machine Operator Name Role Phone Gabriele Santos Unavailable Unavailable Myke Mcbride Unavailable Unavailable Allergies and adverse reactions Code CodeSystem Substance Reaction Severity StartDate Concern Status 648535834 SNOMED CT Cranberry Juice Acute diarrh ea (code- 099664763, SNOMED CT) Unknown 08/05/2023 active Care Team Name Role Address Phone Organization Dates Myke Mcbride PCP [address], [address], [facility] (Office): : [facility] 08/05/2023 - 08/23/2023 Gabriele Santos [address], [address], [facility] (Office): : : [facility] 08/05/2023 - 08/23/2023 Immunizations Immunization Status Vaccine Details Vaccine Code CodeSystem Date Notes TB 1 Step Mantoux (PPD) completed tuberculin skin test; unspecified formulation lotNumber: [id number] expiry: 07/04/2026 Mfg: [employer] Given 0.1 ml Left Forearm intramuscularly 98 CVX created date: 08/07/2023 consent date: 08/07/2023 administere d date: 08/07/2023 Mental Status Section Date Assessment Total Score Description 08/23/2023 BIMS 11 moderate cognit calvin impairment CAM 0 No delirium ind icated PHQ-9 00 08/08/2023 BIMS 10 moderate cognit calvin impairment CAM 0 No delirium ind icated PHQ-9 00 Problems Problem # Description Date of onset Resolved Date Code CodeSystem Concern Status 1 ACUTE RESPIRATORY FAILURE WITH HYPERCAPNIA 08/05/[address] active 2 CELLULITIS, UNSPECIFIED 08/05/[address] active 3 CHRONIC KIDNEY DISEASE, STAGE 3 UNSPECIFIED 08/05/[address] active 4 CHRONIC OBSTRUCTIVE PULMONARY DISEASE, UNSPECIFIED 08/05/[address] active 5 ENCEPHALOPATHY, UNSPECIFIED 08/05/[address] active 6 ESSENTIAL (PRIMARY) HYPERTENSION 08/05/[address] active 7 HYPERLIPIDEMIA, UNSPECIFIED 08/05/[address] active 8 HYPERMAGNESEMIA 08/05/[address] ac tive 9 HYPOTHYROIDISM, UNSPECIFIED 08/05/[address] active 10 NICOTINE DEPENDENCE, UNSPECIFIED, UNCOMPLICATED 08/05/[address] active 11 PERIPHERAL VASCULAR DISEASE, UNSPECIFIED 08/05/[address] active 12 PNEUMONIA, UNSPECIFIED ORGANISM 08/05/[address] active 13 RESTLESS LEGS SYNDROME 08/05/[address] active 14 TYPE 2 DIABETES MELLITUS WITHOUT COMPLICATIONS 08/05/[address] active 15 UNSPECIFIED OPEN WOUND, LEFT LOWER LEG, SUBSEQUENT ENCOUNTER 08/05/[address] active 16 UNSPECIFIED OPEN WOUND, RIGHT LOWER LEG, SUBSEQUENT ENCOUNTER 08/05/[address] active 17 UNSPECIFIED SYSTOLIC (CONGESTIVE) HEART FAILURE 08/05/[address] active 18 VENTRICULAR TACHYCARDIA, UNSPECIFIED 08/05/[address] active 19 ZOSTER WITHOUT COMPLICATIONS 08/05/[address] active Reason for Referral No Reasons for Referral Entered Social History Social History Observation Description Start Date End Date Code Code System Current Smoking Status Tobacco smoking consumption unknown 143698335 SNOMED CT Sex Assigned At Male 1945 79768-5 [facility] Gender Identity Sexual Orientation Vital Signs Code Code System Vitals Name Values and Units Timing Information 42426-4 [facility] Pain Level Value=0.0 08/23/2023 8867-4 [facility] Heart rate Value=91.0 Units=/min 64581-1 [facility] O2 % BldC Oximetry Value=95.0 Units= % 08/23/2023 25251-5 [facility] Weight Qgbvf=840.0 Units=Lbs 9279-1 [facility] Respiratory Rate Value=22.0 Units=/m in 08/22/2023 8462-4 [facility] Blood Pressure-Diastolic Value=61 Un its=mmHg 08/22/2023 8480-6 [facility] Blood Pressure-Systolic Dlira=871 Un its=mmHg 08/22/2023 8310-5 [facility] Body Temperature Value=98.4 Units= F 08/22/2023 8302-2 [facility] Height Value=61.0 Units=Inches 08/09/2023
== END 2024-11-15 16:37 | disposition home or self-care (01) ==
LOC: HO.HMCSH 15:32
PROVIDERS: PCP Hospitalist; Visit Provider Physician Assistant Medical
DX: F41.9 Anxiety disorder, unspecified (principal); F32.A Depression, unspecified; J44.9 Chronic obstructive pulmonary disease, unspecified; I10 Essential (primary) hypertension; M10.9 Gout, unspecified; G25.81 Restless legs syndrome; N52.9 Male erectile dysfunction, unspecified; R73.03 Prediabetes; Z00.00 Encounter for general adult medical examination without abnormal findings

== ENCOUNTER → 2024-11-15 15:32 | Outpatient (BNVA) | payer MEDICARE, SELFPAY | PROVIDERS: PCP Hospitalist; Visit Provider Physician Assistant Medical | DX: Z00.00 Encounter for general adult medical examination without abnormal findings (principal); F41.9 Anxiety disorder, unspecified; F32.A Depression, unspecified; J44.9 Chronic obstructive pulmonary disease, unspecified; I10 Essential (primary) hypertension; G25.81 Restless legs syndrome; M10.9 Gout, unspecified; N52.9 Male erectile dysfunction, unspecified; R73.03 Prediabetes | CPT/HCPCS: 83036; 96127; 99202 ==

== ENCOUNTER 2024-11-20 10:01 | Outpatient (REF) | payer MEDICARE, SELFPAY ==
--- OUTSIDE RECORDS SUMMARY | 2024-11-20 12:06 | XMS_ITS ---
Author Organization [facility] an d Nursing Care Team Providers Care Chief Guard Name Role Phone Gabriele Santos Unavailable Unavailable Myke Mcbride Unavailable Unavailable Allergies and adverse reactions Code CodeSystem Substance Reaction Severity StartDate Concern Status 572131153 SNOMED CT Cranberry Juice Acute diarrh ea (code- 626390097, SNOMED CT) Unknown 08/05/2023 active Care Team Name Role Address Phone Organization Dates Myke Mcbride PCP [address], [address], [facility] (Office): : [facility] 08/05/2023 - 08/23/2023 Gabriele Santos [address], [address], [facility] (Office): : : [facility] 08/05/2023 - 08/23/2023 Immunizations Immunization Status Vaccine Details Vaccine Code CodeSystem Date Notes TB 1 Step Mantoux (PPD) completed tuberculin skin test; unspecified formulation lotNumber: [id number] expiry: 07/04/2026 Mfg: [employer] Given [...] 1 ACUTE RESPIRATORY FAILURE WITH HYPERCAPNIA 08/05/[address] active 2 CELLULITIS, UNSPECIFIED 08/05/[address] active 3 CHRONIC KIDNEY DISEASE, STAGE 3 UNSPECIFIED 08/05/[address] active 4 CHRONIC OBSTRUCTIVE PULMONARY DISEASE, UNSPECIFIED 08/05/[address] active 5 ENCEPHALOPATHY, UNSPECIFIED 08/05/[address] active 6 ESSENTIAL (PRIMARY) HYPERTENSION 08/05/[address] active 7 HYPERLIPIDEMIA, UNSPECIFIED 08/05/[address] active 8 HYPERMAGNESEMIA 08/05/[address] ac tive 9 HYPOTHYROIDISM, UNSPECIFIED 08/05/[address] active 10 NICOTINE DEPENDENCE, UNSPECIFIED, UNCOMPLICATED 08/05/[address] active 11 PERIPHERAL VASCULAR DISEASE, UNSPECIFIED 08/05/[address] active 12 PNEUMONIA, UNSPECIFIED ORGANISM 08/05/[address] active 13 RESTLESS LEGS SYNDROME 08/05/[address] active 14 TYPE 2 DIABETES MELLITUS WITHOUT COMPLICATIONS 08/05/[address] active 15 UNSPECIFIED OPEN WOUND, LEFT LOWER LEG, SUBSEQUENT ENCOUNTER 08/05/[address] active 16 UNSPECIFIED OPEN WOUND, RIGHT LOWER LEG, SUBSEQUENT ENCOUNTER 08/05/[address] active 17 UNSPECIFIED SYSTOLIC (CONGESTIVE) HEART FAILURE 08/05/[address] active 18 VENTRICULAR TACHYCARDIA, UNSPECIFIED 08/05/[address] active 19 ZOSTER WITHOUT COMPLICATIONS 08/05/[address] active Reason for Referral No Reasons for Referral Entered Social History Social History Observation Description Start Date End Date Code Code System Current Smoking Status Tobacco smoking consumption unknown 937123648 SNOMED CT Sex Assigned At Male 1945 16905-9 [facility] Gender Identity Sexual Orientation Vital Signs Code Code System Vitals Name Values and Units Timing Information 62096-1 [facility] Pain Level Value=0.0 08/23/2023 8867-4 [facility] Heart rate Value=91.0 Units=/min 33251-7 [facility] O2 % BldC Oximetry Value=95.0 Units= % 08/23/2023 32208-0 [facility] Weight Xpkqs=391.0 Units=Lbs 9279-1 [facility] Respiratory Rate Value=22.0 Units=/m in 08/22/2023 8462-4 [facility] Blood Pressure-Diastolic Value=61 Un its=mmHg 08/22/2023 8480-6 [facility] Blood Pressure-Systolic Sfxgk=477 Un its=mmHg 08/22/2023 8310-5 [facility] Body Temperature Value=98.4 Units= F 08/22/2023 8302-2 [facility] Height Value=61.0 Units=Inches 08/09/2023
[2024-11-20 13:07] LABS: MANUAL DIFF FLAG NO
[2024-11-20 13:13] LABS: Hematocrit 49.1 % (42.0-52.0); Hemoglobin 15.3 g/dl (14.0-18.0); Imm Gran Abs Auto 0.04 X10*3/uL (0.00-0.03); Imm Gran Pct Auto 0.4 % (0.0-0.4); Lymphocytes Absolute Auto 1.0 X10*3/uL (1.2-4.9); Mean Corpuscular HGB Conc 31.2 g/dl (31.0-36.0); Mean Corpuscular Hemoglobin 27.7 pg (27.0-33.0); Mean Corpuscular Volume 88.9 fL (80.0-98.0); NRBC Abs Auto 0.000 X10*3/uL (0.0-0.012); NRBC Pct Auto 0.0 /100WBC (0.0-0.2); Platelet Count 208 X10*3/uL (160-400); Red Blood Count 5.52 X10*6/uL (4.60-5.80); White Blood Count 10.9 X10*3/uL (4.8-10.8)
[2024-11-20 13:54] LABS: Alanine Aminotransferase 13 U/L (0-40); Albumin Level 4.4 g/dL (3.5-5.0); Alkaline Phosphatase 122 U/L (39-117); Anion Gap 13 (12-20); Aspartate Amino Transferase 26 U/L (5-37); Blood Urea Nitrogen 22 mg/dL (9-16); Calcium 9.1 mg/dL (8.4-10.2); Carbon Dioxide 24 mmol/L (22-29); Chloride 110 mmol/L (96-108); Cholesterol 162 mg/dL (<200); Estimated Glomerular Filt Rate 34; HDL Cholesterol 76 mg/dL (>40); Magnesium 1.9 mg/dL (1.6-2.6); Potassium 5.0 mmol/L (3.3-5.1); Sodium 142 mmol/L (135-145); Total Protein 7.4 g/dL (6.5-8.0); Triglycerides 90 mg/dL (<150)
[2024-11-20 14:08] LABS: PSA,Total (Free>4and<10) 0.55 ng/mL (0.00-4.00)
[2024-11-20 14:17] LABS: Folate 6.6 ng/mL (> or = 4.0); Vitamin B12 309 pg/mL (200-900)
[2024-11-26 04:53] LABS: Testosterone, Free 13.7 pg/mL (30.0-135.0)
== END 2024-11-20 10:02 | disposition home or self-care (01) ==
LOC: HO.HMGCLDS 10:01
PROVIDERS: PCP Physician Assistant Medical; Visit Provider Physician Assistant Medical
DX: Z00.00 Encounter for general adult medical examination without abnormal findings (principal); Z12.5 Encounter for screening for malignant neoplasm of prostate; Z13.29 Encounter for screening for other suspected endocrine disorder; Z13.6 Encounter for screening for cardiovascular disorders
CPT/HCPCS: 36415; 80053; 80061; 80076; 82248; 82306; 82607; 82627; 82642; 82746; 83735; 84153; 84402; 84403; 84443; 85025; 86140

== ENCOUNTER 2024-12-05 13:25 | Outpatient (AMB) | payer MEDICARE, SELFPAY ==
[2024-12-05 13:47] VITALS: BP 144/84; PULSE 96; O2SAT 95; BMI 28.1
--- NOTE | 2024-12-05 13:47 | HO.NEPHOV_ITS ---
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: No Accompanied by: Self / Same As Patient Allergies CRANBERRY JUICE Allergy (Unknown, Uncoded 11/15/24 15:56) DIARRHEA Medication List - Last Reconciled 12/05/24 by Luis Alberto Graham MD albuterol sulfate 90 mcg/actuation 1 inh inhalation QID PRN amlodipine 5 mg See Protocol PO BID 90 days aspirin 81 mg PO DAILY cholecalciferol (vitamin D3) 50 mcg PO DAILY clonazepam 1 mg PO BEDTIME fluticasone furoate-vilanterol 200-25 mcg/dose (Breo Ellipta) 1 inh inhalation DAILY gabapentin 100 mg PO BEDTIME levothyroxine 25 mcg PO DAILY@0630 mirtazapine 7.5 mg PO BEDTIME prednisone 5 mg PO DAILY rosuvastatin 20 mg PO DAILY tadalafil (Cialis) 10 mg PO DAILY PRN HPI Comments Details: - The patient is a 79-year-old male presenting with chronic kidney disease and hypertension. - Chronic Kidney Disease: History of chronic kidney disease with creatinine 1.8- 1.9 mg/dL, kidney function at 34%. - Hospitalized a year ago History of hypertension, currently slightly elevated. - Blood pressure not regularly monitored at home, granddaughter assists occasionally. - History of Smoking: Quit smoking three years ago. - History of Alcohol Use: Quit drinking, beneficial for health. - Pleural Effusion: Fluid removed from chest last year [facility] Medical History (Updated 12/05/24 @ 14:13 by Luis Alberto Graham MD) Low testosterone in male CKD (chronic kidney disease) Low vitamin D level Preventative health care Prediabetes Erectile dysfunction Anxiety and depression History of nicotine use CKD stage 3a, GFR 45-59 ml/min PAD (peripheral artery disease) History of underactive thyroid Thrombocytosis GERD (gastroesophageal reflux disease) HTN (hypertension) Dyslipidemia COPD (chronic obstructive pulmonary disease) CKD (chronic kidney disease), stage III Gout Surgical History S/P balloon dilatation of esophageal stricture Social History Household Members: Family Housing: Other Housing Other:: mobile home Do you presently have visiting nurse or other home services: Yes Alcohol intake: current Alcohol intake frequency: does not drink Patient Tobacco Use Status: Former Tobacco user Advance Directives Date on File: 05/03/23 service: No Current occupational status: retired Cognitive needs: Yes (walker) Hearing needs: No Vision needs: Yes (reading glasses) Review of Systems Const Denies fever(s) and Denies weight loss Card Denies chest pain Resp Denies cough and Denies hemoptysis GI Denies abdominal pain, Denies diarrhea and Denies nausea Musc Denies back pain Neuro Denies focal weakness Physical Exam Vital Signs: Last Vital Signs Pulse 96 12/05/24 13:47 BP 144/84 H 12/05/24 13:47 Pulse Ox 95 12/05/24 13:47 Oxygen Delivery Method Room Air 12/05/24 13:47 BMI result Body Mass Index 28.1 Comfortable Neck supple no JVD. Lungs entry equal no rales. Heart S1-S2 heard no gallop or rub. Abdomen soft nontender. Neuro alert awake oriented. No asterixis. Extremities no edema. Results Reviewed Nephrology Results: Hgb, (14.0-18.0) 15.3 g/dl 11/20/24 WBC, (4.8-10.8) 10.9 X10*3/uL H 11/20/24 Plt Count, (160-400) 208 X10*3/uL Δ 11/20/24 Sodium, (135-145) 142 mmol/L 11/20/24 Potassium, (3.3-5.1) 5.0 mmol/L 11/20/24 Chloride, (96-108) 110 mmol/L H 11/20/24 Carbon Dioxide, (22-29) 24 mmol/L 11/20/24 BUN, (9-16) 22 mg/dL H 11/20/24 Creatinine, (0.5-1.4) 1.90 mg/dL H 11/20/24 Calcium, (8.4-10.2) 9.1 mg/dL 11/20/24 Urine Protein, (Neg-Trace) 100 (2+) mg/dL H 02/05/24 Assessment & Plan Assessment & Plan (1) CKD (chronic kidney disease): Comment: Insert nephrosclerosis Rule out obstruction. Code(s): N18.9 - Chronic kidney disease, unspecified Category: Medical Plan: Overall renal function has been stable for the last few years. Optimize blood pressure Avoid hypotension Continue to avoid nephrotoxic agents including NSAIDs Obtain renal ultrasonogram We will check urine protein creatinine ratio. We will screen for secondary hyperparathyroidism. No evidence of anemia at this time. (2) HTN (hypertension): Code(s): I10 - Essential (primary) hypertension Category: Medical Plan: Blood pressure well controlled Continue the amlodipine. Encouraged to stay on low-sodium diet Orders: Orders Creatinine Urine Today I10 - Essential (primary) hypertension, N18.9 - Chronic kidney disease, unspecified Total Protein Urine Random Today I10 - Essential (primary) hypertension, N18.9 - Chronic kidney disease, unspecified UA and rflx microscopic Today I10 - Essential (primary) hypertension, N18.9 - Chronic kidney disease, unspecified US renal BI Today I10 - Essential (primary) hypertension, N18.9 - Chronic kidney disease, unspecified Coding Level of Care Code Est Pt Level 4 (09108) Diagnoses CKD (chronic kidney disease) N18.9 HTN (hypertension) I10
== END 2024-12-05 14:03 | disposition home or self-care (01) ==
LOC: HO.HKA 13:26
PROVIDERS: PCP Physician Assistant Medical; Referring Provider Physician Assistant Medical; Visit Provider Internal Medicine Hypertension Specialist
DX: I12.9 Hypertensive chronic kidney disease with stage 1 through stage 4 chronic kidney disease, or unspecified chronic kidney disease (principal); N18.9 Chronic kidney disease, unspecified
CPT/HCPCS: 99214

== ENCOUNTER → 2024-12-05 13:25 | Outpatient (BNVA) | payer MEDICARE, SELFPAY | PROVIDERS: PCP Physician Assistant Medical; Referring Provider Physician Assistant Medical; Visit Provider Internal Medicine Hypertension Specialist | DX: I12.9 Hypertensive chronic kidney disease with stage 1 through stage 4 chronic kidney disease, or unspecified chronic kidney disease (principal); N18.9 Chronic kidney disease, unspecified; Z87.891 Personal history of nicotine dependence | CPT/HCPCS: 99212 ==

== ENCOUNTER 2024-12-30 12:37 | Outpatient (REF) | payer MEDICARE, SELFPAY ==
--- NOTE | ~2024-12-30 | US_ITS ---
EXAMINATION: US RETROPERITONEAL LIMITED (RENAL ONLY) CLINICAL INFORMATION: I 10. Essentially (primary) hypertension.. COMPARISON: None available. TECHNIQUE: Real-time ultrasound kidneys using grayscale and color Doppler technique with a curvilinear transducer. FINDINGS: RIGHT KIDNEY: 9 x 5 x 5 cm (SAG x AP x TRV). Volume: 118.2 cc normal echotexture. Renal cortical thickness is normal. No hydronephrosis. Multifocal, different sizes round anechoic lesions throughout the kidney, the largest measures 1.6 cm in the lower pole. There is a 1.2 cm anechoic lesion in the midportion with possible calcifications.. LEFT KIDNEY: 10 x 5 x 5 cm (SAG x AP x TRV). Volume: 127.75 cc. Normal echotexture. Renal cortical thickness is normal. No hydronephrosis. There there are round anechoic lesions, the largest measures 2.7 in the corticomedullary junction/parapelvic without septations or flow on color Doppler interrogation. US/US renal BI IMPRESSION: Bilateral renal cysts. Consider dynamic enhanced MRI versus CT renal mass protocol. No hydronephrosis.. Electronically signed by: Iftikhar Gilbert MD 12/30/2024 02:43 PM EDT
--- OUTSIDE RECORDS SUMMARY | 2024-12-30 16:01 | XMS_ITS ---
Author Organization [facility] an d Nursing Care Team Providers Care Analytical Research Program Manager Name Role Phone Gabriele Santos Unavailable Unavailable Myke Mcbride Unavailable Unavailable Allergies and adverse reactions Code CodeSystem Substance Reaction Severity StartDate Concern Status 848523677 SNOMED CT Cranberry Juice Acute diarrh ea (code- 275520953, SNOMED CT) Unknown 08/05/2023 active Care Team Name Role Address Phone Organization Dates Myke Mcbride PCP [address], [address], [facility] (Office[facility] : [facility] 08/05/2023 - 08/23/2023 Gabriele Santos [address], [address], [facility] (Office[facility] : : [facility] 08/05/2023 - 08/23/2023 Immunizations Immunization Status Vaccine Details Vaccine Code CodeSystem Date Notes TB 1 Step Mantoux (PPD) completed tuberculin skin test; unspecified formulation lotNumber: [id number] expiry: 07/04/2026 Mfg: [employer] Given 0.1 ml Left Forearm intramuscularly 98 CVX created date: 08/07/2023 consent date: 08/07/2023 administere d date: 08/07/2023 Mental Status Section Date Assessment Total Score Description 08/23/2023 BIMS 11 moderate cognit calvin impairment CAM 0 No delirium ind icated PHQ-9 00 08/08/2023 BIMS 10 moderate cognit calvin impairment CAM 0 No delirium ind icated PHQ-9 00 Insurance Providers Problems Problem # Description Date of onset Resolved Date Code CodeSystem Concern Status 1 ACUTE RESPIRATORY FAILURE WITH HYPERCAPNIA 08/05/[address] active 2 CELLULITIS, UNSPECIFIED 08/05/[address] active 3 CHRONIC KIDNEY DISEASE, STAGE 3 UNSPECIFIED 08/05/[address] active 4 CHRONIC OBSTRUCTIVE PULMONARY DISEASE, UNSPECIFIED 08/05/[address] active 5 ENCEPHALOPATHY, UNSPECIFIED 08/05/[address] active 6 ESSENTIAL (PRIMARY) HYPERTENSION 08/05/[address] active 7 HYPERLIPIDEMIA, UNSPECIFIED 08/05/[address] active 8 HYPERMAGNESEMIA 08/05/[address] ac tive 9 HYPOTHYROIDISM, UNSPECIFIED 08/05/[address] active 10 NICOTINE DEPENDENCE, UNSPECIFIED, UNCOMPLICATED 08/05/[address] active 11 PERIPHERAL VASCULAR DISEASE, UNSPECIFIED 08/05/[address] active 12 PNEUMONIA, UNSPECIFIED ORGANISM 08/05/[address] active 13 RESTLESS LEGS SYNDROME 08/05/[address] active 14 TYPE 2 DIABETES MELLITUS WITHOUT COMPLICATIONS 08/05/[address] active 15 UNSPECIFIED OPEN WOUND, LEFT LOWER LEG, SUBSEQUENT ENCOUNTER 08/05/[address] active 16 UNSPECIFIED OPEN WOUND, RIGHT LOWER LEG, SUBSEQUENT ENCOUNTER 08/05/[address] active 17 UNSPECIFIED SYSTOLIC (CONGESTIVE) HEART FAILURE 08/05/[address] active 18 VENTRICULAR TACHYCARDIA, UNSPECIFIED 08/05/[address] active 19 ZOSTER WITHOUT COMPLICATIONS 08/05/[address] active Reason for Referral No Reasons for Referral Entered Social History Social History Observation Description Start Date End Date Code Code System Current Smoking Status Tobacco smoking consumption unknown 600523910 SNOMED CT Sex Assigned At Male 1945 67047-8 [facility] Gender Identity Sexual Orientation Vital Signs Code Code System Vitals Name Values and Units Timing Information 11606-4 [facility] Pain Level Value=0.0 08/23/2023 8867-4 [facility] Heart rate Value=91.0 Units=/min 26587-7 [facility] O2 % [facility] Oximetry Value=95.0 Units= % 08/23/2023 92100-8 [facility] Weight Ldwcn=126.0 Units=Lbs 9279-1 [facility] Respiratory Rate Value=22.0 Units=/m in 08/22/2023 8462-4 [facility] Blood Pressure-Diastolic Value=61 Un its=mmHg 08/22/2023 8480-6 [facility] Blood Pressure-Systolic Qdegx=129 Un its=mmHg 08/22/2023 8310-5 [facility] Body Temperature Value=98.4 Units= F 08/22/2023 8302-2 [facility] Height Value=61.0 Units=Inches 08/09/2023
== END 2024-12-30 12:38 | disposition home or self-care (01) ==
LOC: HO.US 12:37
PROVIDERS: PCP Physician Assistant Medical; Visit Provider Psychiatry & Neurology Neurology
DX: I12.9 Hypertensive chronic kidney disease with stage 1 through stage 4 chronic kidney disease, or unspecified chronic kidney disease (principal); N18.9 Chronic kidney disease, unspecified
CPT/HCPCS: 76775

== ENCOUNTER → 2024-12-30 12:39 | Outpatient (BNV) | payer MEDICARE, SELFPAY | PROVIDERS: PCP Physician Assistant Medical; Visit Provider Radiology Diagnostic Radiology | DX: I10 Essential (primary) hypertension (principal) | CPT/HCPCS: 76775 ==

== ENCOUNTER 2025-01-06 10:46 | Emergency (ER) | payer MEDICARE, SELFPAY ==
[2025-01-06 10:54] VITALS: BP 145/71; PULSE 92; RESP 18; TEMP 36.1; O2SAT 97; BMI 26.2
--- NOTE | 2025-01-06 10:54 | ED_ITS ---
HPI - General Adult General Chief complaint: Extremity Problem Stated complaint: Finger infection? Time Seen by Provider: 01/06/25 14:01 Source: patient Mode of arrival: ambulatory Limitations: no limitations History of Present Illness ED Provider: Nimco Yoder PA-C HPI narrative: Patient is a 79 year old assigned male at with a history of gout, HTN, COPD, and complete heart block presenting to the emergency department today with left 4th finger redness. Patient states that over the last 3-4 days he has had left 4th finger redness / swelling. Patient states that he has been soaking it every night. Patient denies any other complaints at this time. Related Data Home Medications ?Medication ?Instructions ?Recorded ?Confirmed levothyroxine 25 mcg tablet 25 mcg PO DAILY@0630 07/0812/05/24 prednisone 5 mg tablet 5 mg PO DAILY 07/08/2112/05 Previous Rx's ?Medication ?Instructions ?Recorded albuterol sulfate 90 mcg/actuation 1 inh inhalation QI D PRN shortness 11/15/24 aerosol inhaler of breath or wheezing #6.7 g evelia amlodipine 5 mg tablet 5 mg PO BID 90 days #180 tab s 11/15/24 aspirin 81 mg tablet 81 mg PO DAILY #90 tabs 11/04 04/30 clonazepam 1 mg tablet 1 mg PO BEDTIME #30 tabs 02/27 fluticasone furoate 200 1 inh inhalation DAILY #60 e a 11/15/24 mcg-vilanterol 25 mcg/dose inhalation powder (Breo Ellipta) rosuvastatin 20 mg tablet 20 mg PO DAILY #90 tabs 11/04 04/30 tadalafil 10 mg tablet (Cialis) 10 mg PO DAILY PRN sex ual activity 11/15/24 #20 tabs cholecalciferol (vitamin D3) 50 50 mcg PO DAILY #90 ca ps 11/21/24 mcg (2,000 unit) capsule mirtazapine 7.5 mg tablet 7.5 mg PO BEDTIME #90 tabs 1 gabapentin 100 mg capsule 100 mg PO BEDTIME #90 caps 1 cephalexin 500 mg capsule 500 mg PO Q6H 7 days #28 cap s 01/06/25 Allergies Allergy/AdvReac Type Severity Reaction Status Date / Time CRANBERRY JUICE Allergy Unknown DIARRHEA Uncoded 01/06/25 10:57 Review of Systems 2 Constitutional: Constitutional: Reports as per HPI Eyes: Eyes: Reports as per HPI ENT: Reports as per HPI Cardiovascular: Cardiovascular: Reports as per HPI Respiratory: Respiratory: Reports as per HPI Gastrointestinal: Gastrointestinal: Reports as per HPI Genitourinary: Genitourinary: Reports as per HPI Musculoskeletal: Musculoskeletal: Reports as per HPI Integumentary/Breasts: Skin/Breast: Reports as per HPI Neurologic: Reports as per HPI Psychiatric: Psychiatric: Reports as per HPI Endocrine: Endocrine: Reports as per HPI Hematologic/Lymphatic: Hematologic/Lymphatic: Reports as per HPI Allergic/Immunologic: Allergic/Immunologic: Reports as per HPI [facility] Past Medical History Attestation statement: The following information was validated with the patient. Source: old records reviewed and nursing notes reviewed Medical History Low testosterone in male CKD (chronic kidney disease) Low vitamin D level Preventative health care Prediabetes Erectile dysfunction Anxiety and depression History of nicotine use CKD stage 3a, GFR 45-59 ml/min PAD (peripheral artery disease) History of underactive thyroid Thrombocytosis GERD (gastroesophageal reflux disease) HTN (hypertension) Dyslipidemia COPD (chronic obstructive pulmonary disease) CKD (chronic kidney disease), stage III Gout Surgical History S/P balloon dilatation of esophageal stricture Social History Social History Household Members: Family Housing: Other Housing Other:: mobile home Do you presently have visiting nurse or other home services: Yes Alcohol intake: current Alcohol intake frequency: does not drink Patient Tobacco Use Status: Former Tobacco user Advance Directives: Yes Advance Directives Information Provided: Yes Advance Directives on File: No Advance Directives Date on File: 05/03/23 service: No Current occupational status: retired Cognitive needs: Yes (walker) Hearing needs: No Vision needs: Yes (reading glasses) Physical Exam ED Vital Signs: Vital Signs - 24 hr 01/06/25 10:54 01/06/25 14:27 Temperature 97.0 F 97.0 F Pulse Rate 92 92 Respiratory Rate 18 18 Blood Pressure 145/71 H 145/71 H Pulse Oximetry 97 97 Oxygen Delivery Method Room Air Room Air BMI result Body Mass Index 26.2 Const General: cooperative, no acute distress, alert and awake Nutritional Appearance: well nourished Orientation/consciousness: patient oriented x3 HENMT Head: Yes normal to inspection and Yes atraumatic Ears: hearing grossly normal bilaterally and external ears normal General nose exam: Normal external nose present, no nasal discharge noted and no epistaxis Face and sinus: Yes normal facial exam, No abrasion and No laceration Mouth: Normal oral and palatal mucosa present, no drooling and no muffled voice Eyes General: appearance normal, both eyes and all related structures Periorbital: periorbital findings normal Eyelids: Yes eyelids normal Conjunctivae: conjunctivae normal Pupils: Equal, round and reactive pupils present EOM: EOMs intact bilaterally Neck Neck: Yes normal visual inspection and Yes full ROM Resp Effort & Inspection: normal respiratory effort and able to speak in complete sentences Neuro General: patient oriented x3, moves all extremities and CN's II-XI intact bilaterally Cranial nerves: Yes Equal, round and reactive pupils present Cognition (Neuro): normal cognition Extrem Other: General: Yes full ROM and Yes capillary refill normal Psych Appearance: grossly normal Mental Status: mental status grossly normal Affect: normal affect Attitude: cooperative Thought process: Normal thought process present Thought content: Normal thought content present Insight: Good insight present (Psych) Course Course Course Narrative: Rapid medical examination performed in triage by Nimco Yoder PA-C: Patient is a 79 year old assigned male at presenting to the emergency department with left 4th finger swelling / possible infection. Patient states he has had left 4th finger pain for 3-4 days. Patient states that he is not a diabetic. Detailed physical exam and review of systems are deferred to the bookkeeping machine operator. Patient placed back in the waiting room pending room availability. Medical Decision Making Medical Decision Making MDM Narrative: Patient is a 79 year old assigned male at with a history of gout, HTN, COPD, and complete heart block presenting to the emergency department today with left 4th finger redness. Patient's physical exam was as noted in the physical exam portion of this note. I explained to the patient that the yellow-katarina lesion on his left 4th digit is concerning and he needs to have it further evaluated by a assurance analyst and/or his PCP. However, the surrounding erythema may be cellulitis for which he was prescribed an antibiotic. I explained my physical exam findings to the patient. I answered all questions asked by the patient. I stressed the importance of the patient taking his medication as directed (either prescribed or as the over the counter packaging recommends). I stressed the importance of the patient following up with his primary care provider. I stressed the importance of the patient returning to the emergency department immediately if his symptoms were to worsen or if he were to develop any dizziness, shortness of breath, difficulty breathing, chest pain, blurry vision, loss of vision, nausea, vomiting, abdominal pain, fever, chills, back pain, or any other complaints. Patient verbalized agreement and understanding with this treatment plan and discharge. Differential Diagnosis Differential Diagnoses: The differential diagnosis associated with the presentation includes Skin lesion Cellulitis Admission/Observation Consideration of admission/observation: Escalation of care including admission/observation considered Patient would have been admitted to the hospital had his clinical presentation warranted hospital admission. Prescription Management I considered prescription management with: Antibiotic (Patient prescribed an antibiotic for possible cellulitis) Discharge Plan Discharge Clinical Impression: Cellulitis of finger Qualifiers: Laterality: left Qualified Code(s): L03.012 - Cellulitis of left finger Patient Disposition: Home, Self-Care Instructions: Cellulitis (ED) Additional Instructions: Your finger appears to have an infection - please take your medication as prescribed. There is also a lesion of the left ring finger that you should have evaluated by your primary care provider and a assurance analyst. IF you are prescribed home medications and/or you are taking over the counter medications at home - it is very important you continue to do so as prescribed / directed unless told otherwise. Follow up with your primary care provider. Return to the emergency department immediately if your symptoms worsen or if you develop any numbness, tingling, dizziness, shortness of breath, difficulty breathing, chest pain, blurry vision, loss of vision, nausea, vomiting, abdominal pain, fever, chills, back pain, or any other complaints. Please see the information below about our Patient Portal. If you are not yet enrolled in the [facility] Patient Portal, you will receive an enrollment email invitation following your visit to any [facility] care setting. You may also self-enroll in the Patient Portal by visiting our website: [email or web address] The following information is required to access the Patient Portal: - Your [facility] [place] - Your personal home email address (must match what is in your electronic medical record, Registration staff can assist with this) - Name - Date of Capabilities of the Patient Portal: - Message some providers - View upcoming appointments - Access your health summary, medical history, and visit history - View current conditions and allergies - View procedure and lab results - View your medications, including guidelines, side effects, and precautions - Complete pre-appointment questionnaires requested by your provider - Ready summary reports of your office visits and procedures To access the Patient Portal Mobile [employer], follow these directions: - Search Smart Panel in the [employer] Store or [employer] - Download the Yoni - Search for [facility] - Enter your login/password Prescriptions: New cephalexin 500 mg capsule 500 mg PO Q6H 7 Days Qty: 28 0RF No Action cholecalciferol (vitamin D3) 50 mcg (2,000 unit) capsule 50 mcg PO DAILY Qty: 90 3RF mirtazapine 7.5 mg tablet 7.5 mg PO BEDTIME Qty: 90 3RF gabapentin 100 mg capsule 100 mg PO BEDTIME Qty: 90 3RF levothyroxine 25 mcg tablet 25 mcg PO DAILY@0630 prednisone 5 mg tablet 5 mg PO DAILY albuterol sulfate 90 mcg/actuation HFA aerosol inhaler 1 inh inhalation QID PRN (Reason: shortness of breath or wheezing) Qty: 6.7 0RF fluticasone furoate-vilanterol [Breo Ellipta] 200-25 mcg/dose blister with device 1 inh inhalation DAILY Qty: 60 3RF amlodipine 5 mg tablet 5 mg PO BID 90 Days Qty: 180 3RF Protocol: Hold for SBP< HOLD for SBP < : 90 rosuvastatin 20 mg tablet 20 mg PO DAILY Qty: 90 3RF aspirin 81 mg tablet 81 mg PO DAILY Qty: 90 3RF clonazepam 1 mg tablet 1 mg PO BEDTIME Qty: 30 0RF tadalafil [Cialis] 10 mg tablet 10 mg PO DAILY PRN (Reason: sexual activity) Qty: 20 0RF Rx Instructions: administer approximately 30min before sexual activity; do not use more than 1 dose per 24hrs Referrals: Tonie Browne PA-C [Primary Care Provider, Internal Medicine] Interventions: ED Discharge Assessment Last Done: 01/06/25 14:27 Discharge Date/Time: 01/06/25 14:27 Print Language: Italian
[2025-01-06 14:27] VITALS: BP 145/71; PULSE 92; RESP 18; TEMP 36.1; O2SAT 97
== END 2025-01-06 14:27 | disposition home or self-care (01) ==
PROVIDERS: Emergency Provider Emergency Medicine; PCP Physician Assistant Medical
DX: L03.012 Cellulitis of left finger (principal)
CPT/HCPCS: 99282; 99283

== ENCOUNTER 2025-01-09 10:56 | Outpatient (REF) | payer MEDICARE, SELFPAY ==
[2025-01-09 12:34] LABS: Appearance Urine Clear; Glucose Urine UA Negative (Negative); PH 5.5 (5.0-9.0); Specific Gravity - Urine 1.015 (1.005-1.025); UMIC TRIGGER UA YES
[2025-01-09 12:56] LABS: Total Protein Urine Random 154 mg/dL (<12)
== END 2025-01-09 10:57 | disposition home or self-care (01) ==
LOC: HO.LAB 10:56
PROVIDERS: PCP Physician Assistant Medical; Visit Provider Internal Medicine Hypertension Specialist
DX: I12.9 Hypertensive chronic kidney disease with stage 1 through stage 4 chronic kidney disease, or unspecified chronic kidney disease (principal); N18.9 Chronic kidney disease, unspecified
CPT/HCPCS: 81001; 82570; 84156

== ENCOUNTER 2025-01-13 13:04 | Outpatient (REF) | payer MEDICARE, SELFPAY ==
[2025-01-13 14:37] LABS: Hematocrit 46.9 % (42.0-52.0); Hemoglobin 14.8 g/dl (14.0-18.0); Mean Corpuscular Volume 87.8 fL (80.0-98.0); Red Blood Count 5.34 X10*6/uL (4.60-5.80); White Blood Count 11.0 X10*3/uL (4.8-10.8)
[2025-01-13 14:38] LABS: Mean Corpuscular HGB Conc 31.6 g/dl (31.0-36.0); Mean Corpuscular Hemoglobin 27.7 pg (27.0-33.0); NRBC Abs Auto 0.000 X10*3/uL (0.0-0.012); NRBC Pct Auto 0.0 /100WBC (0.0-0.2); Platelet Count 192 X10*3/uL (160-400)
[2025-01-13 14:53] LABS: Appearance Urine Clear; Glucose Urine UA Negative (Negative); PH 5.0 (5.0-9.0); Specific Gravity - Urine 1.020 (1.005-1.025); UMIC TRIGGER UA YES
[2025-01-13 15:20] LABS: Alanine Aminotransferase 14 U/L (0-40); Albumin Level 4.4 g/dL (3.5-5.0); Alkaline Phosphatase 122 U/L (39-117); Anion Gap 15 (12-20); Aspartate Amino Transferase 29 U/L (5-37); Blood Urea Nitrogen 25 mg/dL (9-16); Calcium 9.6 mg/dL (8.4-10.2); Carbon Dioxide 24 mmol/L (22-29); Chloride 108 mmol/L (96-108); Estimated Glomerular Filt Rate 29; Potassium 5.3 mmol/L (3.3-5.1); Sodium 142 mmol/L (135-145); Total Protein 7.5 g/dL (6.5-8.0)
[2025-01-13 15:48] LABS: Total Protein Urine Random 260 mg/dL (<12)
[2025-01-13 16:51] LABS: Parathyroid Hormone Intact 388.7 pg/mL (8.7-77.1)
[2025-01-14 20:53] LABS: Prot Elec - Albumin 3.8 g/dL (3.8-4.8); Prot Elec - Alpha1 0.4 g/dL (0.2-0.3); Prot Elec - Alpha2 1.1 g/dL (0.5-0.9); Prot Elec - Beta 1 0.5 g/dL (0.4-0.6); Prot Elec - Beta 2 0.4 g/dL (0.2-0.5); Prot Elec - Gamma 0.9 g/dL (0.8-1.7); Prot Elec - Total Protein 7.1 g/dL (6.1-8.1)
[2025-01-14 21:23] LABS: Anti Glomerular Basement Memb <1.0 AI
[2025-01-16 10:53] LABS: Neutrophil Cyto Ab Screen NEGATIVE (NEGATIVE)
[2025-01-17 11:08] LABS: Anti Nuclear Antibody Screen NEGATIVE (NEGATIVE)
[2025-01-18 15:18] LABS: Phospholipase A2 IgG ELISA <4 RU/mL; Phospholipase A2 IgG IFA NEGATIVE (NEGATIVE)
== END 2025-01-13 13:05 | disposition home or self-care (01) ==
LOC: HO.LAB 13:04
PROVIDERS: PCP Physician Assistant Medical; Visit Provider Internal Medicine Hypertension Specialist
DX: I12.9 Hypertensive chronic kidney disease with stage 1 through stage 4 chronic kidney disease, or unspecified chronic kidney disease (principal); N18.9 Chronic kidney disease, unspecified; Z87.891 Personal history of nicotine dependence
CPT/HCPCS: 36415; 80053; 81001; 82570; 83520; 83970; 84156; 84165; 85027; 86036; 86038; 86160; 86255; 99212

== ENCOUNTER 2025-01-13 13:04 | Outpatient (AMB) | payer MEDICARE, SELFPAY ==
--- NOTE | 2025-01-13 13:09 | HO.NEPHOV_ITS ---
Vital Signs 01/13/25 13:10 Height 5 ft 7 in Weight 168 lb BMI 26.3 BP 110/74 Blood Pressure Location Lt brachial Position Sitting Pulse 101 H Pulse Source Pulse Oximeter Pulse Oximetry (%) 95 Oxygen Delivery Method Room Air Intake Visit Reasons: 6 wks f/u w/ labs and US Pallet Stone Inserter Required: No Accompanied by: Self / Same As Patient Allergies CRANBERRY JUICE Allergy (Unknown, Uncoded 01/06/25 10:57) DIARRHEA Medication List - Last Reconciled 01/13/25 by Luis Alberto Graham MD albuterol sulfate 90 mcg/actuation 1 inh inhalation QID PRN amlodipine 5 mg See Protocol PO BID 90 days aspirin 81 mg PO DAILY cephalexin 500 mg PO Q6H 7 days cholecalciferol (vitamin D3) 50 mcg PO DAILY clonazepam 1 mg PO BEDTIME fluticasone furoate-vilanterol 200-25 mcg/dose (Breo Ellipta) 1 inh inhalation DAILY gabapentin 100 mg PO BEDTIME levothyroxine 25 mcg PO DAILY@0630 mirtazapine 7.5 mg PO BEDTIME prednisone 5 mg PO DAILY rosuvastatin 20 mg PO DAILY tadalafil (Cialis) 10 mg PO DAILY PRN HPI Comments Details: - The patient is a 79-year-old male presenting with chronic kidney disease and hypertension. - Chronic Kidney Disease: History of chronic kidney disease with creatinine 1.8- 1.9 mg/dL, kidney function at 34%. - Hospitalized a year ago History of hypertension, currently slightly elevated. - Blood pressure not regularly monitored at home, granddaughter assists occasionally. - History of Smoking: Quit smoking three years ago. - History of Alcohol Use: Quit drinking, beneficial for health. - Pleural Effusion: Fluid removed from chest last year 01/13/25 The patient is a 79-year-old male presenting with chronic kidney disease and proteinuria. The patient underwent an ultrasound at the end of last month, which showed both kidneys w The patient has a history of hypertension, which has been well-controlled with amlodipine, with current blood pressure readings at 110/74 mmHg. The patient has been experiencing proteinuria, with recent urine tests showing approximately 2000 mg of protein, but no blood was detected. The patient's kidney function has been stable at stage 3B chronic kidney disease, with a glomerular filtration rate (GFR) around 36% for the past year. The patient has a history of cellulitis in the finger, which is currently being treated with cephalexin, and the infection is showing signs of improvement. The patient has a history of smoking cessation two years ago and reports no current smoking habits. The patient also reports no issues with urination, such as burning or pain, and no swelling in the extremities was observed during the examination. [facility] Medical History Low testosterone in male CKD (chronic kidney disease) Low vitamin D level Preventative health care Prediabetes Erectile dysfunction Anxiety and depression History of nicotine use CKD stage 3a, GFR 45-59 ml/min PAD (peripheral artery disease) History of underactive thyroid Thrombocytosis GERD (gastroesophageal reflux disease) HTN (hypertension) Dyslipidemia COPD (chronic obstructive pulmonary disease) CKD (chronic kidney disease), stage III Gout Surgical History S/P balloon dilatation of esophageal stricture Social History Household Members: Family Housing: Other Housing Other:: mobile home Do you presently have visiting nurse or other home services: Yes Alcohol intake: current Alcohol intake frequency: does not drink Patient Tobacco Use Status: Former Tobacco user Advance Directives Date on File: 05/03/23 service: No Current occupational status: retired Cognitive needs: Yes (walker) Hearing needs: No Vision needs: Yes (reading glasses) Physical Exam Vital Signs: Last Vital Signs Pulse 101 H 01/13/25 13:10 BP 110/74 01/13/25 13:10 Pulse Ox 95 01/13/25 13:10 Oxygen Delivery Method Room Air 01/13/25 13:10 BMI result Body Mass Index 26.3 Comfortable Neck supple no JVD. Lungs entry equal no rales. Heart S1-S2 heard no gallop or rub. Abdomen soft nontender. Neuro alert awake oriented. No asterixis. Extremities no edema. Results Reviewed Nephrology Results: Hgb, (14.0-18.0) 15.3 g/dl 11/20/24 WBC, (4.8-10.8) 10.9 X10*3/uL H 11/20/24 Plt Count, (160-400) 208 X10*3/uL Δ 11/20/24 Sodium, (135-145) 142 mmol/L 11/20/24 Potassium, (3.3-5.1) 5.0 mmol/L 11/20/24 Chloride, (96-108) 110 mmol/L H 11/20/24 Carbon Dioxide, (22-29) 24 mmol/L 11/20/24 BUN, (9-16) 22 mg/dL H 11/20/24 Creatinine, (0.5-1.4) 1.90 mg/dL H 11/20/24 Calcium, (8.4-10.2) 9.1 mg/dL 11/20/24 Urine Protein, (Neg-Trace) 300 (3+) mg/dL H 01/09/25 Urine Creatinine 72.21 mg/dL 01/09/25 Renal US 12/30/24 Assessment & Plan Assessment & Plan (1) CKD (chronic kidney disease): Code(s): N18.9 - Chronic kidney disease, unspecified Category: Medical Plan: Overall renal function has been stable for the last few years. Optimize blood pressure Avoid hypotension Continue to avoid nephrotoxic agents including NSAIDs Renal USG - No hydro-Has bilateral cysts Has about 2 gm proteinuria Needs work up - ordered May need a kidney biopsy based on serology Will deceide based on serologies (2) HTN (hypertension): Code(s): I10 - Essential (primary) hypertension Category: Medical Plan: Blood pressure well controlled Continue the amlodipine. Encouraged to stay on low-sodium diet Orders: Orders Creatinine Urine Today I10 - Essential (primary) hypertension, N18.9 - Chronic kidney disease, unspecified UA and rflx microscopic Today I10 - Essential (primary) hypertension, N18.9 - Chronic kidney disease, unspecified Neutrophil Cytoplasma Ab Today I10 - Essential (primary) hypertension, N18.9 - Chronic kidney disease, unspecified Anti Glomerular Basement Memb Today I10 - Essential (primary) hypertension, N18.9 - Chronic kidney disease, unspecified Complete Blood Count no Diff Today I10 - Essential (primary) hypertension, N18.9 - Chronic kidney disease, unspecified Comprehensive Met. Panel Today I10 - Essential (primary) hypertension, N18.9 - Chronic kidney disease, unspecified Total Protein Urine Random Today I10 - Essential (primary) hypertension, N18.9 - Chronic kidney disease, unspecified Parathyroid Hormone Intact Today I10 - Essential (primary) hypertension, N18.9 - Chronic kidney disease, unspecified FLAVIO Reflex Titer and Pattern Today I10 - Essential (primary) hypertension, N 18.9 - Chronic kidney disease, unspecified Complement C3 Today I10 - Essential (primary) hypertension, N18.9 - Chronic kidney disease, unspecified Complement C4 Today I10 - Essential (primary) hypertension, N18.9 - Chronic kidney disease, unspecified Protein Electrophoresis, Serum Today I10 - Essential (primary) hypertension, N18.9 - Chronic kidney disease, unspecified Phospholipase A2 Receptor Pnl Today I10 - Essential (primary) hypertension, N18.9 - Chronic kidney disease, unspecified Coding Level of Care Code Est Pt Level 4 (80263) Diagnoses CKD (chronic kidney disease) N18.9 HTN (hypertension) I10
[2025-01-13 13:10] VITALS: BP 110/74; PULSE 101; O2SAT 95; BMI 26.3
== END 2025-01-13 13:41 | disposition home or self-care (01) ==
PROVIDERS: PCP Physician Assistant Medical; Visit Provider Internal Medicine Hypertension Specialist
DX: I12.9 Hypertensive chronic kidney disease with stage 1 through stage 4 chronic kidney disease, or unspecified chronic kidney disease (principal); N18.9 Chronic kidney disease, unspecified
CPT/HCPCS: 99214

== ENCOUNTER 2025-01-14 14:00 | Outpatient (AMB) | payer MEDICARE, SELFPAY ==
[2025-01-14 14:33] VITALS: BP 171/75; PULSE 66; RESP 18; TEMP 36.6; O2SAT 95; BMI 28.2
--- NOTE | 2025-01-14 14:33 | A.OFFPC_ITS ---
Vital Signs 01/14/25 14:33 01/14/25 15:14 Height 5 ft 4.57 in Weight 167 lb BMI 28.2 BP 171/75 H 132/65 Blood Pressure Location Rt brachial Rt brachial Position Sitting Respiration 18 Pulse 66 Pulse Source Pulse Oximeter Temp 97.9 F Temp Source Temporal Artery Scan Pulse Oximetry (%) 95 Oxygen Delivery Method Room Air Intake Visit Reasons: Review results Consultant Teacher Required: No Accompanied by: Self / Same As Patient Allergies CRANBERRY JUICE Allergy (Unknown, Uncoded 01/14/25 15:15) DIARRHEA Medication List - Last Reconciled 01/14/25 by Tonie Browne PA-C albuterol sulfate 90 mcg/actuation 1 inh inhalation QID PRN amlodipine 5 mg See Protocol PO BID 90 days aspirin 81 mg PO DAILY cholecalciferol (vitamin D3) 50 mcg PO DAILY clonazepam 1 mg PO BEDTIME fluticasone furoate-vilanterol 200-25 mcg/dose (Breo Ellipta) 1 inh inhalation DAILY gabapentin 100 mg PO BEDTIME levothyroxine 25 mcg PO DAILY@0630 mirtazapine 7.5 mg PO BEDTIME prednisone 5 mg PO DAILY rosuvastatin 20 mg PO DAILY sodium zirconium cyclosilicate (Lokelma) 5 grams PO ONCE tadalafil 20 mg PO DAILY PRN Tobacco use date assessed: 11/15/24 Dental Screening Dental Screen Date: 11/15/24 HPI Review results HPI Details The patient is a 79-year-old male presenting for a follow-up visit after an emergency room visit for cellulitis and for chronic condition management. The patient was seen in the emergency department on 01/06 for cellulitis on his left fourth ring finger, which had some pus. He was prescribed Keflex 500 mg every six hours and reports the finger has since healed well. The patient reports having erectile dysfunction and was prescribed Cialis, which he notes is not working effectively, estimating its efficacy at only 10%. For hypertension, the patient takes amlodipine twice a day and denies significant leg swelling as a side effect. His blood pressure was noted to be normal at his kidney specialist appointment yesterday. The patient has a history of prediabetes, with a hemoglobin A1c of 5.9%, and a history of lung cancer. He is followed by a properties supervisor for kidney issues and had blood work done yesterday. Recent lab results show worsening kidney function with a BUN increasing from 22 to 25 mg/dL, creatinine from 1.9 to 2.0 mg/dL, and a GFR of 29. His potassium is elevated at 5.3 mEq/L, and his PTH level was 388.7 pg/mL. He has a chronically elevated white blood cell count of 11,000 and persistent proteinuria. An ultrasound of his kidneys revealed bilateral cysts, and a future MRI or CT scan was suggested to evaluate for a renal mass, with the properties supervisor also considering a kidney biopsy. Social History - Diet: The patient reports he is almost a vegetarian and eats meat approximately twice a week. [facility] Medical History (Updated 01/14/25 @ 15:18 by Tonie Browne PA-C) Hyperkalemia Cellulitis Low testosterone in male CKD (chronic kidney disease) Low vitamin D level Preventative health care Prediabetes Erectile dysfunction Anxiety and depression History of nicotine use CKD stage 3a, GFR 45-59 ml/min PAD (peripheral artery disease) History of underactive thyroid Thrombocytosis GERD (gastroesophageal reflux disease) HTN (hypertension) Dyslipidemia COPD (chronic obstructive pulmonary disease) CKD (chronic kidney disease), stage III Gout Surgical History S/P balloon dilatation of esophageal stricture Social History Household Members: Family Housing: Other Housing Other:: mobile home Do you presently have visiting nurse or other home services: Yes Alcohol intake: current Alcohol intake frequency: does not drink Patient Tobacco Use Status: Former Tobacco user Advance Directives Date on File: 05/03/23 service: No Current occupational status: retired Cognitive needs: Yes (walker) Hearing needs: No Vision needs: Yes (reading glasses) Questionnaire PHQ-9 Over the last 2 weeks, how often have you been bothered by any of the following problems? 1. Little interest or pleasure in doing things: not at all 2. Feeling down, depressed, or hopeless: nearly every day 3. Trouble falling or staying asleep, or sleeping too much: nearly every day 4. Feeling tired or having little energy: nearly every day 5. Poor appetite or overeating: several days 6. Feeling bad about yourself - or that you are a failure or have let yourself or your family down: nearly every day 7. Trouble concentrating on things, such as reading the newspaper or watching television: nearly every day 8. Moving or speaking so slowly that other people could have noticed. Or the opposite - being so fidgety or restless that you have been moving around a lot more than usual: nearly every day 9. Thoughts that you would be better off or of hurting yourself in some way: several days Total score: 20 Depression Screening Interpretation: Positive Depression Screening Follow-up: Existing condition and Follow-up Visit Requested Depression Screening Done: Yes 31910 - PHQ-9 Billing: Yes Source: Developed by Drs. Jann Reyes, Anita Kay, Daniel Garcia and colleagues, with an educational juana from [employer]. Thrive Questionnaire Date Thrive assessed: 11/15/24 I am a: Patient What is your living situation today?: I have a steady place to live Within the past 12 months, did the food you bought not last and you didn't have the money to get more?: Never true Within the past 12 months, did you worry whether your food would run out before you got money to buy more?: Never true Do you have trouble paying for medicines?: No Do you have trouble getting transportation to medical appointments?: No Do you have trouble paying your heating and electricity bill?: No Do you have trouble taking care of your child, family member or friend?: No Do you have trouble with day-to-day activities such as bathing, preparing meals, shopping, managing finances, etc.?: No Are you currently unemployed and looking for a job?: No Are you interested in more education?: No Please select the resources that you would like help with: None THRIVE Score: 0 AUDIT C Alcohol Use Questionnaire (AUDIT-C) 1. How often do you have a drink containing alcohol?: Never 3. How often do you have six or more drinks on one occasion?: Never Total Score: 0 Score Reviewed/Action Taken: No ZHANNA-7 AMB Questionnaire ZHANNA-7 Date ZHANNA - 7 assessed: 11/15/24 Feeling nervous, anxious, or on edge: 3 = Nearly every day Not being able to stop or control worryin = Nearly every day Worrying too much about different things: 3 = Nearly every day Trouble relaxin = Nearly every day Being so restless that it is hard to sit still: 3 = Nearly every day Becoming easily annoyed or irritable: 1 = Several days Feeling afraid as if something awful might happen: 3 = Nearly every day Total ZHANNA-7 score (0-4 normal; 5-9 mild; 10-14 moderate; 15-21 severe): 19 Source: Developed by Drs. Jann Reyes, Anita Kay, Daniel Garcia and colleagues, with an educational juana from [employer]. ZHANNA-7 Assessment Billing ZHANNA-7 Assessment Tool: ZHANNA-7 Assessment 85346 Review of Systems Const Details: - Genitourinary: Reports erectile dysfunction. - Constitutional: Denies chest pain and shortness of breath. - Musculoskeletal: Denies leg swelling. All systems reviewed & are unremarkable except as noted in HPI and below Physical exam (Primary Care) Vital Signs: Last Vital Signs Temp 97.9 F 01/14/25 14:33 Pulse 66 01/14/25 14:33 Resp 18 01/14/25 14:33 BP 171/75 H 01/14/25 14:33 Pulse Ox 95 01/14/25 14:33 Oxygen Delivery Method Room Air 01/14/25 14:33 Care Plan Goal for BP management: <140/90 at Goal BMI result Body Mass Index 28.2 BMI Assessment/Plan discussion: High BMI High, discussed plan: lifestyle, weight reduction, dietary, physical activity, alcohol moderation and other Tobacco/Smoking Status: Tobacco use Status Tobacco use date assessed 11/15/24 01/14/25 14:34 Patient Tobacco Use Status Former Tobacco user 01/14/25 14:34 PHQ-9: PHQ-9 Score PHQ-9: Total score 20 01/14/25 14:53 Depression Screening Interpretation: Positive Depression Screening Follow-up: Existing condition and Follow-up Visit Requested Thrive Assessment: Date of Thrive Assessment Date Thrive assessed 11/15/24 01/14/25 14:34 Const Other: Appearance: Alert. Oriented X3. No acute distress. Head: Normal external exam. Normocephalic. Atraumatic. Eyes: Pupils are equal, round, and reactive to light. Extraocular movements intact. Conjunctiva and sclera normal. Eyelids normal. Throat: Pharynx normal. Uvula midline. Moist mucous membranes. Neck: Normal inspection. Neck supple. Full range of motion. Cardiovascular: Normal heart rate and rhythm. Heart sound normal. No murmurs noted. Pulses normal throughout. Respiratory: No respiratory distress. Painless inspiration. Breath sounds normal. No wheezes/rales/rhonchi noted. No accessory muscle usage noted or decreased air movement noted. Abdomen: Soft and nontender. Bowel sounds normal in all 4 quadrants. No distention noted. No organomegaly noted. Back: No costovertebral angle tenderness. Full range of motion noted. Skin: Skin warm and dry. Normal skin color. Normal skin turgor. No rashes/lesions/lacerations noted. Extremities: No lower extremity edema. Extremities exhibit normal range of motion. Extremities nontender. Legs not swollen, no redness noted. Neuro: Oriented X 3. No motor deficit. No sensory deficit. Reflexes normal. Results Reviewed Results Reviewed: - Labs - CBC: White blood cell count 11,000/mcL (chronically elevated), no anemia, platelet count normal. - Chemistry: Potassium 5.3 mEq/L, BUN 25 mg/dL, creatinine 2.0 mg/dL, GFR 29 mL/min. - HgbA1c: 5.9%. - Liver Enzymes: Normal. - Alkaline Phosphatase: 122 U/L. - Parathyroid hormone (PTH): 388.7 pg/mL. - Urinalysis: Shows significant proteinuria. - Imaging - Kidney Ultrasound: Showed bilateral cysts with a recommendation for an MRI or CT scan for possible renal mass. Coding Level of Care Code Est Pt Level 4 (09133) Complex EM visit Add On G2211 Diagnoses Cellulitis L03.90 Erectile dysfunction N52.9 HTN (hypertension) I10 CKD (chronic kidney disease) N18.9 Hyperkalemia E87.5 Additional Codes ZHANNA-7 Assessment Billing - ZHANNA-7 Assessment Tool: ZHANNA-7 Assessment 76891 ([id number]) PHQ-9 - 56612 - PHQ-9 Billing: Yes ([id number]) Assessment & Plan Assessment & Plan (1) Cellulitis: Code(s): L03.90 - Cellulitis, unspecified Category: Medical Plan: The patient presented for follow-up of cellulitis on the left fourth finger, for which he was treated with Keflex after an ER visit. Examination revealed the finger is well-healed. The patient was advised to finish the course of antibiotics if he had not already done so. (2) Erectile dysfunction: Code(s): N52.9 - Male erectile dysfunction, unspecified Category: Medical Plan: The patient reports that Cialis 10 mg is not effective. The dose will be increased to tadalafil 20 mg, and a new prescription with six refills has been sent to the pharmacy. (3) HTN (hypertension): Code(s): I10 - Essential (primary) hypertension Category: Medical Plan: The patient's blood pressure was elevated initially but improved to 132/65 mmHg on recheck. He will continue taking amlodipine 5 mg twice daily. (4) CKD (chronic kidney disease): Code(s): N18.9 - Chronic kidney disease, unspecified Category: Medical Plan: The patient's recent labs show worsening kidney function and mild hyperkalemia with a potassium level of 5.3 mEq/L. After consulting with the patient's properties supervisor, a one-time dose of Lokelma 5 g was prescribed to lower his potassium. The patient is instructed to have repeat, non-fasting blood work in two days to check his potassium and magnesium levels. The plan for evaluating his bilateral kidney cysts, including a potential MRI/CT or biopsy, will be managed by his properties supervisor. (5) Hyperkalemia: Code(s): E87.5 - Hyperkalemia Category: Medical Plan: The patient's recent labs show worsening kidney function and mild hyperkalemia with a potassium level of 5.3 mEq/L. After consulting with the patient's properties supervisor, a one-time dose of Lokelma 5 g was prescribed to lower his potassium. The patient is instructed to have repeat, non-fasting blood work in two days to check his potassium and magnesium levels. The plan for evaluating his bilateral kidney cysts, including a potential MRI/CT or biopsy, will be managed by his properties supervisor. Plan Plan Patient was informed and verbally consented to the use of an ambient scribe for clinic note documentation during this visit. 1. Cellulitis The patient presented for follow-up of cellulitis on the left fourth finger, for which he was treated with Keflex after an ER visit. Examination revealed the finger is well-healed. The patient was advised to finish the course of antibiotics if he had not already done so. 2. Erectile Dysfunction The patient reports that Cialis 10 mg is not effective. The dose will be increased to tadalafil 20 mg, and a new prescription with six refills has been sent to the pharmacy. 3. Hypertension The patient's blood pressure was elevated initially but improved to 132/65 mmHg on recheck. He will continue taking amlodipine 5 mg twice daily. 4. Chronic Kidney Disease And Hyperkalemia The patient's recent labs show worsening kidney function and mild hyperkalemia with a potassium level of 5.3 mEq/L. After consulting with the patient's properties supervisor, a one-time dose of Lokelma 5 g was prescribed to lower his potassium. The patient is instructed to have repeat, non-fasting blood work in two days to check his potassium and magnesium levels. The plan for evaluating his bilateral kidney cysts, including a potential MRI/CT or biopsy, will be managed by his properties supervisor. 5. Health Maintenance The patient is scheduled for a follow-up appointment in three months. I confirmed with the patient that this visit was a follow-up for his recent ER visit for cellulitis. His finger has healed nicely. We discussed his erectile dysfunction, and since Cialis 10 mg was not effective, I have increased the dose to 20 mg and sent a new prescription with refills. We reviewed his recent lab results, which showed his potassium was slightly high at 5.3 mEq/L and his kidney function had worsened a bit. After messaging his properties supervisor, I prescribed a one-time dose of Lokelma 5 g powder to lower his potassium. I instructed him to take the packet today and to have repeat blood work on to ensure the level normalizes. I reassured him that his blood pressure today was good on recheck. We also discussed the findings of bilateral kidney cysts on his ultrasound and the potential for a kidney biopsy, which his properties supervisor is considering. I recommended he follow up with me in three months. Orders: Orders Basic Metabolic Panel Today Z00.00 - Encounter for general adult medical examination without abnormal findings Magnesium Today Z00.00 - Encounter for general adult medical examination without abnormal findings Medications: New sodium zirconium cyclosilicate (Lokelma) 5 grams PO ONCE 1 ea 0RF Changed From tadalafil (Cialis) administer approximately 30min before sexual activity; do not use more than 1 dose per 24hrs 10 mg PO DAILY PRN 20 tabs 0RF sexual activity To tadalafil administer approximately 30min before sexual activity; do not use more than 1 dose per 24hrs 20 mg PO DAILY PRN 20 tabs 0RF sexual activity Refilled tadalafil administer approximately 30min before sexual activity; do not use more than 1 dose per 24hrs 20 mg PO DAILY PRN 20 tabs 6RF sexual activity Discontinued cephalexin Discontinued Reason: More recent result 500 mg PO Q6H 7 days 28 caps 0RF Patient Instructions: - Your finger infection has healed well. - I have increased your medication for erectile dysfunction (Cialis) to 20 mg since the lower dose was not working. - You can take one pill 30 minutes before sexual activity. - Continue taking your amlodipine 5 mg twice a day for blood pressure. - Your recent blood test showed your potassium is a little high. - I have sent a prescription for one packet of a powder medicine called [employer]. - Take this one packet just one time today. - Please go for a follow-up blood test on to make sure your potassium level has gone down. - You do not need to be fasting for this test. - You do not have any chest pain or shortness of breath. - Please seek medical care if these symptoms develop. - Please schedule a follow-up appointment to see me in three months.
[2025-01-14 15:14] VITALS: BP 132/65
== END 2025-01-14 15:15 | disposition home or self-care (01) ==
PROVIDERS: PCP Physician Assistant Medical; Visit Provider Physician Assistant Medical
DX: L03.90 Cellulitis, unspecified (principal); N52.9 Male erectile dysfunction, unspecified; I12.9 Hypertensive chronic kidney disease with stage 1 through stage 4 chronic kidney disease, or unspecified chronic kidney disease; N18.9 Chronic kidney disease, unspecified; E87.5 Hyperkalemia

== ENCOUNTER → 2025-01-14 14:00 | Outpatient (BNVA) | payer MEDICARE, SELFPAY | PROVIDERS: PCP Physician Assistant Medical; Visit Provider Physician Assistant Medical | DX: I12.9 Hypertensive chronic kidney disease with stage 1 through stage 4 chronic kidney disease, or unspecified chronic kidney disease (principal); R73.03 Prediabetes; L03.90 Cellulitis, unspecified; N52.9 Male erectile dysfunction, unspecified; N18.9 Chronic kidney disease, unspecified; E87.5 Hyperkalemia | CPT/HCPCS: 96127; 99212 ==

== ENCOUNTER 2025-01-17 13:04 | Outpatient (REF) | payer MEDICARE, SELFPAY ==
[2025-01-17 14:06] LABS: Anion Gap 14 (12-20); Blood Urea Nitrogen 24 mg/dL (9-16); Calcium 9.6 mg/dL (8.4-10.2); Carbon Dioxide 26 mmol/L (22-29); Chloride 108 mmol/L (96-108); Estimated Glomerular Filt Rate 31; Magnesium 1.7 mg/dL (1.6-2.6); Potassium 5.1 mmol/L (3.3-5.1); Sodium 143 mmol/L (135-145)
== END 2025-01-17 13:05 | disposition home or self-care (01) ==
LOC: HO.LAB 13:04
PROVIDERS: PCP Physician Assistant Medical; Visit Provider Physician Assistant Medical
DX: Z00.00 Encounter for general adult medical examination without abnormal findings (principal)
CPT/HCPCS: 36415; 80048; 83735

== ENCOUNTER 2025-01-27 11:56 | Outpatient (AMB) | payer MEDICARE, SELFPAY ==
--- NOTE | 2025-01-27 11:57 | HO.NEPHOV_ITS ---
Vital Signs 01/27/25 11:58 01/27/25 12:08 Height 5 ft 7 in Weight 168 lb BMI 26.3 BP 146/80 H 130/60 Blood Pressure Location Rt brachial Rt brachial Position Sitting Sitting Intake Visit Reasons: 2wk f/u w/labs same day 01/13/25 [employer] [place]ation Worker Required: No Accompanied by: Self / Same As Patient Allergies CRANBERRY JUICE Allergy (Unknown, Uncoded 01/14/25 15:15) DIARRHEA Medication List - Last Reconciled 01/27/25 by Luis Alberto Graham MD albuterol sulfate 90 mcg/actuation 1 inh inhalation QID PRN amlodipine 5 mg See Protocol PO BID 90 days aspirin 81 mg PO DAILY cholecalciferol (vitamin D3) 50 mcg PO DAILY clonazepam 1 mg PO BEDTIME fluticasone furoate-vilanterol 200-25 mcg/dose (Breo Ellipta) 1 inh inhalation DAILY gabapentin 100 mg PO BEDTIME levothyroxine 25 mcg PO DAILY@0630 mirtazapine 7.5 mg PO BEDTIME prednisone 5 mg PO DAILY rosuvastatin 20 mg PO DAILY sodium zirconium cyclosilicate (Lokelma) 5 grams PO ONCE tadalafil 20 mg PO DAILY PRN HPI Comments Details: - The patient is a 79-year-old male presenting with chronic kidney disease and hypertension. - Chronic Kidney Disease: History of chronic kidney disease with creatinine 1.8- 1.9 mg/dL, kidney function at 34%. - Hospitalized a year ago History of hypertension, currently slightly elevated. - Blood pressure not regularly monitored at home, granddaughter assists occasionally. - History of Smoking: Quit smoking three years ago. - History of Alcohol Use: Quit drinking, beneficial for health. - Pleural Effusion: Fluid removed from chest last year 01/13/25 The patient is a 79-year-old male presenting with chronic kidney disease and proteinuria. The patient underwent an ultrasound at the end of last month, which showed both kidneys with cyst The patient has a history of hypertension, which has been well-controlled with amlodipine, with current blood pressure readings at 110/74 mmHg. The patient has been experiencing proteinuria, with recent urine tests showing approximately 2000 mg of protein, but no blood was detected. The patient's kidney function has been stable at stage 3B chronic kidney disease, with a glomerular filtration rate (GFR) around 36% for the past year. The patient has a history of cellulitis in the finger, which is currently being treated with cephalexin, and the infection is showing signs of improvement. The patient has a history of smoking cessation two years ago and reports no current smoking habits. The patient also reports no issues with urination, such as burning or pain, and no swelling in the extremities was observed during the examination. 01/27/25 The patient is a 79 year old individual presenting for follow-up of chronic kidney disease. Kidney function is noted to be approximately 30%, and the patient has significant proteinuria. The patient reports that blood pressure readings are typically high upon arrival at the doctor's office and subsequently decrease, which was observed during this visit with an initial reading of 146/80 mmHg that improved to 130/60 mmHg. The patient has a remote history of a bone marrow biopsy performed 50-60 years ago,- i could not track the results, though the results were reportedly normal. [facility] Medical History (Updated 01/27/25 @ 12:12 by Luis Alberto Graham MD) Hyperkalemia Cellulitis Low testosterone in male CKD (chronic kidney disease) Low vitamin D level Preventative health care Prediabetes Erectile dysfunction Anxiety and depression History of nicotine use CKD stage 3a, GFR 45-59 ml/min PAD (peripheral artery disease) History of underactive thyroid Thrombocytosis GERD (gastroesophageal reflux disease) HTN (hypertension) Dyslipidemia COPD (chronic obstructive pulmonary disease) CKD (chronic kidney disease), stage III Gout Surgical History S/P balloon dilatation of esophageal stricture Social History Household Members: Family Housing: Other Housing Other:: mobile home Do you presently have visiting nurse or other home services: Yes Alcohol intake: current Alcohol intake frequency: does not drink Patient Tobacco Use Status: Former Tobacco user Advance Directives Date on File: 05/03/23 service: No Current occupational status: retired Cognitive needs: Yes (walker) Hearing needs: No Vision needs: Yes (reading glasses) Physical Exam Vital Signs: Last Vital Signs BP 130/60 01/27/25 12:08 BMI result Body Mass Index 26.3 Comfortable Neck supple no JVD. Lungs entry equal no rales. Heart S1-S2 heard no gallop or rub. Abdomen soft nontender. Neuro alert awake oriented. No asterixis. Extremities no edema. Results Reviewed Nephrology Results: Hgb, (14.0-18.0) 14.8 g/dl 01/13/25 WBC, (4.8-10.8) 11.0 X10*3/uL H 01/13/25 Plt Count, (160-400) 192 X10*3/uL 01/13/25 Sodium, (135-145) 143 mmol/L 01/17/25 Potassium, (3.3-5.1) 5.1 mmol/L 01/17/25 Chloride, (96-108) 108 mmol/L 01/17/25 Carbon Dioxide, (22-29) 26 mmol/L 01/17/25 BUN, (9-16) 24 mg/dL H 01/17/25 Creatinine, (0.5-1.4) 2.06 mg/dL H 01/17/25 Calcium, (8.4-10.2) 9.6 mg/dL 01/17/25 PTH Intact, (8.7-77.1) 388.7 pg/mL H 01/13/25 Urine Protein, (Neg-Trace) 300 (3+) mg/dL H 01/13/25 Urine Creatinine 192.78 mg/dL 01/13/25 Renal US 12/30/24 Assessment & Plan Assessment & Plan (1) CKD (chronic kidney disease): Code(s): N18.9 - Chronic kidney disease, unspecified Category: Medical Plan: Overall renal function has been stable for the last few years. Optimize blood pressure Avoid hypotension Continue to avoid nephrotoxic agents including NSAIDs Renal USG - No hydro-Has bilateral cysts Has about 2 gm proteinuria Question of Monoclonal protein Will arrange for kidney biopsy (2) HTN (hypertension): Code(s): I10 - Essential (primary) hypertension Category: Medical Plan: Blood pressure well controlled Continue the amlodipine. Encouraged to stay on low-sodium diet Orders: Orders CT biopsy renal RT Today N18.9 - Chronic kidney disease, unspecified, R80.9 - Proteinuria, unspecified Coding Level of Care Code Est Pt Level 4 (74379) Diagnoses CKD (chronic kidney disease) N18.9 HTN (hypertension) I10
[2025-01-27 11:58] VITALS: BP 146/80; BMI 26.3
[2025-01-27 12:08] VITALS: BP 130/60
== END 2025-01-27 12:15 | disposition home or self-care (01) ==
LOC: HO.HKA 11:56
PROVIDERS: PCP Physician Assistant Medical; Visit Provider Internal Medicine Hypertension Specialist
DX: I12.9 Hypertensive chronic kidney disease with stage 1 through stage 4 chronic kidney disease, or unspecified chronic kidney disease (principal); N18.9 Chronic kidney disease, unspecified
CPT/HCPCS: 99214

== ENCOUNTER → 2025-01-27 11:56 | Outpatient (BNVA) | payer MEDICARE, SELFPAY | PROVIDERS: PCP Physician Assistant Medical; Visit Provider Internal Medicine Hypertension Specialist | DX: I12.9 Hypertensive chronic kidney disease with stage 1 through stage 4 chronic kidney disease, or unspecified chronic kidney disease (principal); Z87.891 Personal history of nicotine dependence; R80.9 Proteinuria, unspecified; N28.1 Cyst of kidney, acquired; Z79.82 Long term (current) use of aspirin; N18.32 Chronic kidney disease, stage 3b | CPT/HCPCS: 99212 ==